=== PATIENT | female | born 1950 | race Caucasian/White ===

== ENCOUNTER 2022-12-25 19:00 | Inpatient (IN) ==
[2022-12-25] MEDS ORDERED: SODIUM CHLORIDE 0.9% 1,000 ML IV SCH (19:30)
--- NOTE | 2022-12-25 19:32 | Emergency Department Note ---
Impression & Plan COVID-19, Elevated troponin, Elevated CPK, Non-ST elevation (NSTEMI) myocardial infarction, Hypoxia, Fall from standing ED Provider Note NAME: ALEJANDRO COLLINS AGE: 72 SEX: F ARRIVES VIA: Ambulance INFORMANT: Patient ED PROVIDER(S): Sharif Goldman MD CHIEF COMPLAINT: Weakness, fall PLAN: Disposition: Admit MEDICAL DECISION MAKING: The patient is a pleasant 72-year-old woman with a past medical history of GERD, hypertension, hyperlipidemia, hypothyroidism, type 2 diabetes on insulin who presents emergency department for evaluation of generalized weakness with fall that occurred prior to arrival when the patient was feeling nauseated and needed to vomit in the bathroom and was leaning against a freestanding tub which she thought her was going to support but did not and it fell over causing her to fall to the ground onto her buttocks. She denies hitting her head or losing consciousness. She reports she attempted to get up using her knees on the rug but due to to pain from her chronically bad knees was unable to and so EMS was called. She initially did not want to come to the hospital but due to her inability to get up and ambulate agreed to come. She reports she has been dealing with mild cough and congestion with nausea, vomiting and diarrhea for the past several days. She reports she was unable to get up for approximately 2 hours before EMS arrived. She denies chest pain, shortness of breath, abdominal pain. She reports that she has been having at least a couple episodes of diarrhea a day. On my evaluation the patient is uncomfortable, but no acute distress, afebrile heart in the 110s and blood pressure 170/90s and vital signs otherwise stable. O2 saturations 98% on room air. She appears clinically dry. She has no focal neurologic deficits. Head is atraumatic. She has no CTL spine tenderness palpation or step-offs. EKG without overt acute ischemia. CXR negative for acute cardiopulmonary process per my personal preliminary review/interpretation. WBC 11.1k with neutrophil predominance and mild lymphopenia with no left shift, nonspecific. H/H and platelets within normal limits. B chemistry without significant metabolic acidosis. Phosphorus 2.3 and electrolytes otherwise without significant abnormality. AST is 40, nonspecific and LFTs otherwise normal. CPK is 1180 in the setting of being down for 2 hours after a minor fall. Initial high-sensitivity troponin 340 with delta 2.5-hour high- sensitivity troponin 1100. UA demonstrates 1+ ketones without convincing evidence of infection as there are no WBCs but bacteria in the setting of epithelial cells. Respiratory BioFire was positive for COVID-19. CTA chest was performed and was negative for pulmonary embolism. Note is made of patchy nodular airspace infiltrates in left lower lobe suspicious for pneumonia with associated mild bronchial wall thickening consistent with bronchitis. Additional note is made of severe coronary calcifications. CT of the and pelvis was negative for acute intra-abdominal process. Patient was noted to have developed mild hypoxia to 89% on room air and so placed on nasal cannula. Given COVID-19 with suspicion for COVID-19 pneumonia treatment initiated with Decadron. She was additionally provided with albuterol MDI and guaifenesin. The patient's EKG does not show evidence of overt acute ischemia and patient denies chest pain however given the patient's rising troponin in the setting of note of severe coronary artery calcification concern for NSTEMI. Findings were discussed with the patient and she does agree with plan for admission for further management. She denies any recent or prior history of GI bleeding or bleeding otherwise and so we will proceed with treatment with heparin for NSTEMI. Full dose aspirin provided. Blood cultures obtained and lactate and procalcitonin are pending. [facility] the [facility] for [facility]. Further management per admitting team. Triage Nursing notes reviewed and agree them. Prior/external medical records reviewed Vital Signs: reviewed Differential diagnosis: Infection, dehydration, metabolic abnormality, hypo/hyperglycemia, electrolyte disturbance, anemia, hypoxia, cardiac sources, intracerebral event, toxicologic, neurologic, as well as other pathologies. ER treatment provided: See below. Diagnostics interpreted by me: ECG: Sinus tachycardia, 112 bpm, no ectopy, nonspecific ST abnormality, no overt ST elevation or depression, QTc 428, QRS 82. Cardiac Monitoring: An order for continuous cardiac monitoring was placed and demonstrated Sinus tachycardia, 112 bpm, no ectopy. Laboratory studies: See below Imaging studies: See below Consultation(s): Case was discussed with [facility] who will evaluate the patient for admission. HPI: The patient is a pleasant 72-year-old woman with a past medical history of GERD, hypertension, hyperlipidemia, hypothyroidism, type 2 diabetes on insulin who presents emergency department for evaluation of generalized weakness with fall that occurred prior to arrival when the patient was feeling nauseated and needed to vomit in the bathroom and was leaning against a freestanding tub which she thought her was going to support but did not and it fell over causing her to fall to the ground onto her buttocks. She denies hitting her head or losing consciousness. She reports she attempted to get up using her knees on the rug but due to to pain from her chronically bad knees was unable to and so EMS was called. She initially did not want to come to the hospital but due to her inability to get up and ambulate agreed to come. She reports she has been dealing with mild cough and congestion with nausea, vomiting and diarrhea for the past several days. She reports she was unable to get up for approximately 2 hours before EMS arrived. She denies chest pain, shortness of breath, abdominal pain. She reports that she has been having at least a couple episodes of diarrhea a day. ROS: See above HPI for pertinent positives & negatives. A total of 10 systems reviewed and were otherwise negative. VITALS:See Below PHYSICAL EXAMINATION: GENERAL: Awake, alert, uncomfortable-appearing, in no distress, BMI 51.4. HENT: Normocephalic, atraumatic. Boggy nasal turbinates. Oropharynx with dry mucous membranes and mild injection of the posterior pharynx without edema, exudates, tongue elevation or trismus and otherwise unremarkable. EYES: Normal conjunctiva. Sclera non-icteric. EOMI. No nystamgus. PEARRL. NECK: Supple. No nuchal rigidity. FROM. No JVD. RESPIRATORY: Clear to auscultation. CARDIAC: Tachycardic rate, normal rhythm. Extremities warm and well perfused. Pulses equal. ABDOMEN: Soft, non-distended. No tenderness to palpation. No rebound or guarding. No masses. RECTAL: Deferred. MUSCULOSKELETAL: Chest examination reveals no tenderness. The back is symmetrical on inspection without obvious abnormality. No midline CTL spine tenderness palpation or step-offs. There is no CVA tenderness to palpation. No joint edema though there are minor abrasions of bilateral knees from her attempts to stand up. LOWER EXTREMITIES: Calves are equal size bilaterally and non-tender. No edema. No discoloration. NEURO: No focal sensory or motor deficits noted. 5/5 strength and SILT x 4 extremities. SKIN: No rash or jaundice noted. ED COURSE: Critical Care: I have personally spent greater than 35 minutes of critical care time in the direct management of this patient. This includes bedside care, interpretation of diagnostic studies, and testing, discussion with consultants, patient, and family members, and other required patient management activities. This 35 minutes is in excess of all separately billable procedures. Sharif Goldman MD Past Med/Surg History Medical History Hypothyroidism Osteoarthritis, knee Arthritis Hypertension Type 2 diabetes mellitus Family History Other No significant family history Social History Smoking Status: Never smoker Preferred Language: Frisian Feels Safe at Home: Yes Allergies Allergies Allergy/AdvReac Type Severity Reaction Status Date / Time No Known Allergies Allergy Unknown Verified 12/26/22 00:03 Home Meds Home Medications Medication Instructions Recorded Confirmed gabapentin 100 mg capsule 100 mg PO BID 02/15/18 12/25/22 gabapentin 100 mg capsule 200 mg PO HS 02/15/18 12/25/22 insulin glargine 100 unit/mL 50 unit subcut QAM 02/15/18 12/25/22 subcutaneous solution (Lantus U-100 Insulin) levothyroxine 75 mcg tablet 75 mcg PO DAILYBB 02/15/18 12/25/22 simvastatin 20 mg tablet 20 mg PO HS 02/15/18 12/25/22 tramadol 50 mg tablet 50 mg PO Q6H PRN Pain,severe 02/15/18 12/26/22 furosemide 20 mg tablet 20 mg PO [id number] 12/25/22 12/25/22 omeprazole 20 mg capsule,delayed 20 mg PO DAILYBB 12/25/22 12/25/22 release cholecalciferol (vitamin D3) 50 50 mcg PO DAILY 12/26/22 12/26/22 mcg (2,000 unit) tablet (Vitamin D3) dulaglutide 1.5 mg/0.5 mL 1.5 mg subcut WK 12/26/22 12/26/22 subcutaneous pen injector (Trulicity) enalapril maleate 20 mg tablet 20 mg PO QAM 12/26/22 12/26/22 insulin regular human 100 unit/mL 5 - 24 unit subcut ACHS PRN 12/26/22 12/26/22 injection solution (Novolin R sliding scale Regular U-100 Insulin) Results & Data (ED) Vital Signs Vital Signs - 24 hr 12/25/22 19:13 12/25/22 21:30 12/25/22 22:56 Temperature 37.2 C Temperature Source Oral Pulse Rate 111 H 103 H Pulse Rate [Apical] Pulse Rate [Finger] 100 H Pulse Rate from SpO2 Sensor 103 H Respiratory Rate 16 18 20 Respiratory Effort / Characteristics Non-Labored Respiratory Depth Normal Blood Pressure 170/92 H Blood Pressure [Right Arm] 112/71 Blood Pressure Mean 118 Blood Pressure Mean [Right Arm] 84 Pulse Oximetry 98 93 93 Oxygen Delivery Method Room Air Room Air Room Air Oxygen Flow Rate Sepsis Recent Fever Within 48 Hours No Sepsis New/Unexplained Change in Mental Status No Sepsis Action Taken by Nursing No Action Required Oxygen Flow Rate - Titration Pulse Oximetry Post Tiitration 12/25/22 22:56 12/25/22 23:23 12/25/22 23:24 Temperature Temperature Source Pulse Rate 104 H Pulse Rate [Apical] 109 H Pulse Rate [Finger] Pulse Rate from SpO2 Sensor Respiratory Rate 18 Respiratory Effort / Characteristics Respiratory Depth Blood Pressure Blood Pressure [Right Arm] Blood Pressure Mean Blood Pressure Mean [Right Arm] Pulse Oximetry 89 L Oxygen Delivery Method Room Air Oxygen Flow Rate Sepsis Recent Fever Within 48 Hours Sepsis New/Unexplained Change in Mental Status Sepsis Action Taken by Nursing Oxygen Flow Rate - Titration 2 Pulse Oximetry Post Tiitration 96 12/25/22 23:38 Temperature Temperature Source Pulse Rate Pulse Rate [Apical] Pulse Rate [Finger] Pulse Rate from SpO2 Sensor Respiratory Rate Respiratory Effort / Characteristics Respiratory Depth Blood Pressure Blood Pressure [Right Arm] Blood Pressure Mean Blood Pressure Mean [Right Arm] Pulse Oximetry 98 Oxygen Delivery Method Nasal Cannula Oxygen Flow Rate 2 Sepsis Recent Fever Within 48 Hours Sepsis New/Unexplained Change in Mental Status Sepsis Action Taken by Nursing Oxygen Flow Rate - Titration Pulse Oximetry Post Tiitration Laboratory Data Attestation: I reviewed the patient's lab results. 12/25/22 19:51 12/25/22 19:51 Lab Results 12/25/22 12/25/22 12/25/22 Range/Units 19:51 19:51 19:51 WBC Cancelled 11.18 H RBC Cancelled 4.59 Hgb Cancelled POC Hgb (12.0-16.0) g/dl Hct POC Hct (37-47) % MCV MCH MCHC RDW Std Deviation RDW Coeff of Elli Plt Count MPV Immature Gran % (Auto) Neut % (Auto) Lymph % (Auto) [place] % (Auto) Eos % (Auto) Baso % (Auto) Neut # (Auto) Lymph # (Auto) [place] # (Auto) Eos # (Auto) Baso # (Auto) Immature Gran # (Auto) Absolute Nucleated RBC Nucleated RBC % (auto) Neutrophils % (Manual) Band Neutrophils % Lymphocytes % (Manual) Prolymphocyte % Reactive Lymphs % (Man) Monocytes % (Manual) Eosinophils % (Manual) Basophils % (Manual) Metamyelocytes % (Man) Myelocytes % (Man) Promyelocytes % (Man) Blast Cells % (Manual) Plasma Cell % (Manual) Other Cells % Nucleated RBC % Neutrophils # (Manual) Band Neutrophils # Total Absolute Neuts Lymphocytes # (Manual) Prolymphocyte # Reactive Lymphs # Total Abs Lymphocytes Monocytes # (Manual) Eosinophils # (Manual) Basophils # (Manual) Metamyelocytes # (Man) Myelocytes # (Manual) Promyelocytes # (Man) Blast Cells # (Man) Plasma Cell # (Manual) Other Cells # Nucleated RBCs # (Man) Hypersegmented Neuts Hyposegmented Neuts Hypogranular Neuts Large Granular Lymphs # Lrg Granular Lymphs Hairy Cells Smudge Cells Toxic Granulation Toxic Vacuolation Dohle Bodies Santhosh Rods Platelet Estimate Hypogranular Platelets Giant Platelets Platelet Satelliting RBC Morphology Polychromasia Hypochromasia Poikilocytosis Basophilic Stippling Anisocytosis Microcytosis Macrocytosis Spherocytes Pappenheimer Bodies Sickle Cells Target Cells Tear Drop Cells Ovalocytes Stomatocytes [place] Bodies Echinocytes Acanthocytes (Spur) Rouleaux RBC Agglutinates Schistocytes Sezary Cell PT (9.0-12.0) Seconds INR (0.9-1.1) POC Sodium (135-144) mmol/L Sodium POC Potassium (3.3-5.0) mmol/L Potassium POC Chloride (101-112) mmol/L Chloride Carbon Dioxide POC Total CO2 (24-31) mmol/L Anion Gap POC Anion Gap (16-25) mmol/L POC BUN (7-18) mg/dl BUN Creatinine POC Creatinine (0.6-1.3) mg/dl Est Cr Clr Drug Dosing Est GFR ( Amer) Est GFR (Non-Af Amer) BUN/Creatinine Ratio Glucose POC Glucose (other) (70-99) mg/dl Lactate (0.4-2.0) mmol/L Calcium POC Ioniz Calcium Fatou (1.12-1.32) mmol/l Phosphorus Magnesium Total Bilirubin AST ALT Alkaline Phosphatase Total Creatine Kinase Troponin I High Sens Total Protein Albumin Globulin Albumin/Globulin Ratio Lipase TSH Urine Color Urine Appearance (Clear) Urine pH (4.5-7.5) Ur Specific [place] (1.000-1.030) Urine Protein (Negative) Urine Glucose (UA) (Negative) Urine Ketones (Negative) Urine Blood (Negative) Urine Nitrite (Negative) Urine Bilirubin (Negative) Urine Urobilinogen (Negative) Ur Leukocyte Esterase (Negative) Urine WBC (Auto) (0-5) /hpf Urine RBC (Auto) (0-4) /hpf U Hyaline Cast (Auto) (0-5) /lpf U Epithel Cells (Auto) (0-5) /lpf Urine Bacteria (Auto) (Negative) Urine Yeast Adenovirus (PCR) (NotDetected) B. pertussis DNA (PCR) (NotDetected) B.parapertussis DNA PCR (NotDetected) C. pneumoniae DNA (PCR) (NotDetected) Coronavirus OC43 (PCR) (NotDetected) Coronavirus HKU1 (PCR) (NotDetected) Coronavirus 229E (PCR) (NotDetected) SARS-CoV-2 (PCR) (NotDetected) Coronavirus NL63 (PCR) (NotDetected) Human Metapneumovir PCR (NotDetected) Influenza Type A (PCR) (NotDetected) Influenza Type B (PCR) (NotDetected) M. pneumoniae (PCR) (NotDetected) Parainfluenza 1 (PCR) (NotDetected) Parainfluenza 2 (PCR) (NotDetected) Parainfluenza 3 (PCR) (NotDetected) Parainfluenza 4 (PCR) (NotDetected) RSV (PCR) (NotDetected) Entero/Rhino (PCR) (NotDetected) Blood Parasites ID 12/25/22 12/25/22 12/25/22 Range/Units 19:51 19:51 19:51 WBC RBC Hgb 13.0 POC Hgb (12.0-16.0) g/dl Hct Cancelled 38.8 POC Hct (37-47) % MCV Cancelled 84.5 MCH Cancelled MCHC RDW Std Deviation RDW Coeff of Elli Plt Count MPV Immature Gran % (Auto) Neut % (Auto) Lymph % (Auto) [place] % (Auto) Eos % (Auto) Baso % (Auto) Neut # (Auto) Lymph # (Auto) [place] # (Auto) Eos # (Auto) Baso # (Auto) Immature Gran # (Auto) Absolute Nucleated RBC Nucleated RBC % (auto) Neutrophils % (Manual) Band Neutrophils % Lymphocytes % (Manual) Prolymphocyte % Reactive Lymphs % (Man) Monocytes % (Manual) Eosinophils % (Manual) Basophils % (Manual) Metamyelocytes % (Man) Myelocytes % (Man) Promyelocytes % (Man) Blast Cells % (Manual) Plasma Cell % (Manual) Other Cells % Nucleated RBC % Neutrophils # (Manual) Band Neutrophils # Total Absolute Neuts Lymphocytes # (Manual) Prolymphocyte # Reactive Lymphs # Total Abs Lymphocytes Monocytes # (Manual) Eosinophils # (Manual) Basophils # (Manual) Metamyelocytes # (Man) Myelocytes # (Manual) Promyelocytes # (Man) Blast Cells # (Man) Plasma Cell # (Manual) Other Cells # Nucleated RBCs # (Man) Hypersegmented Neuts Hyposegmented Neuts Hypogranular Neuts Large Granular Lymphs # Lrg Granular Lymphs Hairy Cells Smudge Cells Toxic Granulation Toxic Vacuolation Dohle Bodies Santhosh Rods Platelet Estimate Hypogranular Platelets Giant Platelets Platelet Satelliting RBC Morphology Polychromasia Hypochromasia Poikilocytosis Basophilic Stippling Anisocytosis Microcytosis Macrocytosis Spherocytes Pappenheimer Bodies Sickle Cells Target Cells Tear Drop Cells Ovalocytes Stomatocytes [place] Bodies Echinocytes Acanthocytes (Spur) Rouleaux RBC Agglutinates Schistocytes [place] Cell PT (9.0-12.0) Seconds INR (0.9-1.1) POC Sodium (135-144) mmol/L Sodium POC Potassium (3.3-5.0) mmol/L Potassium POC Chloride (101-112) mmol/L Chloride Carbon Dioxide POC Total CO2 (24-31) mmol/L Anion Gap POC Anion Gap (16-25) mmol/L POC BUN (7-18) mg/dl BUN Creatinine POC Creatinine (0.6-1.3) mg/dl Est Cr Clr Drug Dosing Est GFR ( Amer) Est GFR (Non-Af Amer) BUN/Creatinine Ratio Glucose POC Glucose (other) (70-99) mg/dl Lactate (0.4-2.0) mmol/L Calcium POC Ioniz Calcium Fatou (1.12-1.32) mmol/l Phosphorus Magnesium Total Bilirubin AST ALT Alkaline Phosphatase Total Creatine Kinase Troponin I High Sens Total Protein Albumin Globulin Albumin/Globulin Ratio Lipase TSH Urine Color Urine Appearance (Clear) Urine pH (4.5-7.5) Ur Specific [place] (1.000-1.030) Urine Protein (Negative) Urine Glucose (UA) (Negative) Urine Ketones (Negative) Urine Blood (Negative) Urine Nitrite (Negative) Urine Bilirubin (Negative) Urine Urobilinogen (Negative) Ur Leukocyte Esterase (Negative) Urine WBC (Auto) (0-5) /hpf Urine RBC (Auto) (0-4) /hpf U Hyaline Cast (Auto) (0-5) /lpf U Epithel Cells (Auto) (0-5) /lpf Urine Bacteria (Auto) (Negative) Urine Yeast Adenovirus (PCR) (NotDetected) B. pertussis DNA (PCR) (NotDetected) B.parapertussis DNA PCR (NotDetected) C. pneumoniae DNA (PCR) (NotDetected) Coronavirus OC43 (PCR) (NotDetected) Coronavirus HKU1 (PCR) (NotDetected) Coronavirus 229E (PCR) (NotDetected) SARS-CoV-2 (PCR) (NotDetected) Coronavirus NL63 (PCR) (NotDetected) Human Metapneumovir PCR (NotDetected) Influenza Type A (PCR) (NotDetected) Influenza Type B (PCR) (NotDetected) M. pneumoniae (PCR) (NotDetected) Parainfluenza 1 (PCR) (NotDetected) Parainfluenza 2 (PCR) (NotDetected) Parainfluenza 3 (PCR) (NotDetected) Parainfluenza 4 (PCR) (NotDetected) RSV (PCR) (NotDetected) Entero/Rhino (PCR) (NotDetected) Blood Parasites ID 12/25/22 12/25/22 12/25/22 Range/Units 19:51 19:51 19:51 WBC RBC Hgb POC Hgb (12.0-16.0) g/dl Hct POC Hct (37-47) % MCV MCH 28.3 MCHC Cancelled 33.5 RDW Std Deviation Cancelled 38.7 RDW Coeff of Elli Cancelled Plt Count MPV Immature Gran % (Auto) Neut % (Auto) Lymph % (Auto) [place] % (Auto) Eos % (Auto) Baso % (Auto) Neut # (Auto) Lymph # (Auto) [place] # (Auto) Eos # (Auto) Baso # (Auto) Immature Gran # (Auto) Absolute Nucleated RBC Nucleated RBC % (auto) Neutrophils % (Manual) Band Neutrophils % Lymphocytes % (Manual) Prolymphocyte % Reactive Lymphs % (Man) Monocytes % (Manual) Eosinophils % (Manual) Basophils % (Manual) Metamyelocytes % (Man) Myelocytes % (Man) Promyelocytes % (Man) Blast Cells % (Manual) Plasma Cell % (Manual) Other Cells % Nucleated RBC % Neutrophils # (Manual) Band Neutrophils # Total Absolute Neuts Lymphocytes # (Manual) Prolymphocyte # Reactive Lymphs # Total Abs Lymphocytes Monocytes # (Manual) Eosinophils # (Manual) Basophils # (Manual) Metamyelocytes # (Man) Myelocytes # (Manual) Promyelocytes # (Man) Blast Cells # (Man) Plasma Cell # (Manual) Other Cells # Nucleated RBCs # (Man) Hypersegmented Neuts Hyposegmented Neuts Hypogranular Neuts Large Granular Lymphs # Lrg Granular Lymphs Hairy Cells Smudge Cells Toxic Granulation Toxic Vacuolation Dohle Bodies Santhosh Rods Platelet Estimate Hypogranular Platelets Giant Platelets Platelet Satelliting RBC Morphology Polychromasia Hypochromasia Poikilocytosis Basophilic Stippling Anisocytosis Microcytosis Macrocytosis Spherocytes Pappenheimer Bodies Sickle Cells Target Cells Tear Drop Cells Ovalocytes Stomatocytes [place] Bodies Echinocytes Acanthocytes (Spur) Rouleaux RBC Agglutinates Schistocytes [place]zary Cell PT (9.0-12.0) Seconds INR (0.9-1.1) POC Sodium (135-144) mmol/L Sodium POC Potassium (3.3-5.0) mmol/L Potassium POC Chloride (101-112) mmol/L Chloride Carbon Dioxide POC Total CO2 (24-31) mmol/L Anion Gap POC Anion Gap (16-25) mmol/L POC BUN (7-18) mg/dl BUN Creatinine POC Creatinine (0.6-1.3) mg/dl Est Cr Clr Drug Dosing Est GFR ( Amer) Est GFR (Non-Af Amer) BUN/Creatinine Ratio Glucose POC Glucose (other) (70-99) mg/dl Lactate (0.4-2.0) mmol/L Calcium POC Ioniz Calcium Fatou (1.12-1.32) mmol/l Phosphorus Magnesium Total Bilirubin AST ALT Alkaline Phosphatase Total Creatine Kinase Troponin I High Sens Total Protein Albumin Globulin Albumin/Globulin Ratio Lipase TSH Urine Color Urine Appearance (Clear) Urine pH (4.5-7.5) Ur Specific [place] (1.000-1.030) Urine Protein (Negative) Urine Glucose (UA) (Negative) Urine Ketones (Negative) Urine Blood (Negative) Urine Nitrite (Negative) Urine Bilirubin (Negative) Urine Urobilinogen (Negative) Ur Leukocyte Esterase (Negative) Urine WBC (Auto) (0-5) /hpf Urine RBC (Auto) (0-4) /hpf U Hyaline Cast (Auto) (0-5) /lpf U Epithel Cells (Auto) (0-5) /lpf Urine Bacteria (Auto) (Negative) Urine Yeast Adenovirus (PCR) (NotDetected) B. pertussis DNA (PCR) (NotDetected) B.parapertussis DNA PCR (NotDetected) C. pneumoniae DNA (PCR) (NotDetected) Coronavirus OC43 (PCR) (NotDetected) Coronavirus HKU1 (PCR) (NotDetected) Coronavirus 229E (PCR) (NotDetected) SARS-CoV-2 (PCR) (NotDetected) Coronavirus NL63 (PCR) (NotDetected) Human Metapneumovir PCR (NotDetected) Influenza Type A (PCR) (NotDetected) Influenza Type B (PCR) (NotDetected) M. pneumoniae (PCR) (NotDetected) Parainfluenza 1 (PCR) (NotDetected) Parainfluenza 2 (PCR) (NotDetected) Parainfluenza 3 (PCR) (NotDetected) Parainfluenza 4 (PCR) (NotDetected) RSV (PCR) (NotDetected) Entero/Rhino (PCR) (NotDetected) Blood Parasites ID 12/25/22 12/25/22 12/25/22 Range/Units 19:51 19:51 19:51 WBC RBC Hgb POC Hgb (12.0-16.0) g/dl Hct POC Hct (37-47) % MCV MCH MCHC RDW Std Deviation RDW Coeff of Elli 12.8 Plt Count Cancelled 169 MPV Cancelled 10.4 Immature Gran % (Auto) Cancelled Neut % (Auto) Lymph % (Auto) [place] % (Auto) Eos % (Auto) Baso % (Auto) Neut # (Auto) Lymph # (Auto) [place] # (Auto) Eos # (Auto) Baso # (Auto) Immature Gran # (Auto) Absolute Nucleated RBC Nucleated RBC % (auto) Neutrophils % (Manual) Band Neutrophils % Lymphocytes % (Manual) Prolymphocyte % Reactive Lymphs % (Man) Monocytes % (Manual) Eosinophils % (Manual) Basophils % (Manual) Metamyelocytes % (Man) Myelocytes % (Man) Promyelocytes % (Man) Blast Cells % (Manual) Plasma Cell % (Manual) Other Cells % Nucleated RBC % Neutrophils # (Manual) Band Neutrophils # Total Absolute Neuts Lymphocytes # (Manual) Prolymphocyte # Reactive Lymphs # Total Abs Lymphocytes Monocytes # (Manual) Eosinophils # (Manual) Basophils # (Manual) Metamyelocytes # (Man) Myelocytes # (Manual) Promyelocytes # (Man) Blast Cells # (Man) Plasma Cell # (Manual) Other Cells # Nucleated RBCs # (Man) Hypersegmented Neuts Hyposegmented Neuts Hypogranular Neuts Large Granular Lymphs # Lrg Granular Lymphs Hairy Cells Smudge Cells Toxic Granulation Toxic Vacuolation Dohle Bodies Santhosh Rods Platelet Estimate Hypogranular Platelets Giant Platelets Platelet Satelliting RBC Morphology Polychromasia Hypochromasia Poikilocytosis Basophilic Stippling Anisocytosis Microcytosis Macrocytosis Spherocytes Pappenheimer Bodies Sickle Cells Target Cells Tear Drop Cells Ovalocytes Stomatocytes [place] Bodies Echinocytes Acanthocytes (Spur) Rouleaux RBC Agglutinates Schistocytes [place]zary Cell PT (9.0-12.0) Seconds INR (0.9-1.1) POC Sodium (135-144) mmol/L Sodium POC Potassium (3.3-5.0) mmol/L Potassium POC Chloride (101-112) mmol/L Chloride Carbon Dioxide POC Total CO2 (24-31) mmol/L Anion Gap POC Anion Gap (16-25) mmol/L POC BUN (7-18) mg/dl BUN Creatinine POC Creatinine (0.6-1.3) mg/dl Est Cr Clr Drug Dosing Est GFR ( Amer) Est GFR (Non-Af Amer) BUN/Creatinine Ratio Glucose POC Glucose (other) (70-99) mg/dl Lactate (0.4-2.0) mmol/L Calcium POC Ioniz Calcium Fatou (1.12-1.32) mmol/l Phosphorus Magnesium Total Bilirubin AST ALT Alkaline Phosphatase Total Creatine Kinase Troponin I High Sens Total Protein Albumin Globulin Albumin/Globulin Ratio Lipase TSH Urine Color Urine Appearance (Clear) Urine pH (4.5-7.5) Ur Specific [place] (1.000-1.030) Urine Protein (Negative) Urine Glucose (UA) (Negative) Urine Ketones (Negative) Urine Blood (Negative) Urine Nitrite (Negative) Urine Bilirubin (Negative) Urine Urobilinogen (Negative) Ur Leukocyte Esterase (Negative) Urine WBC (Auto) (0-5) /hpf Urine RBC (Auto) (0-4) /hpf U Hyaline Cast (Auto) (0-5) /lpf U Epithel Cells (Auto) (0-5) /lpf Urine Bacteria (Auto) (Negative) Urine Yeast Adenovirus (PCR) (NotDetected) B. pertussis DNA (PCR) (NotDetected) B.parapertussis DNA PCR (NotDetected) C. pneumoniae DNA (PCR) (NotDetected) Coronavirus OC43 (PCR) (NotDetected) Coronavirus HKU1 (PCR) (NotDetected) Coronavirus 229E (PCR) (NotDetected) SARS-CoV-2 (PCR) (NotDetected) Coronavirus NL63 (PCR) (NotDetected) Human Metapneumovir PCR (NotDetected) Influenza Type A (PCR) (NotDetected) Influenza Type B (PCR) (NotDetected) M. pneumoniae (PCR) (NotDetected) Parainfluenza 1 (PCR) (NotDetected) Parainfluenza 2 (PCR) (NotDetected) Parainfluenza 3 (PCR) (NotDetected) Parainfluenza 4 (PCR) (NotDetected) RSV (PCR) (NotDetected) Entero/Rhino (PCR) (NotDetected) Blood Parasites ID 12/25/22 12/25/22 12/25/22 Range/Units 19:51 19:51 19:51 WBC RBC Hgb POC Hgb (12.0-16.0) g/dl Hct POC Hct (37-47) % MCV MCH MCHC RDW Std Deviation RDW Coeff of Elli Plt Count MPV Immature Gran % (Auto) 0.4 Neut % (Auto) Cancelled 84.0 Lymph % (Auto) Cancelled 5.6 [place] % (Auto) Cancelled Eos % (Auto) Baso % (Auto) Neut # (Auto) Lymph # (Auto) [place] # (Auto) Eos # (Auto) Baso # (Auto) Immature Gran # (Auto) Absolute Nucleated RBC Nucleated RBC % (auto) Neutrophils % (Manual) Band Neutrophils % Lymphocytes % (Manual) Prolymphocyte % Reactive Lymphs % (Man) Monocytes % (Manual) Eosinophils % (Manual) Basophils % (Manual) Metamyelocytes % (Man) Myelocytes % (Man) Promyelocytes % (Man) Blast Cells % (Manual) Plasma Cell % (Manual) Other Cells % Nucleated RBC % Neutrophils # (Manual) Band Neutrophils # Total Absolute Neuts Lymphocytes # (Manual) Prolymphocyte # Reactive Lymphs # Total Abs Lymphocytes Monocytes # (Manual) Eosinophils # (Manual) Basophils # (Manual) Metamyelocytes # (Man) Myelocytes # (Manual) Promyelocytes # (Man) Blast Cells # (Man) Plasma Cell # (Manual) Other Cells # Nucleated RBCs # (Man) Hypersegmented Neuts Hyposegmented Neuts Hypogranular Neuts Large Granular Lymphs # Lrg Granular Lymphs Hairy Cells Smudge Cells Toxic Granulation Toxic Vacuolation Dohle Bodies Santhosh Rods Platelet Estimate Hypogranular Platelets Giant Platelets Platelet Satelliting RBC Morphology Polychromasia Hypochromasia Poikilocytosis Basophilic Stippling Anisocytosis Microcytosis Macrocytosis Spherocytes Pappenheimer Bodies Sickle Cells Target Cells Tear Drop Cells Ovalocytes Stomatocytes [place] Bodies Echinocytes Acanthocytes (Spur) Rouleaux RBC Agglutinates Schistocytes Sezary Cell PT (9.0-12.0) Seconds INR (0.9-1.1) POC Sodium (135-144) mmol/L Sodium POC Potassium (3.3-5.0) mmol/L Potassium POC Chloride (101-112) mmol/L Chloride Carbon Dioxide POC Total CO2 (24-31) mmol/L Anion Gap POC Anion Gap (16-25) mmol/L POC BUN (7-18) mg/dl BUN Creatinine POC Creatinine (0.6-1.3) mg/dl Est Cr Clr Drug Dosing Est GFR ( Amer) Est GFR (Non-Af Amer) BUN/Creatinine Ratio Glucose POC Glucose (other) (70-99) mg/dl Lactate (0.4-2.0) mmol/L Calcium POC Ioniz Calcium Fatou (1.12-1.32) mmol/l Phosphorus Magnesium Total Bilirubin AST ALT Alkaline Phosphatase Total Creatine Kinase Troponin I High Sens Total Protein Albumin Globulin Albumin/Globulin Ratio Lipase TSH Urine Color Urine Appearance (Clear) Urine pH (4.5-7.5) Ur Specific [place] (1.000-1.030) Urine Protein (Negative) Urine Glucose (UA) (Negative) Urine Ketones (Negative) Urine Blood (Negative) Urine Nitrite (Negative) Urine Bilirubin (Negative) Urine Urobilinogen (Negative) Ur Leukocyte Esterase (Negative) Urine WBC (Auto) (0-5) /hpf Urine RBC (Auto) (0-4) /hpf U Hyaline Cast (Auto) (0-5) /lpf U Epithel Cells (Auto) (0-5) /lpf Urine Bacteria (Auto) (Negative) Urine Yeast Adenovirus (PCR) (NotDetected) B. pertussis DNA (PCR) (NotDetected) B.parapertussis DNA PCR (NotDetected) C. pneumoniae DNA (PCR) (NotDetected) Coronavirus OC43 (PCR) (NotDetected) Coronavirus HKU1 (PCR) (NotDetected) Coronavirus 229E (PCR) (NotDetected) SARS-CoV-2 (PCR) (NotDetected) Coronavirus NL63 (PCR) (NotDetected) Human Metapneumovir PCR (NotDetected) Influenza Type A (PCR) (NotDetected) Influenza Type B (PCR) (NotDetected) M. pneumoniae (PCR) (NotDetected) Parainfluenza 1 (PCR) (NotDetected) Parainfluenza 2 (PCR) (NotDetected) Parainfluenza 3 (PCR) (NotDetected) Parainfluenza 4 (PCR) (NotDetected) RSV (PCR) (NotDetected) Entero/Rhino (PCR) (NotDetected) Blood Parasites ID 12/25/22 12/25/22 12/25/22 Range/Units 19:51 19:51 19:51 WBC RBC Hgb POC Hgb (12.0-16.0) g/dl Hct POC Hct (37-47) % MCV MCH MCHC RDW Std Deviation RDW Coeff of Elli Plt Count MPV Immature Gran % (Auto) Neut % (Auto) Lymph % (Auto) [place] % (Auto) 9.7 Eos % (Auto) Cancelled 0.0 Baso % (Auto) Cancelled 0.3 Neut # (Auto) Cancelled Lymph # (Auto) [place] # (Auto) Eos # (Auto) Baso # (Auto) Immature Gran # (Auto) Absolute Nucleated RBC Nucleated RBC % (auto) Neutrophils % (Manual) Band Neutrophils % Lymphocytes % (Manual) Prolymphocyte % Reactive Lymphs % (Man) Monocytes % (Manual) Eosinophils % (Manual) Basophils % (Manual) Metamyelocytes % (Man) Myelocytes % (Man) Promyelocytes % (Man) Blast Cells % (Manual) Plasma Cell % (Manual) Other Cells % Nucleated RBC % Neutrophils # (Manual) Band Neutrophils # Total Absolute Neuts Lymphocytes # (Manual) Prolymphocyte # Reactive Lymphs # Total Abs Lymphocytes Monocytes # (Manual) Eosinophils # (Manual) Basophils # (Manual) Metamyelocytes # (Man) Myelocytes # (Manual) Promyelocytes # (Man) Blast Cells # (Man) Plasma Cell # (Manual) Other Cells # Nucleated RBCs # (Man) Hypersegmented Neuts Hyposegmented Neuts Hypogranular Neuts Large Granular Lymphs # Lrg Granular Lymphs Hairy Cells Smudge Cells Toxic Granulation Toxic Vacuolation Dohle Bodies Santhosh Rods Platelet Estimate Hypogranular Platelets Giant Platelets Platelet Satelliting RBC Morphology Polychromasia Hypochromasia Poikilocytosis Basophilic Stippling Anisocytosis Microcytosis Macrocytosis Spherocytes Pappenheimer Bodies Sickle Cells Target Cells Tear Drop Cells Ovalocytes Stomatocytes [place] Bodies Echinocytes Acanthocytes (Spur) Rouleaux RBC Agglutinates Schistocytes [place] Cell PT (9.0-12.0) Seconds INR (0.9-1.1) POC Sodium (135-144) mmol/L Sodium POC Potassium (3.3-5.0) mmol/L Potassium POC Chloride (101-112) mmol/L Chloride Carbon Dioxide POC Total CO2 (24-31) mmol/L Anion Gap POC Anion Gap (16-25) mmol/L POC BUN (7-18) mg/dl BUN Creatinine POC Creatinine (0.6-1.3) mg/dl Est Cr Clr Drug Dosing Est GFR ( Amer) Est GFR (Non-Af Amer) BUN/Creatinine Ratio Glucose POC Glucose (other) (70-99) mg/dl Lactate (0.4-2.0) mmol/L Calcium POC Ioniz Calcium Fatou (1.12-1.32) mmol/l Phosphorus Magnesium Total Bilirubin AST ALT Alkaline Phosphatase Total Creatine Kinase Troponin I High Sens Total Protein Albumin Globulin Albumin/Globulin Ratio Lipase TSH Urine Color Urine Appearance (Clear) Urine pH (4.5-7.5) Ur Specific [place] (1.000-1.030) Urine Protein (Negative) Urine Glucose (UA) (Negative) Urine Ketones (Negative) Urine Blood (Negative) Urine Nitrite (Negative) Urine Bilirubin (Negative) Urine Urobilinogen (Negative) Ur Leukocyte Esterase (Negative) Urine WBC (Auto) (0-5) /hpf Urine RBC (Auto) (0-4) /hpf U Hyaline Cast (Auto) (0-5) /lpf U Epithel Cells (Auto) (0-5) /lpf Urine Bacteria (Auto) (Negative) Urine Yeast Adenovirus (PCR) (NotDetected) B. pertussis DNA (PCR) (NotDetected) B.parapertussis DNA PCR (NotDetected) C. pneumoniae DNA (PCR) (NotDetected) Coronavirus OC43 (PCR) (NotDetected) Coronavirus HKU1 (PCR) (NotDetected) Coronavirus 229E (PCR) (NotDetected) SARS-CoV-2 (PCR) (NotDetected) Coronavirus NL63 (PCR) (NotDetected) Human Metapneumovir PCR (NotDetected) Influenza Type A (PCR) (NotDetected) Influenza Type B (PCR) (NotDetected) M. pneumoniae (PCR) (NotDetected) Parainfluenza 1 (PCR) (NotDetected) Parainfluenza 2 (PCR) (NotDetected) Parainfluenza 3 (PCR) (NotDetected) Parainfluenza 4 (PCR) (NotDetected) RSV (PCR) (NotDetected) Entero/Rhino (PCR) (NotDetected) Blood Parasites ID 12/25/22 12/25/22 12/25/22 Range/Units 19:51 19:51 19:51 WBC RBC Hgb POC Hgb (12.0-16.0) g/dl Hct POC Hct (37-47) % MCV MCH MCHC RDW Std Deviation RDW Coeff of Elli Plt Count MPV Immature Gran % (Auto) Neut % (Auto) Lymph % (Auto) [place] % (Auto) Eos % (Auto) Baso % (Auto) Neut # (Auto) 9.39 H Lymph # (Auto) Cancelled 0.63 L [place] # (Auto) Cancelled 1.08 H Eos # (Auto) Cancelled Baso # (Auto) Immature Gran # (Auto) Absolute Nucleated RBC Nucleated RBC % (auto) Neutrophils % (Manual) Band Neutrophils % Lymphocytes % (Manual) Prolymphocyte % Reactive Lymphs % (Man) Monocytes % (Manual) Eosinophils % (Manual) Basophils % (Manual) Metamyelocytes % (Man) Myelocytes % (Man) Promyelocytes % (Man) Blast Cells % (Manual) Plasma Cell % (Manual) Other Cells % Nucleated RBC % Neutrophils # (Manual) Band Neutrophils # Total Absolute Neuts Lymphocytes # (Manual) Prolymphocyte # Reactive Lymphs # Total Abs Lymphocytes Monocytes # (Manual) Eosinophils # (Manual) Basophils # (Manual) Metamyelocytes # (Man) Myelocytes # (Manual) Promyelocytes # (Man) Blast Cells # (Man) Plasma Cell # (Manual) Other Cells # Nucleated RBCs # (Man) Hypersegmented Neuts Hyposegmented Neuts Hypogranular Neuts Large Granular Lymphs # Lrg Granular Lymphs Hairy Cells Smudge Cells Toxic Granulation Toxic Vacuolation Dohle Bodies Santhosh Rods Platelet Estimate Hypogranular Platelets Giant Platelets Platelet Satelliting RBC Morphology Polychromasia Hypochromasia Poikilocytosis Basophilic Stippling Anisocytosis Microcytosis Macrocytosis Spherocytes Pappenheimer Bodies Sickle Cells Target Cells Tear Drop Cells Ovalocytes Stomatocytes [place] Bodies Echinocytes Acanthocytes (Spur) Rouleaux RBC Agglutinates Schistocytes Sezary Cell PT (9.0-12.0) Seconds INR (0.9-1.1) POC Sodium (135-144) mmol/L Sodium POC Potassium (3.3-5.0) mmol/L Potassium POC Chloride (101-112) mmol/L Chloride Carbon Dioxide POC Total CO2 (24-31) mmol/L Anion Gap POC Anion Gap (16-25) mmol/L POC BUN (7-18) mg/dl BUN Creatinine POC Creatinine (0.6-1.3) mg/dl Est Cr Clr Drug Dosing Est GFR ( Amer) Est GFR (Non-Af Amer) BUN/Creatinine Ratio Glucose POC Glucose (other) (70-99) mg/dl Lactate (0.4-2.0) mmol/L Calcium POC Ioniz Calcium Fatou (1.12-1.32) mmol/l Phosphorus Magnesium Total Bilirubin AST ALT Alkaline Phosphatase Total Creatine Kinase Troponin I High Sens Total Protein Albumin Globulin Albumin/Globulin Ratio Lipase TSH Urine Color Urine Appearance (Clear) Urine pH (4.5-7.5) Ur Specific [place] (1.000-1.030) Urine Protein (Negative) Urine Glucose (UA) (Negative) Urine Ketones (Negative) Urine Blood (Negative) Urine Nitrite (Negative) Urine Bilirubin (Negative) Urine Urobilinogen (Negative) Ur Leukocyte Esterase (Negative) Urine WBC (Auto) (0-5) /hpf Urine RBC (Auto) (0-4) /hpf U Hyaline Cast (Auto) (0-5) /lpf U Epithel Cells (Auto) (0-5) /lpf Urine Bacteria (Auto) (Negative) Urine Yeast Adenovirus (PCR) (NotDetected) B. pertussis DNA (PCR) (NotDetected) B.parapertussis DNA PCR (NotDetected) C. pneumoniae DNA (PCR) (NotDetected) Coronavirus OC43 (PCR) (NotDetected) Coronavirus HKU1 (PCR) (NotDetected) Coronavirus 229E (PCR) (NotDetected) SARS-CoV-2 (PCR) (NotDetected) Coronavirus NL63 (PCR) (NotDetected) Human Metapneumovir PCR (NotDetected) Influenza Type A (PCR) (NotDetected) Influenza Type B (PCR) (NotDetected) M. pneumoniae (PCR) (NotDetected) Parainfluenza 1 (PCR) (NotDetected) Parainfluenza 2 (PCR) (NotDetected) Parainfluenza 3 (PCR) (NotDetected) Parainfluenza 4 (PCR) (NotDetected) RSV (PCR) (NotDetected) Entero/Rhino (PCR) (NotDetected) Blood Parasites ID 12/25/22 12/25/22 12/25/22 Range/Units 19:51 19:51 19:51 WBC RBC Hgb POC Hgb (12.0-16.0) g/dl Hct POC Hct (37-47) % MCV MCH MCHC RDW Std Deviation RDW Coeff of Elli Plt Count MPV Immature Gran % (Auto) Neut % (Auto) Lymph % (Auto) [place] % (Auto) Eos % (Auto) Baso % (Auto) Neut # (Auto) Lymph # (Auto) [place] # (Auto) Eos # (Auto) 0.00 Baso # (Auto) Cancelled 0.03 Immature Gran # (Auto) Cancelled 0.05 Absolute Nucleated RBC Cancelled Nucleated RBC % (auto) Cancelled Neutrophils % (Manual) Cancelled Band Neutrophils % Cancelled Lymphocytes % (Manual) Cancelled Prolymphocyte % Cancelled Reactive Lymphs % (Man) Cancelled Monocytes % (Manual) Cancelled Eosinophils % (Manual) Cancelled Basophils % (Manual) Cancelled Metamyelocytes % (Man) Cancelled Myelocytes % (Man) Cancelled Promyelocytes % (Man) Cancelled Blast Cells % (Manual) Cancelled Plasma Cell % (Manual) Cancelled Other Cells % Cancelled Nucleated RBC % Cancelled Neutrophils # (Manual) Cancelled Band Neutrophils # Cancelled Total Absolute Neuts Cancelled Lymphocytes # (Manual) Cancelled Prolymphocyte # Cancelled Reactive Lymphs # Cancelled Total Abs Lymphocytes Cancelled Monocytes # (Manual) Cancelled Eosinophils # (Manual) Cancelled Basophils # (Manual) Cancelled Metamyelocytes # (Man) Cancelled Myelocytes # (Manual) Cancelled Promyelocytes # (Man) Cancelled Blast Cells # (Man) Cancelled Plasma Cell # (Manual) Cancelled Other Cells # Cancelled Nucleated RBCs # (Man) Cancelled Hypersegmented Neuts Cancelled Hyposegmented Neuts Cancelled Hypogranular Neuts Cancelled Large Granular Lymphs Cancelled # Lrg Granular Lymphs Cancelled Hairy Cells Cancelled Smudge Cells Cancelled Toxic Granulation Cancelled Toxic Vacuolation Cancelled Dohle Bodies Cancelled Santhosh Rods Cancelled Platelet Estimate Cancelled Hypogranular Platelets Cancelled Giant Platelets Cancelled Platelet Satelliting Cancelled RBC Morphology Cancelled Polychromasia Cancelled Hypochromasia Cancelled Poikilocytosis Cancelled Basophilic Stippling Cancelled Anisocytosis Cancelled Microcytosis Cancelled Macrocytosis Cancelled Spherocytes Cancelled Pappenheimer Bodies Cancelled Sickle Cells Cancelled Target Cells Cancelled Tear Drop Cells Cancelled Ovalocytes Cancelled Stomatocytes Cancelled [place] Bodies Cancelled Echinocytes Cancelled Acanthocytes (Spur) Cancelled Rouleaux Cancelled RBC Agglutinates Cancelled Schistocytes Cancelled [place] Cell Cancelled PT 11.6 (9.0-12.0) Seconds INR 1.1 (0.9-1.1) POC Sodium (135-144) mmol/L Sodium Cancelled POC Potassium (3.3-5.0) mmol/L Potassium POC Chloride (101-112) mmol/L Chloride Carbon Dioxide POC Total CO2 (24-31) mmol/L Anion Gap POC Anion Gap (16-25) mmol/L POC BUN (7-18) mg/dl BUN Creatinine POC Creatinine (0.6-1.3) mg/dl Est Cr Clr Drug Dosing Est GFR ( Amer) Est GFR (Non-Af Amer) BUN/Creatinine Ratio Glucose POC Glucose (other) (70-99) mg/dl Lactate (0.4-2.0) mmol/L Calcium POC Ioniz Calcium Fatou (1.12-1.32) mmol/l Phosphorus Magnesium Total Bilirubin AST ALT Alkaline Phosphatase Total Creatine Kinase Troponin I High Sens Total Protein Albumin Globulin Albumin/Globulin Ratio Lipase TSH Urine Color Urine Appearance (Clear) Urine pH (4.5-7.5) Ur Specific [place] (1.000-1.030) Urine Protein (Negative) Urine Glucose (UA) (Negative) Urine Ketones (Negative) Urine Blood (Negative) Urine Nitrite (Negative) Urine Bilirubin (Negative) Urine Urobilinogen (Negative) Ur Leukocyte Esterase (Negative) Urine WBC (Auto) (0-5) /hpf Urine RBC (Auto) (0-4) /hpf U Hyaline Cast (Auto) (0-5) /lpf U Epithel Cells (Auto) (0-5) /lpf Urine Bacteria (Auto) (Negative) Urine Yeast Adenovirus (PCR) (NotDetected) B. pertussis DNA (PCR) (NotDetected) B.parapertussis DNA PCR (NotDetected) C. pneumoniae DNA (PCR) (NotDetected) Coronavirus OC43 (PCR) (NotDetected) Coronavirus HKU1 (PCR) (NotDetected) Coronavirus 229E (PCR) (NotDetected) SARS-CoV-2 (PCR) (NotDetected) Coronavirus NL63 (PCR) (NotDetected) Human Metapneumovir PCR (NotDetected) Influenza Type A (PCR) (NotDetected) Influenza Type B (PCR) (NotDetected) M. pneumoniae (PCR) (NotDetected) Parainfluenza 1 (PCR) (NotDetected) Parainfluenza 2 (PCR) (NotDetected) Parainfluenza 3 (PCR) (NotDetected) Parainfluenza 4 (PCR) (NotDetected) RSV (PCR) (NotDetected) Entero/Rhino (PCR) (NotDetected) Blood Parasites ID 12/25/22 12/25/22 12/25/22 Range/Units 19:51 19:51 19:51 WBC RBC Hgb POC Hgb (12.0-16.0) g/dl Hct POC Hct (37-47) % MCV MCH MCHC RDW Std Deviation RDW Coeff of Elli Plt Count MPV Immature Gran % (Auto) Neut % (Auto) Lymph % (Auto) [place] % (Auto) Eos % (Auto) Baso % (Auto) Neut # (Auto) Lymph # (Auto) [place] # (Auto) Eos # (Auto) Baso # (Auto) Immature Gran # (Auto) Absolute Nucleated RBC Nucleated RBC % (auto) Neutrophils % (Manual) Band Neutrophils % Lymphocytes % (Manual) Prolymphocyte % Reactive Lymphs % (Man) Monocytes % (Manual) Eosinophils % (Manual) Basophils % (Manual) Metamyelocytes % (Man) Myelocytes % (Man) Promyelocytes % (Man) Blast Cells % (Manual) Plasma Cell % (Manual) Other Cells % Nucleated RBC % Neutrophils # (Manual) Band Neutrophils # Total Absolute Neuts Lymphocytes # (Manual) Prolymphocyte # Reactive Lymphs # Total Abs Lymphocytes Monocytes # (Manual) Eosinophils # (Manual) Basophils # (Manual) Metamyelocytes # (Man) Myelocytes # (Manual) Promyelocytes # (Man) Blast Cells # (Man) Plasma Cell # (Manual) Other Cells # Nucleated RBCs # (Man) Hypersegmented Neuts Hyposegmented Neuts Hypogranular Neuts Large Granular Lymphs # Lrg Granular Lymphs Hairy Cells Smudge Cells Toxic Granulation Toxic Vacuolation Dohle Bodies Santhosh Rods Platelet Estimate Hypogranular Platelets Giant Platelets Platelet Satelliting RBC Morphology Polychromasia Hypochromasia Poikilocytosis Basophilic Stippling Anisocytosis Microcytosis Macrocytosis Spherocytes Pappenheimer Bodies Sickle Cells Target Cells Tear Drop Cells Ovalocytes Stomatocytes [place] Bodies Echinocytes Acanthocytes (Spur) Rouleaux RBC Agglutinates Schistocytes Sezary Cell PT (9.0-12.0) Seconds INR (0.9-1.1) POC Sodium (135-144) mmol/L Sodium 132 L POC Potassium (3.3-5.0) mmol/L Potassium Cancelled 4.0 POC Chloride (101-112) mmol/L Chloride Cancelled 103 Carbon Dioxide Cancelled POC Total CO2 (24-31) mmol/L Anion Gap POC Anion Gap (16-25) mmol/L POC BUN (7-18) mg/dl BUN Creatinine POC Creatinine (0.6-1.3) mg/dl Est Cr Clr Drug Dosing Est GFR ( Amer) Est GFR (Non-Af Amer) BUN/Creatinine Ratio Glucose POC Glucose (other) (70-99) mg/dl Lactate (0.4-2.0) mmol/L Calcium POC Ioniz Calcium Fatou (1.12-1.32) mmol/l Phosphorus Magnesium Total Bilirubin AST ALT Alkaline Phosphatase Total Creatine Kinase Troponin I High Sens Total Protein Albumin Globulin Albumin/Globulin Ratio Lipase TSH Urine Color Urine Appearance (Clear) Urine pH (4.5-7.5) Ur Specific [place] (1.000-1.030) Urine Protein (Negative) Urine Glucose (UA) (Negative) Urine Ketones (Negative) Urine Blood (Negative) Urine Nitrite (Negative) Urine Bilirubin (Negative) Urine Urobilinogen (Negative) Ur Leukocyte Esterase (Negative) Urine WBC (Auto) (0-5) /hpf Urine RBC (Auto) (0-4) /hpf U Hyaline Cast (Auto) (0-5) /lpf U Epithel Cells (Auto) (0-5) /lpf Urine Bacteria (Auto) (Negative) Urine Yeast Adenovirus (PCR) (NotDetected) B. pertussis DNA (PCR) (NotDetected) B.parapertussis DNA PCR (NotDetected) C. pneumoniae DNA (PCR) (NotDetected) Coronavirus OC43 (PCR) (NotDetected) Coronavirus HKU1 (PCR) (NotDetected) Coronavirus 229E (PCR) (NotDetected) SARS-CoV-2 (PCR) (NotDetected) Coronavirus NL63 (PCR) (NotDetected) Human Metapneumovir PCR (NotDetected) Influenza Type A (PCR) (NotDetected) Influenza Type B (PCR) (NotDetected) M. pneumoniae (PCR) (NotDetected) Parainfluenza 1 (PCR) (NotDetected) Parainfluenza 2 (PCR) (NotDetected) Parainfluenza 3 (PCR) (NotDetected) Parainfluenza 4 (PCR) (NotDetected) RSV (PCR) (NotDetected) Entero/Rhino (PCR) (NotDetected) Blood Parasites ID 12/25/22 12/25/22 12/25/22 Range/Units 19:51 19:51 19:51 WBC RBC Hgb POC Hgb (12.0-16.0) g/dl Hct POC Hct (37-47) % MCV MCH MCHC RDW Std Deviation RDW Coeff of Elli Plt Count MPV Immature Gran % (Auto) Neut % (Auto) Lymph % (Auto) [place] % (Auto) Eos % (Auto) Baso % (Auto) Neut # (Auto) Lymph # (Auto) [place] # (Auto) Eos # (Auto) Baso # (Auto) Immature Gran # (Auto) Absolute Nucleated RBC Nucleated RBC % (auto) Neutrophils % (Manual) Band Neutrophils % Lymphocytes % (Manual) Prolymphocyte % Reactive Lymphs % (Man) Monocytes % (Manual) Eosinophils % (Manual) Basophils % (Manual) Metamyelocytes % (Man) Myelocytes % (Man) Promyelocytes % (Man) Blast Cells % (Manual) Plasma Cell % (Manual) Other Cells % Nucleated RBC % Neutrophils # (Manual) Band Neutrophils # Total Absolute Neuts Lymphocytes # (Manual) Prolymphocyte # Reactive Lymphs # Total Abs Lymphocytes Monocytes # (Manual) Eosinophils # (Manual) Basophils # (Manual) Metamyelocytes # (Man) Myelocytes # (Manual) Promyelocytes # (Man) Blast Cells # (Man) Plasma Cell # (Manual) Other Cells # Nucleated RBCs # (Man) Hypersegmented Neuts Hyposegmented Neuts Hypogranular Neuts Large Granular Lymphs # Lrg Granular Lymphs Hairy Cells Smudge Cells Toxic Granulation Toxic Vacuolation Dohle Bodies Santhosh Rods Platelet Estimate Hypogranular Platelets Giant Platelets Platelet Satelliting RBC Morphology Polychromasia Hypochromasia Poikilocytosis Basophilic Stippling Anisocytosis Microcytosis Macrocytosis Spherocytes Pappenheimer Bodies Sickle Cells Target Cells Tear Drop Cells Ovalocytes Stomatocytes [place] Bodies Echinocytes Acanthocytes (Spur) Rouleaux RBC Agglutinates Schistocytes Sezary Cell PT (9.0-12.0) Seconds INR (0.9-1.1) POC Sodium (135-144) mmol/L Sodium POC Potassium (3.3-5.0) mmol/L Potassium POC Chloride (101-112) mmol/L Chloride Carbon Dioxide 20 L POC Total CO2 (24-31) mmol/L Anion Gap Cancelled 9 POC Anion Gap (16-25) mmol/L POC BUN (7-18) mg/dl BUN Cancelled 12 Creatinine Cancelled POC Creatinine (0.6-1.3) mg/dl Est Cr Clr Drug Dosing Est GFR ( Amer) Est GFR (Non-Af Amer) BUN/Creatinine Ratio Glucose POC Glucose (other) (70-99) mg/dl Lactate (0.4-2.0) mmol/L Calcium POC Ioniz Calcium Fatou (1.12-1.32) mmol/l Phosphorus Magnesium Total Bilirubin AST ALT Alkaline Phosphatase Total Creatine Kinase Troponin I High Sens Total Protein Albumin Globulin Albumin/Globulin Ratio Lipase TSH Urine Color Urine Appearance (Clear) Urine pH (4.5-7.5) Ur Specific [place] (1.000-1.030) Urine Protein (Negative) Urine Glucose (UA) (Negative) Urine Ketones (Negative) Urine Blood (Negative) Urine Nitrite (Negative) Urine Bilirubin (Negative) Urine Urobilinogen (Negative) Ur Leukocyte Esterase (Negative) Urine WBC (Auto) (0-5) /hpf Urine RBC (Auto) (0-4) /hpf U Hyaline Cast (Auto) (0-5) /lpf U Epithel Cells (Auto) (0-5) /lpf Urine Bacteria (Auto) (Negative) Urine Yeast Adenovirus (PCR) (NotDetected) B. pertussis DNA (PCR) (NotDetected) B.parapertussis DNA PCR (NotDetected) C. pneumoniae DNA (PCR) (NotDetected) Coronavirus OC43 (PCR) (NotDetected) Coronavirus HKU1 (PCR) (NotDetected) Coronavirus 229E (PCR) (NotDetected) SARS-CoV-2 (PCR) (NotDetected) Coronavirus NL63 (PCR) (NotDetected) Human Metapneumovir PCR (NotDetected) Influenza Type A (PCR) (NotDetected) Influenza Type B (PCR) (NotDetected) M. pneumoniae (PCR) (NotDetected) Parainfluenza 1 (PCR) (NotDetected) Parainfluenza 2 (PCR) (NotDetected) Parainfluenza 3 (PCR) (NotDetected) Parainfluenza 4 (PCR) (NotDetected) RSV (PCR) (NotDetected) Entero/Rhino (PCR) (NotDetected) Blood Parasites ID 12/25/22 12/25/22 12/25/22 Range/Units 19:51 19:51 19:51 WBC RBC Hgb POC Hgb (12.0-16.0) g/dl Hct POC Hct (37-47) % MCV MCH MCHC RDW Std Deviation RDW Coeff of Elli Plt Count MPV Immature Gran % (Auto) Neut % (Auto) Lymph % (Auto) [place] % (Auto) Eos % (Auto) Baso % (Auto) Neut # (Auto) Lymph # (Auto) [place] # (Auto) Eos # (Auto) Baso # (Auto) Immature Gran # (Auto) Absolute Nucleated RBC Nucleated RBC % (auto) Neutrophils % (Manual) Band Neutrophils % Lymphocytes % (Manual) Prolymphocyte % Reactive Lymphs % (Man) Monocytes % (Manual) Eosinophils % (Manual) Basophils % (Manual) Metamyelocytes % (Man) Myelocytes % (Man) Promyelocytes % (Man) Blast Cells % (Manual) Plasma Cell % (Manual) Other Cells % Nucleated RBC % Neutrophils # (Manual) Band Neutrophils # Total Absolute Neuts Lymphocytes # (Manual) Prolymphocyte # Reactive Lymphs # Total Abs Lymphocytes Monocytes # (Manual) Eosinophils # (Manual) Basophils # (Manual) Metamyelocytes # (Man) Myelocytes # (Manual) Promyelocytes # (Man) Blast Cells # (Man) Plasma Cell # (Manual) Other Cells # Nucleated RBCs # (Man) Hypersegmented Neuts Hyposegmented Neuts Hypogranular Neuts Large Granular Lymphs # Lrg Granular Lymphs Hairy Cells Smudge Cells Toxic Granulation Toxic Vacuolation Dohle Bodies Santhosh Rods Platelet Estimate Hypogranular Platelets Giant Platelets Platelet Satelliting RBC Morphology Polychromasia Hypochromasia Poikilocytosis Basophilic Stippling Anisocytosis Microcytosis Macrocytosis Spherocytes Pappenheimer Bodies Sickle Cells Target Cells Tear Drop Cells Ovalocytes Stomatocytes [place] Bodies Echinocytes Acanthocytes (Spur) Rouleaux RBC Agglutinates Schistocytes Sezary Cell PT (9.0-12.0) Seconds INR (0.9-1.1) POC Sodium (135-144) mmol/L Sodium POC Potassium (3.3-5.0) mmol/L Potassium POC Chloride (101-112) mmol/L Chloride Carbon Dioxide POC Total CO2 (24-31) mmol/L Anion Gap POC Anion Gap (16-25) mmol/L POC BUN (7-18) mg/dl BUN Creatinine 1.17 POC Creatinine (0.6-1.3) mg/dl Est Cr Clr Drug Dosing Cancelled 55.1 Est GFR ( Amer) Cancelled 54.7 Est GFR (Non-Af Amer) Cancelled BUN/Creatinine Ratio Glucose POC Glucose (other) (70-99) mg/dl Lactate (0.4-2.0) mmol/L Calcium POC Ioniz Calcium Fatou (1.12-1.32) mmol/l Phosphorus Magnesium Total Bilirubin AST ALT Alkaline Phosphatase Total Creatine Kinase Troponin I High Sens Total Protein Albumin Globulin Albumin/Globulin Ratio Lipase TSH Urine Color Urine Appearance (Clear) Urine pH (4.5-7.5) Ur Specific [place] (1.000-1.030) Urine Protein (Negative) Urine Glucose (UA) (Negative) Urine Ketones (Negative) Urine Blood (Negative) Urine Nitrite (Negative) Urine Bilirubin (Negative) Urine Urobilinogen (Negative) Ur Leukocyte Esterase (Negative) Urine WBC (Auto) (0-5) /hpf Urine RBC (Auto) (0-4) /hpf U Hyaline Cast (Auto) (0-5) /lpf U Epithel Cells (Auto) (0-5) /lpf Urine Bacteria (Auto) (Negative) Urine Yeast Adenovirus (PCR) (NotDetected) B. pertussis DNA (PCR) (NotDetected) B.parapertussis DNA PCR (NotDetected) C. pneumoniae DNA (PCR) (NotDetected) Coronavirus OC43 (PCR) (NotDetected) Coronavirus HKU1 (PCR) (NotDetected) Coronavirus 229E (PCR) (NotDetected) SARS-CoV-2 (PCR) (NotDetected) Coronavirus NL63 (PCR) (NotDetected) Human Metapneumovir PCR (NotDetected) Influenza Type A (PCR) (NotDetected) Influenza Type B (PCR) (NotDetected) M. pneumoniae (PCR) (NotDetected) Parainfluenza 1 (PCR) (NotDetected) Parainfluenza 2 (PCR) (NotDetected) Parainfluenza 3 (PCR) (NotDetected) Parainfluenza 4 (PCR) (NotDetected) RSV (PCR) (NotDetected) Entero/Rhino (PCR) (NotDetected) Blood Parasites ID 12/25/22 12/25/22 12/25/22 Range/Units 19:51 19:51 19:51 WBC RBC Hgb POC Hgb (12.0-16.0) g/dl Hct POC Hct (37-47) % MCV MCH MCHC RDW Std Deviation RDW Coeff of Elli Plt Count MPV Immature Gran % (Auto) Neut % (Auto) Lymph % (Auto) [place] % (Auto) Eos % (Auto) Baso % (Auto) Neut # (Auto) Lymph # (Auto) [place] # (Auto) Eos # (Auto) Baso # (Auto) Immature Gran # (Auto) Absolute Nucleated RBC Nucleated RBC % (auto) Neutrophils % (Manual) Band Neutrophils % Lymphocytes % (Manual) Prolymphocyte % Reactive Lymphs % (Man) Monocytes % (Manual) Eosinophils % (Manual) Basophils % (Manual) Metamyelocytes % (Man) Myelocytes % (Man) Promyelocytes % (Man) Blast Cells % (Manual) Plasma Cell % (Manual) Other Cells % Nucleated RBC % Neutrophils # (Manual) Band Neutrophils # Total Absolute Neuts Lymphocytes # (Manual) Prolymphocyte # Reactive Lymphs # Total Abs Lymphocytes Monocytes # (Manual) Eosinophils # (Manual) Basophils # (Manual) Metamyelocytes # (Man) Myelocytes # (Manual) Promyelocytes # (Man) Blast Cells # (Man) Plasma Cell # (Manual) Other Cells # Nucleated RBCs # (Man) Hypersegmented Neuts Hyposegmented Neuts Hypogranular Neuts Large Granular Lymphs # Lrg Granular Lymphs Hairy Cells Smudge Cells Toxic Granulation Toxic Vacuolation Dohle Bodies Santhosh Rods Platelet Estimate Hypogranular Platelets Giant Platelets Platelet Satelliting RBC Morphology Polychromasia Hypochromasia Poikilocytosis Basophilic Stippling Anisocytosis Microcytosis Macrocytosis Spherocytes Pappenheimer Bodies Sickle Cells Target Cells Tear Drop Cells Ovalocytes Stomatocytes [place] Bodies Echinocytes Acanthocytes (Spur) Rouleaux RBC Agglutinates Schistocytes Sezary Cell PT (9.0-12.0) Seconds INR (0.9-1.1) POC Sodium (135-144) mmol/L Sodium POC Potassium (3.3-5.0) mmol/L Potassium POC Chloride (101-112) mmol/L Chloride Carbon Dioxide POC Total CO2 (24-31) mmol/L Anion Gap POC Anion Gap (16-25) mmol/L POC BUN (7-18) mg/dl BUN Creatinine POC Creatinine (0.6-1.3) mg/dl Est Cr Clr Drug Dosing Est GFR ( Amer) Est GFR (Non-Af Amer) 47.2 BUN/Creatinine Ratio Cancelled 10.3 Glucose Cancelled 192 H POC Glucose (other) (70-99) mg/dl Lactate (0.4-2.0) mmol/L Calcium Cancelled POC Ioniz Calcium Fatou (1.12-1.32) mmol/l Phosphorus Magnesium Total Bilirubin AST ALT Alkaline Phosphatase Total Creatine Kinase Troponin I High Sens Total Protein Albumin Globulin Albumin/Globulin Ratio Lipase TSH Urine Color Urine Appearance (Clear) Urine pH (4.5-7.5) Ur Specific [place] (1.000-1.030) Urine Protein (Negative) Urine Glucose (UA) (Negative) Urine Ketones (Negative) Urine Blood (Negative) Urine Nitrite (Negative) Urine Bilirubin (Negative) Urine Urobilinogen (Negative) Ur Leukocyte Esterase (Negative) Urine WBC (Auto) (0-5) /hpf Urine RBC (Auto) (0-4) /hpf U Hyaline Cast (Auto) (0-5) /lpf U Epithel Cells (Auto) (0-5) /lpf Urine Bacteria (Auto) (Negative) Urine Yeast Adenovirus (PCR) (NotDetected) B. pertussis DNA (PCR) (NotDetected) B.parapertussis DNA PCR (NotDetected) C. pneumoniae DNA (PCR) (NotDetected) Coronavirus OC43 (PCR) (NotDetected) Coronavirus HKU1 (PCR) (NotDetected) Coronavirus 229E (PCR) (NotDetected) SARS-CoV-2 (PCR) (NotDetected) Coronavirus NL63 (PCR) (NotDetected) Human Metapneumovir PCR (NotDetected) Influenza Type A (PCR) (NotDetected) Influenza Type B (PCR) (NotDetected) M. pneumoniae (PCR) (NotDetected) Parainfluenza 1 (PCR) (NotDetected) Parainfluenza 2 (PCR) (NotDetected) Parainfluenza 3 (PCR) (NotDetected) Parainfluenza 4 (PCR) (NotDetected) RSV (PCR) (NotDetected) Entero/Rhino (PCR) (NotDetected) Blood Parasites ID 12/25/22 12/25/22 12/25/22 Range/Units 19:51 19:51 19:51 WBC RBC Hgb POC Hgb (12.0-16.0) g/dl Hct POC Hct (37-47) % MCV MCH MCHC RDW Std Deviation RDW Coeff of Elli Plt Count MPV Immature Gran % (Auto) Neut % (Auto) Lymph % (Auto) [place] % (Auto) Eos % (Auto) Baso % (Auto) Neut # (Auto) Lymph # (Auto) [place] # (Auto) Eos # (Auto) Baso # (Auto) Immature Gran # (Auto) Absolute Nucleated RBC Nucleated RBC % (auto) Neutrophils % (Manual) Band Neutrophils % Lymphocytes % (Manual) Prolymphocyte % Reactive Lymphs % (Man) Monocytes % (Manual) Eosinophils % (Manual) Basophils % (Manual) Metamyelocytes % (Man) Myelocytes % (Man) Promyelocytes % (Man) Blast Cells % (Manual) Plasma Cell % (Manual) Other Cells % Nucleated RBC % Neutrophils # (Manual) Band Neutrophils # Total Absolute Neuts Lymphocytes # (Manual) Prolymphocyte # Reactive Lymphs # Total Abs Lymphocytes Monocytes # (Manual) Eosinophils # (Manual) Basophils # (Manual) Metamyelocytes # (Man) Myelocytes # (Manual) Promyelocytes # (Man) Blast Cells # (Man) Plasma Cell # (Manual) Other Cells # Nucleated RBCs # (Man) Hypersegmented Neuts Hyposegmented Neuts Hypogranular Neuts Large Granular Lymphs # Lrg Granular Lymphs Hairy Cells Smudge Cells Toxic Granulation Toxic Vacuolation Dohle Bodies Santhosh Rods Platelet Estimate Hypogranular Platelets Giant Platelets Platelet Satelliting RBC Morphology Polychromasia Hypochromasia Poikilocytosis Basophilic Stippling Anisocytosis Microcytosis Macrocytosis Spherocytes Pappenheimer Bodies Sickle Cells Target Cells Tear Drop Cells Ovalocytes Stomatocytes [place] Bodies Echinocytes Acanthocytes (Spur) Rouleaux RBC Agglutinates Schistocytes Sezary Cell PT (9.0-12.0) Seconds INR (0.9-1.1) POC Sodium (135-144) mmol/L Sodium POC Potassium (3.3-5.0) mmol/L Potassium POC Chloride (101-112) mmol/L Chloride Carbon Dioxide POC Total CO2 (24-31) mmol/L Anion Gap POC Anion Gap (16-25) mmol/L POC BUN (7-18) mg/dl BUN Creatinine POC Creatinine (0.6-1.3) mg/dl Est Cr Clr Drug Dosing Est GFR ( Amer) Est GFR (Non-Af Amer) BUN/Creatinine Ratio Glucose POC Glucose (other) (70-99) mg/dl Lactate (0.4-2.0) mmol/L Calcium 9.0 POC Ioniz Calcium Fatou (1.12-1.32) mmol/l Phosphorus Cancelled 2.3 L Magnesium Cancelled 1.8 Total Bilirubin Cancelled AST ALT Alkaline Phosphatase Total Creatine Kinase Troponin I High Sens Total Protein Albumin Globulin Albumin/Globulin Ratio Lipase TSH Urine Color Urine Appearance (Clear) Urine pH (4.5-7.5) Ur Specific [place] (1.000-1.030) Urine Protein (Negative) Urine Glucose (UA) (Negative) Urine Ketones (Negative) Urine Blood (Negative) Urine Nitrite (Negative) Urine Bilirubin (Negative) Urine Urobilinogen (Negative) Ur Leukocyte Esterase (Negative) Urine WBC (Auto) (0-5) /hpf Urine RBC (Auto) (0-4) /hpf U Hyaline Cast (Auto) (0-5) /lpf U Epithel Cells (Auto) (0-5) /lpf Urine Bacteria (Auto) (Negative) Urine Yeast Adenovirus (PCR) (NotDetected) B. pertussis DNA (PCR) (NotDetected) B.parapertussis DNA PCR (NotDetected) C. pneumoniae DNA (PCR) (NotDetected) Coronavirus OC43 (PCR) (NotDetected) Coronavirus HKU1 (PCR) (NotDetected) Coronavirus 229E (PCR) (NotDetected) SARS-CoV-2 (PCR) (NotDetected) Coronavirus NL63 (PCR) (NotDetected) Human Metapneumovir PCR (NotDetected) Influenza Type A (PCR) (NotDetected) Influenza Type B (PCR) (NotDetected) M. pneumoniae (PCR) (NotDetected) Parainfluenza 1 (PCR) (NotDetected) Parainfluenza 2 (PCR) (NotDetected) Parainfluenza 3 (PCR) (NotDetected) Parainfluenza 4 (PCR) (NotDetected) RSV (PCR) (NotDetected) Entero/Rhino (PCR) (NotDetected) Blood Parasites ID 12/25/22 12/25/22 12/25/22 Range/Units 19:51 19:51 19:51 WBC RBC Hgb POC Hgb (12.0-16.0) g/dl Hct POC Hct (37-47) % MCV MCH MCHC RDW Std Deviation RDW Coeff of Elli Plt Count MPV Immature Gran % (Auto) Neut % (Auto) Lymph % (Auto) [place] % (Auto) Eos % (Auto) Baso % (Auto) Neut # (Auto) Lymph # (Auto) [place] # (Auto) Eos # (Auto) Baso # (Auto) Immature Gran # (Auto) Absolute Nucleated RBC Nucleated RBC % (auto) Neutrophils % (Manual) Band Neutrophils % Lymphocytes % (Manual) Prolymphocyte % Reactive Lymphs % (Man) Monocytes % (Manual) Eosinophils % (Manual) Basophils % (Manual) Metamyelocytes % (Man) Myelocytes % (Man) Promyelocytes % (Man) Blast Cells % (Manual) Plasma Cell % (Manual) Other Cells % Nucleated RBC % Neutrophils # (Manual) Band Neutrophils # Total Absolute Neuts Lymphocytes # (Manual) Prolymphocyte # Reactive Lymphs # Total Abs Lymphocytes Monocytes # (Manual) Eosinophils # (Manual) Basophils # (Manual) Metamyelocytes # (Man) Myelocytes # (Manual) Promyelocytes # (Man) Blast Cells # (Man) Plasma Cell # (Manual) Other Cells # Nucleated RBCs # (Man) Hypersegmented Neuts Hyposegmented Neuts Hypogranular Neuts Large Granular Lymphs # Lrg Granular Lymphs Hairy Cells Smudge Cells Toxic Granulation Toxic Vacuolation Dohle Bodies Santhosh Rods Platelet Estimate Hypogranular Platelets [place] Platelets Platelet Satelliting RBC Morphology Polychromasia Hypochromasia Poikilocytosis Basophilic Stippling Anisocytosis Microcytosis Macrocytosis Spherocytes Pappenheimer Bodies Sickle Cells Target Cells Tear Drop Cells Ovalocytes Stomatocytes [place] Bodies Echinocytes Acanthocytes (Spur) Rouleaux RBC Agglutinates Schistocytes Sezary Cell PT (9.0-12.0) Seconds INR (0.9-1.1) POC Sodium (135-144) mmol/L Sodium POC Potassium (3.3-5.0) mmol/L Potassium POC Chloride (101-112) mmol/L Chloride Carbon Dioxide POC Total CO2 (24-31) mmol/L Anion Gap POC Anion Gap (16-25) mmol/L POC BUN (7-18) mg/dl BUN Creatinine POC Creatinine (0.6-1.3) mg/dl Est Cr Clr Drug Dosing Est GFR ( Amer) Est GFR (Non-Af Amer) BUN/Creatinine Ratio Glucose POC Glucose (other) (70-99) mg/dl Lactate (0.4-2.0) mmol/L Calcium POC Ioniz Calcium Fatou (1.12-1.32) mmol/l Phosphorus Magnesium Total Bilirubin 0.8 AST Cancelled 40 H ALT Cancelled 18 Alkaline Phosphatase Cancelled Total Creatine Kinase Troponin I High Sens Total Protein Albumin Globulin Albumin/Globulin Ratio Lipase TSH Urine Color Urine Appearance (Clear) Urine pH (4.5-7.5) Ur Specific [place] (1.000-1.030) Urine Protein (Negative) Urine Glucose (UA) (Negative) Urine Ketones (Negative) Urine Blood (Negative) Urine Nitrite (Negative) Urine Bilirubin (Negative) Urine Urobilinogen (Negative) Ur Leukocyte Esterase (Negative) Urine WBC (Auto) (0-5) /hpf Urine RBC (Auto) (0-4) /hpf U Hyaline Cast (Auto) (0-5) /lpf U Epithel Cells (Auto) (0-5) /lpf Urine Bacteria (Auto) (Negative) Urine Yeast Adenovirus (PCR) (NotDetected) B. pertussis DNA (PCR) (NotDetected) B.parapertussis DNA PCR (NotDetected) C. pneumoniae DNA (PCR) (NotDetected) Coronavirus OC43 (PCR) (NotDetected) Coronavirus HKU1 (PCR) (NotDetected) Coronavirus 229E (PCR) (NotDetected) SARS-CoV-2 (PCR) (NotDetected) Coronavirus NL63 (PCR) (NotDetected) Human Metapneumovir PCR (NotDetected) Influenza Type A (PCR) (NotDetected) Influenza Type B (PCR) (NotDetected) M. pneumoniae (PCR) (NotDetected) Parainfluenza 1 (PCR) (NotDetected) Parainfluenza 2 (PCR) (NotDetected) Parainfluenza 3 (PCR) (NotDetected) Parainfluenza 4 (PCR) (NotDetected) RSV (PCR) (NotDetected) Entero/Rhino (PCR) (NotDetected) Blood Parasites ID 12/25/22 12/25/22 12/25/22 Range/Units 19:51 19:51 19:51 WBC RBC Hgb POC Hgb (12.0-16.0) g/dl Hct POC Hct (37-47) % MCV MCH MCHC RDW Std Deviation RDW Coeff of Elli Plt Count MPV Immature Gran % (Auto) Neut % (Auto) Lymph % (Auto) [place] % (Auto) Eos % (Auto) Baso % (Auto) Neut # (Auto) Lymph # (Auto) [place] # (Auto) Eos # (Auto) Baso # (Auto) Immature Gran # (Auto) Absolute Nucleated RBC Nucleated RBC % (auto) Neutrophils % (Manual) Band Neutrophils % Lymphocytes % (Manual) Prolymphocyte % Reactive Lymphs % (Man) Monocytes % (Manual) Eosinophils % (Manual) Basophils % (Manual) Metamyelocytes % (Man) Myelocytes % (Man) Promyelocytes % (Man) Blast Cells % (Manual) Plasma Cell % (Manual) Other Cells % Nucleated RBC % Neutrophils # (Manual) Band Neutrophils # Total Absolute Neuts Lymphocytes # (Manual) Prolymphocyte # Reactive Lymphs # Total Abs Lymphocytes Monocytes # (Manual) Eosinophils # (Manual) Basophils # (Manual) Metamyelocytes # (Man) Myelocytes # (Manual) Promyelocytes # (Man) Blast Cells # (Man) Plasma Cell # (Manual) Other Cells # Nucleated RBCs # (Man) Hypersegmented Neuts Hyposegmented Neuts Hypogranular Neuts Large Granular Lymphs # Lrg Granular Lymphs Hairy Cells Smudge Cells Toxic Granulation Toxic Vacuolation Dohle Bodies Santhosh Rods Platelet Estimate Hypogranular Platelets Giant Platelets Platelet Satelliting RBC Morphology Polychromasia Hypochromasia Poikilocytosis Basophilic Stippling Anisocytosis Microcytosis Macrocytosis Spherocytes Pappenheimer Bodies Sickle Cells Target Cells Tear Drop Cells Ovalocytes Stomatocytes [place] Bodies Echinocytes Acanthocytes (Spur) Rouleaux RBC Agglutinates Schistocytes [place]zary Cell PT (9.0-12.0) Seconds INR (0.9-1.1) POC Sodium (135-144) mmol/L Sodium POC Potassium (3.3-5.0) mmol/L Potassium POC Chloride (101-112) mmol/L Chloride Carbon Dioxide POC Total CO2 (24-31) mmol/L Anion Gap POC Anion Gap (16-25) mmol/L POC BUN (7-18) mg/dl BUN Creatinine POC Creatinine (0.6-1.3) mg/dl Est Cr Clr Drug Dosing Est GFR ( Amer) Est GFR (Non-Af Amer) BUN/Creatinine Ratio Glucose POC Glucose (other) (70-99) mg/dl Lactate (0.4-2.0) mmol/L Calcium POC Ioniz Calcium Fatou (1.12-1.32) mmol/l Phosphorus Magnesium Total Bilirubin AST ALT Alkaline Phosphatase 70 Total Creatine Kinase Cancelled 1180 H Troponin I High Sens Cancelled 343.1 H* Total Protein Cancelled Albumin Globulin Albumin/Globulin Ratio Lipase TSH Urine Color Urine Appearance (Clear) Urine pH (4.5-7.5) Ur Specific [place] (1.000-1.030) Urine Protein (Negative) Urine Glucose (UA) (Negative) Urine Ketones (Negative) Urine Blood (Negative) Urine Nitrite (Negative) Urine Bilirubin (Negative) Urine Urobilinogen (Negative) Ur Leukocyte Esterase (Negative) Urine WBC (Auto) (0-5) /hpf Urine RBC (Auto) (0-4) /hpf U Hyaline Cast (Auto) (0-5) /lpf U Epithel Cells (Auto) (0-5) /lpf Urine Bacteria (Auto) (Negative) Urine Yeast Adenovirus (PCR) (NotDetected) B. pertussis DNA (PCR) (NotDetected) B.parapertussis DNA PCR (NotDetected) C. pneumoniae DNA (PCR) (NotDetected) Coronavirus OC43 (PCR) (NotDetected) Coronavirus HKU1 (PCR) (NotDetected) Coronavirus 229E (PCR) (NotDetected) SARS-CoV-2 (PCR) (NotDetected) Coronavirus NL63 (PCR) (NotDetected) Human Metapneumovir PCR (NotDetected) Influenza Type A (PCR) (NotDetected) Influenza Type B (PCR) (NotDetected) M. pneumoniae (PCR) (NotDetected) Parainfluenza 1 (PCR) (NotDetected) Parainfluenza 2 (PCR) (NotDetected) Parainfluenza 3 (PCR) (NotDetected) Parainfluenza 4 (PCR) (NotDetected) RSV (PCR) (NotDetected) Entero/Rhino (PCR) (NotDetected) Blood Parasites ID 12/25/22 12/25/22 12/25/22 Range/Units 19:51 19:51 19:51 WBC RBC Hgb POC Hgb (12.0-16.0) g/dl Hct POC Hct (37-47) % MCV MCH MCHC RDW Std Deviation RDW Coeff of Elli Plt Count MPV Immature Gran % (Auto) Neut % (Auto) Lymph % (Auto) [place] % (Auto) Eos % (Auto) Baso % (Auto) Neut # (Auto) Lymph # (Auto) [place] # (Auto) Eos # (Auto) Baso # (Auto) Immature Gran # (Auto) Absolute Nucleated RBC Nucleated RBC % (auto) Neutrophils % (Manual) Band Neutrophils % Lymphocytes % (Manual) Prolymphocyte % Reactive Lymphs % (Man) Monocytes % (Manual) Eosinophils % (Manual) Basophils % (Manual) Metamyelocytes % (Man) Myelocytes % (Man) Promyelocytes % (Man) Blast Cells % (Manual) Plasma Cell % (Manual) Other Cells % Nucleated RBC % Neutrophils # (Manual) Band Neutrophils # Total Absolute Neuts Lymphocytes # (Manual) Prolymphocyte # Reactive Lymphs # Total Abs Lymphocytes Monocytes # (Manual) Eosinophils # (Manual) Basophils # (Manual) Metamyelocytes # (Man) Myelocytes # (Manual) Promyelocytes # (Man) Blast Cells # (Man) Plasma Cell # (Manual) Other Cells # Nucleated RBCs # (Man) Hypersegmented Neuts Hyposegmented Neuts Hypogranular Neuts Large Granular Lymphs # Lrg Granular Lymphs Hairy Cells Smudge Cells Toxic Granulation Toxic Vacuolation Dohle Bodies Santhosh Rods Platelet Estimate Hypogranular Platelets Giant Platelets Platelet Satelliting RBC Morphology Polychromasia Hypochromasia Poikilocytosis Basophilic Stippling Anisocytosis Microcytosis Macrocytosis Spherocytes Pappenheimer Bodies Sickle Cells Target Cells Tear Drop Cells Ovalocytes Stomatocytes [place] Bodies Echinocytes Acanthocytes (Spur) Rouleaux RBC Agglutinates Schistocytes [place]zary Cell PT (9.0-12.0) Seconds INR (0.9-1.1) POC Sodium (135-144) mmol/L Sodium POC Potassium (3.3-5.0) mmol/L Potassium POC Chloride (101-112) mmol/L Chloride Carbon Dioxide POC Total CO2 (24-31) mmol/L Anion Gap POC Anion Gap (16-25) mmol/L POC BUN (7-18) mg/dl BUN Creatinine POC Creatinine (0.6-1.3) mg/dl Est Cr Clr Drug Dosing Est GFR ( Amer) Est GFR (Non-Af Amer) BUN/Creatinine Ratio Glucose POC Glucose (other) (70-99) mg/dl Lactate (0.4-2.0) mmol/L Calcium POC Ioniz Calcium Fatou (1.12-1.32) mmol/l Phosphorus Magnesium Total Bilirubin AST ALT Alkaline Phosphatase Total Creatine Kinase Troponin I High Sens Total Protein 7.2 Albumin Cancelled 4.1 Globulin Cancelled 3.1 Albumin/Globulin Ratio Cancelled Lipase TSH Urine Color Urine Appearance (Clear) Urine pH (4.5-7.5) Ur Specific [place] (1.000-1.030) Urine Protein (Negative) Urine Glucose (UA) (Negative) Urine Ketones (Negative) Urine Blood (Negative) Urine Nitrite (Negative) Urine Bilirubin (Negative) Urine Urobilinogen (Negative) Ur Leukocyte Esterase (Negative) Urine WBC (Auto) (0-5) /hpf Urine RBC (Auto) (0-4) /hpf U Hyaline Cast (Auto) (0-5) /lpf U Epithel Cells (Auto) (0-5) /lpf Urine Bacteria (Auto) (Negative) Urine Yeast Adenovirus (PCR) (NotDetected) B. pertussis DNA (PCR) (NotDetected) B.parapertussis DNA PCR (NotDetected) C. pneumoniae DNA (PCR) (NotDetected) Coronavirus OC43 (PCR) (NotDetected) Coronavirus HKU1 (PCR) (NotDetected) Coronavirus 229E (PCR) (NotDetected) SARS-CoV-2 (PCR) (NotDetected) Coronavirus NL63 (PCR) (NotDetected) Human Metapneumovir PCR (NotDetected) Influenza Type A (PCR) (NotDetected) Influenza Type B (PCR) (NotDetected) M. pneumoniae (PCR) (NotDetected) Parainfluenza 1 (PCR) (NotDetected) Parainfluenza 2 (PCR) (NotDetected) Parainfluenza 3 (PCR) (NotDetected) Parainfluenza 4 (PCR) (NotDetected) RSV (PCR) (NotDetected) Entero/Rhino (PCR) (NotDetected) Blood Parasites ID 12/25/22 12/25/22 12/25/22 Range/Units 19:51 19:51 19:51 WBC RBC Hgb POC Hgb (12.0-16.0) g/dl Hct POC Hct (37-47) % MCV MCH MCHC RDW Std Deviation RDW Coeff of Elli Plt Count MPV Immature Gran % (Auto) Neut % (Auto) Lymph % (Auto) [place] % (Auto) Eos % (Auto) Baso % (Auto) Neut # (Auto) Lymph # (Auto) [place] # (Auto) Eos # (Auto) Baso # (Auto) Immature Gran # (Auto) Absolute Nucleated RBC Nucleated RBC % (auto) Neutrophils % (Manual) Band Neutrophils % Lymphocytes % (Manual) Prolymphocyte % Reactive Lymphs % (Man) Monocytes % (Manual) Eosinophils % (Manual) Basophils % (Manual) Metamyelocytes % (Man) Myelocytes % (Man) Promyelocytes % (Man) Blast Cells % (Manual) Plasma Cell % (Manual) Other Cells % Nucleated RBC % Neutrophils # (Manual) Band Neutrophils # Total Absolute Neuts Lymphocytes # (Manual) Prolymphocyte # Reactive Lymphs # Total Abs Lymphocytes Monocytes # (Manual) Eosinophils # (Manual) Basophils # (Manual) Metamyelocytes # (Man) Myelocytes # (Manual) Promyelocytes # (Man) Blast Cells # (Man) Plasma Cell # (Manual) Other Cells # Nucleated RBCs # (Man) Hypersegmented Neuts Hyposegmented Neuts Hypogranular Neuts Large Granular Lymphs # Lrg Granular Lymphs Hairy Cells Smudge Cells Toxic Granulation Toxic Vacuolation Dohle Bodies Santhosh Rods Platelet Estimate Hypogranular Platelets Giant Platelets Platelet Satelliting RBC Morphology Polychromasia Hypochromasia Poikilocytosis Basophilic Stippling Anisocytosis Microcytosis Macrocytosis Spherocytes Pappenheimer Bodies Sickle Cells Target Cells Tear Drop Cells Ovalocytes Stomatocytes [place] Bodies Echinocytes Acanthocytes (Spur) Rouleaux RBC Agglutinates Schistocytes Sezary Cell PT (9.0-12.0) Seconds INR (0.9-1.1) POC Sodium (135-144) mmol/L Sodium POC Potassium (3.3-5.0) mmol/L Potassium POC Chloride (101-112) mmol/L Chloride Carbon Dioxide POC Total CO2 (24-31) mmol/L Anion Gap POC Anion Gap (16-25) mmol/L POC BUN (7-18) mg/dl BUN Creatinine POC Creatinine (0.6-1.3) mg/dl Est Cr Clr Drug Dosing Est GFR ( Amer) Est GFR (Non-Af Amer) BUN/Creatinine Ratio Glucose POC Glucose (other) (70-99) mg/dl Lactate (0.4-2.0) mmol/L Calcium POC Ioniz Calcium Fatou (1.12-1.32) mmol/l Phosphorus Magnesium Total Bilirubin AST ALT Alkaline Phosphatase Total Creatine Kinase Troponin I High Sens Total Protein Albumin Globulin Albumin/Globulin Ratio 1.3 Lipase Cancelled 42 TSH Cancelled 0.935 Urine Color Urine Appearance (Clear) Urine pH (4.5-7.5) Ur Specific [place] (1.000-1.030) Urine Protein (Negative) Urine Glucose (UA) (Negative) Urine Ketones (Negative) Urine Blood (Negative) Urine Nitrite (Negative) Urine Bilirubin (Negative) Urine Urobilinogen (Negative) Ur Leukocyte Esterase (Negative) Urine WBC (Auto) (0-5) /hpf Urine RBC (Auto) (0-4) /hpf U Hyaline Cast (Auto) (0-5) /lpf U Epithel Cells (Auto) (0-5) /lpf Urine Bacteria (Auto) (Negative) Urine Yeast Adenovirus (PCR) (NotDetected) B. pertussis DNA (PCR) (NotDetected) B.parapertussis DNA PCR (NotDetected) C. pneumoniae DNA (PCR) (NotDetected) Coronavirus OC43 (PCR) (NotDetected) Coronavirus HKU1 (PCR) (NotDetected) Coronavirus 229E (PCR) (NotDetected) SARS-CoV-2 (PCR) (NotDetected) Coronavirus NL63 (PCR) (NotDetected) Human Metapneumovir PCR (NotDetected) Influenza Type A (PCR) (NotDetected) Influenza Type B (PCR) (NotDetected) M. pneumoniae (PCR) (NotDetected) Parainfluenza 1 (PCR) (NotDetected) Parainfluenza 2 (PCR) (NotDetected) Parainfluenza 3 (PCR) (NotDetected) Parainfluenza 4 (PCR) (NotDetected) RSV (PCR) (NotDetected) Entero/Rhino (PCR) (NotDetected) Blood Parasites ID Cancelled 12/25/22 12/25/22 12/25/22 Range/Units 20:01 20:25 22:26 WBC RBC Hgb POC Hgb 13.9 (12.0-16.0) g/dl Hct POC Hct 41 (37-47) % MCV MCH MCHC RDW Std Deviation RDW Coeff of Elli Plt Count MPV Immature Gran % (Auto) Neut % (Auto) Lymph % (Auto) [place] % (Auto) Eos % (Auto) Baso % (Auto) Neut # (Auto) Lymph # (Auto) [place] # (Auto) Eos # (Auto) Baso # (Auto) Immature Gran # (Auto) Absolute Nucleated RBC Nucleated RBC % (auto) Neutrophils % (Manual) Band Neutrophils % Lymphocytes % (Manual) Prolymphocyte % Reactive Lymphs % (Man) Monocytes % (Manual) Eosinophils % (Manual) Basophils % (Manual) Metamyelocytes % (Man) Myelocytes % (Man) Promyelocytes % (Man) Blast Cells % (Manual) Plasma Cell % (Manual) Other Cells % Nucleated RBC % Neutrophils # (Manual) Band Neutrophils # Total Absolute Neuts Lymphocytes # (Manual) Prolymphocyte # Reactive Lymphs # Total Abs Lymphocytes Monocytes # (Manual) Eosinophils # (Manual) Basophils # (Manual) Metamyelocytes # (Man) Myelocytes # (Manual) Promyelocytes # (Man) Blast Cells # (Man) Plasma Cell # (Manual) Other Cells # Nucleated RBCs # (Man) Hypersegmented Neuts Hyposegmented Neuts Hypogranular Neuts Large Granular Lymphs # Lrg Granular Lymphs Hairy Cells Smudge Cells Toxic Granulation Toxic Vacuolation Dohle Bodies Santhosh Rods Platelet Estimate Hypogranular Platelets Giant Platelets Platelet Satelliting RBC Morphology Polychromasia Hypochromasia Poikilocytosis Basophilic Stippling Anisocytosis Microcytosis Macrocytosis Spherocytes Pappenheimer Bodies Sickle Cells Target Cells Tear Drop Cells Ovalocytes Stomatocytes [place] Bodies Echinocytes Acanthocytes (Spur) Rouleaux RBC Agglutinates Schistocytes [place]ary Cell PT (9.0-12.0) Seconds INR (0.9-1.1) POC Sodium 135 (135-144) mmol/L Sodium POC Potassium 4.0 (3.3-5.0) mmol/L Potassium POC Chloride 102 (101-112) mmol/L Chloride Carbon Dioxide POC Total CO2 21 L (24-31) mmol/L Anion Gap POC Anion Gap 17.0 (16-25) mmol/L POC BUN 11 (7-18) mg/dl BUN Creatinine POC Creatinine 1.0 (0.6-1.3) mg/dl Est Cr Clr Drug Dosing Est GFR ( Amer) Est GFR (Non-Af Amer) BUN/Creatinine Ratio Glucose POC Glucose (other) 203 H (70-99) mg/dl Lactate (0.4-2.0) mmol/L Calcium POC Ioniz Calcium Fatou 1.06 L (1.12-1.32) mmol/l Phosphorus Magnesium Total Bilirubin AST ALT Alkaline Phosphatase Total Creatine Kinase Troponin I High Sens 1112.8 H* D Total Protein Albumin Globulin Albumin/Globulin Ratio Lipase TSH Urine Color Yellow Urine Appearance Cloudy A (Clear) Urine pH 6.0 (4.5-7.5) Ur Specific [place] 1.018 (1.000-1.030) Urine Protein 1+ H (Negative) Urine Glucose (UA) Trace H (Negative) Urine Ketones 1+ H (Negative) Urine Blood 3+ H (Negative) Urine Nitrite Negative (Negative) Urine Bilirubin Negative (Negative) Urine Urobilinogen Negative (Negative) Ur Leukocyte Esterase Negative (Negative) Urine WBC (Auto) 1-5 (0-5) /hpf Urine RBC (Auto) 10-30 H (0-4) /hpf U Hyaline Cast (Auto) 1-5 (0-5) /lpf U Epithel Cells (Auto) >30 H (0-5) /lpf Urine Bacteria (Auto) 3+ H (Negative) Urine Yeast Not Reportable Adenovirus (PCR) Not Detected (NotDetected) B. pertussis DNA (PCR) Not Detected (NotDetected) B.parapertussis DNA PCR Not Detected (NotDetected) C. pneumoniae DNA (PCR) Not Detected (NotDetected) Coronavirus OC43 (PCR) Not Detected (NotDetected) Coronavirus HKU1 (PCR) Not Detected (NotDetected) Coronavirus 229E (PCR) Not Detected (NotDetected) SARS-CoV-2 (PCR) DETECTED A* (NotDetected) Coronavirus NL63 (PCR) Not Detected (NotDetected) Human Metapneumovir PCR Not Detected (NotDetected) Influenza Type A (PCR) Not Detected (NotDetected) Influenza Type B (PCR) Not Detected (NotDetected) M. pneumoniae (PCR) Not Detected (NotDetected) Parainfluenza 1 (PCR) Not Detected (NotDetected) Parainfluenza 2 (PCR) Not Detected (NotDetected) Parainfluenza 3 (PCR) Not Detected (NotDetected) Parainfluenza 4 (PCR) Not Detected (NotDetected) RSV (PCR) Not Detected (NotDetected) Entero/Rhino (PCR) Not Detected (NotDetected) Blood Parasites ID 12/26/22 Range/Units 01:07 WBC RBC Hgb POC Hgb (12.0-16.0) g/dl Hct POC Hct (37-47) % MCV MCH MCHC RDW Std Deviation RDW Coeff of Elli Plt Count MPV Immature Gran % (Auto) Neut % (Auto) Lymph % (Auto) [place] % (Auto) Eos % (Auto) Baso % (Auto) Neut # (Auto) Lymph # (Auto) [place] # (Auto) Eos # (Auto) Baso # (Auto) Immature Gran # (Auto) Absolute Nucleated RBC Nucleated RBC % (auto) Neutrophils % (Manual) Band Neutrophils % Lymphocytes % (Manual) Prolymphocyte % Reactive Lymphs % (Man) Monocytes % (Manual) Eosinophils % (Manual) Basophils % (Manual) Metamyelocytes % (Man) Myelocytes % (Man) Promyelocytes % (Man) Blast Cells % (Manual) Plasma Cell % (Manual) Other Cells % Nucleated RBC % Neutrophils # (Manual) Band Neutrophils # Total Absolute Neuts Lymphocytes # (Manual) Prolymphocyte # Reactive Lymphs # Total Abs Lymphocytes Monocytes # (Manual) Eosinophils # (Manual) Basophils # (Manual) Metamyelocytes # (Man) Myelocytes # (Manual) Promyelocytes # (Man) Blast Cells # (Man) Plasma Cell # (Manual) Other Cells # Nucleated RBCs # (Man) Hypersegmented Neuts Hyposegmented Neuts Hypogranular Neuts Large Granular Lymphs # Lrg Granular Lymphs Hairy Cells Smudge Cells Toxic Granulation Toxic Vacuolation Dohle Bodies Santh[place] Rods Platelet Estimate Hypogranular Platelets Giant Platelets Platelet Satelliting RBC Morphology Polychromasia Hypochromasia Poikilocytosis Basophilic Stippling Anisocytosis Microcytosis Macrocytosis Spherocytes Pappenheimer Bodies Sickle Cells Target Cells Tear Drop Cells Ovalocytes Stomatocytes [place] Bodies Echinocytes Acanthocytes (Spur) Rouleaux RBC Agglutinates Schistocytes [place] Cell PT (9.0-12.0) Seconds INR (0.9-1.1) POC Sodium (135-144) mmol/L Sodium POC Potassium (3.3-5.0) mmol/L Potassium POC Chloride (101-112) mmol/L Chloride Carbon Dioxide POC Total CO2 (24-31) mmol/L Anion Gap POC Anion Gap (16-25) mmol/L POC BUN (7-18) mg/dl BUN Creatinine POC Creatinine (0.6-1.3) mg/dl Est Cr Clr Drug Dosing Est GFR ( Amer) Est GFR (Non-Af Amer) BUN/Creatinine Ratio Glucose POC Glucose (other) (70-99) mg/dl Lactate 1.0 (0.4-2.0) mmol/L Calcium POC Ioniz Calcium Fatou (1.12-1.32) mmol/l Phosphorus Magnesium Total Bilirubin AST ALT Alkaline Phosphatase Total Creatine Kinase Troponin I High Sens Total Protein Albumin Globulin Albumin/Globulin Ratio Lipase TSH Urine Color Urine Appearance (Clear) Urine pH (4.5-7.5) Ur Specific [place] (1.000-1.030) Urine Protein (Negative) Urine Glucose (UA) (Negative) Urine Ketones (Negative) Urine Blood (Negative) Urine Nitrite (Negative) Urine Bilirubin (Negative) Urine Urobilinogen (Negative) Ur Leukocyte Esterase (Negative) Urine WBC (Auto) (0-5) /hpf Urine RBC (Auto) (0-4) /hpf U Hyaline Cast (Auto) (0-5) /lpf U Epithel Cells (Auto) (0-5) /lpf Urine Bacteria (Auto) (Negative) Urine Yeast Adenovirus (PCR) (NotDetected) B. pertussis DNA (PCR) (NotDetected) B.parapertussis DNA PCR (NotDetected) C. pneumoniae DNA (PCR) (NotDetected) Coronavirus OC43 (PCR) (NotDetected) Coronavirus HKU1 (PCR) (NotDetected) Coronavirus 229E (PCR) (NotDetected) SARS-CoV-2 (PCR) (NotDetected) Coronavirus NL63 (PCR) (NotDetected) Human Metapneumovir PCR (NotDetected) Influenza Type A (PCR) (NotDetected) Influenza Type B (PCR) (NotDetected) M. pneumoniae (PCR) (NotDetected) Parainfluenza 1 (PCR) (NotDetected) Parainfluenza 2 (PCR) (NotDetected) Parainfluenza 3 (PCR) (NotDetected) Parainfluenza 4 (PCR) (NotDetected) RSV (PCR) (NotDetected) Entero/Rhino (PCR) (NotDetected) Blood Parasites ID Administered Medications Discontinued Medications Albuterol (Albuterol Hfa 8 Gm Inhaler) 2 puffs INH NOW ONE Stop: 12/25/22 23:38 Last Admin: 12/25/22 23:49 Dose: 2 puffs Documented By: BARBRA Aspirin (Aspirin Chew 324 Mg) 324 mg PO NOW STA Stop: 12/25/22 23:43 Last Admin: 12/25/22 23:52 Dose: 324 mg Documented By: BARBRA Dexamethasone Sodium Phosphate (DexamethasonePf 10 Mg/Ml Vial) 10 mg IV NOW ONE Stop: 12/25/22 23:38 Last Admin: 12/25/22 23:50 Dose: 10 mg Documented By: BARBRA Guaifenesin (Guaifenesin 600 Mg Tabcr) 1,200 mg PO NOW STA Stop: 12/25/22 23:38 Last Admin: 12/25/22 23:51 Dose: 1,200 mg Documented By: BARBRA Heparin Sodium/Dextrose (Heparin Iv Adult Wt-Based Low-Dose With Bolus Protocol) 1 each IV NOW STA; Protocol Stop: 12/25/22 23:43 Last Admin: 12/26/22 00:33 Dose: Not Given Documented By: BARBRA Sodium Chloride (Nss) 1,000 mls @ 999 mls/hr IV .Q1H1M ZENA Stop: 12/25/22 20:30 Last Infusion: 12/25/22 21:36 Dose: Infused Documented By: Admin: 12/25/22 20:19 Dose: 999 mls/hr Documented By: AB Famotidine (Pepcid 20mg Iv Push) 20 mg in 5 mls @ 2.5 mls/min IV NOW STA Stop: 12/25/22 20:08 Last Admin: 12/25/22 20:21 Dose: 2.5 mls/min Documented By: AB Acetaminophen (Ofirmev) 1,000 mg in 100 mls @ 400 mls/hr IV NOW STA Stop: 12/25/22 20:21 Last Infusion: 12/25/22 20:37 Dose: Infused Documented By: Admin: 12/25/22 20:21 Dose: 400 mls/hr Documented By: AB Heparin Sodium/Dextrose (Heparin Sodium/Dextrose) 25,000 units in 500 mls @ 0.02 mls/hr IV .Q24H [facility]; Protocol Stop: 01/24/23 23:44 Last Admin: 12/26/22 00:33 Dose: Not Given Documented By: BARBRA Ioversol (Optiray 320 500ml) 125 ml IV ONCE ONE Stop: 12/25/22 23:03 Last Admin: 12/25/22 23:02 Dose: 113 ml Documented By: DESIRE Ondansetron HCl (Ondansetron Inj 2 Mg/Ml 2 Ml Vial) 4 mg IV NOW STA Stop: 12/25/22 20:08 Last Admin: 12/25/22 20:21 Dose: 4 mg Documented By: Sodium Chloride (Sodium Chloride 0.65% Na Soln 45 Ml ([place])) 2 sprays NA NOW ONE Stop: 12/25/22 23:38 Last Admin: 12/25/22 23:55 Dose: Not Given Documented By: BARBRA Imaging Data Radiologist's Impression: Abdomen/Pelvis CT 12/25/22 20:11 Exam(s): CT ABDOMEN + PELVIS With Contrast IV Amt: 113 ml optiray 320 EXAM: CT Abdomen and Pelvis With Intravenous Contrast CLINICAL HISTORY: Reason for exam: weakness, diarrhea, fall. TECHNIQUE: Axial computed tomography images of the abdomen and pelvis with intravenous contrast. CTDI is 28.14 mGy and DLP is 831.42 mGy-cm. Automated exposure control was utilized for the study. A dose lowering technique was utilized adhering to the principles of ALARA. CONTRAST: Patient received 113 ml optiray 320 of IV contrast COMPARISON: No relevant prior studies available. FINDINGS: Lung bases: Patchy left lower lobe infiltrate suspicious for pneumonia. Heart: Severe coronary calcification is noted. ABDOMEN: Liver: Mild fatty infiltration of the liver. No focal liver lesion is seen for the liver is mildly enlarged. Gallbladder and bile ducts: Unremarkable. No calcified stones. No ductal dilation. Pancreas: Unremarkable. No mass. No ductal dilation. Spleen: Unremarkable. No splenomegaly. Adrenals: Unremarkable. No mass. Kidneys and ureters: Unremarkable. No solid mass. No hydronephrosis. Stomach and bowel: Unremarkable. No obstruction. No mucosal thickening. PELVIS: Appendix: The appendix is not visible. Bowel loops are nondilated. No acute inflammatory changes are seen involving the bowel. Bladder: Unremarkable. No mass. Reproductive: Unremarkable as visualized. ABDOMEN and PELVIS: Intraperitoneal space: Unremarkable. No free air. No significant fluid collection. Bones/joints: Mild to moderate degenerative changes throughout the spine. No acute fracture or subluxation is seen. Soft tissues: Unremarkable. Vasculature: Unremarkable. No abdominal aortic aneurysm. Lymph nodes: Unremarkable. No enlarged lymph nodes. IMPRESSION: 1. Patchy left lower lobe infiltrate suspicious for pneumonia. 2. The appendix is not visible. Bowel loops are nondilated. No acute inflammatory changes are seen involving the bowel. No acute process is seen within the abdomen or pelvis. Electronically signed by: Phillip Edward MD 12/25/22 23:34 PM Chest CTA 12/25/22 22:20 Exam(s): CTA CHEST IV Amt: 113 ml optiray 320 EXAM: CT Angiography Chest With Intravenous Contrast CLINICAL HISTORY: Reason for exam: weakness, Covid, elevated troponin, r/o PE. TECHNIQUE: Axial computed tomographic angiography images of the chest with intravenous contrast. CTDI is 24.93 mGy and DLP is 12.47 mGy-cm. Automated exposure control was utilized for the study. A dose lowering technique was utilized adhering to the principles of ALARA. MIP reconstructed images were created and reviewed. COMPARISON: No relevant prior studies available. FINDINGS: Pulmonary arteries: The pulmonary arterial tree is well opacified with contrast. No pulmonary embolism is identified. Aorta: The thoracic aorta is nondilated. There is no aneurysm or dissection. Lungs: Patchy nodular airspace infiltrates in the left lower lobe suspicious for pneumonia. These are new since previous. Mild bronchial wall thickening and suggests bronchitis as well. No mass. Pleural space: Unremarkable. No significant effusion. No pneumothorax. Heart: The heart is borderline enlarged. Severe coronary calcification is present. No pericardial effusion. No evidence of RV dysfunction. Bones/joints: Mild to moderate osteophytosis throughout the spine. No acute fracture or bone lesion is identified. No dislocation. Soft tissues: Unremarkable. Lymph nodes: Unremarkable. No enlarged lymph nodes. IMPRESSION: 1. Patchy nodular airspace infiltrates in the left lower lobe suspicious for pneumonia. These are new since previous. Mild bronchial wall thickening and suggests bronchitis as well. 2. The thoracic aorta is nondilated. There is no aneurysm or dissection. 3. The pulmonary arterial tree is well opacified with contrast. No pulmonary embolism is identified. 4. The heart is borderline enlarged. Severe coronary calcification is present. No pericardial effusion. Electronically signed by: Phillip Edward MD 12/25/22 23:31 PM Discharge Plan Visit Data Chief Complaint: Weakness Stated Complaint: COUGHING, NAUSEA, WEAKNESS FALL TODAY ED Provider: Sharif Goldman Discharge Problem: COVID-19, Elevated troponin, Elevated CPK, Non-ST elevation (NSTEMI) myocardial infarction, Hypoxia, Fall from standing Forms Stand Alone Forms: My [facility] [place] [employer] Prescriptions Prescriptions: No Action insulin glargine [Lantus U-100 Insulin] 100 unit/mL Solution 50 unit SUBCUT QAM tramadol 50 mg Tablet 50 mg PO Q6H PRN (Reason: Pain,severe) levothyroxine 75 mcg Tablet 75 mcg PO DAILYBB simvastatin 20 mg Tablet 20 mg PO HS gabapentin 100 mg Capsule 100 mg PO BID Rx Instructions: take in morning and again in afternoon gabapentin 100 mg Capsule 200 mg PO HS furosemide 20 mg tablet 20 mg PO [id number] omeprazole 20 mg capsule,delayed release(DR/EC) 20 mg PO DAILYBB enalapril maleate 20 mg tablet 20 mg PO QAM Novolin R Regular U100 Insulin 100 unit/mL solution 5 - 24 unit subcut ACHS PRN (Reason: sliding scale) cholecalciferol (vitamin D3) [Vitamin D3] 50 mcg (2,000 unit) Tablet 50 mcg PO DAILY Trulicity 1.5 mg/0.5 mL pen injector 1.5 mg SUBCUT WK Referrals Referrals: PCP,NO [Physician] - Discharge Problem: Fall from standing Qualifiers: Encounter type: initial encounter Qualified Code(s): W19.XXXA - Unspecified fall, initial encounter
[2022-12-25] MEDS ORDERED: FAMOTIDINE 20MG IV PUSH 20 MG/5 ML SYR IV STA (20:07)
[2022-12-25] MEDS ORDERED: ACETAMINOPHEN 1,000 MG/100 ML VIAL IV STA (20:07)
[2022-12-25] MEDS ORDERED: ONDANSETRON INJ 2 MG/ML 2 ML VIAL IV STA (20:07)
[2022-12-25 20:13] LABS: iSTAT Hemoglobin 13.9 g/dl (12.0-16.0); iSTAT Ionized Calcium 1.06 mmol/l (1.12-1.32)
[2022-12-25 20:50] LABS: Basophils # (auto) 0.03 K/uL (0.00-0.20); Basophils % (auto) 0.3 %; Hematocrit (blood only) 38.8 % (37.0-47.0); Immature Granulocytes # (auto) 0.05 K/uL (0.01-0.20); Immature Granulocytes % (auto) 0.4 %; Lymphocytes # (auto) 0.63 K/uL (1.20-3.40); Lymphocytes % (auto) 5.6 %; Mean Corpuscular Hemoglobin 28.3 pg (25.0-34.0); Mean Corpuscular Hgb Conc 33.5 g/dL (32.0-36.0); Mean Corpuscular Volume 84.5 fL (80.0-100.0); Mean Platelet Volume 10.4 fL (9.4-12.4); Monocytes # (auto) 1.08 K/uL (0.11-0.59); Monocytes % (auto) 9.7 %; Neutrophils # (auto) 9.39 K/uL (1.40-6.50); Platelet Count 169 K/uL (130-400); RDW Coefficient of Variation 12.8 % (11.5-14.5); RDW Standard Deviation 38.7 fL (36.4-46.3); Red Blood Count 4.59 M/uL (4.20-5.40); White Blood Count 11.18 K/ul (4.8-10.8)
[2022-12-25 20:51] LABS: Appearance Urine Cloudy (Clear); Bilirubin Urine Negative (Negative); Blood Urine 3+ (Negative); Color Urine Yellow; Epithelial Cell Urine Auto >30 /lpf (0-5); Glucose Urine UA Trace (Negative); Ketones Urine 1+ (Negative); Leukocyte Esterase Urine Negative (Negative); Nitrite Urine Negative (Negative); Protein Urine 1+ (Negative); Specific Gravity Urine 1.018 (1.000-1.030); Urobilinogen Urine Negative (Negative)
[2022-12-25 20:53] LABS: INR 1.1 (0.9-1.1); Prothrombin Time 11.6 Seconds (9.0-12.0)
[2022-12-25 21:12] LABS: Bacteria Urine Automated 3+ (Negative)
[2022-12-25 21:14] LABS: Albumin Level 4.1 gm/dl (3.4-5.0); Bilirubin,Total 0.8 mg/dl (0.2-1.0); Magnesium 1.8 mg/dl (1.7-2.4)
[2022-12-25 21:20] LABS: Albumin Globulin Ratio 1.3 (0.9-2); BUN Creatinine Ratio 10.3 (10-20); Creatinine Clr Calc Pharmacy 55.1 ml/min; Est GFR (African American) 54.7 ml/min; Est GFR (Non-African American) 47.2 ml/min; Globulin 3.1 gm/dl (2.5-4.0); Phosphorus 2.3 mg/dl (2.5-4.9); Total Protein 7.2 gm/dl (6.0-8.3)
[2022-12-25 21:33] LABS: Adenovirus PCR Not Detected (NotDetected); Bordetella parapertussis PCR Not Detected (NotDetected); Bordetella pertussis PCR Not Detected (NotDetected); Chlamydia pneumoniae PCR Not Detected (NotDetected); Coronavirus 229E PCR Not Detected (NotDetected); Coronavirus HKU1 PCR Not Detected (NotDetected); Coronavirus NL63 PCR Not Detected (NotDetected); Coronavirus OC43PCR Not Detected (NotDetected); Human Metapneumovirus PCR Not Detected (NotDetected); Influenza A PCR Not Detected (NotDetected); Influenza B PCR Not Detected (NotDetected); Mycoplasma pneumoniae PCR Not Detected (NotDetected); Parainfluenza Virus 1 PCR Not Detected (NotDetected); Parainfluenza Virus 2 PCR Not Detected (NotDetected); Parainfluenza Virus 3 PCR Not Detected (NotDetected); Parainfluenza Virus 4 PCR Not Detected (NotDetected); Respiratory Syncytial VirusPCR Not Detected (NotDetected); Rhinovirus/Enterovirus PCR Not Detected (NotDetected)
[2022-12-25 21:33] LABS: Thyroid Stimulating Hormone 0.935 uIu/ml (0.300-4.500)
[2022-12-25 21:40] LABS: Troponin I High Sensitivity 343.1 pg/ml (0-14)
[2022-12-25 22:19] LABS: Coronavirus CoV-2 (COVID19)PCR DETECTED (NotDetected)
[2022-12-25] MEDS ORDERED: OPTIRAY 320 500ml IV ONE (23:02)
--- NOTE | 2022-12-25 23:32 | CT Scan Report ---
Exam(s): CTA CHEST IV Amt: 113 ml optiray 320 EXAM: CT Angiography Chest With Intravenous Contrast CLINICAL HISTORY: Reason for exam: weakness, Covid, elevated troponin, r/o PE. TECHNIQUE: Axial computed tomographic angiography images of the chest with intravenous contrast. CTDI is 24.93 mGy and DLP is 12.47 mGy-cm. Automated exposure control was utilized for the study. A dose lowering technique was utilized adhering to the principles of ALARA. MIP reconstructed images were created and reviewed. COMPARISON: No relevant prior studies available. FINDINGS: Pulmonary arteries: The pulmonary arterial tree is well opacified with contrast. No pulmonary embolism is identified. Aorta: The thoracic aorta is nondilated. There is no aneurysm or dissection. Lungs: Patchy nodular airspace infiltrates in the left lower lobe suspicious for pneumonia. These are new since previous. Mild bronchial wall thickening and suggests bronchitis as well. No mass. Pleural space: Unremarkable. No significant effusion. No pneumothorax. Heart: The heart is borderline enlarged. Severe coronary calcification is present. No pericardial effusion. No evidence of RV dysfunction. Bones/joints: Mild to moderate osteophytosis throughout the spine. No acute fracture or bone lesion is identified. No dislocation. Soft tissues: Unremarkable. Lymph nodes: Unremarkable. No enlarged lymph nodes. IMPRESSION: 1. Patchy nodular airspace infiltrates in the left lower lobe suspicious for pneumonia. These are new since previous. Mild bronchial wall thickening and suggests bronchitis as well. 2. The thoracic aorta is nondilated. There is no aneurysm or dissection. 3. The pulmonary arterial tree is well opacified with contrast. No pulmonary embolism is identified. 4. The heart is borderline enlarged. Severe coronary calcification is present. No pericardial effusion. Electronically signed by: Phillip Edward MD 12/25/22 23:31 PM
--- NOTE | 2022-12-25 23:34 | CT Scan Report ---
Exam(s): CT ABDOMEN + PELVIS With Contrast IV Amt: 113 ml optiray 320 EXAM: CT Abdomen and Pelvis With Intravenous Contrast CLINICAL HISTORY: Reason for exam: weakness, diarrhea, fall. TECHNIQUE: Axial computed tomography images of the abdomen and pelvis with intravenous contrast. CTDI is 28.14 mGy and DLP is 831.42 mGy-cm. Automated exposure control was utilized for the study. A dose lowering technique was utilized adhering to the principles of ALARA. CONTRAST: Patient received 113 ml optiray 320 of IV contrast COMPARISON: No relevant prior studies available. FINDINGS: Lung bases: Patchy left lower lobe infiltrate suspicious for pneumonia. Heart: Severe coronary calcification is noted. ABDOMEN: Liver: Mild fatty infiltration of the liver. No focal liver lesion is seen for the liver is mildly enlarged. Gallbladder and bile ducts: Unremarkable. No calcified stones. No ductal dilation. Pancreas: Unremarkable. No mass. No ductal dilation. Spleen: Unremarkable. No splenomegaly. Adrenals: Unremarkable. No mass. Kidneys and ureters: Unremarkable. No solid mass. No hydronephrosis. Stomach and bowel: Unremarkable. No obstruction. No mucosal thickening. PELVIS: Appendix: The appendix is not visible. Bowel loops are nondilated. No acute inflammatory changes are seen involving the bowel. Bladder: Unremarkable. No mass. Reproductive: Unremarkable as visualized. ABDOMEN and PELVIS: Intraperitoneal space: Unremarkable. No free air. No significant fluid collection. Bones/joints: Mild to moderate degenerative changes throughout the spine. No acute fracture or subluxation is seen. Soft tissues: Unremarkable. Vasculature: Unremarkable. No abdominal aortic aneurysm. Lymph nodes: Unremarkable. No enlarged lymph nodes. IMPRESSION: 1. Patchy left lower lobe infiltrate suspicious for pneumonia. 2. The appendix is not visible. Bowel loops are nondilated. No acute inflammatory changes are seen involving the bowel. No acute process is seen within the abdomen or pelvis. Electronically signed by: Phillip Edward MD 12/25/22 23:34 PM
[2022-12-25] MEDS ORDERED: ALBUTEROL HFA 8 GM INHALER INH ONE (23:37)
[2022-12-25] MEDS ORDERED: SODIUM CHLORIDE 0.65% NA SOLN 45 ML (OCEAN) ONE (23:37)
[2022-12-25] MEDS ORDERED: guaiFENesin 600 MG TABCR PO STA (23:37)
[2022-12-25] MEDS ORDERED: dexAMETHasone**PF** 10 MG/ML VIAL IV ONE (23:37)
[2022-12-25] MEDS ORDERED: Heparin IV Adult Wt-Based Low-Dose WITH Bolus Protocol IV STA (23:42)
[2022-12-25] MEDS ORDERED: ASPIRIN CHEW 324 MG PO STA (23:42)
[2022-12-25] MEDS ORDERED: HEPARIN SODIUM/DEXTROSE 25,000 UNITS/500 ML BAG IV SCH (23:45)
[2022-12-25] MEDS ORDERED: MAGNESIUM SULFATE / D5W 1 GM/100 ML BAG IV ONE (23:51)
[2022-12-25] MEDS ORDERED: HEPARIN SOD (PORCINE) 1000 UNIT/ML IV ONE (23:57)
--- NOTE | 2022-12-26 01:49 | History & Physical Report ---
Date of Service December 26, 2022 Assessment & Plan (1) Acute hypoxemic respiratory failure: Plan: Secondary to severe COVID-19 pneumonia/possible aspiration pneumonia Severe sepsis SIRS plus hypoxemia secondary to above Abnormal CPK, LFTs, troponin elevation secondary to traumatic rhabdomyolysis Patient denies unusual chest pain or SOB complaints. hypertension, currently stable hyperlipidemia, on statin Rx DM 2 insulin requiring, well-controlled as of recent hemoglobin A1c of 7 last October 2022 hypothyroidism, euthyroid as of today's TSH past history DVT status post Coumadin morbid obesity. Medical telemetry Supplemental O2 Baseline ABG Decadron, Remdesivir for severe COVID-19 pneumonia Unasyn followed by Augmentin course for possible aspiration pneumonia [employer] eval, aspiration precautions Monitor CPK response to IVF Follow troponin, TTE for progression Basal bolus insulin adjusted for clear liquid diet for now, ISS BG goal 1 10-1 40, carb count coverage PT OT eval once medically stable DVT prophylaxis. Lovenox subcu Full code Total critical care time was 45 minutes. Attempted to contact patient's for multiple contact numbers (Mr. Victor M Craft, contact numbers [phone]) over the phone to give update regarding plan of care. No answer. Text document was generated using [employer] voice recognition software. It may contain grammatical or spelling errors. Kindly contact undersigned for clarification of any documentation item in question. History of Present Illness Chief Complaint: Weakness, fall Primary Care Provider: Jono Chairez MD History obtained from patient and records. Medical history significant for hypertension, hyperlipidemia, DM 2 insulin requiring, hypothyroidism, GERD, past history DVT status post Coumadin, morbid obesity. Last confinement 2010 for facial cellulitis and upper extremity DVT status post Coumadin Rx. Patient not feeling well the last few days. Generalized weakness. Junky cough symptoms without chest pain or shortness of breath. Poor appetite. Admits to coughing with meals/water intake. Possible sick contacts. Patient completed COVID-19 vaccination. Patient could not get up from the bathroom floor after attempt to vomit. No headache/head trauma/syncope. Patient was on the floor for couple of hours before EMS got to her. Lowest O2 sats of 80s documented at the ER. 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 Allergies Allergy/AdvReac Type Severity Reaction Status Date / Time No Known Allergies Allergy Unknown Verified 12/26/22 00:03 Home Medications Medication Instructions Recorded Confirmed Type gabapentin 100 mg capsule 100 mg PO BID 02/15/18 12/25/22 History gabapentin 100 mg capsule 200 mg PO HS 02/15/18 12/25/22 History insulin glargine 100 unit/mL 50 unit subcut QAM 02/15/18 12/25/22 History subcutaneous solution (Lantus U-100 Insulin) levothyroxine 75 mcg tablet 75 mcg PO DAILYBB 02/15/18 12/25/22 History simvastatin 20 mg tablet 20 mg PO HS 02/15/18 12/25/22 History tramadol 50 mg tablet 50 mg PO Q6H PRN Pain,severe 02/15/18 12/26/22 History furosemide 20 mg tablet 20 mg PO 3XWK 12/25/22 12/25/22 History omeprazole 20 mg capsule,delayed 20 mg PO DAILYBB 12/25/22 12/25/22 History release cholecalciferol (vitamin D3) 50 50 mcg PO DAILY 12/26/22 12/26/22 History mcg (2,000 unit) tablet (Vitamin D3) dulaglutide 1.5 mg/0.5 mL 1.5 mg subcut WK 12/26/22 12/26/22 History subcutaneous pen injector (Trulicity) enalapril maleate 20 mg tablet 20 mg PO QAM 12/26/22 12/26/22 History insulin regular human 100 unit/mL 5 - 24 unit subcut ACHS PRN 12/26/22 12/26/22 History injection solution (Novolin R sliding scale Regular U-100 Insulin) Past Med/Surg History Medical History Hypothyroidism Osteoarthritis, knee Arthritis Hypertension Type 2 diabetes mellitus Family History Other No significant family history Social History Smoking Status: Never smoker Hx Alcohol Use: No Hx Substance Use: No Preferred Language: Hungarian Mix Chemist Required: No Beliefs That Will Affect Care: None Current Living Situation: Spouse Current Living Situation Comment: Lives at home with Feels Safe at Home: Yes Safety Concerns: Feels Safe At This Time Assistive Devices: Cane and Glasses Review of Systems Review of Systems: As per HPI, all other systems reviewed and negative Physical Exam Physical Exam: GENERAL: Slightly uncomfortable, morbidly obese, dysphonic, no respiratory distress SKIN: Normal color, warm HEENT: Bespectacled, [place] palpebral conjunctivae, no ptosis, dry buccal mucosa, nasal cannula in place NECK : Supple, short neck, no tenderness CHEST : Decreased breath sounds, no tenderness HEART : Tachycardic, no obvious murmurs ABDOMEN: no distention, nontender EXTREMITIES : Minimal LE swelling, no LE tenderness, no other conspicuous deformities noted NEUROLOGIC : Coherent, no facial asymmetry, no other gross focality Results & Data Results & Data Vital Signs (Past 12 Hours) Vital Signs Temp Pulse Pulse Pulse Resp BP BP 12/25/22 23:38 12/25/22 23:24 12/25/22 23:23 109 H 18 12/25/22 22:56 104 H 12/25/22 22:56 103 H 20 12/25/22 21:30 100 H 18 112/71 12/25/22 19:13 37.2 C 111 H 16 170/92 H Pulse Ox O2 Del Method O2 Flow Rate 12/25/22 23:38 98 Nasal Cannula 2 12/25/22 23:24 89 L Room Air 12/25/22 23:23 12/25/22 22:56 12/25/22 22:56 93 Room Air 12/25/22 21:30 93 Room Air 12/25/22 19:13 98 Room Air Laboratory Results Laboratory Results WBC 11.18 K/ul (4.8-10.8) H 12/25/22 19:51 WBC Cancelled 12/25/22 19:51 RBC 4.59 M/uL (4.20-5.40) 12/25/22 19:51 RBC Cancelled 12/25/22 19:51 Hgb 13.0 g/dl (12.0-16.0) 12/25/22 19:51 Hgb Cancelled 12/25/22 19:51 POC Hgb 13.9 g/dl (12.0-16.0) 12/25/22 20:01 Hct 38.8 % (37.0-47.0) 12/25/22 19:51 Hct Cancelled 12/25/22 19:51 POC Hct 41 % (37-47) 12/25/22 20:01 MCV 84.5 fL (80.0-100.0) 12/25/22 19:51 MCV Cancelled 12/25/22 19:51 MCH 28.3 pg (25.0-34.0) 12/25/22 19:51 MCH Cancelled 12/25/22 19:51 MCHC 33.5 g/dL (32.0-36.0) 12/25/22 19:51 MCHC Cancelled 12/25/22 19:51 RDW Std Deviation 38.7 fL (36.4-46.3) 12/25/22 19:51 RDW Std Deviation Cancelled 12/25/22 19:51 RDW Coeff of Elli 12.8 % (11.5-14.5) 12/25/22 19:51 RDW Coeff of Elli Cancelled 12/25/22 19:51 Plt Count 169 K/uL (130-400) 12/25/22 19:51 Plt Count Cancelled 12/25/22 19:51 MPV 10.4 fL (9.4-12.4) 12/25/22 19:51 MPV Cancelled 12/25/22 19:51 Immature Gran % (Auto) 0.4 % 12/25/22 19:51 Immature Gran % (Auto) Cancelled 12/25/22 19:51 Neut % (Auto) 84.0 % 12/25/22 19:51 Neut % (Auto) Cancelled 12/25/22 19:51 Lymph % (Auto) 5.6 % 12/25/22 19:51 Lymph % (Auto) Cancelled 12/25/22 19:51 [place] % (Auto) 9.7 % 12/25/22 19:51 [place] % (Auto) Cancelled 12/25/22 19:51 Eos % (Auto) 0.0 % 12/25/22 19:51 Eos % (Auto) Cancelled 12/25/22 19:51 Baso % (Auto) 0.3 % 12/25/22 19:51 Baso % (Auto) Cancelled 12/25/22 19:51 Neut # (Auto) 9.39 K/uL (1.40-6.50) H 12/25/22 19:51 Neut # (Auto) Cancelled 12/25/22 19:51 Lymph # (Auto) 0.63 K/uL (1.20-3.40) L 12/25/22 19:51 Lymph # (Auto) Cancelled 12/25/22 19:51 [place] # (Auto) 1.08 K/uL (0.11-0.59) H 12/25/22 19:51 [place] # (Auto) Cancelled 12/25/22 19:51 Eos # (Auto) 0.00 K/uL (0.00-0.50) 12/25/22 19:51 Eos # (Auto) Cancelled 12/25/22 19:51 Baso # (Auto) 0.03 K/uL (0.00-0.20) 12/25/22 19:51 Baso # (Auto) Cancelled 12/25/22 19:51 Immature Gran # (Auto) 0.05 K/uL (0.01-0.20) 12/25/22 19:51 Immature Gran # (Auto) Cancelled 12/25/22 19:51 Absolute Nucleated RBC Cancelled 12/25/22 19:51 Nucleated RBC % (auto) Cancelled 12/25/22 19:51 Neutrophils % (Manual) Cancelled 12/25/22 19:51 Band Neutrophils % Cancelled 12/25/22 19:51 Lymphocytes % (Manual) Cancelled 12/25/22 19:51 Prolymphocyte % Cancelled 12/25/22 19:51 Reactive Lymphs % (Man) Cancelled 12/25/22 19:51 Monocytes % (Manual) Cancelled 12/25/22 19:51 Eosinophils % (Manual) Cancelled 12/25/22 19:51 Basophils % (Manual) Cancelled 12/25/22 19:51 Metamyelocytes % (Man) Cancelled 12/25/22 19:51 Myelocytes % (Man) Cancelled 12/25/22 19:51 Promyelocytes % (Man) Cancelled 12/25/22 19:51 Blast Cells % (Manual) Cancelled 12/25/22 19:51 Plasma Cell % (Manual) Cancelled 12/25/22 19:51 Other Cells % Cancelled 12/25/22 19:51 Nucleated RBC % Cancelled 12/25/22 19:51 Neutrophils # (Manual) Cancelled 12/25/22 19:51 Band Neutrophils # Cancelled 12/25/22 19:51 Total Absolute Neuts Cancelled 12/25/22 19:51 Lymphocytes # (Manual) Cancelled 12/25/22 19:51 Prolymphocyte # Cancelled 12/25/22 19:51 Reactive Lymphs # Cancelled 12/25/22 19:51 Total Abs Lymphocytes Cancelled 12/25/22 19:51 Monocytes # (Manual) Cancelled 12/25/22 19:51 Eosinophils # (Manual) Cancelled 12/25/22 19:51 Basophils # (Manual) Cancelled 12/25/22 19:51 Metamyelocytes # (Man) Cancelled 12/25/22 19:51 Myelocytes # (Manual) Cancelled 12/25/22 19:51 Promyelocytes # (Man) Cancelled 12/25/22 19:51 Blast Cells # (Man) Cancelled 12/25/22 19:51 Plasma Cell # (Manual) Cancelled 12/25/22 19:51 Other Cells # Cancelled 12/25/22 19:51 Nucleated RBCs # (Man) Cancelled 12/25/22 19:51 Hypersegmented Neuts Cancelled 12/25/22 19:51 Hyposegmented Neuts Cancelled 12/25/22 19:51 Hypogranular Neuts Cancelled 12/25/22 19:51 Large Granular Lymphs Cancelled 12/25/22 19:51 # Lrg Granular Lymphs Cancelled 12/25/22 19:51 Hairy Cells Cancelled 12/25/22 19:51 Smudge Cells Cancelled 12/25/22 19:51 Toxic Granulation Cancelled 12/25/22 19:51 Toxic Vacuolation Cancelled 12/25/22 19:51 Dohle Bodies Cancelled 12/25/22 19:51 Santhosh Rods Cancelled 12/25/22 19:51 Platelet Estimate Cancelled 12/25/22 19:51 Hypogranular Platelets Cancelled 12/25/22 19:51 Giant Platelets Cancelled 12/25/22 19:51 Platelet Satelliting Cancelled 12/25/22 19:51 RBC Morphology Cancelled 12/25/22 19:51 Polychromasia Cancelled 12/25/22 19:51 Hypochromasia Cancelled 12/25/22 19:51 Poikilocytosis Cancelled 12/25/22 19:51 Basophilic Stippling Cancelled 12/25/22 19:51 Anisocytosis Cancelled 12/25/22 19:51 Microcytosis Cancelled 12/25/22 19:51 Macrocytosis Cancelled 12/25/22 19:51 Spherocytes Cancelled 12/25/22 19:51 Pappenheimer Bodies Cancelled 12/25/22 19:51 Sickle Cells Cancelled 12/25/22 19:51 Target Cells Cancelled 12/25/22 19:51 Tear Drop Cells Cancelled 12/25/22 19:51 Ovalocytes Cancelled 12/25/22 19:51 Stomatocytes Cancelled 12/25/22 19:51 [place] Bodies Cancelled 12/25/22 19:51 Echinocytes Cancelled 12/25/22 19:51 Acanthocytes (Spur) Cancelled 12/25/22 19:51 Rouleaux Cancelled 12/25/22 19:51 RBC Agglutinates Cancelled 12/25/22 19:51 Schistocytes Cancelled 12/25/22 19:51 Sezary Cell Cancelled 12/25/22 19:51 PT 11.6 Seconds (9.0-12.0) 12/25/22 19:51 INR 1.1 (0.9-1.1) 12/25/22 19:51 POC Sodium 135 mmol/L (135-144) 12/25/22 20:01 Sodium 132 mmol/L (136-145) L 12/25/22 19:51 Sodium Cancelled 12/25/22 19:51 POC Potassium 4.0 mmol/L (3.3-5.0) 12/25/22 20:01 Potassium 4.0 mmol/L (3.5-5.1) 12/25/22 19:51 Potassium Cancelled 12/25/22 19:51 POC Chloride 102 mmol/L (101-112) 12/25/22 20:01 Chloride 103 mmol/L (98-107) 12/25/22 19:51 Chloride Cancelled 12/25/22 19:51 Carbon Dioxide 20 mmol/L (21-32) L 12/25/22 19:51 Carbon Dioxide Cancelled 12/25/22 19:51 POC Total CO2 21 mmol/L (24-31) L 12/25/22 20:01 Anion Gap 9 (3-11) 12/25/22 19:51 Anion Gap Cancelled 12/25/22 19:51 POC Anion Gap 17.0 mmol/L (16-25) 12/25/22 20:01 POC BUN 11 mg/dl (7-18) 12/25/22 20:01 BUN 12 mg/dl (6-23) 12/25/22 19:51 BUN Cancelled 12/25/22 19:51 Creatinine 1.17 mg/dl (0.6-1.2) 12/25/22 19:51 Creatinine Cancelled 12/25/22 19:51 POC Creatinine 1.0 mg/dl (0.6-1.3) 12/25/22 20:01 Est Cr Clr Drug Dosing 55.1 ml/min 12/25/22 19:51 Est Cr Clr Drug Dosing Cancelled 12/25/22 19:51 Est GFR ( Amer) 54.7 ml/min 12/25/22 19:51 Est GFR ( Amer) Cancelled 12/25/22 19:51 Est GFR (Non-Af Amer) 47.2 ml/min 12/25/22 19:51 Est GFR (Non-Af Amer) Cancelled 12/25/22 19:51 BUN/Creatinine Ratio 10.3 (10-20) 12/25/22 19:51 BUN/Creatinine Ratio Cancelled 12/25/22 19:51 Glucose 192 mg/dl (70-99(Fasting)) H 12/25/22 19:51 Glucose Cancelled 12/25/22 19:51 POC Glucose (other) 203 mg/dl (70-99) H 12/25/22 20:01 Lactate 1.0 mmol/L (0.4-2.0) 12/26/22 01:07 Calcium 9.0 mg/dl (8.6-10.3) 12/25/22 19:51 Calcium Cancelled 12/25/22 19:51 POC Ioniz Calcium Fatou 1.06 mmol/l (1.12-1.32) L 12/25/22 20:01 Phosphorus 2.3 mg/dl (2.5-4.9) L 12/25/22 19:51 Phosphorus Cancelled 12/25/22 19:51 Magnesium 1.8 mg/dl (1.7-2.4) 12/25/22 19:51 Magnesium Cancelled 12/25/22 19:51 Total Bilirubin 0.8 mg/dl (0.2-1.0) 12/25/22 19:51 Total Bilirubin Cancelled 12/25/22 19:51 AST 40 U/L (13-39) H 12/25/22 19:51 AST Cancelled 12/25/22 19:51 ALT 18 U/L (7-52) 12/25/22 19:51 ALT Cancelled 12/25/22 19:51 Alkaline Phosphatase 70 U/L (34-104) 12/25/22 19:51 Alkaline Phosphatase Cancelled 12/25/22 19:51 Total Creatine Kinase 1180 U/L (26-192) H 12/25/22 19:51 Total Creatine Kinase Cancelled 12/25/22 19:51 Troponin I High Sens 1112.8 pg/ml (0-14) H* D 12/25/22 22:26 Total Protein 7.2 gm/dl (6.0-8.3) 12/25/22 19:51 Total Protein Cancelled 12/25/22 19:51 Albumin 4.1 gm/dl (3.4-5.0) 12/25/22 19:51 Albumin Cancelled 12/25/22 19:51 Globulin 3.1 gm/dl (2.5-4.0) 12/25/22 19:51 Globulin Cancelled 12/25/22 19:51 Albumin/Globulin Ratio 1.3 (0.9-2) 12/25/22 19:51 Albumin/Globulin Ratio Cancelled 12/25/22 19:51 Lipase 42 U/L (11-82) 12/25/22 19:51 Lipase Cancelled 12/25/22 19:51 TSH 0.935 uIu/ml (0.300-4.500) 12/25/22 19:51 TSH Cancelled 12/25/22 19:51 Urine Color Yellow 12/25/22 20:25 Urine Appearance Cloudy (Clear) A 12/25/22 20:25 Urine pH 6.0 (4.5-7.5) 12/25/22 20:25 Ur Specific [place] 1.018 (1.000-1.030) 12/25/22 20:25 Urine Protein 1+ (Negative) H 12/25/22 20:25 Urine Glucose (UA) Trace (Negative) H 12/25/22 20:25 Urine Ketones 1+ (Negative) H 12/25/22 20:25 Urine Blood 3+ (Negative) H 12/25/22 20:25 Urine Nitrite Negative (Negative) 12/25/22 20: Urine Bilirubin Negative (Negative) 12/25/22 20:25 Urine Urobilinogen Negative (Negative) 12/25/22 20:25 Ur Leukocyte Esterase Negative (Negative) 12/25/22 20:25 Urine WBC (Auto) 1-5 /hpf (0-5) 12/25/22 20:25 Urine RBC (Auto) 10-30 /hpf (0-4) H 12/25/22 20:25 U Hyaline Cast (Auto) 1-5 /lpf (0-5) 12/25/22 20:25 U Epithel Cells (Auto) >30 /lpf (0-5) H 12/25/22 20:25 Urine Bacteria (Auto) 3+ (Negative) H 12/25/22 20:25 Urine Yeast Not Reportable 12/25/22 20:25 Adenovirus (PCR) Not Detected (NotDetected) 12/25/22 20:25 B. pertussis DNA (PCR) Not Detected (NotDetected) 12/25/22 20:25 B.parapertussis DNA PCR Not Detected (NotDetected) 12/25/22 20:25 C. pneumoniae DNA (PCR) Not Detected (NotDetected) 12/25/22 20:25 Coronavirus OC43 (PCR) Not Detected (NotDetected) 12/25/22 20:25 Coronavirus HKU1 (PCR) Not Detected (NotDetected) 12/25/22 20:25 Coronavirus 229E (PCR) Not Detected (NotDetected) 12/25/22 20:25 SARS-CoV-2 (PCR) DETECTED (NotDetected) A* 12/25/22 20:25 Coronavirus NL63 (PCR) Not Detected (NotDetected) 12/25/22 20:25 Human Metapneumovir PCR Not Detected (NotDetected) 12/25/22 20:25 Influenza Type A (PCR) Not Detected (NotDetected) 12/25/22 20:25 Influenza Type B (PCR) Not Detected (NotDetected) 12/25/22 20:25 M. pneumoniae (PCR) Not Detected (NotDetected) 12/25/22 20:25 Parainfluenza 1 (PCR) Not Detected (NotDetected) 12/25/22 20:25 Parainfluenza 2 (PCR) Not Detected (NotDetected) 12/25/22 20:25 Parainfluenza 3 (PCR) Not Detected (NotDetected) 12/25/22 20:25 Parainfluenza 4 (PCR) Not Detected (NotDetected) 12/25/22 20:25 RSV (PCR) Not Detected (NotDetected) 12/25/22 20:25 Entero/Rhino (PCR) Not Detected (NotDetected) 12/25/22 20:25 Blood Parasites ID Cancelled 12/25/22 19:51 Impressions Abdomen/Pelvis CT 12/25/22 20:11 Exam(s): CT ABDOMEN + PELVIS With Contrast IV Amt: 113 ml optiray 320 EXAM: CT Abdomen and Pelvis With Intravenous Contrast CLINICAL HISTORY: Reason for exam: weakness, diarrhea, fall. TECHNIQUE: Axial computed tomography images of the abdomen and pelvis with intravenous contrast. CTDI is 28.14 mGy and DLP is 831.42 mGy-cm. Automated exposure control was utilized for the study. A dose lowering technique was utilized adhering to the principles of ALARA. CONTRAST: Patient received 113 ml optiray 320 of IV contrast COMPARISON: No relevant prior studies available. FINDINGS: Lung bases: Patchy left lower lobe infiltrate suspicious for pneumonia. Heart: Severe coronary calcification is noted. ABDOMEN: Liver: Mild fatty infiltration of the liver. No focal liver lesion is seen for the liver is mildly enlarged. Gallbladder and bile ducts: Unremarkable. No calcified stones. No ductal dilation. Pancreas: Unremarkable. No mass. No ductal dilation. Spleen: Unremarkable. No splenomegaly. Adrenals: Unremarkable. No mass. Kidneys and ureters: Unremarkable. No solid mass. No hydronephrosis. Stomach and bowel: Unremarkable. No obstruction. No mucosal thickening. PELVIS: Appendix: The appendix is not visible. Bowel loops are nondilated. No acute inflammatory changes are seen involving the bowel. Bladder: Unremarkable. No mass. Reproductive: Unremarkable as visualized. ABDOMEN and PELVIS: Intraperitoneal space: Unremarkable. No free air. No significant fluid collection. Bones/joints: Mild to moderate degenerative changes throughout the spine. No acute fracture or subluxation is seen. Soft tissues: Unremarkable. Vasculature: Unremarkable. No abdominal aortic aneurysm. Lymph nodes: Unremarkable. No enlarged lymph nodes. IMPRESSION: 1. Patchy left lower lobe infiltrate suspicious for pneumonia. 2. The appendix is not visible. Bowel loops are nondilated. No acute inflammatory changes are seen involving the bowel. No acute process is seen within the abdomen or pelvis. Electronically signed by: Phillip Edward MD 12/25/22 23:34 PM Chest CTA 12/25/22 22:20 Exam(s): CTA CHEST IV Amt: 113 ml optiray 320 EXAM: CT Angiography Chest With Intravenous Contrast CLINICAL HISTORY: Reason for exam: weakness, Covid, elevated troponin, r/o PE. TECHNIQUE: Axial computed tomographic angiography images of the chest with intravenous contrast. CTDI is 24.93 mGy and DLP is 12.47 mGy-cm. Automated exposure control was utilized for the study. A dose lowering technique was utilized adhering to the principles of ALARA. MIP reconstructed images were created and reviewed. COMPARISON: No relevant prior studies available. FINDINGS: Pulmonary arteries: The pulmonary arterial tree is well opacified with contrast. No pulmonary embolism is identified. Aorta: The thoracic aorta is nondilated. There is no aneurysm or dissection. Lungs: Patchy nodular airspace infiltrates in the left lower lobe suspicious for pneumonia. These are new since previous. Mild bronchial wall thickening and suggests bronchitis as well. No mass. Pleural space: Unremarkable. No significant effusion. No pneumothorax. Heart: The heart is borderline enlarged. Severe coronary calcification is present. No pericardial effusion. No evidence of RV dysfunction. Bones/joints: Mild to moderate osteophytosis throughout the spine. No acute fracture or bone lesion is identified. No dislocation. Soft tissues: Unremarkable. Lymph nodes: Unremarkable. No enlarged lymph nodes. IMPRESSION: 1. Patchy nodular airspace infiltrates in the left lower lobe suspicious for pneumonia. These are new since previous. Mild bronchial wall thickening and suggests bronchitis as well. 2. The thoracic aorta is nondilated. There is no aneurysm or dissection. 3. The pulmonary arterial tree is well opacified with contrast. No pulmonary embolism is identified. 4. The heart is borderline enlarged. Severe coronary calcification is present. No pericardial effusion. Electronically signed by: Phillip Edward MD 12/25/22 23:31 PM Diagnostic Findings EKG as per my interpretation : Rate 110, sinus tachycardia, normal axis, T wave abnormalities inferior leads
[2022-12-26] MEDS ORDERED: ACETAMINOPHEN 325 MG TAB PO PRN ×2 (01:55→03:25)
[2022-12-26] MEDS ORDERED: oxyCODONE HCL IR 5 MG TAB (IMMEDIATE RELEASE) PO PRN (01:55)
[2022-12-26] MEDS ORDERED: GLUCAGON FOR INJ 1 MG VIAL SQ PRN (01:55)
[2022-12-26] MEDS ORDERED: CARBOHYDRATES FOR HYPOGLYCEMIA PO PRN (01:55)
[2022-12-26] MEDS ORDERED: PROMETHAZINE HCL 12.5 MG in SODIUM CHLORIDE 0.9% 50 ML IV PRN (01:55)
[2022-12-26] MEDS ORDERED: GLUCOSE 10 TAB/TUBE PO PRN (01:55)
[2022-12-26] MEDS ORDERED: DEXTROSE 50% 50 ML SYRINGE IV PRN (01:55)
[2022-12-26] MEDS ORDERED: GLUCOSE 40% GEL 15 GM TUBE PO PRN (01:55)
[2022-12-26] MEDS ORDERED: AMPICILLIN/SULBACTAM SOD 3,000 MG in SODIUM CHLOR 0.9% MINI-B 100 ML IV STA (02:17)
[2022-12-26] MEDS ORDERED: REMDESIVIR 200 MG in SODIUM CHLORIDE 0.9% 210 ML IV ONE (02:30)
[2022-12-26] MEDS ORDERED: SODIUM CHLORIDE 0.9% 1,000 ML IV ONE (02:30)
[2022-12-26] MEDS: LANTUS PER UNIT CHARGE SQ SCH ×3 (02:47→21:42)
[2022-12-26] MEDS: INSULIN ASPART PER UNIT CHARGE SC SCH ×5 (04:13→21:43)
[2022-12-26] MEDS: PANTOprazole 40 MG TAB PO SCH (06:21)
[2022-12-26] MEDS: LEVOTHYROXINE SODIUM 75 MCG TABLET PO SCH (06:21)
--- NOTE | 2022-12-26 07:11 | XRay Report ---
XR chest 1V portable CLINICAL HISTORY: weakness COMPARISON STUDY: Chest radiograph and chest CT February 15, 2018. FINDINGS: Elevation of the right hemidiaphragm is unchanged. Mild left lower lobe airspace opacity is present. There is no pneumothorax or pleural effusion. Cardiac size is stable. Mediastinal contours are normal. There is no evidence for pulmonary edema. IMPRESSION: Mild left lower lobe airspace opacity which favors an infectious process. ACT 112: Negative or not required by law. Electronically signed by: Adal Mendieta M.D. 12/26/2022 7:10 AM
[2022-12-26 07:51] LABS: Hematocrit (blood only) 41.4 % (37.0-47.0); Hemoglobin 13.5 g/dl (12.0-16.0); Immature Granulocytes # (auto) 0.04 K/uL (0.01-0.20); Immature Granulocytes % (auto) 0.4 %; Lymphocytes # (auto) 0.84 K/uL (1.20-3.40); Lymphocytes % (auto) 8.4 %; Mean Corpuscular Hemoglobin 27.9 pg (25.0-34.0); Mean Corpuscular Hgb Conc 32.6 g/dL (32.0-36.0); Mean Corpuscular Volume 85.5 fL (80.0-100.0); Mean Platelet Volume 10.6 fL (9.4-12.4); Monocytes # (auto) 0.53 K/uL (0.11-0.59); Monocytes % (auto) 5.3 %; Neutrophils # (auto) 8.59 K/uL (1.40-6.50); Neutrophils % (auto) 85.9 %; Platelet Count 178 K/uL (130-400); RDW Coefficient of Variation 12.6 % (11.5-14.5); RDW Standard Deviation 39.1 fL (36.4-46.3); Red Blood Count 4.84 M/uL (4.20-5.40)
[2022-12-26 07:52] LABS: BUN Creatinine Ratio 11.2 (10-20); Calcium 8.7 mg/dl (8.6-10.3); Creatinine Clr Calc Pharmacy 65.5 ml/min; Est GFR (African American) 67.7 ml/min; Est GFR (Non-African American) 58.4 ml/min; Potassium 3.9 mmol/L (3.5-5.1)
[2022-12-26 08:00] LABS: Troponin I High Sensitivity 5730.5 pg/ml (0-14)
[2022-12-26] MEDS ORDERED: AMOXICILLIN/CLAVULANATE 875 MG TAB PO SCH (08:00)
[2022-12-26] MEDS ORDERED: PERFLUTREN LIPID MICROSPHERE (DEFINITY) IV ONE (08:12)
[2022-12-26] MEDS ORDERED: Heparin IV Adult Wt-Based Standard *NO* Bolus Protocol IV SCH (08:23)
[2022-12-26] MEDS: ENOXAPARIN INJ 40 MG/0.4 ML SYR SQ SCH (08:36)
[2022-12-26] MEDS: GABAPENTIN 100 MG CAP PO SCH ×3 (08:36→21:38)
[2022-12-26] MEDS: ENALAPRIL MALEATE 10 MG TAB PO SCH (08:36)
[2022-12-26] MEDS ORDERED: LEVALBUTEROL 1.25MG/0.5ML NEB NEB SCH ×2 (08:45→13:00)
--- NOTE | 2022-12-26 08:45 | Hospitalist Progress Note ---
Date of Service December 26, 2022 Assessment & Plan (1) Acute hypoxemic respiratory failure: Plan: Acute Hypoxic Respiratory Failure Secondary to severe COVID-19 pneumonia Severe sepsis SIRS plus hypoxemia secondary to above CT chest: 1. Patchy nodular airspace infiltrates in the left lower lobe suspicious for pneumonia. These are new since previous. Mild bronchial wall thickening and suggests bronchitis as well. 2. The thoracic aorta is nondilated. There is no aneurysm or dissection. 3. The pulmonary arterial tree is well opacified with contrast. No pulmonary embolism is identified. 4. The heart is borderline enlarged. Severe coronary calcification is present. No pericardial effusion. Remdesivir, Decadron Mucinex, IS, FV on Heparin drip Sputum culture Ceftri + Doxy NSTEMI EKG: non specific T wave abnormalities Trop 5k Echo: moderate apical wall motion abnormality Heparin drip Aspirin 81mg po daily Burner Operator consulted Rhabdomyolysis CPK 5k IV fluids Elevated D dimer CT chest angio: no PE Doppler US LE: pending PT OT eval once medically stable DVT prophylaxis. Heparin drip Full code Disposition pending lives at home plan of care discussed with patient in detail and at length all questions answered she is understanding, agreeable, comfortable with the plan of care Admission and Anticipated Discharge Date Admission Date: December 26, 2022 Subjective ff up for covid 19 pneumonia, NSTEMI, etc seen resting in bed, comfortable not in distress denies chest pain, shortness of breath, dizziness, palpitations reports sore throat, dry cough, cannot expectorate sputum no other symptoms Review of Systems Review of Systems: all noted and negative except for above Physical Exam Physical Exam: General- oriented x 3, not in distress, speaks in sentences with no effort or accessory muscle use Eyes- anicteric Neck- no JVD Lungs- mild rhonchi on the left base no wheezing Heart- normal rate, regular rhythm; no murmurs Abdomen- normal bowel sounds, nondistended, soft, nontender Extremities- no pretibial edema, no calf tenderness Neuro- alert, oriented x 3; no gross focal neurologic deficits Skin- warm & dry Results & Data Results & Data Vital Signs (Past 12 Hours) Vital Signs Temp Pulse Pulse Pulse Resp BP BP 12/26/22 04:32 93 H 12/26/22 03:30 12/26/22 03:30 36.7 C 93 H 22 153/85 H 12/26/22 03:25 36.7 C 93 H 22 153/85 H 12/26/22 01:00 98 H 20 121/68 12/25/22 23:38 12/25/22 23:27 99 H 18 136/76 12/25/22 23:24 12/25/22 23:23 109 H 18 12/25/22 22:56 104 H 12/25/22 22:56 103 H 20 12/25/22 21:30 100 H 18 112/71 Pulse Ox O2 Del Method O2 Flow Rate 12/26/22 04:32 12/26/22 03:30 Nasal Cannula 2 12/26/22 03:30 97 Nasal Cannula 2 12/26/22 03:25 97 Nasal Cannula 2 12/26/22 01:00 95 Nasal Cannula 2 12/25/22 23:38 98 Nasal Cannula 2 12/25/22 23:27 97 Nasal Cannula 2 12/25/22 23:24 89 L Room Air 12/25/22 23:23 12/25/22 22:56 12/25/22 22:56 93 Room Air 12/25/22 21:30 93 Room Air all noted and reviewed including below
[2022-12-26] MEDS: HEPARIN SODIUM/DEXTROSE 25,000 UNITS/500 ML BAG IV SCH (09:00)
[2022-12-26] MEDS ORDERED: LEVALBUTEROL 1.25 MG/3 ML NEB ONE ×2 (09:15→09:22)
[2022-12-26] MEDS: SODIUM CHLOR 7% 4 ML NEB NEB SCH ×2 (09:26→20:04)
[2022-12-26] MEDS: cefTRIAXone SODIUM 2,000 MG in DEXTROSE 5 % MINI-B 50 ML IV SCH (09:44)
[2022-12-26] MEDS: guaiFENesin 600 MG TABCR PO SCH ×2 (09:45→21:39)
[2022-12-26] MEDS: DOXYCYCLINE HYCLATE 100 MG CAP PO SCH ×2 (09:45→21:39)
--- NOTE | 2022-12-26 10:14 | Cardiology Consultation ---
Date of Consultation December 26, 2022 Assessment & Plan (1) Non-ST elevation (NSTEMI) myocardial infarction: (2) COVID-19: Plan Impression: 72-year-old female with no prior cardiac history presented to [facility] emergency department due to generalized weakness and a fall. Found to have COVID-19 with possible pneumonia. Cardiac work-up thus far has shown an elevated CPK and high-sensitivity troponin. EKG with nonspecific T wave changes in anterior and lateral leads. CTA of the chest negative for PE but did show severe coronary artery calcifications. Echocardiogram pending. Patient currently chest pain-free. Plan: Recommend medical management of presumed CAD during the acute illness phase of COVID-19 Start aspirin 81 mg daily Continue heparin for 48 hours Pending review of CPK will consider starting statin. Recommend improved BP control-- currently on Enalapril 20 mg daily, will monitor and titrate as able. Consider addition of beta brenda-- wheezing heart on exam. Further recommendations pending echocardiogram results, future consideration of outpatient stress testing. Case discussed with Dr. Limon. Supervising Physician Co-Signing Physician Notes 72-year-old female present to the emergency department with fall, weakness, cough, shortness of breath. Diagnosed with COVID-19 and left sided pneumonia. Elevated CPK on admission after being down for more than 2 hours. Troponin also significantly elevated. Preliminary review of bedside echocardiogram demonstrates an apical wall motion abnormality with dyskinesis of the apical lateral wall. Patient adamantly denies any current or recent chest discomfort. Initial ECG with nonspecific T wave abnormality, however, repeat ECG performed at 847 today demonstrating anterior lateral T wave abnormality. CTA of the chest with evidence of severe coronary calcifications. Patient currently resting comfortably. Cough and wheeze reported. Receiving nebulizer treatment. Orthopnea, PND, or edema. Denies palpitations, lightens, dizziness, syncope, or near syncope. Denies personal history of coronary disease or congestive heart failure. PE: GEN: NAD. Heart: Regular rhythm, normal S1-S2. No murmur. Lungs: Scattered rhonchi with expiratory wheeze. Abdomen: Soft and nontender. No rebound or guarding. Extremities: Trace pedal edema. 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 72-year-old female presenting with COVID 19 infection, pneumonia, hypoxia and fall. Elevated CPK likely due to rhabdomyolysis. Elevated troponin noted multiple factors contributing including hypoxia, and possible plaque rupture event versus stress-induced cardiomyopathy. Currently chest pain-free. Agree with medical management including IV heparin, and antiplatelet therapy. Initiate statin therapy when CPK has trended downward. Consider addition of beta-brenda therapy as respiratory status improves. Would avoid currently with active wheeze. Ultimately, patient will require ischemic evaluation. if she remains pain-free without anginal symptoms, consider nuclear stress testing in the outpatient setting to assess ischemic burden. Consider reassessment of apical wall motion abnormality with echocardiogram prior to discharge. History of Present Illness Reason for Consultation: NSTEMI Requesting Physician: Eric Hospitalist Attending Physician: Heath Yan MD History of Present Illness 72-year-old female who presented to [facility] emergency department yesterday evening after sustaining a fall at home due to generalized weakness. She was unable to get up on her own and laid on the floor for approximately 2 hours prior to EMS arriving. Blood pressures were hypertensive on presentation. CTA of the chest was negative for pulmonary emboli however patchy infiltrates of the left lower lobe are suspicious for pneumonia and bronchitis noted to have severe coronary calcifications (no prior history of coronary disease). Patient had mild hypoxia in the emergency department. She was swabbed for COVID which was positive. Started on remdesivir. Lactate normal at 1.0. CPK elevated 1180>>5380. High-sensitivity troponin elevated (343>>1112>>2705>>5730) EKG showing nonspecific T wave changes in anterior leads. Repeat EKG showing sinus rhythm with T wave inversions in the anterior and lateral leads. Patient chest pain-free. Started on heparin drip Upon entrance into the room patient resting comfortably in bed. No acute concerns. Denies chest pain or shortness of breath. Does have a moist pr oductive cough. No orthopnea or PND. No significant lower extremity edema. Denies lightheadedness or dizziness. Denies any prior cardiac history. Past medical history: Hypertension HLD GERD Type 2 DM Hypothyroidism Allergies Allergy/AdvReac Type Severity Reaction Status Date / Time No Known Allergies Allergy Unknown Verified 12/26/22 00:03 Home Medications Medication Instructions Recorded Confirmed Type gabapentin 100 mg capsule 100 mg PO BID 02/15/18 12/25/22 History gabapentin 100 mg capsule 200 mg PO HS 02/15/18 12/25/22 History insulin glargine 100 unit/mL 50 unit subcut QAM 02/15/18 12/25/22 History subcutaneous solution (Lantus U-100 Insulin) levothyroxine 75 mcg tablet 75 mcg PO DAILYBB 02/15/18 12/25/22 History simvastatin 20 mg tablet 20 mg PO HS 02/15/18 12/25/22 History tramadol 50 mg tablet 50 mg PO Q6H PRN Pain,severe 02/15/18 12/26/22 History furosemide 20 mg tablet 20 mg PO 3XWK 12/25/22 12/25/22 History omeprazole 20 mg capsule,delayed 20 mg PO DAILYBB 12/25/22 12/25/22 History release cholecalciferol (vitamin D3) 50 50 mcg PO DAILY 12/26/22 12/26/22 History mcg (2,000 unit) tablet (Vitamin D3) dulaglutide 1.5 mg/0.5 mL 1.5 mg subcut WK 12/26/22 12/26/22 History subcutaneous pen injector (Trulicity) enalapril maleate 20 mg tablet 20 mg PO QAM 12/26/22 12/26/22 History insulin regular human 100 unit/mL 5 - 24 unit subcut ACHS PRN 12/26/22 12/26/22 History injection solution (Novolin R sliding scale Regular U-100 Insulin) Patient History Medical History Hypothyroidism Osteoarthritis, knee Arthritis Hypertension Type 2 diabetes mellitus Family History Other No significant family history Social History Smoking Status: Never smoker Hx Alcohol Use: No Hx Substance Use: No Preferred Language: Upper Sorbian Communication Ability: Effective Silver Miner Required: No Beliefs That Will Affect Care: None Current Living Situation: Spouse Current Living Situation Comment: Lives at home with Feels Safe at Home: Yes Safety Concerns: Feels Safe At This Time Assistive Devices: Cane Review of Systems Review of Systems: All systems reviewed & are unremarkable except as noted in HPI & below Physical Exam Constitutional: WD/WN, vitals as above no acute distress Eyes: PERRL, conjunctivae normal, anicteric sclerae Respiratory: normal respiratory effort and + cough (Moist productive); no labored breathing Auscultation: + rales and + rhonchi Cardiovascular: Rate/Rhythm: regular rate and regular rhythm Heart Sounds: normal S1 and normal S2 Vessels: no JVD Extremities: no edema Gastrointestinal (Abdomen): normal bowel sounds, soft, nontender, no hepatosplenomegaly Psychiatric: A+Ox3, euthymic affect Results & Data Vital Signs (Past 12 Hours) Vital Signs Temp Pulse Pulse Pulse Resp BP BP 12/26/22 10:03 12/26/22 09:27 103 H 16 12/26/22 08:45 36.9 C 86 16 166/81 H 12/26/22 04:32 93 H 12/26/22 03:30 12/26/22 03:30 36.7 C 93 H 22 153/85 H 12/26/22 03:25 36.7 C 93 H 22 153/85 H 12/26/22 01:00 98 H 20 121/68 12/25/22 23:38 12/25/22 23:27 99 H 18 136/76 12/25/22 23:24 12/25/22 23:23 109 H 18 12/25/22 22:56 104 H 12/25/22 22:56 103 H 20 Pulse Ox O2 Del Method O2 Flow Rate 12/26/22 10:03 Nasal Cannula 2 12/26/22 09:27 97 Nasal Cannula 2 12/26/22 08:45 99 Room Air 12/26/22 04:32 12/26/22 03:30 Nasal Cannula 2 12/26/22 03:30 97 Nasal Cannula 2 12/26/22 03:25 97 Nasal Cannula 2 12/26/22 01:00 95 Nasal Cannula 2 12/25/22 23:38 98 Nasal Cannula 2 12/25/22 23:27 97 Nasal Cannula 2 12/25/22 23:24 89 L Room Air 12/25/22 23:23 12/25/22 22:56 12/25/22 22:56 93 Room Air Laboratory Results Cardiac Enzymes 12/25/22 12/25/22 12/25/22 Range/Units 19:51 19:51 19:51 AST Cancelled 40 H Troponin I High Sens Cancelled 343.1 H* 12/25/22 12/26/22 12/26/22 Range/Units 22:26 01:06 07:02 AST Troponin I High Sens 1112.8 H* D 2705.7 H* D 5730.5 H* D Coagulation 12/25/22 Range/Units 19:51 PT 11.6 (9.0-12.0) Seconds CBC 12/25/22 12/25/22 12/25/22 Range/Units 19:51 19:51 19:51 WBC Cancelled 11.18 H RBC Cancelled 4.59 Hgb Cancelled Hct Plt Count Neut # (Auto) Lymph # (Auto) [place] # (Auto) Eos # (Auto) Baso # (Auto) 12/25/22 12/25/22 12/25/22 Range/Units 19:51 19:51 19:51 WBC RBC Hgb 13.0 Hct Cancelled 38.8 Plt Count Cancelled 169 Neut # (Auto) Cancelled Lymph # (Auto) [place] # (Auto) Eos # (Auto) Baso # (Auto) 12/25/22 12/25/22 12/25/22 Range/Units 19:51 19:51 19:51 WBC RBC Hgb Hct Plt Count Neut # (Auto) 9.39 H Lymph # (Auto) Cancelled 0.63 L [place] # (Auto) Cancelled 1.08 H Eos # (Auto) Cancelled Baso # (Auto) 12/25/22 12/25/22 12/26/22 Range/Units 19:51 19:51 07:02 WBC 10.00 RBC 4.84 Hgb 13.5 Hct 41.4 Plt Count 178 Neut # (Auto) 8.59 H Lymph # (Auto) 0.84 L [place] # (Auto) 0.53 Eos # (Auto) 0.00 0.00 Baso # (Auto) Cancelled 0.03 0.00 Comprehensive Metabolic Panel 12/25/22 12/25/22 12/25/22 Range/Units 19:51 19:51 19:51 Sodium Cancelled 132 L Potassium Cancelled 4.0 Chloride Cancelled Carbon Dioxide BUN Creatinine Glucose Calcium AST ALT Alkaline Phosphatase Total Protein Albumin 12/25/22 12/25/22 12/25/22 Range/Units 19:51 19:51 19:51 Sodium Potassium Chloride 103 Carbon Dioxide Cancelled 20 L BUN Cancelled 12 Creatinine Cancelled Glucose Calcium AST ALT Alkaline Phosphatase Total Protein Albumin 12/25/22 12/25/22 12/25/22 Range/Units 19:51 19:51 19:51 Sodium Potassium Chloride Carbon Dioxide BUN Creatinine 1.17 Glucose Cancelled 192 H Calcium Cancelled 9.0 AST Cancelled ALT Alkaline Phosphatase Total Protein Albumin 12/25/22 12/25/22 12/25/22 Range/Units 19:51 19:51 19:51 Sodium Potassium Chloride Carbon Dioxide BUN Creatinine Glucose Calcium AST 40 H ALT Cancelled 18 Alkaline Phosphatase Cancelled 70 Total Protein Cancelled Albumin 12/25/22 12/25/22 12/26/22 Range/Units 19:51 19:51 07:02 Sodium 138 Potassium 3.9 Chloride 105 Carbon Dioxide 20 L BUN 11 Creatinine 0.98 Glucose 250 H Calcium 8.7 AST ALT Alkaline Phosphatase Total Protein 7.2 Albumin Cancelled 4.1 Intake and Output 12/25/22 12/26/22 12/26/22 22:59 06:59 14:59 Intake Total 1100 / 1500 400 / 1500 300 / 300 Balance 1100 / 1500 400 / 1500 300 / 300 Intake: IV 1100 / 1300 200 / 1300 300 / 300 Acetaminophen 1,000 mg In 100 100 / 100 ml @ 400 mls/hr IV NOW STA Rx#: [id number] Ampicillin/Sulbactam Sod 3,000 100 / 100 mg In Sodium Chlor 0.9% Mini-B 100 ml @ 200 mls/hr IV NOW STA Rx#:[id number] Magnesium Sulfate / D5w 1 gm In 100 / 100 100 ml @ 50 mls/hr IV ONE ONE Rx#:[id number] Remdesivir 200 mg In Sodium 250 / 250 Chloride 0.9% 210 ml @ 125 mls/ hr IV ONE ONE Rx#:[id number] Sodium Chloride 0.9% 1,000 ml @ 1000 / 1000 999 mls/hr IV .Q1H1M ZENA Rx#: [id number] cefTRIAXone SODIUM 2,000 mg In 50 / 50 Dextrose 5 % Mini-B 50 ml @ 100 mls/hr IV Q24H [facility] Rx#: [id number] Oral 200 / 200 Other: Weight 123.5 kg 122.6 kg Weight Measurement Method Built in Bedscale Standing Scale
[2022-12-26] MEDS: LEVALBUTEROL 1.25 MG/3 ML NEB NEB SCH ×4 (11:41→23:37)
--- NOTE | 2022-12-26 12:19 | Electrocardiogram Report ---
Test Reason : Blood Pressure : / mmHG Vent. Rate : 112 BPM Atrial Rate : 112 BPM P-R Int : 132 ms QRS Dur : 082 ms QT Int : 314 ms P-R-T Axes : 038 039 012 degrees QTc Int : 428 ms Sinus tachycardia Nonspecific ST abnormality Abnormal ECG When compared with ECG of 15-FEB-2018 00:28, Premature ventricular complexes are no longer Present Confirmed by Juan Francisco Lemos ([id number]) on 12/26/2022 12:19:20 PM Referred By: REFERRED SELF Confirmed By:Tiburcio Lemos
[2022-12-26] MEDS: ASPIRIN 81 MG ECTAB PO SCH (12:25)
--- NOTE | 2022-12-26 12:25 | Electrocardiogram Report ---
Test Reason : Blood Pressure : / mmHG Vent. Rate : 095 BPM Atrial Rate : 095 BPM P-R Int : 120 ms QRS Dur : 088 ms QT Int : 384 ms P-R-T Axes : 064 047 -09 degrees QTc Int : 482 ms Normal sinus rhythm Nonspecific ST and T wave abnormality Abnormal ECG When compared with ECG of 25-DEC-2022 19:42, (unconfirmed) Nonspecific T wave abnormality now evident in Anterior leads Confirmed by Juan Francisco Lemos ([id number]) on 12/26/2022 12:25:09 PM Referred By: REFERRED SELF Confirmed By:Tiburcio Lemos
[2022-12-26] MEDS: SODIUM CHLORIDE 0.9% 1,000 ML IV SCH (14:26)
[2022-12-26 16:51] LABS: Partial Thromboplastin Ratio 4.3
--- NOTE | 2022-12-26 20:32 | Electrocardiogram Report ---
Test Reason : Blood Pressure : / mmHG Vent. Rate : 095 BPM Atrial Rate : 094 BPM P-R Int : 000 ms QRS Dur : 076 ms QT Int : 354 ms P-R-T Axes : 000 050 052 degrees QTc Int : 444 ms Sinus rhythm T wave abnormality, consider anterolateral ischemia Abnormal ECG When compared with ECG of 26-DEC-2022 02:06, T wave inversion now evident in Lateral leads Confirmed by Juan Francisco Lemos ([id number]) on 12/26/2022 8:32:00 PM Referred By: REFERRED SELF Confirmed By:Tiburcio Lemos
[2022-12-27 02:03] LABS: Partial Thromboplastin Time 84.3 Seconds (21.0-31.0)
[2022-12-27] MEDS: SODIUM CHLORIDE 0.9% 1,000 ML IV SCH ×2 (02:59→17:02)
[2022-12-27] MEDS: LEVOTHYROXINE SODIUM 75 MCG TABLET PO SCH (05:45)
[2022-12-27] MEDS: PANTOprazole 40 MG TAB PO SCH (05:45)
--- NOTE | 2022-12-27 06:39 | Cardiology Progress Note ---
Date of Service December 27, 2022 Assessment & Plan (1) Non-ST elevation (NSTEMI) myocardial infarction: (2) COVID-19: Plan Impression: 72-year-old female presenting with COVID 19 infection, pneumonia, hypoxia and fall. Elevated CPK likely due to rhabdomyolysis-- trending downward, but AST elevated. Elevated troponin noted multiple factors contributing including hypoxia, and possible plaque rupture event versus stress-induced cardiomyopathy. Currently chest pain-free. Plan: Recommend medical management of presumed CAD during the acute illness phase of COVID-19. We will plan to continue heparin for 48 hours. Continue antiplatelet therapy with aspirin 81 mg daily. Initiate statin therapy when CPK has trended downward-- AST elevated, will hold off at this time. 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 Ultimately, patient will require ischemic evaluation. if she remains pain-free without anginal symptoms, consider nuclear stress testing in the outpatient setting to assess ischemic burden. Consider reassessment of apical wall motion abnormality with echocardiogram prior to discharge Case discussed with Dr. Simeon-- will follow. Admission and Anticipated Discharge Date Admission Date: December 26, 2022 Supervising Physician Co-Signing Physician Notes Full assessment and plan as outlined above. Care discussed with all caregivers and telemetry reviewed Echocardiogram demonstrates apical wall motion anatomy but small and disproportionate to degree of enzyme elevation. Differential diagnosis includes Takotsubo, ischemic heart disease and myocarditis versus muscular etiology We will initiate beta-brenda therapies at this time Continue heparin and aspirin at least an additional 24 hours We will continue to follow Subjective 72-year-old female present to the emergency department with fall, weakness, cough, shortness of breath. Diagnosed with COVID-19 and left sided pneumonia. Elevated CPK on admission after being down for more than 2 hours. Troponin also significantly elevated. Echocardiogram demonstrated an apical wall motion abnormality with dyskinesis of the apical lateral wall. Initial EKG with nonspecific T wave abnormalities however repeat EKG demonstrated anterior lateral T wave abnormalities. CTA of the chest with evidence of severe coronary calcifications. Patient adamantly denies any current or recent chest discomfort. Patient was placed on a heparin drip and started on aspirin. 12/27/2022: Upon entrance into the room patient resting comfortably in bed. No acute conc erns. Continues to adamantly decline any episodes of chest pain. Has some mild dyspnea accompanied by a moist cough. No palpitations, lightheadedness or dizziness. No orthopnea or PND. Labs: renal function stable, electrolytes WNL. CPK trending downward, but AST elevated. Telemetry: Sinus rhythm 80s to 90s EKG: Normal sinus rhythm with anterolateral T wave abnormality, 96 bpm. Review of Systems Review of Systems: All systems reviewed & are unremarkable except as noted in HPI & below Physical Exam Constitutional: WD/WN, vitals as above no acute distress Eyes: PERRL, conjunctivae normal, anicteric sclerae Respiratory: normal respiratory effort and + cough (Moist productive); no labored breathing Auscultation: + rales, + rhonchi and + wheezes Cardiovascular: Rate/Rhythm: regular rate and regular rhythm Heart Sounds: normal S1 and normal S2 Vessels: no JVD Extremities: no edema Gastrointestinal (Abdomen): normal bowel sounds, soft, nontender, no hepatosplenomegaly Psychiatric: A+Ox3, euthymic affect Results & Data Vital Signs (Past 12 Hours) Vital Signs Temp Pulse Pulse Pulse Resp BP Pulse Ox 12/27/22 03:04 36.9 C 97 H 18 125/73 92 12/27/22 00:59 12/26/22 23:10 37.0 C 90 20 116/68 94 12/26/22 21:53 96 H 12/26/22 20:05 101 H 16 98 12/26/22 19:48 37.5 C 97 H 20 129/76 95 O2 Del Method 12/27/22 03:04 Room Air 12/27/22 00:59 Room Air 12/26/22 23:10 Room Air 12/26/22 21:53 12/26/22 20:05 Room Air 12/26/22 19:48 Room Air
[2022-12-27 07:48] LABS: Basophils # (auto) 0.02 K/uL (0.00-0.20); Basophils % (auto) 0.2 %; Hemoglobin 12.2 g/dl (12.0-16.0); Immature Granulocytes # (auto) 0.02 K/uL (0.01-0.20); Immature Granulocytes % (auto) 0.2 %; Lymphocytes # (auto) 2.37 K/uL (1.20-3.40); Lymphocytes % (auto) 27.8 %; Mean Corpuscular Hemoglobin 27.9 pg (25.0-34.0); Mean Corpuscular Volume 84.5 fL (80.0-100.0); Mean Platelet Volume 10.3 fL (9.4-12.4); Monocytes # (auto) 0.85 K/uL (0.11-0.59); Neutrophils # (auto) 5.27 K/uL (1.40-6.50); Neutrophils % (auto) 61.8 %; Platelet Count 177 K/uL (130-400); RDW Coefficient of Variation 12.8 % (11.5-14.5); RDW Standard Deviation 39.5 fL (36.4-46.3); Red Blood Count 4.38 M/uL (4.20-5.40); White Blood Count 8.53 K/ul (4.8-10.8)
[2022-12-27] MEDS: LEVALBUTEROL 1.25 MG/3 ML NEB NEB SCH ×2 (07:52→20:04)
[2022-12-27] MEDS: SODIUM CHLOR 7% 4 ML NEB NEB SCH ×2 (07:53→20:04)
[2022-12-27 08:16] LABS: Albumin Globulin Ratio 1.3 (0.9-2); Albumin Level 3.6 gm/dl (3.4-5.0); BUN Creatinine Ratio 11.8 (10-20); Bilirubin,Total 0.7 mg/dl (0.2-1.0); Calcium 8.2 mg/dl (8.6-10.3); Creatinine Clr Calc Pharmacy 63.5 ml/min; Est GFR (African American) 64.5 ml/min; Est GFR (Non-African American) 55.7 ml/min; Globulin 2.7 gm/dl (2.5-4.0); Magnesium 2.1 mg/dl (1.7-2.4); Potassium 3.6 mmol/L (3.5-5.1); Total Protein 6.3 gm/dl (6.0-8.3)
[2022-12-27] MEDS: cefTRIAXone SODIUM 2,000 MG in DEXTROSE 5 % MINI-B 50 ML IV SCH (08:33)
[2022-12-27] MEDS: GABAPENTIN 100 MG CAP PO SCH ×3 (08:36→23:35)
[2022-12-27] MEDS: ENALAPRIL MALEATE 10 MG TAB PO SCH (08:36)
[2022-12-27] MEDS: guaiFENesin 600 MG TABCR PO SCH ×2 (08:36→23:36)
[2022-12-27] MEDS: ASPIRIN 81 MG ECTAB PO SCH (08:36)
[2022-12-27] MEDS: DOXYCYCLINE HYCLATE 100 MG CAP PO SCH ×2 (08:36→23:35)
[2022-12-27] MEDS: ENOXAPARIN INJ 40 MG/0.4 ML SYR SQ SCH (08:38)
[2022-12-27] MEDS: dexAMETHasone 6 MG in SYRINGE 0 ML IV SCH (08:38)
[2022-12-27] MEDS ORDERED: DEXAMETHASONE SOD INJ 4 MG/ML VIAL IV SCH (09:00)
[2022-12-27] MEDS ORDERED: POTASSIUM CHLORIDE CRTAB 20 MEQ TABCR PO STA (09:05)
[2022-12-27] MEDS: INSULIN ASPART PER UNIT CHARGE SC SCH ×4 (10:12→23:36)
[2022-12-27] MEDS: LANTUS PER UNIT CHARGE SQ SCH ×2 (10:13→23:36)
[2022-12-27] MEDS: HEPARIN SODIUM/DEXTROSE 25,000 UNITS/500 ML BAG IV SCH ×2 (10:13→12:11)
[2022-12-27 10:45] LABS: Partial Thromboplastin Ratio 3.2
[2022-12-27 10:48] LABS: Partial Thromboplastin Time 91.4 Seconds (21.0-31.0)
[2022-12-27] MEDS: METOPROLOL SUCC 25MG EXT REL TAB PO SCH (10:55)
[2022-12-27] MEDS: REMDESIVIR 100 MG in SODIUM CHLORIDE 0.9% 230 ML IV SCH (12:51)
--- NOTE | 2022-12-27 16:00 | Hospitalist Progress Note ---
Date of Service December 27, 2022 Assessment & Plan (1) Acute hypoxemic respiratory failure: Plan: Acute Hypoxic Respiratory Failure Secondary to severe COVID-19 pneumonia Severe sepsis SIRS plus hypoxemia secondary to above CT chest: 1. Patchy nodular airspace infiltrates in the left lower lobe suspicious for pneumonia. These are new since previous. Mild bronchial wall thickening and suggests bronchitis as well. 2. The thoracic aorta is nondilated. There is no aneurysm or dissection. 3. The pulmonary arterial tree is well opacified with contrast. No pulmonary embolism is identified. 4. The heart is borderline enlarged. Severe coronary calcification is present. No pericardial effusion. 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 Heparin drip Full code Disposition pending lives at home plan of care discussed with patient in detail and at length all questions answered she is understanding, agreeable, comfortable with the plan of care Admission and Anticipated Discharge Date Admission Date: December 26, 2022 Subjective ff up for COVID 9 pneumonia, NSTEMI etc seen resting in bed, sitting up on room air still having dry cough no shortness of breath no chest pain, palpitations, nausea, dizziness no other symptoms Review of Systems Review of Systems: all noted and negative except for above Physical Exam Physical Exam: General- oriented x 3, not in distress, speaks in sentences with no effort or accessory muscle use Eyes- anicteric Neck- no JVD Lungs- mild rhonchi L base no wheezing Heart- normal rate, regular rhythm; no murmurs Abdomen- normal bowel sounds, nondistended, soft, nontender Extremities- no pretibial edema, no calf tenderness Neuro- alert, oriented x 3; no gross focal neurologic deficits Skin- warm & dry Results & Data Results & Data Vital Signs (Past 12 Hours) Vital Signs Temp Pulse Pulse Resp BP Pulse Ox O2 Del Method 12/27/22 15:41 36.6 C 85 16 111/66 96 Room Air 12/27/22 15:31 83 12/27/22 11:04 36.8 C 101 H 16 158/83 H 91 Room Air 12/27/22 07:53 91 H 18 92 Room Air 12/27/22 07:45 91 H all noted and reviewed including below
[2022-12-27 20:11] LABS: Partial Thromboplastin Ratio 2.4
[2022-12-27 20:19] LABS: Partial Thromboplastin Time 68.6 Seconds (21.0-31.0)
[2022-12-28 01:37] LABS: Hematocrit (blood only) 35.2 % (37.0-47.0); Hemoglobin 11.6 g/dl (12.0-16.0); Immature Granulocytes # (auto) 0.03 K/uL (0.01-0.20); Immature Granulocytes % (auto) 0.4 %; Lymphocytes # (auto) 1.17 K/uL (1.20-3.40); Lymphocytes % (auto) 14.4 %; Mean Corpuscular Hemoglobin 28.1 pg (25.0-34.0); Mean Corpuscular Volume 85.2 fL (80.0-100.0); Mean Platelet Volume 10.5 fL (9.4-12.4); Monocytes # (auto) 0.78 K/uL (0.11-0.59); Monocytes % (auto) 9.6 %; Neutrophils # (auto) 6.12 K/uL (1.40-6.50); Neutrophils % (auto) 75.6 %; Platelet Count 181 K/uL (130-400); RDW Coefficient of Variation 12.8 % (11.5-14.5); RDW Standard Deviation 39.4 fL (36.4-46.3); Red Blood Count 4.13 M/uL (4.20-5.40)
[2022-12-28 01:53] LABS: BUN Creatinine Ratio 15.2 (10-20); Calcium 8.4 mg/dl (8.6-10.3); Creatinine Clr Calc Pharmacy 65.4 ml/min; Est GFR (African American) 66.9 ml/min; Est GFR (Non-African American) 57.7 ml/min; Potassium 3.8 mmol/L (3.5-5.1)
[2022-12-28 02:19] LABS: Albumin Globulin Ratio 1.2 (0.9-2); Albumin Level 3.5 gm/dl (3.4-5.0); Bilirubin,Total 0.6 mg/dl (0.2-1.0); Globulin 2.9 gm/dl (2.5-4.0); Total Protein 6.4 gm/dl (6.0-8.3)
[2022-12-28 02:41] LABS: Partial Thromboplastin Time 57.5 Seconds (21.0-31.0)
[2022-12-28] MEDS: PANTOprazole 40 MG TAB PO SCH (06:06)
[2022-12-28] MEDS: LEVOTHYROXINE SODIUM 75 MCG TABLET PO SCH (06:07)
[2022-12-28] MEDS: HEPARIN SODIUM/DEXTROSE 25,000 UNITS/500 ML BAG IV SCH (06:48)
[2022-12-28] MEDS: LEVALBUTEROL 1.25 MG/3 ML NEB NEB SCH ×2 (07:28→19:22)
[2022-12-28] MEDS: SODIUM CHLOR 7% 4 ML NEB NEB SCH ×2 (07:28→19:22)
[2022-12-28 08:20] LABS: Adenovirus F 40/41 PCR Not Detected (NotDetected); Astrovirus PCR Not Detected (NotDetected); Campylobacter PCR Not Detected (NotDetected); Cryptosporidium PCR Not Detected (NotDetected); Cyclospora cayetanensis PCR Not Detected (NotDetected); Entamoeba histolytica PCR Not Detected (NotDetected); Enteroaggregative E.coli(EAEC) Not Detected (NotDetected); Enteropathogenic E.coli (EPEC) Not Detected (NotDetected); Enterotoxigenic E.coli (ETEC) Not Detected (NotDetected); Giardia lamblia PCR Not Detected (NotDetected); Norovirus GI/GII PCR Not Detected (NotDetected); Plesiomonas shigelloides PCR Not Detected (NotDetected); Rotavirus A PCR Not Detected (NotDetected); Salmonella PCR Not Detected (NotDetected); Sapovirus PCR Not Detected (NotDetected); Shiga-like Toxin E.coli (STEC) Not Detected (NotDetected); Shigella/Enteroinvasive E.coli Not Detected (NotDetected); Vibrio cholerae PCR Not Detected (NotDetected); Vibrio species PCR Not Detected (NotDetected); Yersinia enterocolitica PCR Not Detected (NotDetected)
[2022-12-28] MEDS: INSULIN ASPART PER UNIT CHARGE SC SCH ×4 (09:29→21:26)
[2022-12-28] MEDS: LANTUS PER UNIT CHARGE SQ SCH ×2 (09:32→21:27)
[2022-12-28] MEDS: guaiFENesin 600 MG TABCR PO SCH ×2 (09:40→21:25)
[2022-12-28] MEDS: DOXYCYCLINE HYCLATE 100 MG CAP PO SCH ×2 (09:40→21:25)
[2022-12-28] MEDS: METOPROLOL SUCC 25MG EXT REL TAB PO SCH ×2 (09:40→18:14)
[2022-12-28] MEDS: GABAPENTIN 100 MG CAP PO SCH ×3 (09:40→21:26)
[2022-12-28] MEDS: ENALAPRIL MALEATE 10 MG TAB PO SCH (09:41)
[2022-12-28] MEDS: dexAMETHasone 6 MG in SYRINGE 0 ML IV SCH (09:42)
[2022-12-28] MEDS: ENOXAPARIN INJ 40 MG/0.4 ML SYR SQ SCH (09:42)
[2022-12-28] MEDS: ASPIRIN 81 MG ECTAB PO SCH (09:42)
[2022-12-28] MEDS: cefTRIAXone SODIUM 2,000 MG in DEXTROSE 5 % MINI-B 50 ML IV SCH (09:43)
[2022-12-28] MEDS: SODIUM CHLORIDE 0.9% 1,000 ML IV SCH (10:02)
[2022-12-28] MEDS: REMDESIVIR 100 MG in SODIUM CHLORIDE 0.9% 230 ML IV SCH (13:18)
--- NOTE | 2022-12-28 13:18 | Cardiology Progress Note ---
Date of Service December 28, 2022 Assessment & Plan (1) Non-ST elevation (NSTEMI) myocardial infarction: (2) COVID-19: Plan Impression: 72-year-old female presenting with COVID 19 infection, pneumonia, hypoxia and fall. Elevated CPK likely due to rhabdomyolysis-- trending downward, but AST elevated. Elevated troponin noted multiple factors contributing including hypoxia, and possible plaque rupture event versus stress-induced cardiomyopathy. Currently chest pain-free. Plan: Recommend medical management of presumed CAD during the acute illness phase of COVID-19. We will plan to continue heparin for 48 hours. Continue antiplatelet therapy with aspirin 81 mg daily. Initiate statin therapy when CPK has trended downward-- AST elevated, will hold off at this time. Start low dose beta-brenda therapy, metoprolol succinate 12 and half milligrams daily Enalapril for BP control ([employer] med). Ultimately, patient will require ischemic evaluation. if she remains pain-free without anginal symptoms, consider nuclear stress testing in the outpatient setting to assess ischemic burden. Consider reassessment of apical wall motion abnormality with echocardiogram prior to discharge 12/28/2022 Patient stable from cardiac standpoint no chest pain or discomfort. Plan as outlined above continue IV heparin for total 48 hours then discontinue. Will increase metoprolol succinate to 12.5 g twice per day given elevation heart rate and blood pressure Discussed further intervention/investigate with patient which she declines Admission and Anticipated Discharge Date Admission Date: December 26, 2022 Subjective Patient seen and personally examined Notes is feeling improved. Less dyspneic still with cough. No chest pains or discomfort "never had" Review of Systems Review of Systems: All systems reviewed & are unremarkable except as noted in Subjective Physical Exam Constitutional: WD/WN, vitals as above + obese; no acute distress Eyes: PERRL, conjunctivae normal, anicteric sclerae Neck: + thick neck Respiratory: normal respiratory effort and + cough (Moist productive); no labored breathing Auscultation: + rales, + rhonchi and + wheezes Cardiovascular: Rate/Rhythm: regular rate and regular rhythm Heart Sounds: normal S1 and normal S2 Vessels: no JVD Extremities: no edema Gastrointestinal (Abdomen): normal bowel sounds, soft, nontender, no hepatosplenomegaly Psychiatric: A+Ox3, euthymic affect Results & Data Vital Signs (Past 12 Hours) Vital Signs Temp Pulse Pulse Pulse Resp BP Pulse Ox 12/28/22 11:06 36.3 C L 105 H 20 147/85 H 95 12/28/22 09:40 12/28/22 08:56 36.8 C 98 H 20 135/80 96 12/28/22 07:36 86 12/28/22 07:36 86 20 95 12/28/22 04:27 12/28/22 02:17 36.9 C 90 20 131/76 96 O2 Del Method 12/28/22 11:06 Room Air 12/28/22 09:40 Room Air 12/28/22 08:56 Room Air 12/28/22 07:36 12/28/22 07:36 Room Air 12/28/22 04:27 Room Air 12/28/22 02:17 Room Air Laboratory Results Laboratory Results - last 24 hr 12/27/22 12/27/22 12/27/22 17:53 19:27 20:43 WBC RBC Hgb Hct MCV MCH MCHC RDW Std Deviation RDW Coeff of Elli Plt Count MPV Immature Gran % (Auto) Neut % (Auto) Lymph % (Auto) [place] % (Auto) Eos % (Auto) Baso % (Auto) Neut # (Auto) Lymph # (Auto) [place] # (Auto) Eos # (Auto) Baso # (Auto) Immature Gran # (Auto) APTT 68.6 H* PTT Ratio 2.4 Sodium Potassium Chloride Carbon Dioxide Anion Gap BUN Creatinine Est Cr Clr Drug Dosing Est GFR ( Amer) Est GFR (Non-Af Amer) BUN/Creatinine Ratio Glucose POC Glucose 242 H 293 H Calcium Total Bilirubin AST ALT Alkaline Phosphatase Total Creatine Kinase Total Protein Albumin Globulin Albumin/Globulin Ratio Stl C. cayetanensis PCR Stool Rotavirus A PCR Stl Adenov F 40/41 PCR Stool Astrovirus (PCR) Stool Campylobacter PCR Stl C. diff Tox B Gene Stool Cryptosporidium PCR Stl E.coli Shiga Tox PCR Stl Enterotoxigenic E PCR Stool EPEC (PCR) Stool EAEC (PCR) Stl E. histolytica PCR Stool Giardia Lamblia PCR Stool Salmonella PCR Stool Sapovirus (PCR) Stl P. shigelloides PCR Stl Shigella/EIEC PCR St Y.enterocolitica PCR Stool Vibrio (PCR) Stl Vibrio cholerae PCR Stl Norovirus GI/GII PCR 12/28/22 12/28/22 12/28/22 01:12 EST 06:20 09:04 WBC 8.10 RBC 4.13 L Hgb 11.6 L Hct 35.2 L MCV 85.2 MCH 28.1 MCHC 33.0 RDW Std Deviation 39.4 RDW Coeff of Elli 12.8 Plt Count 181 MPV 10.5 Immature Gran % (Auto) 0.4 Neut % (Auto) 75.6 Lymph % (Auto) 14.4 [place] % (Auto) 9.6 Eos % (Auto) 0.0 Baso % (Auto) 0.0 Neut # (Auto) 6.12 Lymph # (Auto) 1.17 L [place] # (Auto) 0.78 H Eos # (Auto) 0.00 Baso # (Auto) 0.00 Immature Gran # (Auto) 0.03 APTT 57.5 H* PTT Ratio 2.0 Sodium 138 Potassium 3.8 Chloride 108 H Carbon Dioxide 22 Anion Gap 8 BUN 15 Creatinine 0.99 Est Cr Clr Drug Dosing 65.4 Est GFR ( Amer) 66.9 Est GFR (Non-Af Amer) 57.7 BUN/Creatinine Ratio 15.2 Glucose 264 H POC Glucose 128 H Calcium 8.4 L Total Bilirubin 0.6 AST 88 H ALT 35 Alkaline Phosphatase 49 Total Creatine Kinase 2525 H Total Protein 6.4 Albumin 3.5 Globulin 2.9 Albumin/Globulin Ratio 1.2 Stl C. cayetanensis PCR Not Detected Stool Rotavirus A PCR Not Detected Stl Adenov F 40/41 PCR Not Detected Stool Astrovirus (PCR) Not Detected Stool Campylobacter PCR Not Detected Stl C. diff Tox B Gene Negative Cdiff Gene Stool Cryptosporidium PCR Not Detected Stl E.coli Shiga Tox PCR Not Detected Stl Enterotoxigenic E PCR Not Detected Stool EPEC (PCR) Not Detected Stool EAEC (PCR) Not Detected Stl E. histolytica PCR Not Detected Stool Giardia [place]lia PCR Not Detected Stool Salmonella PCR Not Detected Stool Sapovirus (PCR) Not Detected Stl P. shigelloides PCR Not Detected Stl Shigella/EIEC PCR Not Detected St Y.enterocolitica PCR Not Detected Stool Vibrio (PCR) Not Detected Stl Vibrio cholerae PCR Not Detected Stl Norovirus GI/GII PCR Not Detected 12/28/22 12:51 WBC RBC Hgb Hct MCV MCH MCHC RDW Std Deviation RDW Coeff of Elli Plt Count MPV Immature Gran % (Auto) Neut % (Auto) Lymph % (Auto) [place] % (Auto) Eos % (Auto) Baso % (Auto) Neut # (Auto) Lymph # (Auto) [place] # (Auto) Eos # (Auto) Baso # (Auto) Immature Gran # (Auto) APTT PTT Ratio Sodium Potassium Chloride Carbon Dioxide Anion Gap BUN Creatinine Est Cr Clr Drug Dosing Est GFR ( Amer) Est GFR (Non-Af Amer) BUN/Creatinine Ratio Glucose POC Glucose 222 H Calcium Total Bilirubin AST ALT Alkaline Phosphatase Total Creatine Kinase Total Protein Albumin Globulin Albumin/Globulin Ratio Stl C. cayetanensis PCR Stool Rotavirus A PCR Stl Adenov F 40/41 PCR Stool Astrovirus (PCR) Stool Campylobacter PCR Stl C. diff Tox B Gene Stool Cryptosporidium PCR Stl E.coli Shiga Tox PCR Stl Enterotoxigenic E PCR Stool EPEC (PCR) Stool EAEC (PCR) Stl E. histolytica PCR Stool Giardia Lamblia PCR Stool Salmonella PCR Stool Sapovirus (PCR) Stl P. shigelloides PCR Stl Shigella/EIEC PCR St Y.enterocolitica PCR Stool Vibrio (PCR) Stl Vibrio cholerae PCR Stl Norovirus GI/GII PCR
--- NOTE | 2022-12-28 14:49 | Hospitalist Progress Note ---
Date of Service December 28, 2022 Assessment & Plan (1) Acute hypoxemic respiratory failure: Plan: Acute Hypoxic Respiratory Failure Secondary to severe COVID-19 pneumonia Severe sepsis SIRS plus hypoxemia secondary to above CT chest: 1. Patchy nodular airspace infiltrates in the left lower lobe suspicious for pneumonia. These are new since previous. Mild bronchial wall thickening and suggests bronchitis as well. 2. The thoracic aorta is nondilated. There is no aneurysm or dissection. 3. The pulmonary arterial tree is well opacified with contrast. No pulmonary embolism is identified. 4. The heart is borderline enlarged. Severe coronary calcification is present. No pericardial effusion. remains on room air Remdesivir, Decadron Day 3/5 d/c Decadron Mucinex, IS, FV completed IV heparin Sputum culture: pending collection Ceftri + Doxy Day 3 NSTEMI EKG: non specific T wave abnormalities Trop 5k Echo: moderate apical wall motion abnormality Heparin drip x 48 hrs completed Metoprolol increased Aspirin 81mg po daily Assistant Counsel consulted Rhabdomyolysis CPK 5k--> 3k--> 2k IV fluids given Elevated D dimer CT chest angio: no PE Doppler US LE: patient declined extensively discussed the need to r/o DVT, if not diagnosed, can lead to PE , even patient still declining, verbalized understanding and acceptance of risk PT OT eval once medically stable DVT prophylaxis. Heparin drip Full code Disposition pending lives at home plan of care discussed with patient in detail and at length all questions answered she is understanding, agreeable, comfortable with the plan of care Admission and Anticipated Discharge Date Admission Date: December 26, 2022 Subjective ff up for COVID 19 pneumonia, etc seen resting in bed, comfortable on room air continues to feels better no chest pain, dyspnea, palpitations, dizziness coughing less no chills, diarrhea no other symptoms Review of Systems Review of Systems: all noted and negative except for above Physical Exam Physical Exam: General- oriented x 3, not in distress, speaks in sentences with no effort or accessory muscle use Eyes- anicteric Neck- no JVD Lungs- clear breath sounds bilaterally, no rales/wheezes Heart- normal rate, regular rhythm; no murmurs Abdomen- normal bowel sounds, nondistended, soft, nontender Extremities- no pretibial edema, no calf tenderness Neuro- alert, oriented x 3; no gross focal neurologic deficits Skin- warm & dry Results & Data Results & Data Vital Signs (Past 12 Hours) Vital Signs Temp Pulse Pulse Pulse Resp BP Pulse Ox 12/28/22 11:06 36.3 C L 105 H 20 147/85 H 95 12/28/22 09:40 12/28/22 08:56 36.8 C 98 H 20 135/80 96 12/28/22 07:36 86 12/28/22 07:36 86 20 95 12/28/22 04:27 O2 Del Method 12/28/22 11:06 Room Air 12/28/22 09:40 Room Air 12/28/22 08:56 Room Air 12/28/22 07:36 12/28/22 07:36 Room Air 12/28/22 04:27 Room Air all noted and reviewed including below
--- NOTE | 2022-12-28 18:10 | Electrocardiogram Report ---
Test Reason : Blood Pressure : / mmHG Vent. Rate : 096 BPM Atrial Rate : 096 BPM P-R Int : 116 ms QRS Dur : 080 ms QT Int : 390 ms P-R-T Axes : 057 048 185 degrees QTc Int : 492 ms Normal sinus rhythm T wave abnormality, consider anterolateral ischemia Prolonged QT Abnormal ECG When compared with ECG of 26-DEC-2022 08:47, QT has lengthened Confirmed by Mack Jaquez ([id number]) on 12/28/2022 6:09:32 PM Referred By: REFERRED SELF Confirmed By:Mack Jaquez
[2022-12-29] MEDS: LEVOTHYROXINE SODIUM 75 MCG TABLET PO SCH (05:53)
[2022-12-29] MEDS: PANTOprazole 40 MG TAB PO SCH (05:53)
[2022-12-29 06:57] LABS: Basophils # (auto) 0.01 K/uL (0.00-0.20); Basophils % (auto) 0.2 %; Hematocrit (blood only) 35.2 % (37.0-47.0); Hemoglobin 11.9 g/dl (12.0-16.0); Immature Granulocytes # (auto) 0.01 K/uL (0.01-0.20); Immature Granulocytes % (auto) 0.2 %; Lymphocytes # (auto) 1.22 K/uL (1.20-3.40); Lymphocytes % (auto) 27.1 %; Mean Corpuscular Hemoglobin 28.4 pg (25.0-34.0); Mean Corpuscular Hgb Conc 33.8 g/dL (32.0-36.0); Mean Platelet Volume 10.5 fL (9.4-12.4); Monocytes # (auto) 0.63 K/uL (0.11-0.59); Neutrophils # (auto) 2.64 K/uL (1.40-6.50); Neutrophils % (auto) 58.5 %; Platelet Count 170 K/uL (130-400); RDW Coefficient of Variation 12.8 % (11.5-14.5); Red Blood Count 4.19 M/uL (4.20-5.40); White Blood Count 4.51 K/ul (4.8-10.8)
[2022-12-29] MEDS: SODIUM CHLOR 7% 4 ML NEB NEB SCH ×2 (07:03→20:48)
[2022-12-29] MEDS: LEVALBUTEROL 1.25 MG/3 ML NEB NEB SCH ×2 (07:03→20:47)
[2022-12-29 07:29] LABS: Albumin Globulin Ratio 1.2 (0.9-2); Albumin Level 3.7 gm/dl (3.4-5.0); BUN Creatinine Ratio 16.3 (10-20); Bilirubin,Total 0.8 mg/dl (0.2-1.0); Calcium 8.8 mg/dl (8.6-10.3); Creatinine Clr Calc Pharmacy 74.4 ml/min; Est GFR (African American) 79.3 ml/min; Est GFR (Non-African American) 68.4 ml/min; Potassium 4.1 mmol/L (3.5-5.1); Total Protein 6.7 gm/dl (6.0-8.3)
[2022-12-29 07:30] LABS: Partial Thromboplastin Ratio 1.1; Partial Thromboplastin Time 31.3 Seconds (21.0-31.0)
[2022-12-29] MEDS: cefTRIAXone SODIUM 2,000 MG in DEXTROSE 5 % MINI-B 50 ML IV SCH (07:38)
[2022-12-29] MEDS: dexAMETHasone 6 MG in SYRINGE 0 ML IV SCH (07:38)
[2022-12-29] MEDS: DOXYCYCLINE HYCLATE 100 MG CAP PO SCH ×2 (07:41→21:19)
[2022-12-29] MEDS: GABAPENTIN 100 MG CAP PO SCH ×3 (07:41→21:19)
[2022-12-29] MEDS: ENALAPRIL MALEATE 10 MG TAB PO SCH (07:42)
[2022-12-29] MEDS: ASPIRIN 81 MG ECTAB PO SCH (07:42)
[2022-12-29] MEDS: guaiFENesin 600 MG TABCR PO SCH ×2 (07:42→21:19)
[2022-12-29] MEDS: METOPROLOL SUCC 25MG EXT REL TAB PO SCH ×2 (07:42→17:46)
[2022-12-29] MEDS: ENOXAPARIN INJ 40 MG/0.4 ML SYR SQ SCH (07:43)
[2022-12-29] MEDS: INSULIN ASPART PER UNIT CHARGE SC SCH ×4 (09:06→21:28)
[2022-12-29] MEDS: LANTUS PER UNIT CHARGE SQ SCH ×2 (09:07→21:29)
--- NOTE | 2022-12-29 09:31 | Cardiology Progress Note ---
Date of Service December 29, 2022 Assessment & Plan (1) Non-ST elevation (NSTEMI) myocardial infarction: (2) COVID-19: Plan Impression: 72-year-old female presenting with COVID 19 infection, pneumonia, hypoxia and fall. Elevated CPK likely due to rhabdomyolysis-- trending downward, but AST elevated. Elevated troponin noted multiple factors contributing including hypoxia, and possible plaque rupture event versus stress-induced cardiomyopathy. Currently chest pain-free. Plan: Recommend medical management of presumed CAD during the acute illness phase of COVID-19. We will plan to continue heparin for 48 hours. Continue antiplatelet therapy with aspirin 81 mg daily. Initiate statin therapy when CPK has trended downward-- AST elevated, will hold off at this time. Start low dose beta-brenda therapy, metoprolol succinate 12 and half milligrams daily Enalapril for BP control ([employer] med). Ultimately, patient will require ischemic evaluation. if she remains pain-free without anginal symptoms, consider nuclear stress testing in the outpatient setting to assess ischemic burden. Consider reassessment of apical wall motion abnormality with echocardiogram prior to discharge 12/28/2022 Patient stable from cardiac standpoint no chest pain or discomfort. Plan as outlined above continue IV heparin for total 48 hours then discontinue. Will increase metoprolol succinate to 12.5 g twice per day given elevation heart rate and blood pressure Discussed further intervention/investigate with patient which she declines 12/29/2022 Clinically stable but heart rate and blood pressure still elevated. Will increase metoprolol succinate to 25 mg twice per day. Order placed Admission and Anticipated Discharge Date Admission Date: December 26, 2022 Subjective Chart and telemetry reviewed. Care discussed with caregiver Clinically stable heart rates and blood pressure still elevated No chest pain or discomfort Results & Data Vital Signs (Past 12 Hours) Vital Signs Temp Pulse Pulse Pulse Resp BP BP 12/29/22 08:11 36.5 C 105 H 18 154/83 H 12/29/22 07:03 82 16 12/29/22 05:57 77 12/29/22 04:00 37.0 C 88 18 120/64 12/29/22 03:55 12/29/22 00:00 36.8 C 85 18 138/86 12/28/22 22:00 80 Pulse Ox O2 Del Method 12/29/22 08:11 97 Room Air 12/29/22 07:03 97 Room Air 12/29/22 05:57 12/29/22 04:00 98 Room Air 12/29/22 03:55 Room Air 12/29/22 00:00 96 Room Air 12/28/22 22:00 Laboratory Results Laboratory Results - last 24 hr 12/28/22 12/28/22 12/28/22 12:51 17:38 20:12 WBC RBC Hgb Hct MCV MCH MCHC RDW Std Deviation RDW Coeff of Elli Plt Count MPV Immature Gran % (Auto) Neut % (Auto) Lymph % (Auto) [place] % (Auto) Eos % (Auto) Baso % (Auto) Neut # (Auto) Lymph # (Auto) [place] # (Auto) Eos # (Auto) Baso # (Auto) Immature Gran # (Auto) APTT PTT Ratio Sodium Potassium Chloride Carbon Dioxide Anion Gap BUN Creatinine Est Cr Clr Drug Dosing Est GFR ( Amer) Est GFR (Non-Af Amer) BUN/Creatinine Ratio Glucose POC Glucose 222 H 216 H 258 H Calcium Total Bilirubin AST ALT Alkaline Phosphatase Total Creatine Kinase Total Protein Albumin Globulin Albumin/Globulin Ratio 12/29/22 12/29/22 06:22 07:48 WBC 4.51 L RBC 4.19 L Hgb 11.9 L Hct 35.2 L MCV 84.0 MCH 28.4 MCHC 33.8 RDW Std Deviation 39.0 RDW Coeff of Elli 12.8 Plt Count 170 MPV 10.5 Immature Gran % (Auto) 0.2 Neut % (Auto) 58.5 Lymph % (Auto) 27.1 [place] % (Auto) 14.0 Eos % (Auto) 0.0 Baso % (Auto) 0.2 Neut # (Auto) 2.64 Lymph # (Auto) 1.22 [place] # (Auto) 0.63 H Eos # (Auto) 0.00 Baso # (Auto) 0.01 Immature Gran # (Auto) 0.01 APTT 31.3 H PTT Ratio 1.1 Sodium 138 Potassium 4.1 Chloride 107 Carbon Dioxide 23 Anion Gap 8 BUN 14 Creatinine 0.86 Est Cr Clr Drug Dosing 74.4 Est GFR ( Amer) 79.3 Est GFR (Non-Af Amer) 68.4 BUN/Creatinine Ratio 16.3 Glucose 170 H POC Glucose 167 H Calcium 8.8 Total Bilirubin 0.8 AST 73 H ALT 38 Alkaline Phosphatase 48 Total Creatine Kinase 1754 H Total Protein 6.7 Albumin 3.7 Globulin 3.0 Albumin/Globulin Ratio 1.2
--- NOTE | 2022-12-29 11:31 | Hospitalist Progress Note ---
Date of Service December 29, 2022 Assessment & Plan (1) Acute hypoxemic respiratory failure: Plan: Acute Hypoxic Respiratory Failure Secondary to severe COVID-19 pneumonia Severe sepsis SIRS plus hypoxemia secondary to above CT chest: 1. Patchy nodular airspace infiltrates in the left lower lobe suspicious for pneumonia. These are new since previous. Mild bronchial wall thickening and suggests bronchitis as well. 2. The thoracic aorta is nondilated. There is no aneurysm or dissection. 3. The pulmonary arterial tree is well opacified with contrast. No pulmonary embolism is identified. 4. The heart is borderline enlarged. Severe coronary calcification is present. No pericardial effusion. remains on room air Remdesivir, Decadron Day 4/5 d/c Decadron Mucinex, IS, FV completed IV heparin Sputum culture: pending collection Ceftri + Doxy Day 3 NSTEMI EKG: non specific T wave abnormalities Trop 5k Echo: moderate apical wall motion abnormality Heparin drip x 48 hrs completed Metoprolol started and increased to 25mg BID Aspirin 81mg po daily Jet Worker consulted Rhabdomyolysis CPK 5k--> 3k--> 2k IV fluids given Elevated D dimer CT chest angio: no PE Doppler US LE: patient declined extensively discussed the need to r/o DVT, if not diagnosed, can lead to PE , even patient still declining, verbalized understanding and acceptance of risk PT OT eval once medically stable DVT prophylaxis. Lovenox Full code Disposition pending lives at home plan of care discussed with patient in detail and at length all questions answered she is understanding, agreeable, comfortable with the plan of care Admission and Anticipated Discharge Date Admission Date: December 26, 2022 Subjective ff up for COVID 19 pneumonia, NSTEMI etc seen resting in bed, comfortable watching tv in good spirits states she continues to feel improved overall no chest pain, dyspnea, palpitations, dizziness no other new symptoms Review of Systems Review of Systems: all noted and negative except for above Physical Exam Physical Exam: General- oriented x 3, not in distress, speaks in sentences with no effort or accessory muscle use Eyes- anicteric Neck- no JVD Lungs- clear breath sounds bilaterally, no rales/wheezes Heart- normal rate, regular rhythm; no murmurs Abdomen- normal bowel sounds, nondistended, soft, nontender Extremities- no pretibial edema, no calf tenderness Neuro- alert, oriented x 3; no gross focal neurologic deficits Skin- warm & dry Results & Data Results & Data Vital Signs (Past 12 Hours) Vital Signs Temp Pulse Pulse Pulse Resp BP BP 12/29/22 10:54 12/29/22 08:11 36.5 C 105 H 18 154/83 H 12/29/22 07:03 82 16 12/29/22 05:57 77 12/29/22 04:00 37.0 C 88 18 120/64 12/29/22 03:55 12/29/22 00:00 36.8 C 85 18 138/86 Pulse Ox O2 Del Method 12/29/22 10:54 Room Air 12/29/22 08:11 97 Room Air 12/29/22 07:03 97 Room Air 12/29/22 05:57 12/29/22 04:00 98 Room Air 12/29/22 03:55 Room Air 12/29/22 00:00 96 Room Air all noted and reviewed including below
[2022-12-29] MEDS ORDERED: FUROSEMIDE 20 MG TAB PO SCH (11:45)
[2022-12-29] MEDS: REMDESIVIR 100 MG in SODIUM CHLORIDE 0.9% 230 ML IV SCH (12:39)
[2022-12-30] MEDS: LEVOTHYROXINE SODIUM 75 MCG TABLET PO SCH (05:43)
[2022-12-30] MEDS: PANTOprazole 40 MG TAB PO SCH (05:43)
[2022-12-30 06:47] LABS: Basophils # (auto) 0.01 K/uL (0.00-0.20); Basophils % (auto) 0.1 %; Hematocrit (blood only) 37.7 % (37.0-47.0); Hemoglobin 12.5 g/dl (12.0-16.0); Immature Granulocytes # (auto) 0.06 K/uL (0.01-0.20); Immature Granulocytes % (auto) 0.9 %; Lymphocytes % (auto) 29.9 %; Mean Corpuscular Hemoglobin 27.8 pg (25.0-34.0); Mean Corpuscular Hgb Conc 33.2 g/dL (32.0-36.0); Mean Corpuscular Volume 83.8 fL (80.0-100.0); Mean Platelet Volume 10.7 fL (9.4-12.4); Monocytes % (auto) 14.9 %; Neutrophils # (auto) 3.63 K/uL (1.40-6.50); Neutrophils % (auto) 54.2 %; Platelet Count 201 K/uL (130-400); RDW Coefficient of Variation 12.3 % (11.5-14.5); RDW Standard Deviation 37.7 fL (36.4-46.3)
[2022-12-30 07:26] LABS: Albumin Globulin Ratio 1.3 (0.9-2); Albumin Level 3.8 gm/dl (3.4-5.0); BUN Creatinine Ratio 18.8 (10-20); Creatinine Clr Calc Pharmacy 66.5 ml/min; Est GFR (African American) 69.4 ml/min; Est GFR (Non-African American) 59.9 ml/min; Globulin 2.9 gm/dl (2.5-4.0); Potassium 3.9 mmol/L (3.5-5.1); Total Protein 6.7 gm/dl (6.0-8.3)
[2022-12-30] MEDS: LEVALBUTEROL 1.25 MG/3 ML NEB NEB SCH (07:35)
[2022-12-30] MEDS: SODIUM CHLOR 7% 4 ML NEB NEB SCH (07:35)
[2022-12-30] MEDS: METOPROLOL SUCC 25MG EXT REL TAB PO SCH (09:03)
[2022-12-30] MEDS: ENALAPRIL MALEATE 10 MG TAB PO SCH (09:03)
[2022-12-30] MEDS: DOXYCYCLINE HYCLATE 100 MG CAP PO SCH (09:03)
[2022-12-30] MEDS: ASPIRIN 81 MG ECTAB PO SCH (09:04)
[2022-12-30] MEDS: guaiFENesin 600 MG TABCR PO SCH (09:04)
[2022-12-30] MEDS: GABAPENTIN 100 MG CAP PO SCH ×2 (09:05→13:17)
[2022-12-30] MEDS: INSULIN ASPART PER UNIT CHARGE SC SCH ×2 (09:15→13:17)
[2022-12-30] MEDS: LANTUS PER UNIT CHARGE SQ SCH (09:15)
[2022-12-30] MEDS: ENOXAPARIN INJ 40 MG/0.4 ML SYR SQ SCH (09:15)
[2022-12-30] MEDS: cefTRIAXone SODIUM 2,000 MG in DEXTROSE 5 % MINI-B 50 ML IV SCH (10:32)
[2022-12-30] MEDS: REMDESIVIR 100 MG in SODIUM CHLORIDE 0.9% 230 ML IV SCH (11:42)
--- NOTE | 2022-12-30 17:51 | Discharge Summary ---
Discharge Summary Date of Service December 30, 2022 Notes For Next Care Provider Medication Changes From Visit Doxycycline- antibiotic for pneumonia Mucinex- for cough Metoprolol- for heart rate and blood pressure control Aspirin- antiplatelet to prevent heart attack Admission HPI Per Admitting Provider History obtained from patient and records. Medical history significant for hypertension, hyperlipidemia, DM 2 insulin requiring, hypothyroidism, GERD, past history DVT status post Coumadin, morbid obesity. Last confinement 2010 for facial cellulitis and upper extremity DVT status post Coumadin Rx. Patient not feeling well the last few days. Generalized weakness. Junky cough symptoms without chest pain or shortness of breath. Poor appetite. Admits to coughing with meals/water intake. Possible sick contacts. Patient completed COVID-19 vaccination. Patient could not get up from the bathroom floor after attempt to vomit. No headache/head trauma/syncope. Patient was on the floor for couple of hours before EMS got to her. Lowest O2 sats of 80s documented at the ER. 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 Admission Exam Per Admitting Provider GENERAL: Slightly uncomfortable, morbidly obese, dysphonic, no respiratory distress SKIN: Normal color, warm HEENT: Bespectacled, [place] palpebral conjunctivae, no ptosis, dry buccal mucosa, nasal cannula in place NECK : Supple, short neck, no tenderness CHEST : Decreased breath sounds, no tenderness HEART : Tachycardic, no obvious murmurs ABDOMEN: no distention, nontender EXTREMITIES : Minimal LE swelling, no LE tenderness, no other conspicuous deformities noted NEUROLOGIC : Coherent, no facial asymmetry, no other gross focality Principal Dx & Hospital Course #1 = Principal Diagnosis (1) Acute hypoxemic respiratory failure: Acute Hypoxic Respiratory Failure Secondary to severe COVID-19 pneumonia Severe sepsis SIRS plus hypoxemia secondary to above CT chest: 1. Patchy nodular airspace infiltrates in the left lower lobe suspicious for pneumonia. These are new since previous. Mild bronchial wall thickening and suggests bronchitis as well. 2. The thoracic aorta is nondilated. There is no aneurysm or dissection. 3. The pulmonary arterial tree is well opacified with contrast. No pulmonary embolism is identified. 4. The heart is borderline enlarged. Severe coronary calcification is present. No pericardial effusion. Patient given remdesivir and Decadron in light of hypoxia Completed 5-day course of remdesivir Placed on ceftriaxone plus doxycycline Also given Mucinex, incentive spirometry and flutter valve Patient gradually improved Weaned off oxygen supplementation Continue doxycycline course at home to complete 7-day course Mucinex twice daily Will need to isolate for 6 more days NSTEMI EKG: non specific T wave abnormalities Trop 5k Echo: moderate apical wall motion abnormality No cardiac symptoms Heparin drip x 48 hrs completed Metoprolol started and increased to 25mg BID for heart rate and blood pressure control Aspirin 81mg po daily started Back End Developer consulted Follow-up with cardiology in 2 weeks Rhabdomyolysis CPK 5k--> 3k--> 2k IV fluids given, resolving Elevated D dimer CT chest angio: no PE Doppler US LE: patient declined extensively discussed the need to r/o DVT, if not diagnosed, can lead to PE , even patient still declining, verbalized understanding and acceptance of risk Disposition Discharge to home PCP follow-up in 1 week plan of care discussed with patient in detail and at length all questions answered she is understanding, agreeable, comfortable with the plan of care Discharge Exam General- oriented x 3, not in distress, speaks in sentences with no effort or accessory muscle use Eyes- anicteric Neck- no JVD Lungs- clear breath sounds bilaterally, no rales/wheezes Heart- normal rate, regular rhythm; no murmurs Abdomen- normal bowel sounds, nondistended, soft, nontender Extremities- no pretibial edema, no calf tenderness Neuro- alert, oriented x 3; no gross focal neurologic deficits Skin- warm & dry Updated Medication List Medication Instructions Recorded Confirmed Type gabapentin 100 mg capsule 100 mg PO BID 02/15/18 12/25/22 History gabapentin 100 mg capsule 200 mg PO HS 02/15/18 12/25/22 History insulin glargine 100 unit/mL 50 unit subcut QAM 02/15/18 12/25/22 History subcutaneous solution (Lantus U-100 Insulin) levothyroxine 75 mcg tablet 75 mcg PO DAILYBB 02/15/18 12/25/22 History simvastatin 20 mg tablet 20 mg PO HS 02/15/18 12/25/22 History tramadol 50 mg tablet 50 mg PO Q6H PRN Pain,severe 02/15/18 12/26/22 History furosemide 20 mg tablet 20 mg PO 3XWK 12/25/22 12/25/22 History omeprazole 20 mg capsule,delayed 20 mg PO DAILYBB 12/25/22 12/25/22 History release cholecalciferol (vitamin D3) 50 50 mcg PO DAILY 12/26/22 12/26/22 History mcg (2,000 unit) tablet (Vitamin D3) dulaglutide 1.5 mg/0.5 mL 1.5 mg subcut WK 12/26/22 12/26/22 History subcutaneous pen injector (Trulicity) enalapril maleate 20 mg tablet 20 mg PO QAM 12/26/22 12/26/22 History insulin regular human 100 unit/mL 5 - 24 unit subcut ACHS PRN 12/26/22 12/26/22 History injection solution (Novolin R sliding scale Regular U-100 Insulin) aspirin 81 mg tablet,delayed 81 mg PO QAM #30 tabs 12/29/22 Rx release doxycycline hyclate 100 mg capsule 100 mg PO BID 2 days #4 caps 12/29/22 Rx guaifenesin 600 mg tablet, 1,200 mg (2 x 600 mg) PO Q12 3 12/29/22 Rx extended release 12 hr (Mucinex) days #12 tabs metoprolol succinate 25 mg 25 mg PO BID17 30 days #30 tabs 12/29/22 Rx tablet,extended release 24 hr Hospital Stay Data Consultations 12/25/22 23:43 ED Decision to Admit Stat 12/26/22 08:35 Consult Cardiology Routine Diagnostic Imagining Performed Laboratory Results WBC 6.70 K/ul (4.8-10.8) 12/30/22 05:47 RBC 4.50 M/uL (4.20-5.40) 12/30/22 05:47 Hgb 12.5 g/dl (12.0-16.0) 12/30/22 05:47 POC Hgb 13.9 g/dl (12.0-16.0) 12/25/22 20:01 Hct 37.7 % (37.0-47.0) 12/30/22 05:47 POC Hct 41 % (37-47) 12/25/22 20:01 MCV 83.8 fL (80.0-100.0) 12/30/22 05:47 MCH 27.8 pg (25.0-34.0) 12/30/22 05:47 MCHC 33.2 g/dL (32.0-36.0) 12/30/22 05:47 RDW Std Deviation 37.7 fL (36.4-46.3) 12/30/22 05:47 RDW Coeff of Elli 12.3 % (11.5-14.5) 12/30/22 05:47 Plt Count 201 K/uL (130-400) 12/30/22 05:47 MPV 10.7 fL (9.4-12.4) 12/30/22 05:47 Immature Gran % (Auto) 0.9 % 12/30/22 05:47 Neut % (Auto) 54.2 % 12/30/22 05:47 Lymph % (Auto) 29.9 % 12/30/22 05:47 [place] % (Auto) 14.9 % 12/30/22 05:47 Eos % (Auto) 0.0 % 12/30/22 05:47 Baso % (Auto) 0.1 % 12/30/22 05:47 Neut # (Auto) 3.63 K/uL (1.40-6.50) 12/30/22 05:47 Lymph # (Auto) 2.00 K/uL (1.20-3.40) 12/30/22 05:47 [place] # (Auto) 1.00 K/uL (0.11-0.59) H 12/30/22 05:47 Eos # (Auto) 0.00 K/uL (0.00-0.50) 12/30/22 05:47 Baso # (Auto) 0.01 K/uL (0.00-0.20) 12/30/22 05:47 Immature Gran # (Auto) 0.06 K/uL (0.01-0.20) 12/30/22 05:47 Absolute Nucleated RBC Cancelled 12/25/22 19:51 Nucleated RBC % (auto) Cancelled 12/25/22 19:51 Neutrophils % (Manual) Cancelled 12/25/22 19:51 Band Neutrophils % Cancelled 12/25/22 19:51 Lymphocytes % (Manual) Cancelled 12/25/22 19:51 Prolymphocyte % Cancelled 12/25/22 19:51 Reactive Lymphs % (Man) Cancelled 12/25/22 19:51 Monocytes % (Manual) Cancelled 12/25/22 19:51 Eosinophils % (Manual) Cancelled 12/25/22 19:51 Basophils % (Manual) Cancelled 12/25/22 19:51 Metamyelocytes % (Man) Cancelled 12/25/22 19:51 Myelocytes % (Man) Cancelled 12/25/22 19:51 Promyelocytes % (Man) Cancelled 12/25/22 19:51 Blast Cells % (Manual) Cancelled 12/25/22 19:51 Plasma Cell % (Manual) Cancelled 12/25/22 19:51 Other Cells % Cancelled 12/25/22 19:51 Nucleated RBC % Cancelled 12/25/22 19:51 Neutrophils # (Manual) Cancelled 12/25/22 19:51 Band Neutrophils # Cancelled 12/25/22 19:51 Total Absolute Neuts Cancelled 12/25/22 19:51 Lymphocytes # (Manual) Cancelled 12/25/22 19:51 Prolymphocyte # Cancelled 12/25/22 19:51 Reactive Lymphs # Cancelled 12/25/22 19:51 Total Abs Lymphocytes Cancelled 12/25/22 19:51 Monocytes # (Manual) Cancelled 12/25/22 19:51 Eosinophils # (Manual) Cancelled 12/25/22 19:51 Basophils # (Manual) Cancelled 12/25/22 19:51 Metamyelocytes # (Man) Cancelled 12/25/22 19:51 Myelocytes # (Manual) Cancelled 12/25/22 19:51 Promyelocytes # (Man) Cancelled 12/25/22 19:51 Blast Cells # (Man) Cancelled 12/25/22 19:51 Plasma Cell # (Manual) Cancelled 12/25/22 19:51 Other Cells # Cancelled 12/25/22 19:51 Nucleated RBCs # (Man) Cancelled 12/25/22 19:51 Hypersegmented Neuts Cancelled 12/25/22 19:51 Hyposegmented Neuts Cancelled 12/25/22 19:51 Hypogranular Neuts Cancelled 12/25/22 19:51 Large Granular Lymphs Cancelled 12/25/22 19:51 # Lrg Granular Lymphs Cancelled 12/25/22 19:51 Hairy Cells Cancelled 12/25/22 19:51 Smudge Cells Cancelled 12/25/22 19:51 Toxic Granulation Cancelled 12/25/22 19:51 Toxic Vacuolation Cancelled 12/25/22 19:51 Dohle Bodies Cancelled 12/25/22 19:51 Santhosh Rods Cancelled 12/25/22 19:51 Platelet Estimate Cancelled 12/25/22 19:51 Hypogranular Platelets Cancelled 12/25/22 19:51 Giant Platelets Cancelled 12/25/22 19:51 Platelet Satelliting Cancelled 12/25/22 19:51 RBC Morphology Cancelled 12/25/22 19:51 Polychromasia Cancelled 12/25/22 19:51 Hypochromasia Cancelled 12/25/22 19:51 Poikilocytosis Cancelled 12/25/22 19:51 Basophilic Stippling Cancelled 12/25/22 19:51 Anisocytosis Cancelled 12/25/22 19:51 Microcytosis Cancelled 12/25/22 19:51 Macrocytosis Cancelled 12/25/22 19:51 Spherocytes Cancelled 12/25/22 19:51 Pappenheimer Bodies Cancelled 12/25/22 19:51 Sickle Cells Cancelled 12/25/22 19:51 Target Cells Cancelled 12/25/22 19:51 Tear Drop Cells Cancelled 12/25/22 19:51 Ovalocytes Cancelled 12/25/22 19:51 Stomatocytes Cancelled 12/25/22 19:51 [place] Bodies Cancelled 12/25/22 19:51 Echinocytes Cancelled 12/25/22 19:51 Acanthocytes (Spur) Cancelled 12/25/22 19:51 Rouleaux Cancelled 12/25/22 19:51 RBC Agglutinates Cancelled 12/25/22 19:51 Schistocytes Cancelled 12/25/22 19:51 [place] Cell Cancelled 12/25/22 19:51 PT 11.6 Seconds (9.0-12.0) 12/25/22 19:51 INR 1.1 (0.9-1.1) 12/25/22 19:51 APTT 31.3 Seconds (21.0-31.0) H 12/29/22 06:22 PTT Ratio 1.1 12/29/22 06:22 POC Sodium 135 mmol/L (135-144) 12/25/22 20:01 Sodium 137 mmol/L (136-145) 12/30/22 05:47 POC Potassium 4.0 mmol/L (3.3-5.0) 12/25/22 20:01 Potassium 3.9 mmol/L (3.5-5.1) 12/30/22 05:47 POC Chloride 102 mmol/L (101-112) 12/25/22 20:01 Chloride 104 mmol/L (98-107) 12/30/22 05:47 Carbon Dioxide 25 mmol/L (21-32) 12/30/22 05:47 POC Total CO2 21 mmol/L (24-31) L 12/25/22 20:01 Anion Gap 8 (3-11) 12/30/22 05:47 POC Anion Gap 17.0 mmol/L (16-25) 12/25/22 20:01 POC BUN 11 mg/dl (7-18) 12/25/22 20:01 BUN 18 mg/dl (6-23) 12/30/22 05:47 Creatinine 0.96 mg/dl (0.6-1.2) 12/30/22 05:47 POC Creatinine 1.0 mg/dl (0.6-1.3) 12/25/22 20:01 Est Cr Clr Drug Dosing 66.5 ml/min 12/30/22 05:47 Est GFR ( Amer) 69.4 ml/min 12/30/22 05:47 Est GFR (Non-Af Amer) 59.9 ml/min 12/30/22 05:47 BUN/Creatinine Ratio 18.8 (10-20) 12/30/22 05:47 Glucose 121 mg/dl (70-99(Fasting)) H 12/30/22 05:47 POC Glucose 222 mg/dl (70-99) H 12/30/22 12:01 POC Glucose (other) 203 mg/dl (70-99) H 12/25/22 20:01 Lactate 1.0 mmol/L (0.4-2.0) 12/26/22 01:07 Calcium 9.0 mg/dl (8.6-10.3) 12/30/22 05:47 POC Ioniz Calcium Fatou 1.06 mmol/l (1.12-1.32) L 12/25/22 20:01 Phosphorus 2.3 mg/dl (2.5-4.9) L 12/25/22 19:51 Phosphorus Cancelled 12/25/22 19:51 Magnesium 2.1 mg/dl (1.7-2.4) 12/27/22 07:01 Total Bilirubin 1.0 mg/dl (0.2-1.0) 12/30/22 05:47 AST 63 U/L (13-39) H 12/30/22 05:47 ALT 39 U/L (7-52) 12/30/22 05:47 Alkaline Phosphatase 48 U/L (34-104) 12/30/22 05:47 Total Creatine Kinase 1754 U/L (26-192) H 12/29/22 06:22 Troponin I High Sens 5730.5 pg/ml (0-14) H* D 12/26/22 07:02 Total Protein 6.7 gm/dl (6.0-8.3) 12/30/22 05:47 Albumin 3.8 gm/dl (3.4-5.0) 12/30/22 05:47 Globulin 2.9 gm/dl (2.5-4.0) 12/30/22 05:47 Albumin/Globulin Ratio 1.3 (0.9-2) 12/30/22 05:47 Lipase 42 U/L (11-82) 12/25/22 19:51 Lipase Cancelled 12/25/22 19:51 Procalcitonin 2.19 ng/ml (0-0.5) H 12/26/22 00:59 TSH 0.935 uIu/ml (0.300-4.500) 12/25/22 19:51 TSH Cancelled 12/25/22 19:51 Urine Color Yellow 12/25/22 20:25 Urine Appearance Cloudy (Clear) A 12/25/22 20:25 Urine pH 6.0 (4.5-7.5) 12/25/22 20:25 Ur Specific [place] 1.018 (1.000-1.030) 12/25/22 20:25 Urine Protein 1+ (Negative) H 12/25/22 20:25 Urine Glucose (UA) Trace (Negative) H 12/25/22 20:25 Urine Ketones 1+ (Negative) H 12/25/22 20:25 Urine Blood 3+ (Negative) H 12/25/22 20:25 Urine Nitrite Negative (Negative) 12/25/22 20:25 Urine Bilirubin Negative (Negative) 12/25/22 20:25 Urine Urobilinogen Negative (Negative) 12/25/22 20:25 Ur Leukocyte Esterase Negative (Negative) 12/25/22 20:25 Urine WBC (Auto) 1-5 /hpf (0-5) 12/25/22 20:25 Urine RBC (Auto) 10-30 /hpf (0-4) H 12/25/22 20:25 U Hyaline Cast (Auto) 1-5 /lpf (0-5) 12/25/22 20:25 U Epithel Cells (Auto) >30 /lpf (0-5) H 12/25/22 20:25 Urine Bacteria (Auto) 3+ (Negative) H 12/25/22 20:25 Urine Yeast Not Reportable 12/25/22 20:25 Stl C. cayetanensis PCR Not Detected (NotDetected) 12/28/22 06:20 Stool Rotavirus A PCR Not Detected (NotDetected) 12/28/22 06:20 Stl Adenov F 40/41 PCR Not Detected (NotDetected) 12/28/22 06:20 Stool Astrovirus (PCR) Not Detected (NotDetected) 12/28/22 06:20 Stool Campylobacter PCR Not Detected (NotDetected) 12/28/22 06:20 Stl C. diff Tox B Gene Negative Cdiff Gene (Neg) 12/28/22 06:20 Stool Cryptosporidium PCR Not Detected (NotDetected) 12/28/22 06:20 Stl E.coli Shiga Tox PCR Not Detected (NotDetected) 12/28/22 06:20 Stl Enterotoxigenic E PCR Not Detected (NotDetected) 12/28/22 06:20 Stool EPEC (PCR) Not Detected (NotDetected) 12/28/22 06:20 Stool EAEC (PCR) Not Detected (NotDetected) 12/28/22 06:20 Stl E. histolytica PCR Not Detected (NotDetected) 12/28/22 06:20 Stool Giardia Lamblia PCR Not Detected (NotDetected) 12/28/22 06:20 Stool Salmonella PCR Not Detected (NotDetected) 12/28/22 06:20 Stool Sapovirus (PCR) Not Detected (NotDetected) 12/28/22 06:20 Stl P. shigelloides PCR Not Detected (NotDetected) 12/28/22 06:20 Stl Shigella/EIEC PCR Not Detected (NotDetected) 12/28/22 06:20 St Y.enterocolitica PCR Not Detected (NotDetected) 12/28/22 06:20 Stool Vibrio (PCR) Not Detected (NotDetected) 12/28/22 06:20 Stl Vibrio cholerae PCR Not Detected (NotDetected) 12/28/22 06:20 Stl Norovirus GI/GII PCR Not Detected (NotDetected) 12/28/22 06:20 Adenovirus (PCR) Not Detected (NotDetected) 12/25/22 20:25 B. pertussis DNA (PCR) Not Detected (NotDetected) 12/25/22 20:25 B.parapertussis DNA PCR Not Detected (NotDetected) 12/25/22 20:25 C. pneumoniae DNA (PCR) Not Detected (NotDetected) 12/25/22 20:25 Coronavirus OC43 (PCR) Not Detected (NotDetected) 12/25/22 20:25 Coronavirus HKU1 (PCR) Not Detected (NotDetected) 12/25/22 20:25 Coronavirus 229E (PCR) Not Detected (NotDetected) 12/25/22 20:25 SARS-CoV-2 (PCR) DETECTED (NotDetected) A* 12/25/22 20:25 Coronavirus NL63 (PCR) Not Detected (NotDetected) 12/25/22 20:25 Human Metapneumovir PCR Not Detected (NotDetected) 12/25/22 20:25 Influenza Type A (PCR) Not Detected (NotDetected) 12/25/22 20:25 Influenza Type B (PCR) Not Detected (NotDetected) 12/25/22 20:25 M. pneumoniae (PCR) Not Detected (NotDetected) 12/25/22 20:25 Parainfluenza 1 (PCR) Not Detected (NotDetected) 12/25/22 20:25 Parainfluenza 2 (PCR) Not Detected (NotDetected) 12/25/22 20:25 Parainfluenza 3 (PCR) Not Detected (NotDetected) 12/25/22 20:25 Parainfluenza 4 (PCR) Not Detected (NotDetected) 12/25/22 20:25 RSV (PCR) Not Detected (NotDetected) 12/25/22 20:25 Entero/Rhino (PCR) Not Detected (NotDetected) 12/25/22 20:25 Blood Parasites ID Cancelled 12/25/22 19:51 Impressions Chest X-Ray 12/25/22 19:30 XR chest 1V portable CLINICAL HISTORY: weakness COMPARISON STUDY: Chest radiograph and chest CT February 15, 2018. FINDINGS: Elevation of the right hemidiaphragm is unchanged. Mild left lower lobe airspace opacity is present. There is no pneumothorax or pleural effusion. Cardiac size is stable. Mediastinal contours are normal. There is no evidence for pulmonary edema. IMPRESSION: Mild left lower lobe airspace opacity which favors an infectious process. ACT 112: Negative or not required by law. Electronically signed by: Adal Mendieta M.D. 12/26/2022 7:10 AM Abdomen/Pelvis CT 12/25/22 20:11 Exam(s): CT ABDOMEN + PELVIS With Contrast IV Amt: 113 ml optiray 320 EXAM: CT Abdomen and Pelvis With Intravenous Contrast CLINICAL HISTORY: Reason for exam: weakness, diarrhea, fall. TECHNIQUE: Axial computed tomography images of the abdomen and pelvis with intravenous contrast. CTDI is 28.14 mGy and DLP is 831.42 mGy-cm. Automated exposure control was utilized for the study. A dose lowering technique was utilized adhering to the principles of ALARA. CONTRAST: Patient received 113 ml optiray 320 of IV contrast COMPARISON: No relevant prior studies available. FINDINGS: Lung bases: Patchy left lower lobe infiltrate suspicious for pneumonia. Heart: Severe coronary calcification is noted. ABDOMEN: Liver: Mild fatty infiltration of the liver. No focal liver lesion is seen for the liver is mildly enlarged. Gallbladder and bile ducts: Unremarkable. No calcified stones. No ductal dilation. Pancreas: Unremarkable. No mass. No ductal dilation. Spleen: Unremarkable. No splenomegaly. Adrenals: Unremarkable. No mass. Kidneys and ureters: Unremarkable. No solid mass. No hydronephrosis. Stomach and bowel: Unremarkable. No obstruction. No mucosal thickening. PELVIS: Appendix: The appendix is not visible. Bowel loops are nondilated. No acute inflammatory changes are seen involving the bowel. Bladder: Unremarkable. No mass. Reproductive: Unremarkable as visualized. ABDOMEN and PELVIS: Intraperitoneal space: Unremarkable. No free air. No significant fluid collection. Bones/joints: Mild to moderate degenerative changes throughout the spine. No acute fracture or subluxation is seen. Soft tissues: Unremarkable. Vasculature: Unremarkable. No abdominal aortic aneurysm. Lymph nodes: Unremarkable. No enlarged lymph nodes. IMPRESSION: 1. Patchy left lower lobe infiltrate suspicious for pneumonia. 2. The appendix is not visible. Bowel loops are nondilated. No acute inflammatory changes are seen involving the bowel. No acute process is seen within the abdomen or pelvis. Electronically signed by: Phillip Edward MD 12/25/22 23:34 PM Chest CTA 12/25/22 22:20 Exam(s): CTA CHEST IV Amt: 113 ml optiray 320 EXAM: CT Angiography Chest With Intravenous Contrast CLINICAL HISTORY: Reason for exam: weakness, Covid, elevated troponin, r/o PE. TECHNIQUE: Axial computed tomographic angiography images of the chest with intravenous contrast. CTDI is 24.93 mGy and DLP is 12.47 mGy-cm. Automated exposure control was utilized for the study. A dose lowering technique was utilized adhering to the principles of ALARA. MIP reconstructed images were created and reviewed. COMPARISON: No relevant prior studies available. FINDINGS: Pulmonary arteries: The pulmonary arterial tree is well opacified with contrast. No pulmonary embolism is identified. Aorta: The thoracic aorta is nondilated. There is no aneurysm or dissection. Lungs: Patchy nodular airspace infiltrates in the left lower lobe suspicious for pneumonia. These are new since previous. Mild bronchial wall thickening and suggests bronchitis as well. No mass. Pleural space: Unremarkable. No significant effusion. No pneumothorax. Heart: The heart is borderline enlarged. Severe coronary calcification is present. No pericardial effusion. No evidence of RV dysfunction. Bones/joints: Mild to moderate osteophytosis throughout the spine. No acute fracture or bone lesion is identified. No dislocation. Soft tissues: Unremarkable. Lymph nodes: Unremarkable. No enlarged lymph nodes. IMPRESSION: 1. Patchy nodular airspace infiltrates in the left lower lobe suspicious for pneumonia. These are new since previous. Mild bronchial wall thickening and suggests bronchitis as well. 2. The thoracic aorta is nondilated. There is no aneurysm or dissection. 3. The pulmonary arterial tree is well opacified with contrast. No pulmonary embolism is identified. 4. The heart is borderline enlarged. Severe coronary calcification is present. No pericardial effusion. Electronically signed by: Phillip Edward MD 12/25/22 23:31 PM Pending Results Patient Have Any Pending Studies at Discharge: No Discharge Instructions Given to Patient (Per Discharging Provider) PLEASE REFER TO YOUR NEW MEDICATION LIST AND FOLLOW INSTRUCTIONS CAREFULLY. YOUR NEW MEDICATIONS INCLUDE: Doxycycline- antibiotic for pneumonia Mucinex- for cough Metoprolol- for heart rate and blood pressure control Aspirin- antiplatelet to prevent heart attack Continue using incentive spirometer and flutter valve at home. Take a probiotic daily x 1 month at least. PLEASE CALL YOUR PRIMARY CARE PHYSICIAN OR RETURN TO THE ER IF WITH WORSENING OF SYMPTOMS, INCLUDING shortness of breath, worsening cough, fever/chills, chest pain, palpitations, dizziness, leg swelling or pain, etc FOLLOW UP WITH PRIMARY CARE PHYSICIAN OUTLINED ABOVE. FOLLOW UP WITH RESPIRATORY THERAPY MANAGER DR. MERCADO IN 2 WEEKS. Total Time Total Time Spent Total Time Spent (In Minutes): > 30 minutes
--- OUTSIDE RECORDS SUMMARY | 2023-01-01 10:48 | External Medical Summary | Summary of Care ---
Author Name Unknown Organization [facility] Address [address] [place] [address] Phone [phone] Care Team Providers Care Manager Grocery Name Role Phone Haseeb Solis MD Primary Care Provider [phone]- [phone] Reason for Visit * Reason Comments Medication Refill Encounter Details Date Type Department Care Team (Late st Contact Info) Description 12/23/[address] [facility] [address] [place] [address] Haseeb Solis MD [address] [place] [address] Leg swelling Allergies No known active allergiesdocumented as of this encounter (statuses as of 12/24/2022) Medications Medication Sig Dispensed Refills Start Date End Date Status Glucose Blood (RELION PRIME TEST) STRP Test 6 times a day E 11.9 100 Strip 5 12/06/2018 Active Vitamin D3 Super Strength 50 MCG (1999 UT) Oral Tablet (Cholecalciferol) Take by mouth . 0 Active Lantus 100 UNIT/ML Subcutaneous SolutionIndication s:Type 2 diabetes mellitus with hemoglobin A1c goal of less than 8.0% ([facility]) INJECT 50 UNITS UNDER THE SKIN EVERY MORNING 50 mL 1 08/06/2022 4 Active Levothyroxine Sodium 75 MCG Oral Tablet (Levoxyl)Indicatio ns:Hypothyroidism, unspecified type TAKE ONE TABLET BY MOUTH DAILY AT LEAST 30 MINUTES PRIOR TO FIRST MEAL OF THE DAY OR OTHER MEDICATIONS. 90 Tablet 2 07/30/2022 4 Active Omeprazole 20 MG Oral Capsule Delayed Release (PriLOSEC)Indicati ons:Gastroesophage al reflux disease without esophagitis TAKE ONE CAPSULE BY MOUTH EVERY MORNING 1 HOUR BEFORE THE FIRST MEAL OF THE DAY 90 Capsule 3 05/27/2022 4 Active Simvastatin 20 MG Oral Tablet (Zocor)Indications :Dyslipidemia, goal LDL below 100 TAKE ONE TABLET BY MOUTH AT BEDTIME 90 Tablet 3 05/27/2022 4 Active Insulin Regular Human 100 UNIT/ML Injection SolutionIndication s:Type 2 diabetes mellitus with hemoglobin A1c goal of less than 8.0% ([facility]) INJECT 5 TO 24 UNITS NEEDED BEFORE MEALS AND AT BEDTIME UNDER THE SKIN DIRECTED VIA SLIDING SCALE 90 mL 1 01/29/2022 3 Active Enalapril Maleate 20 MG Oral Tablet (Vasotec)Indicatio ns:HTN, goal below 140/90 TAKE ONE TABLET BY MOUTH EVERY DAY 100 Tablet 1 11/04/2022 Active traMADol HCl 50 MG Oral Tablet (Ultram)Indication s:Chronic pain of left knee Take 1 Tablet by mouth every 6 hours as needed for Pain, Severe. 80 Tablet 0 11/13/2022 Active Trulicity 1.5 MG/0.5ML Subcutaneous Solution Pen-injector (Dulaglutide) Inject 1.5 mg under the skin once a week. 2 mL 5 11/21/2022 Active Furosemide 20 MG Oral Tablet (Lasix)Indications :Leg swelling TAKE ONE TABLET BY MOUTH THREE DAYS PER WEEK 50 Tablet 1 12/24/2022 4 Active Gabapentin 100 MG Oral Capsule (Neurontin)Indicat ions:Neuropathy TAKE ONE CAPSULE BY MOUTH EVERY MORNING, ONE IN THE AFTERNOON, AND TWO IN THE EVENING 360 Capsule 1 12/23/2022 4 Active Furosemide 20 MG Oral Tablet (Lasix)Indications :Leg swelling TAKE ONE TABLET BY MOUTH THREE DAYS PER WEEK 50 Tablet 1 06/25/2022 3 Discontinue d(Refill) documented as of this encounter (statuses as of 12/24/2022) Active Problems Problem Noted Date Diagnosed Date Hypertensive kidney disease with stage 3a chronic kidney disease 05/15/2021 Chronic kidney disease, stage 3a 08/07/2020 Overview: Per CKD protocol Type 2 diabetes mellitus wit h stage 3a chronic kidney disease, with long-term current use of insulin 07/03/2020 Overview: Per CKD protocol Gastroesophageal reflux disease without esophagi tis 02/28/2019 correction (current) use of insulin 11/02/2017 Morbid obesity with BMI of 50.0-59.9, adult 08/2017 Type 2 diabetes mellitus wit h hemoglobin A1c goal of less than 8.0% 10/17/2014 Overview: ICD-10 update of inactive term HTN, goal below 140/90 04/25/2014 Dyslipidemia, goal LDL below 100 11/05/2009 Acquired hypothyroidism 11/05/2009 SPINAL STENOSIS-LUMBAR 08/27/2005 documented as of this encounter (statuses as of 12/24/2022) Resolved Problems Problem Noted Date Diagnosed Date Resolved Date Type 2 diabetes mellitus wit h stage 3 chronic kidney disease, with long-term current use of insulin 11/02/2017 02/25/2019 Overview: duplicate Hypertension associated with stage 3 chronic kidney disease due to type 2 diabetes mellitus 11/02/2017 07/05/2020 Overview: Per CKD protocol Diabetes mellitus due to und erlying condition with diabetic chronic kidney disease 06/29/201711/2017 Body mass index (BMI) of 50. 0 to 59.9 in adult 11/24/2016 06/29/2017 Overview: Per Obesity protocol #1 - Per Obesity Taxonomy ICD-10 update of inactive term Kidney disease, chronic, sta ge III (GFR 30-59 ml/min) 06/30/2016 12/07/2017 Overview: Per CKD protocol #1 HTN, goal below 130/80 03/09/201304/25 Refused influenza vaccine 11/19/2011 HTN, goal below 140/80 10/13/201111/18 Overview: Per HTN Protocol #27. BILATERAL UE VENOUS THROMBOSIS NOS 01/02/2011 11/02/2017 correction current use of ant icoagulant therapy 01/02/2011 10/21/2016 Overview: ICD-10 update of inactive term Anticoagulation management encounter 01/02/2011 10/21/2016 Obesity, morbid (more than 1 00 lbs over ideal weight or BMI > 40) 05/22/2009 11/27/2016 Overview: Per Obesity Taxonomy ICD-10 update of inactive term HTN, GOAL BELOW 130/80 03/22/200910/15 Overview: Per HTN Taxonomy. Type 2 diabetes mellitus wit h hemoglobin A1c goal of less than 7.0% 12/21/2008 10/17/2014 Overview: Per Diabetes Taxonomy. ICD-10 update of inactive term Morbid obesity, BMI not known 09/22/2007 05/22/2009 Overview: Per Obesity Taxonomy ADVANCE DIRECTIVE INFORMATION 04/01/2005 11/02/2017 Overview: No, Advance Directive brochure given to patient. Type 2 diabetes mellitus wit h hemoglobin A1c goal of less than 7.0% 09/12/1998 12/21/2008 Overview: Per Diabetes Taxonomy. ICD-10 update of inactive term HTN, goal below 140/90 03/22 Overview: Per HTN Taxonomy. documented as of this encounter (statuses as of 12/24/2022) Immunizations Name Administration Dates Next Due COVID-19 mRNA, LNP-s, No Pre serve, 2-Dose Series (Pfizer) 05/12/2020,04/21/2020 Pneumococcal Conjugate Vacc, 13 Valent (Prevnar) 03/08/2018 Pneumococcal Polysaccharide PPV23 (Pneumovax) 11/14/2019 Seasonal Influenza, Split, I IV3, With Preserve, Inj 12/27/2007(Deferred: Patient Refused) TDAP (age 10 and older)(Boostrix) 02/11/2016 documented as of this encounter Social History Tobacco Use Types Packs/Day Years Used Date Smoking Tobacco: Never Passive Smoke Exposure: Never Smokeless Tobacco: Never Alcohol Use Standard Drinks/Week Comments No 0 (1 standard drink = 0.6 oz pur e alcohol) PHQ-2 Answer Date Recorded PHQ Adult Total Score 0 05/27/2022 Hunger Vital Sign Answer Date Recorded Within the past 12 months, y ou worried that your food would run out before you got the money to buy more. Never true 05/28/19 23 Within the past 12 months, t he food you bought just didn't last and you didn't have money to get more. Never true 05/27/2022 Sex and Gender Information Value Date Recorded Sex Assigned at Not on file Gender Identity Not on file Sexual Orientation Straight 11/01/2018 10 :23 AM EDT Job Start Date Occupation Industry Not on file Not on file Not on file documented as of this encounter Miscellaneous Notes * Telephone Encounter - Sandra Johansen RPh - 12/24/2022 12:11 PM EDT Signed Prescriptions: Disp Refills Furosemide 20 MG Oral Tablet (Lasix) 50 Tab*1 Sig: TAKE ONE TABLET BY MOUTH THREE DAYS PER WEEKAuthorizing Provider: HASEEB SOLIS User: SANDRA JOHANSEN documented in this encounter Plan of Treatment Upcoming Encounters Date Type Department Care Team (Late st Contact Info) Description 03/13/2023 10:15 AM EST Office Visit Orthopaedics [facility] [address] [address] Gordo Bunch PA-C [address] [place] [address] 04/07/2023 8:40 AM EST Office Visit [facility] [address] [place] [facility] [place] [address] Haseeb Solis MD [address] [place] [facility] [place] [address] Health Maintenance Due Date Last Done Comments DXA Scan 1952 Mammogram 1992 Cologuard 1997 Colonoscopy 1997 Colorectal Cancer Screening 1997 Fecal Occult Blood Test 1997 Sigmoidoscopy 1997 Zoster Vaccines (1 of 2) 2002 Hepatitis B (1 of 3 - Risk 3-dose series) 2012 Diabetic Foot Exam 07/27/2021 07/27/2020, 0 11/01/2018, 11/02/2017, Additional history exists Diabetic Eye Exam 07/03/2022 07/03/2021, , 11/02/2006 Albumin/Creatinine Ratio 09/19/2022 022, 02/21/2019, 03/01/2018, Additional history exists COVID-19 Vaccine ( season) 2022 05/12/2020, 04/21/2020 Influenza Vaccine (FLU shot) (#1) 2022 TSH 04/01/2023 04/01/2022, 08/24, 07/24/2020, Additional history exists GFR 04/28/2023 10/28/2022, 02/0 08/2022, 09/19/2021, Additional history exists HbA1c 04/28/2023 10/28/2022, 02/0 08/2022, 09/19/2021, Additional history exists Depression Screening 05/28/2023 05/27/2022 CKD HGB USE SMARTSET 59983 10/29/202310/28, 05/06/2021, 11/07/2019, Additional history exists CKD PHOS USE SMARTSET 59780 10/29/2023 09/0 06/2022, 09/19/2021, 11/07/2019, Additional history exists DTaP,Tdap,and Td Vaccines (2 - Td or Tdap) 02/10/2026 02/11/2016, 10/27/2002 Lipid Panel 04/01/2027 04/01/2022, 04/23, 03/12/2020, Additional history exists Pneumococcal Vaccine: 65+ Years Completed 11/14/2019, 03/08/2018, 10/27/2002 GARDASIL-HPV IMMUNIZATION SERIES Aged Out No longer eligible based on patient's age to complete this topic MENINGOCOCCAL (MENACTRA/MENVEO) Aged Out No longer eligible based on patient's age to complete this topic documented as of this encounter Medical Devices Not on filedocumented as of this encounter Visit Diagnoses Diagnosis Leg swelling Swelling of limb documented in this encounter Care Teams Manager Grocery Relationship Specialty Start Date End Date Haseeb Solis MD [address] [place] [address] PCP - General 12/12/99 documented as of this encounter
--- OUTSIDE RECORDS SUMMARY | 2023-01-01 10:48 | External Medical Summary | Summary of Care ---
Author Name Unknown Organization [facility] Address [address] [place] [address] Phone [phone] Care Team Providers Care Fill Plant Operator Name Role Phone Jono Chairez MD Primary Care Provider [phone]- [phone] Reason for Visit * Reason Comments Medication Refill Encounter Details Date Type Department Care Team (Late st Contact Info) Description 12/22/2022 Refill [facility] [address] [place] [address] Jono Chairez MD [address] [place] [address] Neuropathy Allergies No known active allergiesdocumented as of this encounter (statuses as of 12/24/2022) Medications Medication Sig Dispensed Refills Start Date End Date Status Glucose Blood (RELION PRIME TEST) STRP Test 6 times a day E 11.9 100 Strip 5 12/06/2018 Active Vitamin D3 Super Strength 50 MCG (2000 UT) Oral Tablet (Cholecalciferol) Take by mouth . 0 Active Lantus 100 UNIT/ML Subcutaneous SolutionIndication s:Type 2 diabetes mellitus with hemoglobin A1c goal of less than 8.0% ([facility]) INJECT 50 UNITS UNDER THE SKIN EVERY MORNING 50 mL 1 08/06/2022 4 Active Levothyroxine Sodium 75 MCG Oral Tablet (Levoxyl)Indicatio ns:Hypothyroidism, unspecified type TAKE ONE TABLET BY MOUTH DAILY AT LEAST 30 MINUTES PRIOR TO FIRST MEAL OF THE DAY OR OTHER MEDICATIONS. 90 Tablet 2 07/30/2022 4 Active Furosemide 20 MG Oral Tablet (Lasix)Indications :Leg swelling TAKE ONE TABLET BY MOUTH THREE DAYS PER WEEK 50 Tablet 1 06/25/2022 4 Active Omeprazole 20 MG Oral Capsule [...] a week. 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 01/02/2011 [...] Valent (Prevnar) 03/08/2018 Pneumococcal Polysaccharide PPV23 (Pneumovax) 11/14/2019,10/27/2002 Seasonal Influenza, Split, I IV3, With Preserve, Inj 12/27/2007(Deferred: Patient Refused) TD - Tetanus/Diptheria (ADULT) 10/27/2002 TDAP (age 10 and older)(Boostrix) 02/11/2016 documented [...] encounter Miscellaneous Notes * Telephone Encounter - Mary Mcdonough CPhT - 12/24/2022 10:34 AM EDT Refill authorized in 12/23 encounter Thank you, Mary Mcdonough CPhT II Manager [employer] [facility]) 12/24/2022, 10:35 AM * Telephone Encounter - Nava Beasley LPN - 12/23/2022 12:02 PM EDTRefused Prescriptions: Disp Refills Gabapentin 100 MG Oral Capsule (Neurontin) 360 Ca*1 Sig: TAKE ONE CAPSULE BY MOUTH EVERY MORNING, ONE IN THE AFTERNOON, AND TWO IN THE EVENING Refused By: NAVA BEASLEY Reason for Refusal: Prescriber not at this practice * Telephone Encounter - Slade Dickson - 12/22/2022 10:53 PM EDTPending Prescriptions: Disp Refills Gabapentin 100 MG Oral Capsule (Neurontin) 360 Ca*1 Sig: TAKE ONE CAPSULE BY MOUTH EVERY MORNING, ONE IN THE AFTERNOON, AND TWO IN THE EVENING documented in this encounter Plan of Treatment Upcoming Encounters Date Type Department Care Team (Late st Contact Info) Description 03/13/2023 10:15 AM EST Office Visit Orthopaedics [facility] [address] [place] [address] Gordo Bunch PA-C [address] [place] [address] 04/07/2023 8:40 AM EST Office Visit [facility] [address] [place] [address] Jono Chairez MD [address] [place] [address] Health Maintenance Due Date Last Done [...] Exam 07/03/2022 07/03/2021, , 11/02/2006 Albumin/Creatinine Ratio 09/19/202209/19/2 022, 02/21/2019, 03/01/2018, Additional history exists COVID-19 Vaccine (3 season) 2022 05/12/2020, 04/21/2020 Influenza Vaccine (FLU shot) (#1) 2022 TSH 04/01/2023 04/01/2022, 08/24, 07/24/2020, Additional history exists GFR 04/28/2023 10/28/2022, /0 08/2022, 09/19/2021, Additional history exists HbA1c 04/28/2023 10/28/2022, 02/0 08/2022, 09/19/2021, Additional history exists Depression Screening 05/28/2023 05/27/2022 CKD HGB USE SMARTSET 42346 10/29/202310/28, 05/06/2021, 11/07/2019, Additional history exists CKD PHOS USE SMARTSET 49979 10/29/20230 06/2022, 09/19/2021, 11/07/2019, Additional history exists DTaP,Tdap,and [...] as of this encounter Visit Diagnoses Diagnosis Neuropathy Mononeuritis of unspecified site documented in this encounter Care Teams Fill Plant Operator Relationship Specialty Start Date End Date Jono Chairez MD [address] [place] [address] PCP - General 12/12/99 documented as of this encounter
--- OUTSIDE RECORDS SUMMARY | 2023-01-01 10:49 | External Medical Summary | Summary of Care ---
Author Name Unknown Organization [facility] Address [address] [place] [address] Phone [phone] Care Team Providers Care Ager Tender Name Role Phone Jono Chairez MD Primary Care Provider [phone]- [phone] Reason for Visit * Reason Comments Follow Up Knee Pain left Encounter Details Date Type Department Care Team Description 12/11/2022 Office Visit Orthopaedics [facility] [address] [place] [address] Gordo Bunch PA-C [address] [place] [address] Primary osteoarthritis of left knee* Allergies No known active allergiesdocumented as of this encounter (statuses as of 12/11/2022) Medications Medication Sig Dispensed Refills Start Date End Date Status Glucose Blood (RELION PRIME TEST) STRP Test 6 times a day E 11.9 100 Strip 5 12/06/2018 Active Vitamin D3 Super Strength 50 MCG (1999 UT) Oral Tablet (Cholecalciferol) Take by mouth . 0 Ac tive Lantus 100 UNIT/ML Subcutaneous SolutionIndications :Type 2 diabetes mellitus with hemoglobin A1c goal of less than 8.0% ([facility]) INJECT 50 UNITS UNDER THE SKIN EVERY MORNING 50 mL 1 08/06/2022 08/06/2023 Active Levothyroxine Sodium 75 MCG Oral Tablet (Levoxyl)Indication s:Hypothyroidism, unspecified type TAKE ONE TABLET BY MOUTH DAILY AT LEAST 30 MINUTES PRIOR TO FIRST MEAL OF THE DAY OR OTHER MEDICATIONS. 90 Tablet 2 07/30/2022 07/30/2023 Active Gabapentin 100 MG Oral Capsule (Neurontin)Indicati ons:Neuropathy TAKE ONE CAPSULE BY MOUTH EVERY MORNING, ONE IN THE AFTERNOON, AND TWO IN THE EVENING 360 Capsule 1 06/25/2022 06/25/2023 Active Furosemide 20 MG Oral Tablet (Lasix)Indications: Leg swelling TAKE ONE TABLET BY MOUTH THREE DAYS PER WEEK 50 Tablet 1 06/25/2022 06/25/2023 Active Omeprazole 20 MG Oral Capsule Delayed Release (PriLOSEC)Indicatio ns:Gastroesophageal reflux disease without esophagitis TAKE ONE CAPSULE BY MOUTH EVERY MORNING 1 HOUR BEFORE THE FIRST MEAL OF THE DAY 90 Capsule 3 05/27/2022 05/27/2023 Active Simvastatin 20 MG Oral Tablet (Zocor)Indications: Dyslipidemia, goal LDL below 100 TAKE ONE TABLET BY MOUTH AT BEDTIME 90 Tablet 3 05/27/2022 05/27/2023 Active Insulin Regular Human 100 UNIT/ML Injection SolutionIndications :Type 2 diabetes mellitus with hemoglobin A1c goal of less than 8.0% ([facility]) INJECT 5 TO 24 UNITS NEEDED BEFORE MEALS AND AT BEDTIME UNDER THE SKIN DIRECTED VIA SLIDING SCALE 90 mL 1 01/29/2022 01/29/2023 Active Enalapril Maleate 20 MG Oral Tablet (Vasotec)Indication s:HTN, goal below 140/90 TAKE ONE TABLET BY MOUTH EVERY DAY 100 Tablet 1 11/04/2022 Active traMADol HCl 50 MG Oral Tablet (Ultram)Indications :Chronic pain of left knee Take 1 Tablet by mouth every 6 hours as needed for Pain, Severe. 80 Tablet 0 11/13/2022 Active Trulicity 1.5 MG/0.5ML Subcutaneous Solution Pen-injector (Dulaglutide) Inject 1.5 mg under the skin once a week. 2 mL 5 11/21/2022 Active Hospital, Clinic, or Other Facility Administered Medication Ordered Dose Route Frequency Start Date End Date Status lidocaine 1% 1 mL - triamcinolone acetonide 40 mg/mL 1 mL inj 2 mLIndications:Primary osteoarthritis of left knee 2 mL IJ ONCE 12/11/2022 12/12/19 23 Ended documented as of this encounter (statuses as of 12/11/2022) Active Problems Problem Noted Date Hypertensive kidney disease with stage 3 a chronic kidney disease 05/15/2021 Chronic kidney disease, stage 3a 021 Overview: Per CKD protocol Type 2 diabetes mellitus wit h stage 3a chronic kidney disease, with long-term current use of insulin 07/03/2020 Overview: Per CKD protocol Gastroesophageal reflux disease without esophagitis 02/28/2019 longterm (current) use of insulin 11/02 Morbid obesity with BMI of 50.0-59.9, ad ult 06/29/2017 Type 2 diabetes mellitus with hemoglobin A1c goal of less than 8.0% 10/17/2014 Overview: ICD-10 update of inactive term HTN, goal below 140/90 04/25/2014 Dyslipidemia, goal LDL below 100 010 Acquired hypothyroidism 11/05/2009 SPINAL STENOSIS-LUMBAR 08/27/2005 documented as of this encounter (statuses as of 12/11/2022) Resolved Problems Problem Noted Date Resolved Date Type 2 diabetes mellitus wit h stage 3 chronic kidney disease, with long-term current use of insulin 11/02/2017 020 Overview: duplicate Hypertension associated with stage 3 chronic kidney disease due to type 2 diabetes mellitus 11/02/2017 07/05/2020 Overview: Per CKD protocol Diabetes mellitus due to und erlying condition with diabetic chronic kidney disease 06/29/2017 11/02/2017 Body mass index (BMI) of 50.0 to 59.9 in adult 1 06/29/2017 Overview: Per Obesity protocol #1 - Per Obesity Taxonomy ICD-10 update of inactive term Kidney disease, chronic, stage III (GFR 30-59 ml /min) 06/30/2016 12/07/2017 Overview: Per CKD protocol #1 HTN, goal below 130/80 03/09/2013 5 Refused influenza vaccine 11/19/20112017 HTN, goal below 140/80 10/13/2011 2 Overview: Per HTN Protocol #27. BILATERAL UE VENOUS THROMBOSIS NOS 01/02/2011 11/02/2017 longterm current use of anticoagulant therapy 1 03/04/2010 10/21/2016 Overview: ICD-10 update of inactive term Anticoagulation management encounter 01/02/2011 10/21/2016 Obesity, morbid (more than 1 00 lbs over ideal weight or BMI > 40) 05/22/2009 11/27/2016 Overview: Per Obesity Taxonomy ICD-10 update of inactive term HTN, GOAL BELOW 130/80 03/22/2009 2 Overview: Per HTN Taxonomy. Type 2 diabetes mellitus wit h hemoglobin A1c goal of less than 7.0% 12/21/2008 10/17/2014 Overview: Per Diabetes Taxonomy. ICD-10 update of inactive term Morbid obesity, BMI not known 09/22/2007 Overview: Per Obesity Taxonomy ADVANCE DIRECTIVE INFORMATION 04/01/2005 Overview: No, Advance Directive brochure given to patient. Type 2 diabetes mellitus wit h hemoglobin A1c goal of less than 7.0% 09/12/1998 12/21/2008 Overview: Per Diabetes Taxonomy. ICD-10 update of inactive term HTN, goal below 140/90 0 Overview: Per HTN Taxonomy. documented as of this encounter (statuses as of 12/11/2022) Immunizations Name Administration Dates Next Due COVID-19 [...] drink = 0.6 oz pur e alcohol) Food Insecurity Answer Date Recorded Within the past 12 months, y ou worried that your food would run out before you got money to buy more. Never true 05/27/2022 Within the past 12 months, t he food you bought just didn't last and you didn't have money to get more. Never true 05/27/2022 Sex Assigned at Date Recorded Not on file Job Start Date Occupation Industry Not on file Not on file Not on file documented as of this encounter Progress Notes * Gordo Bunch PA-C - 12/11/2022 10:17 AM EDTAssociated Order(s): LG Joint Inj/Arthro: L knee Post-Procedure Diagnose(s): Primary osteoarthritis of left knee Established patient with Dr. Huertas well documented left knee osteoarthritis. She is not a candidate for arthroplasty. Reports responds well to corticosteroid injections. States this has very little effect on her sugars. Most recent A1c 7.0. She is reporting pain with lengthy weight-bearing activity and intermittently rest. Denies any mechanical symptoms or instability. Denies any calf pain. Radiographs on file. She is not interested in surgical intervention. Complete review systems negative General: alert and oriented x3 female, no acute distress, appears currently stated age, pleasant, well nourished Skin: Left knee does not reveal any erythema, effusion, ecchymosis, abrasion, laceration, skin breakdown otherwise Neurovascular: Left lower extremity is neurovascularly intact with good sensation strength throughout, calf supple nontender, toes were mobile, +5 strength dorsi and plantar flexion of the foot Musculoskeletal: Left knee ROM 0, 5, 90 secondary to pain and body habitus, jointline tenderness, advanced crepitation noted in PFJ, femoral condyles are tender as well. Ligamentously stable regarding cruciate and collateral ligaments. Extensor mechanism intact. No obvious cystic change or masses the popliteal fossa. Pes anserine bursa and patellar tendon nontender. Hip and ankle atraumatic X-rays of the left knee reviewed and reveal advancing osteoarthritis tricompartmental Impression: Left knee osteoarthritis Plan: Today 's findings were discussed with the patient. They were educated regarding their diagnosis. Multiple treatment options discussed and agreed upon, including repeat corticosteroid injection for left knee today. Updated guidelines and [facility] driven consent obtained. Can follow-up in 3-4 months for consideration of repeat injection. The patient has no other questions or concerns. Pleased with today 's care. Call sooner if needed. Patient instructed to call or return to clinic for fever or warmth and redness at injection site for potential infection. Patient also advised as to potential for steroid flare reaction including increased pain and redness at injection site which should be treated with ice and resolve within 24 hours. The patient is diabetic and aware that steroid injections can increase glucose levels associated with diabetes. Counseling has occurred regarding proper food choices over the next 72 hours to accommodate what is likely expected increase in glucose numbers on some level. Concerning symptoms and blood sugar glucose numbers should be reported the patient's PCP, and certainly, the emergency department he is to be considered if those levels of glucose and symptoms are worsening. Patient is aware andwilling to proceed accordingly. Written consent is obtained and is on file. LG Joint Inj/Arthro: L knee on 12/11/2022 10:18 AM Indications: pain Details: 22 G needle Medications: (Triamcinolone lidocaine) Outcome: tolerated well, no immediate complications Procedure, treatment alternatives, risks and benefits explained, specific risks discussed. Consent was given by the patient. Immediately prior to procedure a time out was called to verify the correctpatient, procedure, equipment, network desktop support specialist and site/side marked as required. Patient was prepped and draped in the usual sterile fashion. This chart was completed in part utilizing [employer] Voice Recognition Software. Grammatical errors, random word insertions, prounoun errors, and incomplete sentences are an occasional consequence of this system due to software limitations, ambient noise, and hardware issues. Any formal questions or concerns about the content, text, or information contained within the body of this dictation should be directly addressed to the provider for clarification documented in this encounter Nursing Notes * SUSAN Escalante - 12/11/2022 9:47 AM EDT Pt presents today for L knee pain Had injection 09/10/22, would like another injection today SUSAN Escalante documented in this encounter Plan of Treatment Upcoming Encounters Date Type Specialty Care Team Description 03/13/2023 Office Visit Orthopedics Gordo Bunch PA-C [address] [place] [address] 04/07/2023 Office Visit [facility] [address] [facility] [address] Health Maintenance Due Date Last Done Comments DXA Scan 1952 Mammogram 1992 Cologuard 1997 Colonoscopy 1997 Colorectal Cancer Screening 1997 Fecal Occult Blood Test 1997 Sigmoidoscopy 1997 Zoster Vaccines (1 of 2) 2002 Diabetic Foot Exam 07/27/2021 07/27/2020, 0 11/01/2018, 11/02/2017, Additional history exists DIABETES-EYE EXAM 07/03/2022 07/03/2021, , 11/02/2006 Albumin/Creatinine Ratio 09/19/2022 022, 02/21/2019, 03/01/2018, Additional history exists COVID-19 Vaccine ( season) 2022 05/12/2020, 04/21/2020 Influenza Vaccine (FLU shot) (#1) 2022 TSH 04/01/2023 04/01/2022, 08/24, 07/24/2020, Additional history exists GFR 04/28/2023 10/28/2022, 02/0 08/2022, 09/19/2021, Additional history exists HbA1c 04/28/2023 10/28/2022, 08/2022, 09/19/2021, Additional history exists Depression Screening 05/28/2023 05/27/2022 CKD HGB USE SMARTSET 95181 10/29/202310/28, 05/06/2021, 11/07/2019, Additional history exists CKD PHOS USE SMARTSET 32481 10/29/202306/2022, 09/19/2021, 11/07/2019, Additional history exists DTaP,Tdap,and Td Vaccines (2 - Td or Tdap) 02/10/2026 02/11/2016, 10/27/2002 Lipid Panel 04/01/2027 04/01/2022, 04/23, 03/12/2020, Additional history exists Pneumococcal Vaccine: 65+ Years Completed 11/14/2019, 03/08/2018, 10/27/2002 GARDASIL-HPV IMMUNIZATION SERIES Aged Out No longer eligible based on patient's age to complete this topic Hepatitis B Aged Out No longer eligi ble based on patient's age to complete this topic MENINGOCOCCAL (MENACTRA/MENVEO) Aged Out No longer eligible based on patient's age to complete this topic documented as of this encounter Medical Devices Not on filedocumented as of this encounter Procedures Procedure Name Priority Date/Time Associated Diagnosis Comments MI ARTHROCENTESIS ASPIR&/INJ MAJOR JT/BURSA W/O US Routine 12/11/2022 10:18 AM EDT Primary osteoarthritis of left knee documented in this encounter Results * MI ARTHROCENTESIS ASPIR&/INJ MAJOR JT/BURSA W/O US (12/11/2022 10:18 AM EDT) Narrative Gordo Bunch PA-C - 12/11/2022 10:18 AM EDT Gordo Bunch PA-C 12/11/2022 10:18 AM LG Joint Inj/Arthro: L knee on 12/11/2022 10:18 AM Indications: pain Details: 22 G needle Medications: (Triamcinolone lidocaine) Outcome: tolerated well, no immediate complications Procedure, treatment alternatives, risks and benefits explained, specific risks discussed. Consent was given by the patient. Immediately prior to procedure a time out was called to verify the correct patient, procedure, equipment, network desktop support specialist and site/side marked as required. Patient was prepped and draped in the usual sterile fashion. Gordo Bunch PA-C PROCDOC FORM documented in this encounter Visit Diagnoses Diagnosis Primary osteoarthritis of left knee- Primary Primary localized osteoarthrosis, lower leg documented in this encounter Administered Medications Inactive Administered Medications - up to 3 most recent administrations Medication Order MAR Action Action Date Dose Rate Site lidocaine 1% 1 mL - triamcinolone acetonide 40 mg/mL 1 mL inj 2 mL 2 mL, Injection, ONCE, On Clara 12/11/22 at 1100, For 1 dose, Lidocaine 1% 1mL Triamcinolone Acetonide 40 mg/mL 1 mL (Final concentration = 20 mg/mL) REFRIGERATE and SHAKE WELL Given 12/11/2022 3:27 PM EDT 2 mL Knee Left documented in this encounter Care Teams Ager Tender Relationship Specialty Start Date End Date Jono Chairez MD [address] [place] [address] PCP - General 12/12/99 documented as of this encounter
--- OUTSIDE RECORDS SUMMARY | 2023-01-01 10:49 | External Medical Summary | Summary of Care ---
Author Name Unknown Organization [facility] Address [address] [place] [address] Phone [phone] Care Team Providers Care Test Inspection Engineer Name Role Phone Jono Chairez MD Primary Care Provider [phone]- [phone] Reason for Visit * Reason Comments NEW PATIENT Left knee Encounter Details Date Type Department Care Team Description 09/10/2022 Office Visit Orthopaedics [facility] [address] [place] [address] Gordo Bunch PA-C [address] [place] [address] Primary osteoarthritis of left knee* Allergies No [...] hemoglobin A1c goal of less than 8.0% ([facility]) INJECT 50 UNITS UNDER THE SKIN EVERY MORNING 50 mL 1 08/06/2022 4 Active Levothyroxine Sodium 75 MCG Oral Tablet (Levoxyl)Indicatio ns:Hypothyroidism, unspecified type TAKE ONE TABLET BY MOUTH DAILY AT LEAST 30 MINUTES PRIOR TO FIRST MEAL OF THE DAY OR OTHER MEDICATIONS. 90 Tablet 2 07/30/2022 4 Active Gabapentin 100 MG Oral Capsule (Neurontin)Indicat ions:Neuropathy TAKE ONE CAPSULE BY MOUTH EVERY MORNING, ONE IN THE AFTERNOON, AND TWO IN THE EVENING 360 Capsule 1 06/25/2022 4 Active Furosemide 20 MG Oral Tablet [...] hemoglobin A1c goal of less than 8.0% ([facility]) INJECT 5 TO 24 UNITS NEEDED BEFORE MEALS AND AT BEDTIME UNDER THE SKIN DIRECTED VIA SLIDING SCALE 90 mL 1 01/29/2022 3 Active traMADol HCl 50 MG Oral Tablet (Ultram)Indication s:Chronic pain of left knee TAKE ONE TABLET EVERY SIX HOURS NEEDED FOR SEVERE PAIN 80 Tablet 0 07/30/2022 3 Discontinued (Refill) Enalapril Maleate 20 MG Oral Tablet (Vasotec)Indicatio ns:HTN, goal below 140/90 TAKE ONE TABLET BY MOUTH EVERY DAY 100 Tablet 1 04/09/2022 3 Discontinued (Refill) Insulin Syringe-Needle U-100 31G X 5/16" 0.5 ML USE WITH LANTUS AND NOVOLIN INSULIN 5 TIMES DAILY 500 Each 3 11/20/2021 3 Hospital, Clinic, or Other Facility Administered Medication Ordered Dose Route Frequency Start Date End Date Status lidocaine 1% 1 mL - triamcinolone acetonide 40 mg/mL 1 mL inj 2 mLIndications:Primary osteoarthritis of left knee 2 mL IJ ONCE 09/10/2022 07/19/20 23 Ended documented as of this encounter [...] protocol Gastroesophageal reflux disease without esophagitis 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 11/02 Morbid obesity [...] BILATERAL UE VENOUS THROMBOSIS NOS 01/02/2011 11/02/2017 terminal computer operator current use of anticoagulant therapy 1 03/04/2010 [...] mRNA, LNP-s, No Pre serve, 2-Dose Series ([employer]) 05/12/2020,04/21/2020 Pneumococcal Conjugate Vacc, 13 Valent (Prevnar) 03/08/2018 Pneumococcal Polysaccharide PPV23 (Pneumovax) 11/14/2019,10/27/2002 Seasonal Influenza, Split, I IV3, With Preserve, Inj 12/27/2007(Deferred: Patient Refused) TD - Tetanus/Diptheria (ADULT) 10/27/2002 TDAP (age 10 and older)(Boostrix) 02/11/2016 documented as of this encounter Social History Tobacco Use Types Packs/Day Years Used Date Smoking Tobacco: Never Smokeless Tobacco: Never Alcohol Use Standard [...] Progress Notes * Gordo Bunch PA-C - 09/10/2022 9:36 AM EDTAssociated Order(s): LG Joint Inj/Arthro: L knee Post-Procedure Diagnose(s): Primary osteoarthritis of left knee Established patient with Dr. Huertas well documented left knee osteoarthritis. She is not a candidate for arthroplasty. Reports responds well to corticosteroid injections. States this has very little effect on her sugars. She is reported pain with lengthy weight-bearing activity and intermittently rest. Denies any mechanical symptoms or instability. Denies any calf pain. Radiographs on file. Complete review systems negative General: alert and [...] today 's care. Call sooner if needed. LG Joint Inj/Arthro: L knee on 09/10/2022 10:00 AM Indications: pain Details: 22 G needle, anterolateral approach Medications: (Triamcinolone lidocaine) Outcome: tolerated well, no immediate complications Procedure, treatment alternatives, risks and benefits explained, specific risks discussed. Consent was given by the patient. Immediately prior to procedure a time out was called to verify the correctpatient, procedure, equipment, production support specialist and site/side marked as required. Patient was prepped and draped in the usual sterile fashion. This chart was completed in part utilizing [employer] Voice Recognition Software. Grammatical errors, random word insertions, prounoun errors, and incomplete sentences are an occasional consequence of this system due to software limitations, ambient noise, and hardware issues. Any formal questions or concerns about the content, text, or information contained within the body of this dictation should be directly addressed to the provider for clarification. documented in this encounter Nursing Notes * VIKASH De Leon - 09/10/2022 9:35 AM EDT Patient presents today for left knee pain, previously seen by Dr. Huertas and had injection, here for repeat injection today. Patient is a diabetic and Blood glucose this AM was 127 documented in this encounter Plan of Treatment Upcoming Encounters Date Type Specialty Care Team Description 12/11/2022 Office Visit Orthopedics Gordo Bunch PA-C [address] [facility] [place] [address] Arrived 04/07/2023 Office Visit Family Medicine Jono Chairez MD [address] [place] [address] Health Maintenance Due Date Last Done Comments [...] Screening 05/28/2023 05/27/2022 CKD HGB USE SMARTSET 30814 10/29/202310/28, 05/06/2021, 11/07/2019, Additional history exists CKD PHOS USE SMARTSET 98901 10/29/2023 09/0 06/2022, 09/19/2021, 11/07/2019, Additional history [...] Procedure Name Priority Date/Time Associated Diagnosis Comments PA ARTHROCENTESIS ASPIR&/INJ MAJOR JT/BURSA W/O US Routine 09/10/2022 10:00 AM EDT Primary osteoarthritis of left knee documented in this encounter Results * PA ARTHROCENTESIS ASPIR&/INJ MAJOR JT/BURSA W/O US (09/10/2022 10:00 AM EDT) Gordo Shen PA-C - 09/10/2022 10:00 AM EDT Gordo Bunch PA-C 12/11/2022 9:53 AM LG Joint Inj/Arthro: L knee on 09/10/2022 10:00 AM Indications: pain Details: 22 G needle, anterolateral approach Medications: (Triamcinolone lidocaine) Outcome: tolerated well, no immediate complications Procedure, treatment alternatives, risks and benefits explained, specific risks discussed. Consent was given by the patient. Immediately prior to procedure a time out was called to verify the correct patient, procedure, equipment, production support specialist and site/side marked as required. [...] 2 mL 2 mL, Injection, ONCE, On Thu09/10/22 at 1015, For 1 dose, Lidocaine 1% 1mL Triamcinolone Acetonide 40 mg/mL 1 mL (Final concentration = 20 mg/mL) REFRIGERATE and SHAKE WELL Given 09/10/2022 9:45 AM EDT 2 mL Knee Left documented in this encounter Care Teams Test Inspection Engineer Relationship Specialty Start Date End Date Jono Chairez MD [address] [place] [address] PCP - General 12/12/99 documented as of this encounter
--- OUTSIDE RECORDS SUMMARY | 2023-01-01 10:49 | External Medical Summary | Summary of Care ---
Author Name Unknown Organization [facility] Address [address] [place] [address] Phone [phone] Care Team Providers Care Bomb Squad Commander Name Role Phone Jono Chairez MD Primary Care Provider +1- [phone] Reason for Visit * Reason Comments Medication Refill Encounter Details Date Type Department Care Team (Late st Contact Info) Description 12/22/2022 Refill [facility] [address] [place] [address] Jono Chairez MD [address] [place] [address] Neuropathy Allergies No known active allergiesdocumented as of this encounter (statuses as of 12/23/2022) Medications Medication Sig Dispensed Refills Start Date [...] A1c goal of less than 8.0% ([facility]) INJECT 50 UNITS UNDER THE SKIN [...] a week. 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 11/02/2017 Morbid obesity with BMI of 50.0-59.9, adult 08/2017 Type 2 diabetes mellitus wit h hemoglobin A1c goal of less than 8.0% 10/17/2014 Overview: ICD-10 update of inactive term HTN, goal below 140/90 04/25/2014 Dyslipidemia, goal LDL below 100 11/05/2009 Acquired hypothyroidism 11/05/2009 SPINAL STENOSIS-LUMBAR 08/27/2005 documented as of this encounter (statuses as of 12/23/2022) Resolved Problems Problem Noted Date Diagnosed Date [...] UE VENOUS THROMBOSIS NOS 01/02/2011 11/02/2017 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 [address] [place] [address] Gordo Bunch PA-C [address] [place] [address] 04/07/2023 8:40 AM EST Office Visit [facility] [address] [place] [phone] Jono Chairez MD [address] [place] [address] Health Maintenance Due Date Last Done Comments [...] 07/24/2020, Additional history exists GFR 04/28/2023 10/28/2022, 0 08/2022, 09/19/2021, Additional history exists HbA1c 04/28/2023 10/28/2022, 0 08/2022, 09/19/2021, Additional history exists Depression Screening 05/28/2023 05/27/2022 CKD HGB USE SMARTSET 06330 10/29/202310/28, 05/06/2021, 11/07/2019, Additional history exists CKD PHOS USE SMARTSET 70578 10/29/2023 09/0 06/2022, 09/19/2021, 11/07/2019, Additional history [...] site documented in this encounter Care Teams Bomb Squad Commander Relationship Specialty Start Date End Date Jono Chairez MD [address] [place] [address] PCP - General 12/12/99 documented as of this encounter
--- OUTSIDE RECORDS SUMMARY | 2023-01-01 10:49 | External Medical Summary | Summary of Care ---
Author Name Unknown Organization [facility] Address [address] [place] [address] Phone [phone] Care Team Providers Care Dicer Machine Operator Name Role Phone Jono Chairez MD Primary Care Provider +1- [phone] Reason for Visit * Reason Onset Date Comments Appointment 12/22/2022 Encounter Details Date Type Department Care Team ([facility] st Contact Info) Description 12/22/2022 Telephone [facility] [address], [place] [id number] Services, Scheduling [address] [place] [address] Appointment Allergies No known active allergiesdocumented as of this encounter (statuses as of 12/22/2022) Medications Medication Sig Dispensed Refills Start Date End Date Status Glucose Blood (RELION PRIME TEST) STRP Test 6 times a day E 11.9 100 Strip 5 12/06/2018 Active Vitamin D3 Super Strength 50 MCG (1999 UT) Oral Tablet (Cholecalciferol) Take by mouth . 0 Ac tive Lantus 100 UNIT/ML Subcutaneous SolutionIndications :Type 2 diabetes mellitus with hemoglobin A1c goal of less than 8.0% ([facility]) INJECT 50 UNITS UNDER THE [...] as of this encounter (statuses as of 12/22/2022) Active Problems Problem Noted Date Diagnosed Date Hypertensive kidney disease with stage 3a chronic kidney disease 05/15/2021 Chronic kidney disease, stage 3a 08/07/2020 Overview: Per CKD protocol Type 2 diabetes mellitus wit h stage 3a chronic kidney disease, with long-term current use of insulin 07/03/2020 Overview: Per CKD protocol Gastroesophageal reflux disease without esophagi tis 02/28/2019 [facility] (current) use of insulin 11/02/2017 Morbid obesity with BMI of 50.0-59.9, adult 08/2017 Type 2 diabetes mellitus wit h hemoglobin A1c goal of less than 8.0% 10/17/2014 Overview: ICD-10 update of inactive term HTN, goal below 140/90 04/25/2014 Dyslipidemia, goal LDL below 100 11/05/2009 Acquired hypothyroidism 11/05/2009 SPINAL STENOSIS-LUMBAR 08/27/2005 documented as of this encounter (statuses as of 12/22/2022) Resolved Problems Problem Noted Date Diagnosed Date [...] BILATERAL UE VENOUS THROMBOSIS NOS 01/02/2011 11/02/2017 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 GONZALO Chi documented in this encounter Plan of Treatment Upcoming Encounters Date Type Department Care Team (Late st Contact Info) Description 03/13/2023 10:15 AM EST Office Visit Orthopaedics [facility] [address] [facility] [place] [address] Gordo Bunch PA-C [address] [facility] [place] [address] 04/07/2023 8:40 AM EST Office Visit [facility] [address] [place] [address] Jono Chairez MD [address] [place] [address] Health Maintenance Due Date Last Done Comments [...] Screening 05/28/2023 05/27/2022 CKD HGB USE SMARTSET 29436 10/29/202310/28, 05/06/2021, 11/07/2019, Additional history exists CKD PHOS USE SMARTSET 91087 10/29/2023 090 06/2022, 09/19/2021, 11/07/2019, Additional history exists DTaP,Tdap,and [...] Not on filedocumented as of this encounter Care Teams Dicer Machine Operator Relationship Specialty Start Date End Date Jono Chairez MD [address] [place] [address] PCP - General 12/12/99 documented as of this encounter
--- OUTSIDE RECORDS SUMMARY | 2023-01-01 10:49 | External Medical Summary | Summary of Care ---
Author Name Unknown Organization [facility] Address [address] [place] [address] Phone [phone] Care Team Providers Care Apparatus Cleaner Name Role Phone Jono Chairez MD Primary Care Provider +1- [phone] Reason for Visit * Reason Comments Follow Up Knee Pain left Encounter Details Date Type Department Care Team Description 12/11/2022 Office Visit Orthopaedics [facility] [address] [place] [address] Gordo Bunch PA-C [address] [place] [address] Primary osteoarthritis of left knee* Allergies No [...] hemoglobin A1c goal of less than 8.0% ([facility]) INJECT 50 UNITS UNDER [...] 2 mL IJ ONCE 12/11/2022 12/12/19 23 Active documented as of this encounter (statuses [...] protocol Gastroesophageal reflux disease without esophagitis 02/28/2019 [facility] (current) use of insulin 11/02 Morbid obesity [...] BILATERAL UE VENOUS THROMBOSIS NOS 01/02/2011 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 Patient was prepped and draped in the usual sterile fashion. This chart was completed in part utilizing [email or web address] Speech Voice Recognition Software. Grammatical errors, random [...] Orthopedics Gordo Bunch PA-C [address] [place] [address] 04/07/2023 Office Visit Family Medicine [facility] [address] [facility] [phone] Health Maintenance Due Date Last Done Comments [...] Screening 05/28/2023 05/27/2022 CKD HGB USE SMARTSET 99170 10/29/202310/28, 05/06/2021, 11/07/2019, Additional history exists CKD PHOS USE SMARTSET 24134 10/29/2023 09/0 06/2022, 09/19/2021, 11/07/2019, Additional history [...] Procedure Name Priority Date/Time Associated Diagnosis Comments NC ARTHROCENTESIS ASPIR&/INJ MAJOR JT/BURSA W/O US Routine 12/11/2022 10:18 AM EDT Primary osteoarthritis of left knee documented in this encounter Results * NC ARTHROCENTESIS ASPIR&/INJ MAJOR JT/BURSA W/O US (12/11/2022 [...] to verify the correct patient, procedure, equipment, office support assistant and site/side marked as required. Patient was prepped and draped in the usual sterile fashion. Gordo Bunch PA-Isabel PROCDOC FORM documented in this encounter Visit Diagnoses Diagnosis Primary osteoarthritis of left knee- Primary Primary localized osteoarthrosis, lower leg documented in this encounter Care Teams Apparatus Cleaner Relationship Specialty Start Date End Date Jono Chairez MD [facility] [address] [place], [place] [phone] PCP - General 12/12/99 documented as of this encounter
--- OUTSIDE RECORDS SUMMARY | 2023-01-01 10:49 | External Medical Summary | Summary of Care ---
Author Name Unknown Organization [facility] Address [address] [place] [address] Phone [phone] Care Team Providers Care Peoplesoft Fscm Developer Name Role Phone Jono Chairez MD Primary Care Provider +1- [phone] Reason for Visit * Reason Onset Date Comments FYI 11/25/2022 Encounter Details Date Type Department Care Team Description 11/25/2022 Telephone [facility] [address] [place] [address] Jono Chairez MD [address] [place] [address] FYI Allergies No known active allergiesdocumented as of this encounter (statuses as of 12/04/2022) Medications Medication Sig Dispensed Refills Start Date End Date Status Glucose Blood (RELION PRIME TEST) STRP Test 6 times a day E 11.9 100 Strip 5 12/06/2018 Active Vitamin D3 Super Strength 50 MCG (1999 [place]) Oral Tablet (Cholecalciferol) Take by mouth . 0 Ac tive Lantus 100 UNIT/ML Subcutaneous SolutionIndications :Type 2 diabetes mellitus with hemoglobin A1c goal of less than 8.0% ([facility]) INJECT 50 UNITS UNDER THE SKIN [...] as of this encounter (statuses as of 12/04/2022) Active Problems Problem Noted Date Hypertensive kidney disease with stage 3 a chronic kidney disease 05/15/2021 Chronic kidney disease, stage 3a 021 Overview: Per CKD protocol Type 2 diabetes mellitus wit h stage 3a chronic kidney disease, with long-term current use of insulin 07/03/2020 Overview: Per CKD protocol Gastroesophageal reflux disease without esophagitis 02/28/2019 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 11/02 Morbid obesity with BMI of 50.0-59.9, ad ult 06/29/2017 Type 2 diabetes mellitus with hemoglobin A1c goal of less than 8.0% 10/17/2014 Overview: ICD-10 update of inactive term HTN, goal below 140/90 04/25/2014 Dyslipidemia, goal LDL below 100 010 Acquired hypothyroidism 11/05/2009 SPINAL STENOSIS-LUMBAR 08/27/2005 documented as of this encounter (statuses as of 12/04/2022) Resolved Problems Problem Noted Date Resolved Date [...] UE VENOUS THROMBOSIS NOS 01/02/2011 11/02/2017 intermediate current use of anticoagulant therapy 1 03/04/2010 [...] as of this encounter (statuses as of 12/04/2022) Immunizations Name Administration Dates Next Due COVID-19 [...] encounter Miscellaneous Notes * Telephone Encounter - Navya Rollins LPN - 12/04/2022 12:14 PM EDT Called patient, she ordered a lift chair through [employer] and no longer needs this. * Telephone Encounter - GONZALO Calero - 11/25/2022 10:01 AM EDT Bennie with [employer] called and said that the script for a lift chair was accepted, but the supplier was unable to reach patient to get delivery set up, so they paused the order for the time being. documented in this encounter Plan of Treatment Upcoming Encounters Date Type Specialty Care Team Description 12/11/2022 Office Visit Orthopedics Gordo Bunch PA-C [address] [place] [address] 04/07/2023 Office Visit Family Medicine Jono Chairez MD [address] [place] [address] Health Maintenance Due Date Last Done Comments [...] Screening 05/28/2023 05/27/2022 CKD HGB USE SMARTSET 14975 10/29/202310/28, 05/06/2021, 11/07/2019, Additional history exists CKD PHOS USE SMARTSET 59256 10/29/20230 06/2022, 09/19/2021, 11/07/2019, Additional history exists [...] filedocumented as of this encounter Care Teams Peoplesoft Fscm Developer Relationship Specialty Start Date End Date Jono Chairez MD [address] [place] [address] PCP - General 12/12/99 documented as of this encounter
--- OUTSIDE RECORDS SUMMARY | 2023-01-01 10:49 | External Medical Summary | Summary of Care ---
Author Name Unknown Organization [facility] Address [address] [place] [address] Phone [phone] Care Team Providers Care Lead Worker Of Housekeeping And Laundry Name Role Phone Jono Chairez MD Primary Care Provider +1- [phone] Reason for Visit * Reason Onset Date Comments Advice 11/18/2022 Med Request 11/18/2022 Encounter Details Date Type Department Care Team Description 11/18/2022 Telephone [facility] [address] [place] [address] Jono Chairez MD [address] [place] [address] Advice; Med Request Allergies No known active allergiesdocumented as of this encounter (statuses as of 11/21/2022) Medications Medication Sig Dispensed Refills Start Date End Date Status Glucose Blood (RELION PRIME TEST) STRP Test 6 times a day E 11.9 100 Strip 5 12/06/2018 Active Vitamin D3 Super Strength 50 MCG (2000 UT) Oral Tablet (Cholecalciferol) Take by mouth . 0 Active Lantus 100 UNIT/ML Subcutaneous SolutionIndication s:Type 2 diabetes mellitus with hemoglobin A1c goal of less than 8.0% ([facility]) INJECT 50 UNITS UNDER THE SKIN EVERY [...] hemoglobin A1c goal of less than 8.0% ([facility]) INJECT 5 TO 24 UNITS NEEDED BEFORE [...] a week. 2 mL 5 11/21/2022 Active Insulin Syringe-Needle U-100 31G X 5/16" 0.5 ML USE WITH LANTUS AND NOVOLIN INSULIN 5 TIMES DAILY 500 Each 3 11/20/2021 3 Trulicity 0.75 MG/0.5ML Subcutaneous Solution Pen-injector (Dulaglutide)Indic ations:Type 2 diabetes mellitus with hemoglobin A1c goal of less than 8.0% (HCC) Inject 0.75 mg under the skin once a week. 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 11/02 Morbid obesity with BMI of 50.0-59.9, ad ult 06/29/2017 Type 2 diabetes mellitus with hemoglobin A1c goal of less than 8.0% 10/17/2014 Overview: ICD-10 update of inactive term HTN, goal below 140/90 04/25/2014 Dyslipidemia, goal LDL below 100 010 Acquired hypothyroidism 11/05/2009 SPINAL STENOSIS-LUMBAR 08/27/2005 documented as of this encounter (statuses as of 11/21/2022) Resolved Problems Problem Noted Date Resolved Date [...] BILATERAL UE VENOUS THROMBOSIS NOS 01/02/2011 11/02/2017 [facility] current use of anticoagulant therapy 1 03/04/2010 [...] as of this encounter (statuses as of 11/21/2022) Immunizations Name Administration Dates Next Due COVID-19 mRNA, LNP-s, No Pre serve, 2-Dose Series ([facility]) 05/12/2020,04/21/2020 Pneumococcal Conjugate Vacc, 13 Valent (Prevnar) [...] encounter Miscellaneous Notes * Telephone Encounter - Jono Chairez MD - 11/21/2022 7:29 AM EDT Sent erx * Telephone Encounter - AUTUMN Cazares - 11/20/2022 2:51 PM EDT Pt requesting a refill * Telephone Encounter - GONZALO Daugherty - 11/20/2022 2:18 PM EDT Patient called back she is down to her last Trulicity Please forward higher dosage to [facility] * Telephone Encounter - AUTUMN Cazares - 11/20/2022 9:54 AM EDT Called patient she is aware, and verbalizes an understanding. Pt states that she will call back when she gets paid and [facility] Please advise. * Telephone Encounter - Jono Chairez MD - 11/18/2022 1:00 PM EDT Ok - can offer an increase to the 1.5 mg dose. * Telephone Encounter - AUTUMN Cazares - 11/18/2022 8:50 AM EDT Please advise as below. * Telephone Encounter - GONZALO Petit - 11/18/2022 8:18 AM EDT Patient called in to make provider aware that she is doing good on the Trulicity and has no side efffect. She stated the only thing she seen different is that she is not eating as much. documented in this encounter Plan of Treatment Upcoming Encounters Date Type Specialty Care Team Description 12/11/2022 Office Visit Orthopedics Gordo Bunch PA-C [address] [email or web address] [place] [address] 04/07/2023 Office Visit Family Medicine Jono Chairez MD [facility] [address] [place], [place] [address] Health Maintenance Due Date Last Done Comments DXA Scan 1952 Mammogram 1992 Cologuard 1997 Colonoscopy 1997 Colorectal Cancer Screening 1997 Fecal Occult Blood Test 1997 Sigmoidoscopy 1997 Zoster Vaccines (1 of 2) 2002 COVID-19 Vaccine (3 - Pfizer series) 07/07/2020 05/12/2020, 04/21/2020 Diabetic Foot Exam 07/27/2021 07/27/2020, 0 11/01/2018, 11/02/2017, Additional history exists DIABETES-EYE EXAM 07/03/2022 07/03/2021, , 11/02/2006 Albumin/Creatinine Ratio 09/19/2022 022, 02/21/2019, 03/01/2018, Additional history exists Influenza Vaccine (FLU shot) (#1) 2022 TSH 04/01/2023 04/01/2022, 08/24, 07/24/2020, Additional history exists GFR 04/28/2023 10/28/2022, 02/0 08/2022, 09/19/2021, Additional history exists HbA1c 04/28/2023 10/28/2022, 02/0 08/2022, 09/19/2021, Additional history exists Depression Screening 05/28/2023 05/27/2022 CKD HGB USE SMARTSET 34117 10/29/202310/28, 05/06/2021, 11/07/2019, Additional history exists CKD PHOS USE SMARTSET 73091 10/29/2023 090 06/2022, 09/19/2021, 11/07/2019, Additional history [...] as of this encounter Visit Diagnoses Diagnosis Type 2 diabetes mellitus with hemoglobin A1c goal of less than 8.0% (HCC) documented in this encounter Care Teams Lead Worker Of Housekeeping And Laundry Relationship Specialty Start Date End Date Jono Chairez MD [address] [facility] [place] [id number] PCP - General 12/12/99 documented as of this encounter
--- OUTSIDE RECORDS SUMMARY | 2023-01-01 10:49 | External Medical Summary | Summary of Care ---
Author Name Unknown Organization [facility] Address [address] [place] [address] Phone [phone] Care Team Providers Care Grid Operator Name Role Phone Jono Chairez MD Primary Care Provider [phone]- [phone] Reason for Referral * Evaluate & Treat - Unlimited Visits (Within 30 days (routine)) - Authorized Specialty Diagnoses / Procedures Referred By Javier t Referred To Contact Podiatry Diagnoses Type 2 diabetes mellitus with hemoglobin A1c goal of less than 8.0% ([facility]) Jono Chairez MD [address] [place] [address] Referral ID Status Reason Start Date Expiration Date Visits Requested Visits Authorized [id number] Authorized Specialty Services Required 10/31/2022 999 999 Question Answer Referral Priority Within 30 days (routine) Which condition are you referring this patient for? Routine Foot Care Medicare Patient? Yes Can Patient perform routine footcare without assistance? No Does patient have a chronic condition? Yes Has patient been seen in the past 6 months? Yes Date last seen for chronic condition: 10/31/2022 Who saw patient for chronic condition? Jono Chairez Comments Routine Diabetic Foot Care Reason for Visit * Reason Comments Follow Up Encounter Details Date Type Department Care Team Description 10/31/2022 Office Visit [facility] [address] [place] [phone] Jono Chairez MD [address] [place] [address] Type 2 diabetes mellitus with hemoglobin A1c goal of less than 8.0% ([facility])*; Hypothyroidism, unspecified type; Dyslipidemia, goal LDL below 100; Acquired hypothyroidism; HTN, goal below 140/90; Gastroesophageal reflux disease without esophagitis; Morbid obesity with BMI of 50.0-59.9, adult ([facility]); Chronic kidney disease, stage 3a ([facility]) Allergies No known active allergiesdocumented as of this encounter (statuses as of 11/17/2022) Medications Medication Sig Dispensed Refills Start Date End Date Status Glucose Blood (RELION PRIME TEST) STRP Test 6 times a day E 11.9 100 Strip 5 12/06/2018 Active Vitamin D3 Super Strength 50 MCG (2000 UT) Oral Tablet (Cholecalciferol) Take by mouth . 0 Active Lantus 100 UNIT/ML Subcutaneous SolutionIndication s:Type 2 diabetes mellitus with hemoglobin A1c goal of less than 8.0% ([facility]) INJECT 50 UNITS UNDER THE [...] SCALE 90 mL 1 01/29/2022 3 Active Insulin Syringe-Needle U-100 31G X 5/16" 0.5 ML USE WITH LANTUS AND NOVOLIN INSULIN 5 TIMES DAILY 500 Each 3 11/20/2021 3 Active Trulicity 0.75 MG/0.5ML Subcutaneous Solution Pen-injector (Dulaglutide)Indic ations:Type 2 diabetes mellitus with hemoglobin A1c goal of less than 8.0% (HCC) Inject 0.75 mg under the skin once a week. 2 mL 5 10/31/2022 Active Enalapril Maleate 20 MG Oral Tablet (Vasotec)Indicatio ns:HTN, goal below 140/90 TAKE ONE TABLET BY MOUTH EVERY DAY 100 Tablet 1 04/09/2022 3 Discontinue d(Refill) traMADol HCl 50 MG Oral Tablet (Ultram)Indication s:Chronic pain of left knee TAKE ONE TABLET EVERY SIX HOURS NEEDED FOR SEVERE PAIN 80 Tablet 0 09/30/2022 3 Discontinue d(Refill) documented as of this encounter (statuses as of 11/17/2022) Active Problems Problem Noted Date Hypertensive kidney disease with stage 3 a chronic kidney disease 05/15/2021 Chronic kidney disease, stage 3a 021 Overview: Per CKD protocol Type 2 diabetes mellitus wit h stage 3a chronic kidney disease, with long-term current use of insulin 07/03/2020 Overview: Per CKD protocol Gastroesophageal reflux disease without esophagitis 02/28/2019 director 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 insulin 11/02 Morbid obesity with BMI of 50.0-59.9, ad ult 06/29/2017 Type 2 diabetes mellitus with hemoglobin A1c goal of less than 8.0% 10/17/2014 Overview: ICD-10 update of inactive term HTN, goal below 140/90 04/25/2014 Dyslipidemia, goal LDL below 100 010 Acquired hypothyroidism 11/05/2009 SPINAL STENOSIS-LUMBAR 08/27/2005 documented as of this encounter (statuses as of 11/17/2022) Resolved Problems Problem Noted Date Resolved Date [...] BILATERAL UE VENOUS THROMBOSIS NOS 01/02/2011 11/02/2017 director long term care current use of anticoagulant therapy 1 03/04/2010 [...] as of this encounter (statuses as of 11/17/2022) Immunizations Name Administration Dates Next Due COVID-19 [...] Passive Smoke Exposure: Never Smokeless Tobacco: Never Tobacco Cessation:Counseling Given: Not Answered Alcohol Use Standard Drinks/Week Comments No 0 [...] on file documented as of this encounter Last Filed Vital Signs Vital Sign Reading Time Taken Comments Blood Pressure 136/80 10/31/2022 9:40 AM EDT Pulse 113 10/31/2022 8:42 AM EDT Temperature 36.1 C (97 F) 10/31/2022 8:42 AM EDT Respiratory Rate 20 10/31/2022 8:42 AM EDT Oxygen Saturation 98% 10/31/2022 8:42 AM EDT Inhaled Oxygen Concentration - - Weight 130.2 kg (287 lb) 10/31/2022 8:42 AM EDT Height - - Body Mass Index 54.23 05/27/2022 9:54 AM EDT documented in this encounter Progress Notes * Jono Chairez MD - 11/17/2022 10:59 PM EDT Subjective: Michelle Craft is a 72 year old female here today for Chief Complaint Patient presents with Follow Up Past Medical History: Diagnosis Date DM type 2, goal A1c below 7 General counseling for prescription of oral contraceptives HTN, goal below 140/90 Mixed dyslipidemia Obesity, BMI not known Past Surgical History: Procedure Laterality Date NONE 04/14/05 s/p exc. abd. cyst done at [facility] REMOVE TONSILS & ADENOIDS, UNDER 12 Review of patient's allergies indicates: No Known Allergies Current Outpatient Medications Medication Sig Dispense Refill Glucose Blood (RELION PRIME TEST) STRP Test 6 times a day E 11.9 100 Strip 5 Vitamin D3 Super Strength 50 MCG (2000 UT) Oral Tablet (Cholecalciferol) Take by mouth . Lantus 100 UNIT/ML Subcutaneous Solution INJECT 50 UNITS UNDER THE SKIN EVERY MORNING 50 mL 1 Levothyroxine Sodium 75 MCG Oral Tablet (Levoxyl) TAKE ONE TABLET BY MOUTH DAILY AT LEAST 30 MINUTES PRIOR TO FIRST MEAL OF THE DAY OR OTHER MEDICATIONS. 90 Tablet 2 Gabapentin 100 MG Oral Capsule (Neurontin) TAKE ONE CAPSULE BY MOUTH EVERY MORNING, ONE IN THE AFTERNOON, AND TWO IN THE EVENING 360 Capsule 1 Furosemide 20 MG Oral Tablet (Lasix) TAKE ONE TABLET BY MOUTH THREE DAYS PER WEEK 50 Tablet 1 Omeprazole 20 MG Oral Capsule Delayed Release (PriLOSEC) TAKE ONE CAPSULE BY MOUTH EVERY MORNING 1 HOUR BEFORE THE FIRST MEAL OF THE DAY 90 Capsule 3 Simvastatin 20 MG Oral Tablet (Zocor) TAKE ONE TABLET BY MOUTH AT BEDTIME 90 Tablet 3 Insulin Regular Human 100 UNIT/ML Injection Solution INJECT 5 TO 24 UNITS NEEDED BEFORE MEALS AND AT BEDTIME UNDER THE SKIN DIRECTED VIA SLIDING SCALE 90 mL 1 Insulin Syringe-Needle U-100 31G X 5/16" 0.5 ML USE WITH LANTUS AND NOVOLIN INSULIN 5 TIMES DAILY 500 Each 3 Trulicity 0.75 MG/0.5ML Subcutaneous Solution Pen-injector (Dulaglutide) Inject 0.75 mg under the skin once a week. 2 mL 5 Enalapril Maleate 20 MG Oral Tablet (Vasotec) TAKE ONE TABLET BY MOUTH EVERY DAY 100 Tablet 1 traMADol HCl 50 MG Oral Tablet (Ultram) Take 1 Tablet by mouth every 6 hours as needed for Pain, Severe. 80 Tablet 0 No current facility-administered medications for this visit. Objective: BP 136/80 | Pulse 113 | Temp 36.1 C (97 F) (Infrared ) | Resp 20 | Wt 130.2 kg (287 lb) | LMP 06/07/2003 | SpO2 98% | BMI 54.23 kg/m | BSA 2.37 m GEN: NAD HEENT: Benign NECK: Supple with no LAD, TM, JVD CHEST: CTA B CV: RRR ABD: Soft, NT/ND, No HSM, NABS EXT: No c,c,e Assessment and Plan: Type 2 diabetes mellitus with hemoglobin A1c goal of less than 8.0% ([facility]) (Primary) - PODIATRY (DIABETES-EXTENDED) REFERRAL OP - Trulicity 0.75 MG/0.5ML Subcutaneous Solution Pen-injector (Dulaglutide); Inject 0.75 mg under the skin once a week. - LIPID PANEL WITH DIRECT LDL IF TG IS HIGH; Future; Expected date: 10/31/2022 - ALBUMIN / CREATININE RATIO, URINE; Future; Expected date: 10/31/2022 - HEMOGLOBIN A1C; Future; Expected date: 10/31/2022 - COMPREHENSIVE METABOLIC PANEL; Future; Expected date: 10/31/2022 Hypothyroidism, unspecified type - TSH WITH FREE T4 IF INDICATED; Future; Expected date: 10/31/2022 Dyslipidemia, goal LDL below 100 Acquired hypothyroidism HTN, goal below 140/90 Gastroesophageal reflux disease without esophagitis Morbid obesity with BMI of 50.0-59.9, adult (HCC) Chronic kidney disease, stage 3a ([facility]) Follow Up: Return in about 4 months (around 03/02/2023) for recheck - 4 months or next available.. | For: recheck - 4 months or next available. | Check-out note: Podiatry 30 min with pt and chart review Jono Chairez MD documented in this encounter Nursing Notes * Christin Waddell LPN - 10/31/2022 8:38 AM EDT Chief Complaint Patient presents with Follow Up documented in this encounter Plan of Treatment Upcoming Encounters Date Type Specialty Care Team Description 12/11/2022 Office Visit Orthopedics Gordo Bunch PA-C [address] [place] [id number] 04/07/2023 Office Visit Family Medicine Jono Chairez MD [address] [place] [id number] Scheduled Orders Name Type Priority Associated Diagnoses Orde r Schedule LIPID PANEL WITH DIRECT LDL IF TG IS HIGH Lab Routine Type 2 diabetes mellitus with hemoglobin A1c goal of less than 8.0% (HCC) Expected: 10/31/2022, Expires: 11/01/2023 ALBUMIN / CREATININE RATIO, URINE Lab Routine Type 2 diabetes mellitus with hemoglobin A1c goal of less than 8.0% (HCC) Expected: 10/31/2022 (Approximate), Expires: 10/31/2023 HEMOGLOBIN A1C Lab Routine Type 2 diabetes mellitus with hemoglobin A1c goal of less than 8.0% (HCC) Expected: 10/31/2022 (Approximate), Expires: 10/31/2023 COMPREHENSIVE METABOLIC PANEL Lab Routine Type 2 diabetes mellitus with hemoglobin A1c goal of less than 8.0% (HCC) Expected: 10/31/2022 (Approximate), Expires: 10/31/2023 TSH WITH FREE T4 IF INDICATED Lab Routine Hypothyroidism, unspecified type Expected: 10/31/2022 (Approximate), Expires: 10/31/2023 Scheduled Referrals Name Type Priority Associated Diagnoses Orde r Schedule PODIATRY (DIABETES-EXTENDED) REFERRAL OP Referral Within 30 days (routine) Type 2 diabetes mellitus with hemoglobin A1c goal of less than 8.0% ([facility]) Ordered: 10/31/2022 Health Maintenance Due Date Last Done Comments [...] Screening 05/28/2023 05/27/2022 CKD HGB USE SMARTSET 59001 10/29/202310/28, 05/06/2021, 11/07/2019, Additional history exists CKD PHOS USE SMARTSET 58618 10/29/2023 09/0 06/2022, 09/19/2021, 11/07/2019, Additional history [...] hemoglobin A1c goal of less than 8.0% (HCC)- Primary Hypothyroidism, unspecified type Dyslipidemia, goal LDL below 100 Other and unspecified hyperlipidemia Acquired hypothyroidism Unspecified hypothyroidism HTN, goal below 140/90 Unspecified essential hypertension Gastroesophageal reflux disease without esophagitis Esophageal reflux Morbid obesity with BMI of 50.0-59.9, adult (HCC) Morbid obesity Chronic kidney disease, stage 3a (HCC) documented in this encounter Care Teams Grid Operator Relationship Specialty Start Date End Date Jono Chairez MD [address], [place] [phone] PCP - General 12/12/99 documented as of this encounter
--- OUTSIDE RECORDS SUMMARY | 2023-01-01 10:49 | External Medical Summary | Summary of Care ---
Author Name Unknown Organization [facility] Address [address] [place] [address] Phone [phone] Care Team Providers Care Household Chores Name Role Phone Haseeb Solis MD Primary Care Provider [phone]- [phone] Reason for Visit * Reason Comments Medication Refill Encounter Details Date Type Department Care Team (Late st Contact Info) Description 12/23/2022 Refill [facility] [address] [place] [address] Haseeb Solis MD [address] [place] [address] Neuropathy Allergies No known active [...] A1c goal of less than 8.0% ([facility]) INJECT 50 UNITS UNDER [...] A1c goal of less than 8.0% ([facility]) INJECT 5 TO 24 [...] EVENING 360 Capsule 1 12/23/2022 4 Active Gabapentin 100 MG Oral Capsule [...] Gastroesophageal reflux disease without esophagi tis 02/28/2019 [facility] (current) use of insulin 11/02/2017 Morbid obesity [...] BILATERAL UE VENOUS THROMBOSIS NOS 01/02/2011 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/2017 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 01/02/2011 [...] encounter Miscellaneous Notes * Telephone Encounter - Haseeb Solis MD - 12/23/2022 3:19 PM EDTSigned Prescriptions: Disp Refills Gabapentin 100 MG Oral Capsule (Neurontin) 360 Ca*1 Sig: TAKE ONE CAPSULE BY MOUTH EVERY MORNING, ONE IN THE AFTERNOON, AND TWO IN THE EVENINGAuthorizing Provider: HASEEB SOLIS documented in this encounter Plan of Treatment Upcoming Encounters Date Type Department Care Team (Late st Contact Info) Description 03/13/2023 10:15 AM EST Office Visit Orthopaedics [facility] [address] [place] [address] Gordo Bunch PA-C [address] [place] [address] 04/07/2023 8:40 AM EST Office Visit [facility] [address] [place] [facility] [place] [address] Haseeb Solis MD [address] [place] [facility] [place] [address] Health Maintenance Due Date Last Done [...] Screening 05/28/2023 05/27/2022 CKD HGB USE SMARTSET 73719 10/29/202310/28, 05/06/2021, 11/07/2019, Additional history exists CKD PHOS USE SMARTSET 64759 10/29/2023 09/0 06/2022, 09/19/2021, 11/07/2019, Additional history [...] site documented in this encounter Care Teams Household Chores Relationship Specialty Start Date End Date Haseeb Solis MD [address] [place] [address] PCP - General 12/12/99 documented as of this encounter
--- OUTSIDE RECORDS SUMMARY | 2023-01-01 10:50 | External Medical Summary | Summary of Care ---
Author Name Unknown Organization [facility] Address [address] [place] [address] Phone [phone] Care Team Providers Care Dental Ceramist Assistant Name Role Phone Jono Chairez MD Primary Care Provider [phone]- [phone] Reason for Visit * Reason Onset Date Comments Medication Refill 11/04/2022 Encounter Details Date Type Department Care Team Description 11/04/2022 Refill [facility] [address] [place] [address] Jono Chairez MD [address] [place] [address] HTN, goal below 140/90 Allergies No known active allergiesdocumented as of this encounter (statuses as of 11/04/2022) Medications Medication Sig Dispensed Refills Start Date End Date Status Glucose Blood (RELION PRIME TEST) STRP Test 6 times a day E 11.9 100 Strip 5 12/06/2018 Active Vitamin D3 Super Strength 50 MCG (2000 UT) Oral Tablet (Cholecalciferol) Take by mouth . 0 Active Lantus 100 UNIT/ML Subcutaneous SolutionIndication s:Type 2 diabetes mellitus with hemoglobin A1c goal of less than 8.0% ([facility]) INJECT 50 UNITS UNDER THE [...] DAILY 500 Each 3 11/20/2021 3 Active traMADol HCl 50 MG Oral Tablet (Ultram)Indication s:Chronic pain of left knee TAKE ONE TABLET EVERY SIX HOURS NEEDED FOR SEVERE PAIN 80 Tablet 0 09/30/2022 Active Trulicity 0.75 MG/0.5ML Subcutaneous Solution Pen-injector (Dulaglutide)Indic ations:Type 2 diabetes mellitus with hemoglobin A1c goal of less than 8.0% (HCC) Inject 0.75 mg under the skin once a week. 2 mL 5 10/31/2022 Active Enalapril Maleate 20 MG Oral Tablet (Vasotec)Indicatio ns:HTN, goal below 140/90 TAKE ONE TABLET BY MOUTH EVERY DAY 100 Tablet 1 11/04/2022 Active Enalapril Maleate 20 MG Oral Tablet (Vasotec)Indicatio ns:HTN, goal below 140/90 Take 1 Tablet by mouth in the morning. 14 Tablet 0 11/04/2022 Discontinue d(Medicatio n List Clean Up) documented as of this encounter (statuses as of 11/04/2022) Active Problems Problem Noted Date Hypertensive kidney disease with stage 3 a chronic kidney disease 05/15/2021 Chronic kidney disease, stage 3a 021 Overview: Per CKD protocol Type 2 diabetes mellitus wit h stage 3a chronic kidney disease, with long-term current use of insulin 07/03/2020 Overview: Per CKD protocol Gastroesophageal reflux disease without esophagitis 02/28/2019 group home (current) use of insulin 11/02 Morbid obesity with BMI of 50.0-59.9, ad ult 06/29/2017 Type 2 diabetes mellitus with hemoglobin A1c goal of less than 8.0% 10/17/2014 Overview: ICD-10 update of inactive term HTN, goal below 140/90 04/25/2014 Dyslipidemia, goal LDL below 100 010 Acquired hypothyroidism 11/05/2009 SPINAL STENOSIS-LUMBAR 08/27/2005 documented as of this encounter (statuses as of 11/04/2022) Resolved Problems Problem Noted Date Resolved Date [...] BILATERAL UE VENOUS THROMBOSIS NOS 01/02/2011 11/02/2017 group home current use of anticoagulant therapy 1 03/04/2010 [...] as of this encounter (statuses as of 11/04/2022) Immunizations Name Administration Dates Next Due COVID-19 mRNA, LNP-s, No Pre serve, 2-Dose Series ([facility]) 05/12/2020,04/21/2020 Pneumococcal Conjugate Vacc, 13 Valent (Prevnar) [...] encounter Miscellaneous Notes * Telephone Encounter - Dimitrios Castle [facility] - 11/04/2022 10:41 AM EDTNo prescriptions requested or ordered in this encounter * Telephone Encounter - Dimitrios Castle [facility] - 11/04/2022 10:41 AM EDT Short supply sent to [facility] [address] [place] [address] GEREMIAS RIDLEY as requested to holdpatient until Mail Order is received. Removed short supply order from med list once verified rx was sent/received at the pharmacy to not have duplicates on med list. Thanks, Dimitrios Castle Pharm.D. Clinical Pharmacist [facility]) [phone] 11/04/2022, 10:41 AM * Telephone Encounter - Tea Anguiano CPhT - 11/04/2022 9:03 AM EDT Pt requesting HIGH PRIORITY due to out of med Pt calling to request short supply for Enalapril 20 mg until mail order arrives. Please review and approve if appropriate. Pending Prescriptions: Disp 14 Refills Enalapril Maleate 20 MG Oral Tablet Sig: Take 1 Tablet by mouth everyday Last Visit: 10/31/2022 (in office), Visit date not found (telemedicine) 04/07/2023 Thank you, Tea Anguiano CPhT Hack Saw Operator II [facility] ([facility]) 11/04/2022,9:04 AM documented in this encounter Plan of Treatment Upcoming Encounters Date Type Specialty Care Team Description 11/04/2022 Pharmacy Pharmacy [facility] [phone] [place] [address] 12/11/2022 Office Visit Orthopedics Gordo Bunch PA-C [address] [place] [address] 04/07/2023 Office Visit Family Medicine Jono Chairez MD [address] [place], [place] [phone] Health Maintenance Due Date Last Done Comments [...] 07/24/2020, Additional history exists GFR 04/28/2023 10/28/2022, 020 08/2022, 09/19/2021, Additional history exists HbA1c 04/28/2023 10/28/2022, 020 08/2022, 09/19/2021, Additional history exists Depression Screening 05/28/2023 05/27/2022 CKD HGB USE SMARTSET 04426 10/29/202310/28, 05/06/2021, 11/07/2019, Additional history exists CKD PHOS USE SMARTSET 83206 10/29/2023 090 06/2022, 09/19/2021, 11/07/2019, Additional history [...] as of this encounter Visit Diagnoses Diagnosis HTN, goal below 140/90 Unspecified essential hypertension documented in this encounter Care Teams Dental Ceramist Assistant Relationship Specialty Start Date End Date Jono Chairez MD [address] [facility] [address] PCP - General 12/12/99 documented as of this encounter
--- OUTSIDE RECORDS SUMMARY | 2023-01-01 10:50 | External Medical Summary | Summary of Care ---
Author Name Unknown Organization [facility] Address [address] [place] [address] Phone [phone] Care Team Providers Care Nuts And Bolts Assembler Name Role Phone Haseeb Solis MD Primary Care Provider +1- [phone] Reason for Visit * Reason Onset Date Comments Medication Refill 11/13/2022 Encounter Details Date Type Department Care Team Description 11/13/2022 Refill [facility] [address] [place] [address] Haseeb Solis MD [address] [place] [address] Chronic pain of left knee Allergies No known active allergiesdocumented as of this encounter (statuses as of 11/13/2022) Medications Medication Sig Dispensed Refills Start Date End Date Status Glucose Blood (RELION PRIME TEST) STRP Test 6 times a day E 11.9 100 Strip 5 12/06/2018 Active Vitamin D3 Super Strength 50 MCG (2000 UT) Oral Tablet (Cholecalciferol) Take by mouth . 0 Active Lantus 100 UNIT/ML Subcutaneous SolutionIndication s:Type 2 diabetes mellitus with hemoglobin A1c goal of less than 8.0% ([facility]) INJECT 50 UNITS UNDER THE SKIN [...] Pain, Severe. 80 Tablet 0 11/13/2022 Active traMADol HCl 50 MG Oral Tablet (Ultram)Indication s:Chronic pain of left knee TAKE ONE TABLET EVERY SIX HOURS NEEDED FOR SEVERE PAIN 80 Tablet 0 09/30/2022 3 Discontinue d(Refill) documented as of this encounter (statuses as of 11/13/2022) Active Problems Problem Noted Date Hypertensive kidney disease with stage 3 a chronic kidney disease 05/15/2021 Chronic kidney disease, stage 3a 021 Overview: Per CKD protocol Type 2 diabetes mellitus wit h stage 3a chronic kidney disease, with long-term current use of insulin 07/03/2020 Overview: Per CKD protocol Gastroesophageal reflux disease without esophagitis 02/28/2019 senior living (current) use of insulin 11/02 Morbid obesity with BMI of 50.0-59.9, ad ult 06/29/2017 Type 2 diabetes mellitus with hemoglobin A1c goal of less than 8.0% 10/17/2014 Overview: ICD-10 update of inactive term HTN, goal below 140/90 04/25/2014 Dyslipidemia, goal LDL below 100 010 Acquired hypothyroidism 11/05/2009 SPINAL STENOSIS-LUMBAR 08/27/2005 documented as of this encounter (statuses as of 11/13/2022) Resolved Problems Problem Noted Date Resolved Date [...] BILATERAL UE VENOUS THROMBOSIS NOS 01/02/2011 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/2017 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 1 03/04/2010 [...] as of this encounter (statuses as of 11/13/2022) Immunizations Name Administration Dates Next Due COVID-19 mRNA, LNP-s, No Pre serve, 2-Dose Series (Xfluential) 05/12/2020,04/21/2020 Pneumococcal Conjugate Vacc, 13 Valent (Prevnar) [...] Telephone Encounter - Haseeb Solis MD - 11/13/2022 5:09 PM EDTSigned Prescriptions: Disp Refills traMADol HCl 50 MG Oral Tablet (Ultram) 80 Tab*0 Sig: Take 1 Tablet by mouth every 6 hours as needed for Pain, Severe.Authorizing Provider: HASEEB SOLIS------ * Telephone Encounter - Sulema Rod CPhT - 11/13/2022 11:01 AM EDT Did you pend patient's preferred pharmacy and medication before forwarding?yes Pharmacy: [facility] Pending Prescriptions: Disp Refills traMADol HCl 50 MG Oral Tablet (Ultram) 80 Tab*0 Sig: Take 1 Tablet by mouth every 6 hours as needed for Pain, Severe. Last Visit: 10/31/2022 (in office), Visit date not found (telemedicine) Next Visit: 04/07/2023 If no future appointments scheduled, and last appointment is greater than a year ago, please schedule patient for a follow-up appointment Last date the medication was ordered: 09/30/2022 Is this request for a controlled substance?Yes, What was the last refill date 10/06/22 w/ quantity 80 and dosage 50mg and Urine Drug Screen Not completed Urine Drug Screen:No results found for this or any previous visit. Patient Phone Numbers Labs: Lab Results Component Value Date/Time CREAT 0.9 10/28/2022 08:53 AM CREAT 1.2 (H) 03/12/2020 07:51 AM POTASSIUM 4.6 10/28/2022 08:53 AM POTASSIUM 5.0 03/12/2020 07:51 AM TSH 2.44 04/01/2022 08:54 AM TSH 3.58 03/12/2020 07:51 AM LDLCALC 75 04/01/2022 08:54 AM LDLCALC 52 03/12/2020 07:51 AM LDLDIRECT NOT APPLICABLE 03/12/2020 07:51 AM LDLDIRECT 76 01/27/2015 08:06 AM ALT 12 05/06/2021 08:02 AM ALT 19 03/12/2020 07:51 AM HGBA1C 7.0 (H) 10/28/2022 08:53 AM HGBA1C 8.1 (H) 03/12/2020 07:51 AM Thank you, Sulema Rod Valet Attendant I [facility] (Former[facility] Telepharmacy) 11/13/2022, 11:04 AM documented in this encounter Plan of Treatment Upcoming Encounters Date Type Specialty Care Team Description 12/11/2022 Office Visit Orthopedics Gordo Bunch PA-C [address] [place] [address] 04/07/2023 Office Visit [facility] [address] [facility] [address] Health Maintenance Due Date Last Done [...] Screening 05/28/2023 05/27/2022 CKD HGB USE SMARTSET 86336 10/29/202310/28, 05/06/2021, 11/07/2019, Additional history exists CKD PHOS USE SMARTSET [id number] 10/29/2023 09/0 06/2022, 09/19/2021, 11/07/2019, Additional history [...] as of this encounter Visit Diagnoses Diagnosis Chronic pain of left knee Pain in joint, lower leg documented in this encounter Care Teams Nuts And Bolts Assembler Relationship Specialty Start Date End Date Haseeb Solis MD [address] [place] [address] PCP - General 12/12/99 documented as of this encounter
--- OUTSIDE RECORDS SUMMARY | 2023-01-01 10:50 | External Medical Summary | Summary of Care ---
Author Name Unknown Organization [facility] Address [address] [place] [address] Phone [phone] Care Team Providers Care Technology Education Instructor Name Role Phone Jono Chairez MD Primary Care Provider [phone]- [phone] Reason for Visit * Reason Comments Medication Discussion Encounter Details Date Type Department Care Team Description 11/04/2022 Pharmacy Pharmacy Call Center [address] [place] [address] , Telepharmacy [facility] [address] [place] [address] Encounter for medication review* Allergies No known active allergiesdocumented as of [...] hemoglobin A1c goal of less than 8.0% ([facility]) INJECT 50 UNITS UNDER THE SKIN EVERY [...] SCALE 90 mL 1 01/29/2022 01/29/2023 Active Insulin Syringe-Needle U-100 31G X 5/16" 0.5 ML USE WITH LANTUS AND NOVOLIN INSULIN 5 TIMES DAILY 500 Each 3 11/20/2021 11/20/2022 Active traMADol HCl 50 MG Oral Tablet (Ultram)Indications :Chronic pain of left knee TAKE ONE TABLET EVERY SIX HOURS NEEDED FOR SEVERE PAIN 80 Tablet 0 09/30/2022 Active Trulicity 0.75 MG/0.5ML Subcutaneous Solution Pen-injector (Dulaglutide)Indica tions:Type 2 diabetes mellitus with hemoglobin A1c goal of less than 8.0% ([facility]) Inject 0.75 mg under the skin once a week. 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 PHARMACY MTM PROGRESS NOTE [facility] ([facility]) [address] [place] [address] Service Delivery Delivery Method: Phone Outcome: CMR Completed Health Profile Current Conditions: Cardiovascular Disease, Diabetes, Fluid Rentention, General Health, High Blood Pressure, and High Cholesterol Drug allergies & side effects: Review of patient's allergies indicates: No Known Allergies Med List Home Medications Provider Enalapril Maleate 20 MG Oral Tablet (Vasotec) Jono Chairez MD TAKE ONE TABLET BY MOUTH EVERY DAY Associated Diagnoses: HTN, goal below 140/90 Furosemide 20 MG Oral Tablet (Lasix) Jono Chairez MD TAKE ONE TABLET BY MOUTH THREE DAYS PER WEEK Associated Diagnoses: Leg swelling Gabapentin 100 MG Oral Capsule (Neurontin) Jono Chairez MD TAKE ONE CAPSULE BY MOUTH EVERY MORNING, ONE IN THE AFTERNOON, AND TWO IN THE EVENING Associated Diagnoses: Neuropathy Glucose Blood (RELION PRIME TEST) STRP Jono Chairez MD Test 6 times a day E 11.9 Associated Diagnoses: -- Insulin Regular Human 100 UNIT/ML Injection Solution Jono Chairez MD INJECT 5 TO 24 UNITS NEEDED BEFORE MEALS AND AT BEDTIME UNDER THE SKIN DIRECTED VIA SLIDING SCALE Associated Diagnoses: Type 2 diabetes mellitus with hemoglobin A1c goal of less than 8.0% ([facility]) Insulin Syringe-Needle U-100 31G X 5/16" 0.5 ML Jono Chairez MD USE WITH LANTUS AND NOVOLIN INSULIN 5 TIMES DAILY Associated Diagnoses: -- Lantus 100 UNIT/ML Subcutaneous Solution Jono Chairez MD INJECT 50 UNITS UNDER THE SKIN EVERY MORNING Associated Diagnoses: Type 2 diabetes mellitus with hemoglobin A1c goal of less than 8.0% ([facility]) Levothyroxine Sodium 75 MCG Oral Tablet (Levoxyl) Jono Chairez MD TAKE ONE TABLET BY MOUTH DAILY AT LEAST 30 MINUTES PRIOR TO FIRST MEAL OF THE DAY OR OTHER MEDICATIONS. Associated Diagnoses: Hypothyroidism, unspecified type Omeprazole 20 MG Oral Capsule Delayed Release (PriLOSEC) Jono Chairez MD TAKE ONE CAPSULE BY MOUTH EVERY MORNING 1 HOUR BEFORE THE FIRST MEAL OF THE DAY Associated Diagnoses: Gastroesophageal reflux disease without esophagitis Simvastatin 20 MG Oral Tablet (Zocor) Jono Chairez MD TAKE ONE TABLET BY MOUTH AT BEDTIME Associated Diagnoses: Dyslipidemia, goal LDL below 100 traMADol HCl 50 MG Oral Tablet (Ultram) Jono Chairez MD TAKE ONE TABLET EVERY SIX HOURS NEEDED FOR SEVERE PAIN Associated Diagnoses: Chronic pain of left knee Trulicity 0.75 MG/0.5ML Subcutaneous Solution Pen-injector (Dulaglutide) Jono Chairez MD Inject 0.75 mg under the skin once a week. Associated Diagnoses: Type 2 diabetes mellitus with hemoglobin A1c goal of less than 8.0% ([facility]) Vitamin D3 Super Strength 50 MCG (1999 UT) Oral Tablet (Cholecalciferol) History Per Patient Associated Diagnoses: -- Enalapril Maleate 20 MG Oral Tablet (Vasotec) Jono Chairez MD TAKE ONE TABLET BY MOUTH EVERY DAY Associated Diagnoses: HTN, goal below 140/90 Enalapril Maleate 20 MG Oral Tablet (Vasotec) Jono Chairez MD Take 1 Tablet by mouth in the morning. Associated Diagnoses: HTN, goal below 140/90 Ongoing Comment Fannie Gupta [facility] 07/10/2011 1:33 PM The patient's medications have been reconciled by a Registered Pharmacist. Signed: Fannie Gupta, SenaD, [facility] Clinical Pharmacist [facility] 07/10/2011, 1:33 PM Date: 07/10/2011 at 1:33 PM TIPs None Action Plan 1. What type of item is this? Non-medication related Describe the item for the patient takeaway: your blood sugar Describe what the patient should do (for the patient takeaway): When your blood sugar is too high or too low your body could experience symptoms. Signs include: dizziness, shakiness, feeling hungry, feeling thirsty, sweatiness, nervousness, irritability, weakness, sleepiness, blurred vision, increased urination, lack of coordination. If you notice any of these signs, it is a great time to check your blood sugar. Takeaway Service Information Date CMR was completed: 11/04/2022 Who was the recipient of the CMR service: Patient Was the patient in a nursing home care (LTC) facility when the CMR was completed? No Pharmacist's availability for questions: Thursday-Thursday 8:00am-4:30pm Takeaway Information Will the Patient Takeaway be sent to the Patient or someone else? Patient Language Template for the Patient Takeaway: Luxembourgish Additional notes for the Patient Takeaway (optional): n/a I attest that I have reviewed and updated the patient's conditions, allergies, and medications to the best of my ability. Patient Access: Is patient utilizing [facility]? Yes Is patient utilizing [facility]? Not applicable Additional Call Notes Patient appears adherent and denies issues Due for Dexa scan, will pend to PCP 30 min cmr Tammy Troy [facility] Clinical Pharmacist [facility] ([facility]) 11/04/2022, 2:00 PM documented in this encounter Plan of Treatment Upcoming Encounters Date Type Specialty Care Team Description 12/11/2022 Office Visit Orthopedics Gordo Bunch PA-C [address] [place] [address] 04/07/2023 Office Visit Family Medicine Jono Chairez MD [address] [place] [address] Health Maintenance Due Date Last Done Comments [...] Screening 05/28/2023 05/27/2022 CKD HGB USE SMARTSET [id number] 10/29/202310/28, 05/06/2021, 11/07/2019, Additional history exists CKD PHOS USE SMARTSET 51084 10/29/2023 09/0 06/2022, 09/19/2021, 11/07/2019, Additional history [...] as of this encounter Visit Diagnoses Diagnosis Encounter for medication review- Primary Encounter for long-term (current) use of other medications documented in this encounter Care Teams Technology Education Instructor Relationship Specialty Start Date End Date Jono Chairez MD [address] [place], [place] [id number] PCP - General 12/12/99 documented as of this encounter
--- OUTSIDE RECORDS SUMMARY | 2023-01-01 10:50 | External Medical Summary | Summary of Care ---
Author Name Unknown Organization [facility] Address [address] [place] [address] Phone [phone] Care Team Providers Care Supervisor Metal Cans Name Role Phone Jono Chairez MD Primary Care Provider +1- [phone] Reason for Visit * Reason Comments Medication Discussion Encounter Details Date Type Department Care Team Description 11/04/2022 Pharmacy Pharmacy Call Center [address] [place] [address] , Telepharmacy [facility] [address] [place] [address] Encounter for medication review* Allergies No known [...] hemoglobin A1c goal of less than 8.0% ([facility]) INJECT 50 UNITS UNDER THE [...] protocol Gastroesophageal reflux disease without esophagitis 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 PHARMACY MTM PROGRESS NOTE [facility] [address] [place] [id number] Service Delivery Delivery Method: Phone Outcome: CMR [...] hemoglobin A1c goal of less than 8.0% ([facility]) Insulin Syringe-Needle U-100 31G X 5/16" 0.5 ML Jono Chairez MD USE WITH LANTUS AND NOVOLIN INSULIN 5 TIMES DAILY Associated Diagnoses: -- Lantus 100 UNIT/ML Subcutaneous Solution Jono Chairez MD INJECT 50 UNITS UNDER THE SKIN EVERY MORNING Associated Diagnoses: Type 2 diabetes mellitus with hemoglobin A1c goal of less than 8.0% ([facility]) Levothyroxine Sodium 75 MCG Oral Tablet (Levoxyl) [...] hemoglobin A1c goal of less than 8.0% ([facility]) Vitamin D3 Super Strength 50 MCG (2000 UT) Oral Tablet (Cholecalciferol) History Per Patient Associated Diagnoses: -- Enalapril Maleate 20 MG Oral Tablet (Vasotec) Jono Chairez MD TAKE ONE TABLET BY MOUTH EVERY DAY Associated Diagnoses: HTN, goal below 140/90 Enalapril Maleate 20 MG Oral Tablet (Vasotec) Jono Chairez MD Take 1 Tablet by mouth in the morning. Associated Diagnoses: HTN, goal below 140/90 Ongoing Comment Fannie Gupta, [facility] 07/10/2011 1:33 PM The patient's medications have been reconciled by a Registered Pharmacist. Signed: Fannie Gupta, Tess, [facility] Clinical Pharmacist [facility] 07/10/2011, [...] service: Patient Was the patient in a oysterman care (LTC) facility when the CMR was completed? No Pharmacist's availability for questions: Thursday-Thursday 8:00am-4:30pm Takeaway Information Will the Patient Takeaway be sent to the Patient or someone else? Patient Language Template for the Patient Takeaway: [place]er Additional notes for the Patient Takeaway (optional): n/a I attest that I have reviewed and updated the patient's conditions, allergies, and medications to the best of my ability. Patient Access: Is patient utilizing [facility]? Yes Is patient utilizing [facility]? Not applicable Additional Call Notes Patient appears adherent and denies issues Due for Dexa scan, will pend to PCP 30 min cmr Tammy Troy [facility] Clinical Pharmacist [facility] ([facility]) 11/04/2022, 2:00 PM documented in this encounter Plan of Treatment Upcoming Encounters Date Type Specialty Care Team Description 12/11/2022 Office Visit Orthopedics Gordo Bunch PA-C [address] [place] [address] 04/07/2023 Office Visit Family Medicine Jono Chairez MD [address] [place] [address] Health Maintenance Due Date Last Done Comments [...] Screening 05/28/2023 05/27/2022 CKD HGB USE SMARTSET 12429 10/29/202310/28, 05/06/2021, 11/07/2019, Additional history exists CKD PHOS USE SMARTSET 16836 10/29/2023 09/0 06/2022, 09/19/2021, 11/07/2019, Additional history [...] medications documented in this encounter Care Teams Supervisor Metal Cans Relationship Specialty Start Date End Date Jono Chairez MD [address] [place], [place] [id number] PCP - General 12/12/99 documented as of this encounter
--- OUTSIDE RECORDS SUMMARY | 2023-01-01 10:50 | External Medical Summary | Summary of Care ---
Author Name Unknown Organization [facility] Address [address] [place] [address] Phone [phone] Care Team Providers Care Parking Cashier Name Role Phone Jono Chairez MD Primary Care Provider +1- [phone] Reason for Visit * Reason Comments Medication Discussion Encounter Details Date Type Department Care Team Description 11/04/2022 Pharmacy Pharmacy Call Center [address] [place] [address] , Telepharmacy [facility] [address] [place] [address] Encounter for medication review* Allergies No known [...] A1c goal of less than 8.0% ([facility]) INJECT 50 UNITS UNDER THE SKIN EVERY [...] protocol Gastroesophageal reflux disease without esophagitis 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 PHARMACY MTM PROGRESS NOTE [facility] [address] [place] [id number] Service Delivery Delivery Method: Phone Outcome: CMR [...] A1c goal of less than 8.0% ([facility]) Insulin Syringe-Needle U-100 31G X 5/16" 0.5 ML Jono Chairez MD USE WITH LANTUS AND NOVOLIN INSULIN 5 TIMES DAILY Associated Diagnoses: -- Lantus 100 UNIT/ML Subcutaneous Solution Jono Chairez MD INJECT 50 UNITS UNDER THE SKIN EVERY MORNING Associated Diagnoses: Type 2 diabetes mellitus with hemoglobin A1c goal of less than 8.0% ([facility]) Levothyroxine Sodium 75 MCG Oral Tablet (Levoxyl) [...] A1c goal of less than 8.0% ([facility]) Vitamin D3 Super Strength 50 MCG (2000 [...] goal below 140/90 Ongoing Comment Fannie Gupta, [facility] 07/10/2011 1:33 PM The patient's medications have been reconciled by a Registered Pharmacist. Signed: Fannie Gupta, Tess, [facility] Clinical Pharmacist [facility] 07/10/2011, [...] service: Patient Was the patient in a terminal make up operator care (LTC) facility when the CMR was completed? No Pharmacist's availability for questions: Thursday-Thursday 8:00am-4:30pm Takeaway Information Will the Patient Takeaway be sent to the Patient or someone else? Patient Language Template for the Patient Takeaway: Citizen Of [place] Additional notes for the Patient Takeaway (optional): n/a I attest that I have reviewed and updated the patient's conditions, allergies, and medications to the best of my ability. Patient Access: Is patient utilizing [facility]? Yes Is patient utilizing [facility] Not applicable Additional Call Notes Patient appears adherent and denies issues Due for Dexa scan, will pend to PCP 30 min cmr Tammy Troy [facility] Clinical Pharmacist [facility] ([facility]) 11/04/2022, 2:00 PM documented in this encounter Plan of Treatment Upcoming Encounters Date Type Specialty Care Team Description 12/11/2022 Office Visit Orthopedics Gordo Bunch PA-C [address] [place] [address] 04/07/2023 Office Visit Family Medicine Jono Chairez MD [address] [place] [address] Health Maintenance Due Date Last Done Comments [...] Screening 05/28/2023 05/27/2022 CKD HGB USE SMARTSET [id number] 10/29/202310/28, 05/06/2021, 11/07/2019, Additional history exists CKD PHOS USE SMARTSET 45569 10/29/2023 09/0 06/2022, 09/19/2021, 11/07/2019, Additional history [...] medications documented in this encounter Care Teams Parking Cashier Relationship Specialty Start Date End Date Jono Chairez MD [address] [place], [place] [phone] PCP - General 12/12/99 documented as of this encounter
--- OUTSIDE RECORDS SUMMARY | 2023-01-01 10:51 | External Medical Summary | Summary of Care ---
Author Name Unknown Organization [facility] Address [address] [place] [address] Phone [phone] Care Team Providers Care Assembly Detailer Name Role Phone Jono Chairez MD Primary Care Provider +1- [phone] Reason for Visit * Reason Comments Medication Refill Encounter Details Date Type Department Care Team Description 11/04/2022 Refill [facility] [address] [place] [address] Jono Chairez MD [address] [place] [address] HTN, goal below 140/90 Allergies [...] A1c goal of less than 8.0% ([facility]) INJECT 50 UNITS UNDER THE SKIN [...] BEDTIME 90 Tablet 3 05/27/2022 05/27/2023 Active Enalapril Maleate 20 MG Oral Tablet (Vasotec)Indication s:HTN, goal below 140/90 TAKE ONE TABLET BY MOUTH EVERY DAY 100 Tablet 1 04/09/2022 04/09/2023 Active Insulin Regular Human 100 UNIT/ML Injection [...] a week. 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 11/02 Morbid [...] BILATERAL UE VENOUS THROMBOSIS NOS 01/02/2011 11/02/2017 senior care current use of anticoagulant therapy 1 [...] encounter Miscellaneous Notes * Telephone Encounter - Tea Anguiano CPhT - 11/04/2022 9:03 AM EDTNo prescriptions requested or ordered in this encounter * Telephone Encounter - Tea Anguiano CPhT - 11/04/2022 9:03 AM EDTNo prescriptions requested or ordered in this encounter * Telephone Encounter - Tea Anguiano CPhT - 11/04/2022 9:01 AM EDT Pt requesting HIGH PRIORITY due to ut of med Did you pend patient's preferred pharmacy and medication before forwarding?yes Pharmacy: [facility] Pending Prescriptions: Disp Refills Enalapril Maleate 20 MG Oral Tablet (Vaso*100 Ta*1 Sig: TAKE ONE TABLET BY MOUTH EVERY DAY Last Visit: 10/31/2022 (in office), Visit date not found (telemedicine) Next Visit: 04/07/2023 If no future appointments scheduled, and last appointment is greater than a year ago, please schedule patient for a follow-up appointment Last date the medication was ordered: 04/09/22 Is this request for a controlled substance?No Urine Drug Screen:No results found for this [...] AM HGBA1C 8.1 (H) 03/12/2020 07:51 AM documented in this encounter Plan of Treatment Upcoming Encounters Date Type Specialty Care Team Description 11/04/2022 Pharmacy Pharmacy Wb, Telepharmacy [facility] Part D [address] [facility] [place] [address] 12/11/2022 Office Visit Orthopedics Gordo Bunch PA-C [address] [place] [address] 04/07/2023 Office Visit [facility] [address] [facility] [address] Health Maintenance Due Date Last Done Comments [...] Screening 05/28/2023 05/27/2022 CKD HGB USE SMARTSET 08750 10/29/202310/28, 05/06/2021, 11/07/2019, Additional history exists CKD PHOS USE SMARTSET 69246 10/29/2023 090 06/2022, 09/19/2021, 11/07/2019, Additional history [...] hypertension documented in this encounter Care Teams Assembly Detailer Relationship Specialty Start Date End Date Jono Chairez MD [address] [place] [address] PCP - General 12/12/99 documented as of this encounter
--- OUTSIDE RECORDS SUMMARY | 2023-01-01 10:51 | External Medical Summary | Summary of Care ---
Author Name Unknown Organization [facility] Address [address] [place] [address] Phone [phone] Care Team Providers Care Turf Keeper Name Role Phone Jono Chairez MD Primary Care Provider +1- [phone] Reason for Visit * Reason Comments Outpatient Testing Encounter Details Date Type Department Care Team Description 10/28/2022 Laboratory [facility], [facility] [address] [place] [address] [facility] [address] [place] [address] Type 2 diabetes mellitus with hemoglobin A1c goal of less than 8.0% ([facility]); Chronic kidney disease, unspecified CKD stage Allergies No known active allergiesdocumented as of this encounter (statuses as of 10/28/2022) Medications Medication Sig Dispensed Refills Start Date [...] goal of less than 8.0% (HCC) INJECT 50 UNITS UNDER THE SKIN EVERY [...] A1c goal of less than 8.0% ([facility]) INJECT 5 TO 24 [...] SEVERE PAIN 80 Tablet 0 09/30/2022 Active documented as of this encounter (statuses as of 10/28/2022) Active Problems Problem Noted Date Hypertensive kidney disease with stage 3 a chronic kidney disease 05/15/2021 Chronic kidney disease, stage 3a 021 Overview: Per CKD protocol Type 2 diabetes mellitus wit h stage 3a chronic kidney disease, with long-term current use of insulin 07/03/2020 Overview: Per CKD protocol Gastroesophageal reflux disease without esophagitis 02/28/2019 residential (current) use of insulin 11/02 Morbid obesity with BMI of 50.0-59.9, ad ult 06/29/2017 Type 2 diabetes mellitus with hemoglobin A1c goal of less than 8.0% 10/17/2014 Overview: ICD-10 update of inactive term HTN, goal below 140/90 04/25/2014 Dyslipidemia, goal LDL below 100 010 Acquired hypothyroidism 11/05/2009 SPINAL STENOSIS-LUMBAR 08/27/2005 documented as of this encounter (statuses as of 10/28/2022) Resolved Problems Problem Noted Date Resolved Date [...] BILATERAL UE VENOUS THROMBOSIS NOS 01/02/2011 11/02/2017 residential current use of anticoagulant therapy 1 03/04/2010 [...] as of this encounter (statuses as of 10/28/2022) Immunizations Name Administration Dates Next Due COVID-19 [...] on file documented as of this encounter Plan of Treatment Upcoming Encounters Date Type Specialty Care Team Description 10/31/2022 Office Visit [facility] [address] [facility] [address] 12/11/2022 Office Visit Orthopedics Gordo Bunch PA-C [address] [place] [address] Pending Results Name Type Priority Associated Diagnoses Date /Time HEMOGLOBIN A1C Lab Routine Type 2 diabetes mellitus with hemoglobin A1c goal of less than 8.0% ([facility]) 10/28/2022 8:53 AM EDT BASIC METABOLIC PANEL Lab Routine Type 2 diabetes mellitus with hemoglobin A1c goal of less than 8.0% ([facility]) 10/28/2022 8:53 AM EDT HGB Lab Routine Chronic kidney disease, unspecified CKD stage 10/28/2022 8:53 AM EDT PHOSPHORUS Lab Routine Chronic kidney disease, unspecified CKD stage 10/28/2022 8:53 AM EDT Health Maintenance Due Date Last Done Comments DXA Scan 1952 Mammogram 1992 Cologuard 1997 Colonoscopy 1997 Colorectal Cancer Screening 1997 Fecal Occult Blood Test 1997 Sigmoidoscopy 1997 Zoster Vaccines (1 of 2) 2002 COVID-19 Vaccine (3 - Pfizer series) 07/07/2020 05/12/2020, 04/21/2020 DIABETES-FOOT EXAM 07/27/2021 07/27/2020, 0 11/01/2018, 11/02/2017, Additional history exists CKD HGB USE SMARTSET 67839 05/06/202205/06, 11/07/2019, 02/15/2018 DIABETES-EYE EXAM 07/03/2022 07/03/2021, , 11/02/2006 Albumin/Creatinine Ratio 09/19/2022 022, 02/21/2019, 03/01/2018, Additional history exists CKD PHOS USE SMARTSET 66175 09/19/202208/24, 11/07/2019, 04/02/2018 GFR 09/29/2022 04/01/2022, 08/24, 05/06/2021, Additional history exists HbA1c 09/29/2022 04/01/2022, 08/24, 05/06/2021, Additional history exists Influenza Vaccine (FLU shot) (#1) 2022 TSH 04/01/2023 04/01/2022, 08/24, 07/24/2020, Additional history exists Depression Screening, Annual for Pts 12 and Over 05/28/2023 05/27/2022 DTaP,Tdap,and Td Vaccines (2 - Td or [...] A1c goal of less than 8.0% (HCC) Chronic kidney disease, unspecified CKD stage documented in this encounter Care Teams Turf Keeper Relationship Specialty Start Date End Date Jono Chairez MD [address], [place] [id number] PCP - General 12/12/99 documented as of this encounter
--- OUTSIDE RECORDS SUMMARY | 2023-01-01 10:51 | External Medical Summary | Summary of Care ---
Author Name Unknown Organization [facility] Address [address] [place] [address] Phone [phone] Care Team Providers Care Agricultural Extension Specialist Name Role Phone Jono Chairez MD Primary Care Provider +1- [phone] Reason for Visit * Reason Onset Date Comments Medication Refill Status Check 11/04/2022 Encounter Details Date Type Department Care Team Description 11/04/2022 Refill [facility] [address] [place] [address] Jono Chairez MD [address] [place] [address] HTN, goal below 140/90 Allergies [...] A1c goal of less than 8.0% ([facility]) INJECT 50 UNITS UNDER THE SKIN EVERY [...] MOUTH EVERY DAY 100 Tablet 1 04/09/2022 Discontinue d(Refill) documented as of this encounter [...] protocol Gastroesophageal reflux disease without esophagitis 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 11/02 Morbid obesity [...] mRNA, LNP-s, No Pre serve, 2-Dose Series (E-Blink) 05/12/2020,04/21/2020 Pneumococcal Conjugate Vacc, 13 Valent (Prevnar) [...] as of this encounter Miscellaneous Notes * Addendum Note - Dimitrios Castle [facility] - 11/04/2022 10:40 AM EDTAddended by: DIMITRIOS CASTLE on: 11/04/2022 10:40 AM Modules accepted: Orders * Addendum Note - Leena Sanderson CPhT - 11/04/2022 10:28 AM EDTAddended by: LEENA SANDERSON on: 11/04/2022 10:28 AM Modules accepted: Orders * Telephone Encounter - Leena Sanderson CPhT - 11/04/2022 10:28 AM EDT Pharmacy calling to check on status of refill. Thank you, Lennie Sanderson Retail Assistant III [facility] 11/04/2022,10:28 AM * Telephone Encounter - Tea Anguiano [...] preferred pharmacy and medication before forwarding?yes Pharmacy: [facility] Pending Prescriptions: Disp Refills [...] Team Description 11/04/2022 Pharmacy Pharmacy [facility] [address] [facility] [address] [facility] [place] [address] 12/11/2022 Office Visit Orthopedics Gordo Bunch PA-C [address] [place] [address] 04/07/2023 Office Visit Family Medicine Jono Chairez MD [address] [place], [place] [id number] Health Maintenance Due Date Last Done Comments [...] Screening 05/28/2023 05/27/2022 CKD HGB USE SMARTSET 75329 10/29/202310/28, 05/06/2021, 11/07/2019, Additional history exists CKD PHOS USE SMARTSET 76234 10/29/2023 09/0 06/2022, 09/19/2021, 11/07/2019, Additional history [...] hypertension documented in this encounter Care Teams Agricultural Extension Specialist Relationship Specialty Start Date End Date Jono Chairez MD [address], [place] [id number] PCP - General 12/12/99 documented as of this encounter
--- OUTSIDE RECORDS SUMMARY | 2023-01-01 10:51 | External Medical Summary | Summary of Care ---
Author Name Unknown Organization [facility] Address [address] [place] [address] Phone [phone] Care Team Providers Care Senior Ui Software Engineer Name Role Phone Jono Chairez MD Primary Care Provider +1- [phone] Reason for Visit * Reason Comments Medication Refill Encounter Details Date Type Department Care Team Description 10/28/2022 Refill [facility] [address] [place] [address] Jono Chairez MD [address] [place] [address] HTN, goal below 140/90 Allergies [...] protocol Gastroesophageal reflux disease without esophagitis 02/28/2019 [facility] (current) use of insulin 11/02 Morbid obesity [...] BILATERAL UE VENOUS THROMBOSIS NOS 01/02/2011 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 1 03/04/2010 [...] encounter Miscellaneous Notes * Telephone Encounter - Alexsandra Dwyer CPhT - 11/04/2022 8:56 AM EDTNo prescriptions requested or ordered in this encounter documented in this encounter Plan of Treatment Upcoming Encounters Date Type Specialty Care Team Description 11/04/2022 Pharmacy Pharmacy W[facility], Telepharmacy [facility] [address] D [address] [place] [address] 12/11/2022 Office Visit Orthopedics Gordo Bunch PA-C [address] [facility] [place] [address] 04/07/2023 Office Visit Family Medicine Jono Chairez MD [address], [place] [phone] Health Maintenance Due Date Last Done Comments [...] Screening 05/28/2023 05/27/2022 CKD HGB USE SMARTSET 04627 10/29/202310/28, 05/06/2021, 11/07/2019, Additional history exists CKD PHOS USE SMARTSET 63616 10/29/20230 06/2022, 09/19/2021, 11/07/2019, Additional history exists [...] hypertension documented in this encounter Care Teams Senior Ui Software Engineer Relationship Specialty Start Date End Date Jono Chairez MD [address] [place] [address] PCP - General 12/12/99 documented as of this encounter
--- OUTSIDE RECORDS SUMMARY | 2023-01-01 10:51 | External Medical Summary | Summary of Care ---
Author Name Unknown Organization [facility] Address [address] [place] [address] Phone [phone] Care Team Providers Care Airport Ramp Attendant Name Role Phone Jono Chairez MD Primary Care Provider +1- [phone] Reason for Visit * Reason Onset Date Comments Medication Refill Status Check 11/04/2022 Encounter Details Date Type Department Care Team Description 11/04/2022 Refill [facility] [address] [place] [address] Jono Chairez MD [address] [place] [address] HTN, goal below 140/90 Allergies [...] hemoglobin A1c goal of less than 8.0% ([facility]) INJECT 50 UNITS UNDER THE [...] protocol Gastroesophageal reflux disease without esophagitis 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 Thank you, Lennie Sanderson It Administrative Assistant III [facility] ([facility]) [...] preferred pharmacy and medication before forwarding?yes Pharmacy: [facility] Pending Prescriptions: Disp Refills [...] or any previous visit. Patient Phone Numbers [employer] [phone] Labs: Lab Results Component Value Date/Time CREAT [...] Team Description 11/04/2022 Pharmacy Pharmacy [facility], Telepharmacy [facility] Part D [address] [facility] [place] [address] 12/11/2022 Office Visit Orthopedics Gordo Bunch PA-C [address] [place] [address] 04/07/2023 Office Visit Family Medicine Jono Chairez MD [address] [place] [address] Health Maintenance Due Date Last Done Comments [...] Screening 05/28/2023 05/27/2022 CKD HGB USE SMARTSET 48847 10/29/202310/28, 05/06/2021, 11/07/2019, Additional history exists CKD PHOS USE SMARTSET 43199 10/29/20230 06/2022, 09/19/2021, 11/07/2019, Additional history exists [...] hypertension documented in this encounter Care Teams Airport Ramp Attendant Relationship Specialty Start Date End Date Jono Chairez MD [address] [place] [address] PCP - General 12/12/99 documented as of this encounter
--- OUTSIDE RECORDS SUMMARY | 2023-01-01 10:51 | External Medical Summary | Summary of Care ---
Author Name Unknown Organization [facility] Address [address] [place] [address] Phone [phone] Care Team Providers Care Cardiac Tech Name Role Phone Jono Chairez MD Primary Care Provider +1- [phone] Reason for Visit * Reason Onset Date Comments Fax 11/03/2022 Encounter Details Date Type Department Care Team Description 11/03/[address] [facility] [address] [place] [address] Jono Chairez MD [address] [place] [address] Fax Allergies No known active allergiesdocumented as of this encounter (statuses as of 11/03/2022) Medications Medication Sig Dispensed Refills Start Date End Date Status Glucose Blood (RELION PRIME TEST) STRP Test 6 times a day E 11.9 100 Strip 5 12/06/2018 Active Vitamin D3 Super Strength 50 MCG (1999 [place]) Oral Tablet (Cholecalciferol) Take by mouth . 0 Ac tive Lantus 100 UNIT/ML Subcutaneous SolutionIndications :Type 2 diabetes mellitus with hemoglobin A1c goal of less than 8.0% ([facility]) INJECT 50 UNITS UNDER THE [...] as of this encounter (statuses as of 11/03/2022) Active Problems Problem Noted Date Hypertensive kidney disease with stage 3 a chronic kidney disease 05/15/2021 Chronic kidney disease, stage 3a 021 Overview: Per CKD protocol Type 2 diabetes mellitus wit h stage 3a chronic kidney disease, with long-term current use of insulin 07/03/2020 Overview: Per CKD protocol Gastroesophageal reflux disease without esophagitis 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 11/02 Morbid obesity with BMI of 50.0-59.9, ad ult 06/29/2017 Type 2 diabetes mellitus with hemoglobin A1c goal of less than 8.0% 10/17/2014 Overview: ICD-10 update of inactive term HTN, goal below 140/90 04/25/2014 Dyslipidemia, goal LDL below 100 010 Acquired hypothyroidism 11/05/2009 SPINAL STENOSIS-LUMBAR 08/27/2005 documented as of this encounter (statuses as of 11/03/2022) Resolved Problems Problem Noted Date Resolved Date [...] NOS 01/02/2011 11/02/2017 correction current use of anticoagulant therapy 1 03/04/2010 [...] as of this encounter (statuses as of 11/03/2022) Immunizations Name Administration Dates Next Due COVID-19 mRNA, LNP-s, No Pre serve, 2-Dose Series (VIOSO) 05/12/2020,04/21/2020 Pneumococcal Conjugate Vacc, 13 Valent (Prevnar) [...] encounter Miscellaneous Notes * Telephone Encounter - GONZALO Spaulding - 11/03/2022 11:34 AM EDT This was faxed on October 31. Faxed again. 11/03/2022 * Telephone Encounter - GONZALO Aguirre - 11/03/2022 10:23 AM EDT Caller requesting the following information to be faxed: Name/Company of caller: patient Information requested to be faxed: Podiatry referral (diabetes extended) Fax number: Attention to Name/Company: [facility] Any additional information?: Please fax as soon as possible. documented in this encounter Plan of Treatment Upcoming Encounters Date Type Specialty Care Team Description 11/04/2022 Pharmacy Pharmacy W[facility], Telepharmacy [facility] Part D [address] [facility] [place] [address] 12/11/2022 Office Visit Orthopedics Gordo Bunch PA-C [address] [place] [address] 04/07/2023 Office Visit Family Medicine Jono Chairez MD [address] [place] [address] Health Maintenance Due Date Last Done Comments [...] Screening 05/28/2023 05/27/2022 CKD HGB USE SMARTSET 15260 10/29/202310/28, 05/06/2021, 11/07/2019, Additional history exists CKD PHOS USE SMARTSET 09635 10/29/2023 09/0 06/2022, 09/19/2021, 11/07/2019, Additional history [...] filedocumented as of this encounter Care Teams Cardiac Tech Relationship Specialty Start Date End Date Jono Chairez MD [address], [place] [phone] PCP - General 12/12/99 documented as of this encounter
--- OUTSIDE RECORDS SUMMARY | 2023-01-01 10:52 | External Medical Summary | Summary of Care ---
Author Name Unknown Organization [facility] Address [address] [place] [address] Phone [phone] Care Team Providers Care Rn Renal Name Role Phone Jono Chairez MD Primary Care Provider +1- [phone] Reason for Visit * Reason Onset Date Comments Order Request 10/01/2022 Re fax request w /Office notes Encounter Details Date Type Department Care Team Description 10/01/2022 Telephone [facility] [address] [place] [address] Jono Chairez MD [address] [place] [address] Order Request (Re fax request w/Office notes) Allergies No known active allergiesdocumented as of this encounter (statuses as of 10/07/2022) Medications Medication Sig Dispensed Refills Start Date [...] as of this encounter (statuses as of 10/07/2022) Active Problems Problem Noted Date Hypertensive kidney disease with stage 3 a chronic kidney disease 05/15/2021 Chronic kidney disease, stage 3a 021 Overview: Per CKD protocol Type 2 diabetes mellitus wit h stage 3a chronic kidney disease and hypertension 07/03/2020 Overview: Per CKD protocol Gastroesophageal reflux disease without esophagitis 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 11/02 Morbid obesity with BMI of 50.0-59.9, ad ult 06/29/2017 Type 2 diabetes mellitus with hemoglobin A1c goal of less than 8.0% 10/17/2014 Overview: ICD-10 update of inactive term HTN, goal below 140/90 04/25/2014 Dyslipidemia, goal LDL below 100 010 Acquired hypothyroidism 11/05/2009 SPINAL STENOSIS-LUMBAR 08/27/2005 documented as of this encounter (statuses as of 10/07/2022) Resolved Problems Problem Noted Date Resolved Date [...] UE VENOUS THROMBOSIS NOS 01/02/2011 11/02/2017 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 Please re fax thank you very much Attention Mobility Team * Telephone Encounter - Apolonia Hazel LPN - 10/03/2022 1:34 PM EDT Sent to [facility] * Telephone Encounter - Jono Chairze MD - 10/03/2022 7:44 AM EDT Signed - but prob needs ov documentation * Telephone Encounter - GONZALO Monge - 10/02/2022 1:38 PM EDT Patient calling in to check on the status of previous message. Patient Called within 48 hour timeframe. Reminded patient of 48 hour turn-around time. * Telephone Encounter - GONZALO Alcaraz - 10/01/2022 11:24 AM EDT An order was requested for this patient. Name of Requesting Provider: Eric Champagne Order Requested: lift chair Diagnosis/Reason for Request: medical necessity If order request is for Mammogram: Is the patient having any breast symptoms? N/A Is there a chance of ? N/A Has the patient had any breast problems in the past? NA Does the order need to be faxed somewhere? If so, where?: [employer] Fax Number, if applicable: [phone] Call Back Number: [phone] If the caller is not a current patient, please advise the patient to call their current PCP to havethe order's prior to being seen in our office. The patient was informed that our providers would not order anything (medication, labs, etc.) prior to being seen. documented in this encounter Plan of Treatment Upcoming Encounters Date Type Specialty Care Team Description 10/28/2022 Laboratory Laboratory [place] [address] [place] [facility] [place] [address] 10/31/2022 Office Visit Family Medicine Jono Chairez MD [address] [facility] [place] [address] 12/11/2022 Office Visit Orthopedics Gordo Bunch PA-C [address] [place] [address] Health Maintenance Due Date Last Done Comments DXA Scan 1952 Mammogram 1992 Cologuard 1997 Colonoscopy 1997 Colorectal Cancer Screening 1997 Fecal Occult Blood Test 1997 Sigmoidoscopy 1997 Zoster Vaccines (1 of 2) 2002 COVID-19 Vaccine (3 - Pfizer series) 07/07/2020 05/12/2020, 04/21/2020 DIABETES-FOOT EXAM 07/27/2021 07/27/2020, 0 11/01/2018, 11/02/2017, Additional history exists CKD HGB USE SMARTSET 30111 05/06/202205/06, 11/07/2019, 02/15/2018 DIABETES-EYE EXAM 07/03/2022 07/03/2021, , 11/02/2006 Albumin/Creatinine Ratio 09/19/2022 022, 02/21/2019, 03/01/2018, Additional history exists CKD PHOS USE SMARTSET 53102 09/19/202208/24, 11/07/2019, 04/02/2018 GFR 09/29/2022 04/01/2022, 08/24, [...] as of this encounter Visit Diagnoses Diagnosis Ambulatory dysfunction- Primary Chronic pain of left knee Pain in joint, lower leg Morbid obesity with BMI of 50.0-59.9, adult (HCC) Morbid obesity documented in this encounter Care Teams Rn Renal Relationship Specialty Start Date End Date Jono Chairez MD [address], [place] [id number] PCP - General 12/12/99 documented as of this encounter
--- OUTSIDE RECORDS SUMMARY | 2023-01-01 10:52 | External Medical Summary ---
Author Name Unknown Address Unknown Organization K01:[facility] [address] [place] [address] Laboratory Report Ordering Provider Test Date Status WILL MEMBRENO 10/28/2022 08:53:40 Final Observation Date Value Abnormality Reference (Units ) Status Phosphate 10/28/2022 08:53:40 3.4 2.5-4.8 (m g/dL) Final Performing Location [facility] [address] [place] [address]
--- OUTSIDE RECORDS SUMMARY | 2023-01-01 10:52 | External Medical Summary ---
Author Name Unknown Address Unknown Organization K01:[facility] [place] [address] [facility] [address] Laboratory Report Ordering Provider Test Date Status WILL MEMBRENO 10/28/2022 08:53:40 Final Observation Date Value Abnormality Reference (Units ) Status HbA1C 10/28/2022 08:53:40 7.0 Above high normal 4. 0-5.6 (%) Final The use of HbA1c to monitor glycemic status is based on normal hemoglobin and HbA composition. This test should not be used in patients with abnormal hemoglobin that affects the half life of the red blood cell or the in vivo glycation rates. Glucose, estimated average 10/28/2022 08:53:40 154 Above high normal <126 (mg/dL) Fede galeana Performing Location [facility] [place] [address] [facility] [address]
--- OUTSIDE RECORDS SUMMARY | 2023-01-01 10:52 | External Medical Summary ---
Author Name Unknown Address Unknown Organization [id number]:[facility] [place] [facility] [address] [place] [address] Laboratory Report Ordering Provider Test Date Status WILL MEMBRENO 10/28/2022 08:53:40 Final Observation Date Value Abnormality Reference (Units ) Status BUN 10/28/2022 08:53:40 10 6-20 (mg/dL) Final Creatinine 10/28/2022 08:53:40 0.9 0.5-1.0 (mg/dL) Final Glomerular filtration rate/1.73 sq M.predicted [Volume Rate/Area] in Serum, Plasma or Blood by Creatinine-based formula (CKD-EPI) 10/28/2022 08:53:40 66 >=60 (mL/min) Final eGFR is calculated based on the CKD-EPI 2020 equation SODIUM 10/28/2022 08:53:40 139 135-146 (m mol/L) Final Potassium 10/28/2022 08:53:40 4.6 3.5-5.1 (m mol/L) Final Cl 10/28/2022 08:53:40 100 98-107 (mm ol/L) Final CO2 10/28/2022 08:53:40 25 22-32 (mmo l/L) Final Anion gap 10/28/2022 08:53:40 14 7-15 (mmol /L) Final Glucose 10/28/2022 08:53:40 214 Above high normal 70 -120 (mg/dL) Final Calcium 10/28/2022 08:53:40 9.5 8.4-10.2 ( mg/dL) Final Performing Location [facility] [place] [address] [facility] [address]
--- OUTSIDE RECORDS SUMMARY | 2023-01-01 10:52 | External Medical Summary | Summary of Care ---
Author Name Unknown Organization [facility] Address [address] [place] [address] Phone [phone] Care Team Providers Care Trackmobile Operator Name Role Phone Jono Chairez MD Primary Care Provider [phone]- [phone] Reason for Visit * Reason Onset Date Comments Order Request 10/01/2022 Re fax request w /Office notes Encounter Details Date Type Department Care Team Description 10/01/2022 Telephone [facility] [address] [place] [address] Jono Chairez MD [address] [place] [address] Order Request (Re fax request w/Office notes) Allergies No known active allergiesdocumented as of this encounter (statuses as of 10/06/2022) Medications Medication Sig Dispensed Refills Start Date [...] FOR SEVERE PAIN 80 Tablet 0 09/30/2022 04/01/2023 Active documented as of this encounter (statuses as of 10/06/2022) Active Problems Problem Noted Date Hypertensive kidney disease with stage 3 a chronic kidney disease 05/15/2021 Chronic kidney disease, stage 3a 021 Overview: Per CKD protocol Type 2 diabetes mellitus wit h stage 3a chronic kidney disease and hypertension 07/03/2020 Overview: Per CKD protocol Gastroesophageal reflux disease without esophagitis 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 11/02 Morbid obesity with BMI of 50.0-59.9, ad ult 06/29/2017 Type 2 diabetes mellitus with hemoglobin A1c goal of less than 8.0% 10/17/2014 Overview: ICD-10 update of inactive term HTN, goal below 140/90 04/25/2014 Dyslipidemia, goal LDL below 100 010 Acquired hypothyroidism 11/05/2009 SPINAL STENOSIS-LUMBAR 08/27/2005 documented as of this encounter (statuses as of 10/06/2022) Resolved Problems Problem Noted Date Resolved Date [...] BILATERAL UE VENOUS THROMBOSIS NOS 01/02/2011 11/02/2017 skilled nursing current use of anticoagulant therapy 1 03/04/2010 [...] as of this encounter (statuses as of 10/06/2022) Immunizations Name Administration Dates Next Due COVID-19 [...] Miscellaneous Notes * Telephone Encounter - GONZALO Nicole - 10/06/2022 11:49 AM EDT [facility] is calling they never got the fax yet on the Chair Lift order or any office notes. Please re fax thank you very much Attention Mobility Team * Telephone Encounter - Apolonia Hazel LPN - 10/03/2022 1:34 PM EDT Sent to [facility] * Telephone Encounter - Jono Chairez MD - 10/03/2022 7:44 AM EDT Signed [...] be faxed somewhere? If so, where?: [facility] Fax Number, if applicable: [phone] Call Back Number: [phone] If the caller is not a current patient, please advise the patient to call their current PCP to havethe order's prior to being seen in our office. The patient was informed that our providers would not order anything (medication, labs, etc.) prior to being seen. documented in this encounter Plan of Treatment Upcoming Encounters Date Type Specialty Care Team Description 10/28/2022 Laboratory Laboratory [place] [address] [place] [address] 10/31/2022 Office Visit Family Medicine Jono Chairez MD [address] [place] [address] 12/11/2022 Office Visit Orthopedics Gordo Bunch PA-C [address] [place] [address] Health Maintenance Due Date Last Done Comments DXA Scan 1952 Mammogram 1992 Cologuard 1997 Colonoscopy 1997 Colorectal Cancer Screening 1997 Fecal Occult Blood Test 1997 Sigmoidoscopy 1997 Zoster Vaccines (1 of 2) 2002 COVID-19 Vaccine (3 - Pfizer series) 07/07/2020 05/12/2020, 04/21/2020 DIABETES-FOOT EXAM 07/27/2021 07/27/2020, 0 11/01/2018, 11/02/2017, Additional history exists CKD HGB USE SMARTSET 54619 05/06/202205/06, 11/07/2019, 02/15/2018 DIABETES-EYE EXAM 07/03/2022 07/03/2021, , 11/02/2006 Albumin/Creatinine Ratio 09/19/2022 022, 02/21/2019, 03/01/2018, Additional history exists CKD PHOS USE SMARTSET 53953 09/19/202208/24, 11/07/2019, 04/02/2018 GFR 09/29/2022 04/01/2022, 08/24, [...] obesity documented in this encounter Care Teams Trackmobile Operator Relationship Specialty Start Date End Date Jono Chairez MD [address] [place] [address] PCP - General 12/12/99 documented as of this encounter
--- OUTSIDE RECORDS SUMMARY | 2023-01-01 10:52 | External Medical Summary | Summary of Care ---
Author Name Unknown Organization [facility] Address [address] [place] [address] Phone [phone] Care Team Providers Care Boom Conveyor Operator Name Role Phone Jono Chairez MD Primary Care Provider +1- [phone] Reason for Visit * Reason Onset Date Comments Order Request 10/01/2022 Encounter Details Date Type Department Care Team Description 10/01/2022 Telephone [facility] [address] [place] [address] Jono Chairez MD [address] [place] [address] Order Request Allergies No known active allergiesdocumented as of this encounter (statuses as of 10/03/2022) Medications Medication Sig Dispensed Refills Start Date [...] goal of less than 8.0% ([facility]) INJECT 50 UNITS UNDER THE [...] as of this encounter (statuses as of 10/03/2022) Active Problems Problem Noted Date Hypertensive kidney disease with stage 3 a chronic kidney disease 05/15/2021 Chronic kidney disease, stage 3a 021 Overview: Per CKD protocol Type 2 diabetes mellitus wit h stage 3a chronic kidney disease and hypertension 07/03/2020 Overview: Per CKD protocol Gastroesophageal reflux disease without esophagitis 02/28/2019 shelter (current) use of insulin 11/02 Morbid obesity with BMI of 50.0-59.9, ad ult 06/29/2017 Type 2 diabetes mellitus with hemoglobin A1c goal of less than 8.0% 10/17/2014 Overview: ICD-10 update of inactive term HTN, goal below 140/90 04/25/2014 Dyslipidemia, goal LDL below 100 010 Acquired hypothyroidism 11/05/2009 SPINAL STENOSIS-LUMBAR 08/27/2005 documented as of this encounter (statuses as of 10/03/2022) Resolved Problems Problem Noted Date Resolved Date [...] BILATERAL UE VENOUS THROMBOSIS NOS 01/02/2011 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 Patient Called within 48 hour timeframe. Reminded patient of 48 hour turn-around time. * Telephone Encounter - Prabha Mitchell, GONZALO - 10/01/2022 11:24 AM EDT An order [...] to be [facility]ed somewhere? [facility] so[facility] Fax Number, if applicable: [phone] Call Back Number: [phone] If the caller is not a current patient, please advise the patient to call their current PCP to havethe order's prior to being seen in our office. The patient was informed that our providers would not order anything (medication, labs, etc.) prior to being seen. documented in this encounter Plan of Treatment Upcoming Encounters Date Type Specialty Care Team Description 10/28/2022 Laboratory [facility] [address] [place] [id number] 10/31/2022 Office Visit Family Medicine Jono Chairez MD [address] [place] [address] 12/11/2022 Office Visit Orthopedics Gordo Bunch PA-C [address] [place] [address] Health Maintenance Due Date Last Done Comments DXA Scan 1952 Mammogram 1992 Cologuard 1997 Colonoscopy 1997 Colorectal Cancer Screening 1997 Fecal Occult Blood Test 1997 Sigmoidoscopy 1997 Zoster Vaccines (1 of 2) 2002 COVID-19 Vaccine (3 - Pfizer series) 07/07/2020 05/12/2020, 04/21/2020 DIABETES-FOOT EXAM 07/27/2021 07/27/2020, 0 11/01/2018, 11/02/2017, Additional history exists CKD HGB USE SMARTSET 72105 05/06/202205/06, 11/07/2019, 02/15/2018 DIABETES-EYE EXAM 07/03/2022 07/03/2021, , 11/02/2006 Albumin/Creatinine Ratio 09/19/2022 022, 02/21/2019, 03/01/2018, Additional history exists CKD PHOS USE SMARTSET 96327 09/19/2022 07/2 09/2021, 11/07/2019, 04/02/2018 GFR 09/29/2022 04/01/2022, 08/24, 05/06/2021, [...] obesity documented in this encounter Care Teams Boom Conveyor Operator Relationship Specialty Start Date End Date Jono Chairez MD [address] [place] [address] PCP - General 12/12/99 documented as of this encounter
--- OUTSIDE RECORDS SUMMARY | 2023-01-01 10:52 | External Medical Summary | Summary of Care ---
Author Name Unknown Organization [facility] Address [address] [place] [address] Phone [phone] Care Team Providers Care Research And Development Director Name Role Phone Jono Chairez MD Primary Care Provider [phone]- [phone] Reason for Visit * Reason Onset Date Comments Order Request 10/01/2022 Re fax request w /Office notes Encounter Details Date Type Department Care Team Description 10/01/2022 Telephone [facility] [address] [place] [address] Jono Chairez MD [address] [place] [address] Order Request (Re fax request w/Office notes) [...] protocol Gastroesophageal reflux disease without esophagitis 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 Please re fax thank you very much Attention Mobility Team * Telephone Encounter - Apolonia Hazel LPN - 10/03/2022 1:34 PM EDT Sent to [facility] * Telephone Encounter - Jono Chairez MD [...] be faxed somewhere? If so, where?: [facility] Fax Number, if applicable: [phone] Call Back Number: [phone] If the caller is not a current patient, please advise the patient to call their current PCP to havethe order's prior to being seen in our office. The patient was informed that our providers would not order anything (medication, labs, etc.) prior to being seen. documented in this encounter Plan of Treatment Upcoming Encounters Date Type Specialty Care Team Description 10/28/2022 Laboratory [facility] [address] [place] [facility] [place] [address] 10/31/2022 Office Visit Family Medicine Jono Chairez MD [address] [place] [facility] [place] [address] 12/11/2022 Office Visit Orthopedics Gordo Bunch PA-C [address] [place] [address] Health Maintenance Due Date Last Done Comments DXA Scan 1952 Mammogram 1992 Cologuard 1997 Colonoscopy 1997 Colorectal Cancer Screening 1997 Fecal Occult Blood Test 1997 Sigmoidoscopy 1997 Zoster Vaccines (1 of 2) 2002 COVID-19 Vaccine (3 - Pfizer series) 07/07/2020 05/12/2020, 04/21/2020 DIABETES-FOOT EXAM 07/27/2021 07/27/2020, 0 11/01/2018, 11/02/2017, Additional history exists CKD HGB USE SMARTSET 53223 05/06/202205/06, 11/07/2019, 02/15/2018 DIABETES-EYE EXAM 07/03/2022 07/03/2021, , 11/02/2006 Albumin/Creatinine Ratio 09/19/2022 022, 02/21/2019, 03/01/2018, Additional history exists CKD PHOS USE SMARTSET 63618 09/19/202208/24, 11/07/2019, 04/02/2018 GFR 09/29/2022 04/01/2022, 08/24, [...] obesity documented in this encounter Care Teams Research And Development Director Relationship Specialty Start Date End Date Jono Chairez MD [address] [place] [address] PCP - General 12/12/99 documented as of this encounter
--- OUTSIDE RECORDS SUMMARY | 2023-01-01 10:52 | External Medical Summary ---
Author Name Unknown Address Unknown Organization K01:LABORATORY [facility] - [address] [place] [address] Laboratory Report Ordering Provider Test Date Status WILL MEMBRENO 10/28/2022 08:53:40 Final Observation Date Value Abnormality Reference (Units ) Status Hemoglobin 10/28/2022 08:53:40 12.5 12.0-15.3 (g/dL) Final Performing Location [facility] [address] [facility] [address]
--- OUTSIDE RECORDS SUMMARY | 2023-01-01 10:53 | External Medical Summary | Summary of Care ---
Author Name Unknown Organization [facility] Address [address] [place] [address] Phone [phone] Care Team Providers Care Foaming Machine Operator Name Role Phone Haseeb Solis MD Primary Care Provider +1- [phone] Reason for Visit * Reason Comments Medication Refill Encounter Details Date Type Department Care Team Description 09/29/2022 Refill [facility] [address] [place] [address] Haseeb Solis MD [address] [place] [address] Chronic pain of left knee Allergies No known active allergiesdocumented as of this encounter (statuses as of 09/30/2022) Medications Medication Sig Dispensed Refills Start Date End Date Status Glucose Blood (RELION PRIME TEST) STRP Test 6 times a day E 11.9 100 Strip 5 12/06/2018 Active Vitamin D3 Super Strength 50 MCG (2000 UT) Oral Tablet (Cholecalciferol) Take by mouth . 0 Active Lantus 100 UNIT/ML Subcutaneous SolutionIndication s:Type 2 diabetes mellitus with hemoglobin A1c goal of less than 8.0% ([facility]) INJECT 50 UNITS UNDER THE [...] BEDTIME 90 Tablet 3 05/27/2022 4 Active Enalapril Maleate 20 MG Oral Tablet (Vasotec)Indicatio ns:HTN, goal below 140/90 TAKE ONE TABLET BY MOUTH EVERY DAY 100 Tablet 1 04/09/2022 4 Active Insulin Regular Human 100 UNIT/ML Injection SolutionIndication s:Type 2 diabetes mellitus with hemoglobin A1c goal of less than 8.0% ([facility]) INJECT 5 TO 24 UNITS [...] FOR SEVERE PAIN 80 Tablet 0 09/30/2022 4 Active traMADol HCl 50 MG Oral Tablet (Ultram)Indication s:Chronic pain of left knee TAKE ONE TABLET EVERY SIX HOURS NEEDED FOR SEVERE PAIN 80 Tablet 0 07/30/2022 3 Discontinue d(Refill) documented as of this encounter (statuses as of 09/30/2022) Active Problems Problem Noted Date Hypertensive kidney disease with stage 3 a chronic kidney disease 05/15/2021 Chronic kidney disease, stage 3a 021 Overview: Per CKD protocol Type 2 diabetes mellitus wit h stage 3a chronic kidney disease and hypertension 07/03/2020 Overview: Per CKD protocol Gastroesophageal reflux disease without esophagitis 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 11/02 Morbid obesity with BMI of 50.0-59.9, ad ult 06/29/2017 Type 2 diabetes mellitus with hemoglobin A1c goal of less than 8.0% 10/17/2014 Overview: ICD-10 update of inactive term HTN, goal below 140/90 04/25/2014 Dyslipidemia, goal LDL below 100 010 Acquired hypothyroidism 11/05/2009 SPINAL STENOSIS-LUMBAR 08/27/2005 documented as of this encounter (statuses as of 09/30/2022) Resolved Problems Problem Noted Date Resolved Date [...] as of this encounter (statuses as of 09/30/2022) Immunizations Name Administration Dates Next Due COVID-19 [...] Telephone Encounter - Haseeb Solis MD - 09/30/2022 2:30 PM EDTSigned Prescriptions: Disp Refills traMADol HCl 50 MG Oral Tablet (Ultram) 80 Tab*0 Sig: TAKE ONE TABLET EVERY SIX HOURS NEEDED FOR SEVERE PAINAuthorizing Provider: HASEEB SOLIS * Telephone Encounter - Jasmine Melton [facility] - 09/30/2022 12:12 PM EDTPending Prescriptions: Disp Refills traMADol HCl 50 MG Oral Tablet (Ultram) 80 Tab*0 Sig: TAKE ONE TABLET EVERY SIX HOURS NEEDED FOR SEVERE PAIN * Telephone Encounter - Jasmine Melton [facility] - 09/30/2022 12:12 PM EDT I have reviewed the patients controlled substance dispensing history in the Prescription Drug Monitoring Program in compliance with the [facility] regulations before prescribing a controlled substance. PDMP checked on 09/30/2022. Pending Prescriptions: Disp Refills traMADol HCl 50 MG Oral Tablet (Ultram) 80 Tab*0 Sig: TAKE ONE TABLET EVERY SIX HOURS NEEDED FOR SEVERE PAIN Last Visit: 05/27/2022 (in office), Visit date not found (telemedicine) Next Visit: 10/31/2022 Date medication was last filled: 08/04/22 Date medication is due for refill: 08/24/22 Pharmacy: [facility] Is this request for a controlled substance? Yes and Urine Drug Screen Not completed Toxicology results: No results found for this or any previous visit. Please approve if appropriate. Thank You, Jasmine Melton [facility] Clinical Pharmacist [facility] ([facility]) (formerly Telepharmacy) [phone] 09/30/2022, 12:12 PM documented in this encounter Plan of Treatment Upcoming Encounters Date Type Specialty Care Team Description 10/28/2022 Laboratory Laboratory [place] [address] [place] [address] 10/31/2022 Office Visit Family Medicine Haseeb Solis MD [address] [place] [address] 12/11/2022 Office Visit Orthopedics Gordo Bunch PA-C [address] [place] [address] Health Maintenance Due Date Last Done Comments DXA Scan 1952 Mammogram 1992 Cologuard 1997 Colonoscopy 1997 Colorectal Cancer Screening 1997 Fecal Occult Blood Test 1997 Sigmoidoscopy 1997 Zoster Vaccines (1 of 2) 2002 COVID-19 Vaccine (3 - Pfizer series) 07/07/2020 05/12/2020, 04/21/2020 DIABETES-FOOT EXAM 07/27/2021 07/27/2020, 0 11/01/2018, 11/02/2017, Additional history exists CKD HGB USE SMARTSET 82599 05/06/202205/06, 11/07/2019, 02/15/2018 DIABETES-EYE EXAM 07/03/2022 07/03/2021, , 11/02/2006 Albumin/Creatinine Ratio 09/19/2022 022, 02/21/2019, 03/01/2018, Additional history exists CKD PHOS USE SMARTSET 86925 09/19/202208/24, 11/07/2019, 04/02/2018 GFR 09/29/2022 04/01/2022, 08/24, [...] leg documented in this encounter Care Teams Foaming Machine Operator Relationship Specialty Start Date End Date Haseeb Solis MD [address] [place], [place] [id number] PCP - General 12/12/99 documented as of this encounter
--- OUTSIDE RECORDS SUMMARY | 2023-01-01 10:53 | External Medical Summary | Summary of Care ---
Author Name Unknown Organization [facility] Address [address] [place] [address] Phone [phone] Care Team Providers Care Criminal Researcher Name Role Phone Haseeb Solis MD Primary Care Provider +1- [phone] Reason for Visit * Reason Comments eRx-Medication Refill Encounter Details Date Type Department Care Team Description 08/05/2022 Refill [facility] [address] [place] [address] Haseeb Solis MD [address] [place] [address] Type 2 diabetes mellitus with hemoglobin A1c goal of less than 8.0% ([facility]) Allergies No known active allergiesdocumented as of this encounter (statuses as of 08/06/2022) Medications Medication Sig Dispensed Refills Start Date End Date Status Glucose Blood (RELION PRIME TEST) STRP Test 6 times a day E 11.9 100 Strip 5 9 Active Insulin Syringe-Needle U-100 31G X 5/16" 0.5 ML (UltiCare Insulin Syringe) USE WITH LANTUS AND NOVOLIN INSULIN 5 TIMES DAILY 500 Each 3 2 Active Vitamin D3 Super Strength 50 MCG (2000 UT) Oral Tablet (Cholecalciferol) Take by mouth . 0 Ac tive NovoLIN R ReliOn 100 UNIT/ML Injection Solution (insulin REGULAR human)Indications :Type 2 diabetes mellitus with hemoglobin A1c goal of less than 8.0% (HCC) USE DIRECTED BY SLIDING SCALE (5 TO 24 UNITS NEEDED BEFORE MEALS AND AT BEDTIME.) 90 mL 1 2 Active Enalapril Maleate 20 MG Oral Tablet (Vasotec)Indicati ons:HTN, goal below 140/90 TAKE ONE TABLET BY MOUTH EVERY DAY 100 Tablet 1 3 Active Omeprazole 20 MG Oral Capsule Delayed Release (PriLOSEC)Indicat ions:Gastroesopha geal reflux disease without esophagitis Take 1 Capsule by mouth in the morning. 1 hour before the first meal of the day.. 90 Capsule 3 3 Active Simvastatin 20 MG Oral Tablet (Zocor)Indication s:Dyslipidemia, goal LDL below 100 Take 1 Tablet by mouth at bedtime. 90 Tablet 3 3 Active Furosemide 20 MG Oral Tablet (Lasix)Indication s:Leg swelling TAKE ONE TABLET BY MOUTH THREE DAYS OF THE WEEK 50 Tablet 1 3 Active Gabapentin 100 MG Oral Capsule (Neurontin)Indica tions:Neuropathy TAKE ONE CAPSULE BY MOUTH IN THE MORNING, ONE CAPSULE IN THE AFTERNOON AND TWO CAPSULES IN THE EVENING 360 Capsule 1 3 Active traMADol HCl 50 MG Oral Tablet (Ultram)Indicatio ns:Chronic pain of left knee TAKE ONE TABLET EVERY 6 HOURS NEEDED FOR SEVERE PAIN 80 Tablet 0 3 Active Levothyroxine Sodium 75 MCG Oral Tablet (Levoxyl)Indicati ons:Hypothyroidis m, unspecified type TAKE 1 TABLET BY MOUTH DAILY AT LEAST 30 MINUTES PRIOR TO FIRST MEAL OF THE DAY OR OTHER MEDICATIONS 90 Tablet 2 3 Active Insulin Glargine 100 UNIT/ML Subcutaneous Solution (Lantus)Indicatio ns:Type 2 diabetes mellitus with hemoglobin A1c goal of less than 8.0% (HCC) INJECT 50 UNITS UNDER THE SKIN EVERY MORNING 50 mL 1 3 Active Insulin Glargine 100 UNIT/ML Subcutaneous Solution (Lantus)Indicatio ns:Type 2 diabetes mellitus with hemoglobin A1c goal of less than 8.0% (HCC) INJECT 50 UNITS UNDER THE SKIN EVERY MORNING 60 mL 1 2 08/07/19 23 Discontinued documented as of this encounter (statuses as of 08/06/2022) Active Problems Problem Noted Date Hypertensive kidney [...] as of this encounter (statuses as of 08/06/2022) Resolved Problems Problem Noted Date Resolved Date [...] as of this encounter (statuses as of 08/06/2022) Immunizations Name Administration Dates Next Due COVID-19 [...] Telephone Encounter - Haseeb Solis MD - 08/06/2022 1:32 PM EDTSigned Prescriptions: Disp Refills Insulin Glargine 100 UNIT/ML Subcutaneous *50 mL 1 Sig: INJECT 50 UNITS UNDER THE SKIN EVERY MORNINGAuthorizing Provider: HASEEB SOLIS * Telephone Encounter - Dimitrios Partida [facility] - 08/06/2022 10:59 AM EDTPending Prescriptions: Disp Refills Lantus 100 UNIT/ML Subcutaneous Solution [*60 mL 1 Sig: INJECT 50 UNITS UNDER THE SKIN EVERY MORNING * Telephone Encounter - Dimitrios Partida [facility] - 08/06/2022 10:57 AM EDT Unable to authorize medication refills for pended medication(s) at this time. Part of the protocol criteria used for refill authorization was not satisfied. Patient's A1C is above protocol parameters. Please approve if appropriate. Thanks, Satya Partida, PharmD Clinical Pharmacist [facility] ([facility]) ([facility]ly [email or web address]) [phone] 08/06/2022 10:57 AM documented in this encounter Plan of Treatment Upcoming Encounters Date Type Specialty Care Team Description 10/01/2022 Office Visit Orthopedics Gordo Bunch PA-C [address] [place] [address] 10/28/2022 Laboratory Laboratory [facility] [address] [place] [address] 10/31/2022 Office Visit Family Medicine Haseeb Solis MD [address] [place] [address] Health Maintenance Due Date Last Done Comments DXA Scan 1952 Mammogram 1992 Cologuard 1997 Colonoscopy 1997 Colorectal Cancer Screening 1997 Fecal Occult Blood Test 1997 Sigmoidoscopy 1997 Zoster Vaccines (1 of 2) 2002 COVID-19 Vaccine (3 - Pfizer series) 07/07/2020 05/12/2020, 04/21/2020 DIABETES-FOOT EXAM 07/27/2021 07/27/2020, 0 11/01/2018, 11/02/2017, Additional history exists CKD HGB USE SMARTSET 74175 05/06/202205/06, 11/07/2019, 02/15/2018 DIABETES-EYE EXAM 07/03/2022 07/03/2021, , 11/02/2006 Albumin/Creatinine Ratio 09/19/20222 022, 02/21/2019, 03/01/2018, Additional history exists CKD PHOS USE SMARTSET 77831 09/19/202208/24, 11/07/2019, 04/02/2018 GFR 09/29/2022 04/01/2022, 08/24, 05/06/2021, Additional history exists HbA1c 09/29/2022 04/01/2022, 08/24, 05/06/2021, Additional history exists Influenza Vaccine (FLU shot) (Season Ended) 2022 TSH 04/01/2023 04/01/2022, 08/24, 07/24/2020, Additional [...] (HCC) documented in this encounter Care Teams Criminal Researcher Relationship Specialty Start Date End Date Haseeb Solis MD [address], [place] [id number] PCP - General 12/12/99 documented as of this encounter
--- OUTSIDE RECORDS SUMMARY | 2023-01-01 10:53 | External Medical Summary | Summary of Care ---
Author Name Unknown Organization [facility] Address [address] [place] [address] Phone [phone] Care Team Providers Care Asset Protection Officer Name Role Phone Jono Chairez MD Primary Care Provider [phone]- [phone] Reason for Visit * Reason Comments NEW PATIENT Left knee Encounter Details Date Type Department Care Team Description 09/10/2022 Office Visit Orthopaedics [facility] [address] [place] [address] Gordo Bunch PA-C [address] [place] [address] Primary osteoarthritis of left knee* Allergies No known active allergiesdocumented as of this encounter (statuses as of 09/10/2022) Medications Medication Sig Dispensed Refills Start Date [...] MEDICATIONS. 90 Tablet 2 07/30/2022 07/30/2023 Active traMADol HCl 50 MG Oral Tablet (Ultram)Indications :Chronic pain of left knee TAKE ONE TABLET EVERY SIX HOURS NEEDED FOR SEVERE PAIN 80 Tablet 0 07/30/2022 01/29/2023 Active Gabapentin 100 MG Oral Capsule (Neurontin)Indicati [...] less than 8.0% ([facility]) INJECT 5 TO 24 UNITS NEEDED BEFORE MEALS AND AT BEDTIME UNDER THE SKIN DIRECTED VIA SLIDING SCALE 90 mL 1 01/29/2022 01/29/2023 Active Insulin Syringe-Needle U-100 31G X 5/16" 0.5 ML USE WITH LANTUS AND NOVOLIN INSULIN 5 TIMES DAILY 500 Each 3 11/20/2021 11/20/2022 Active Hospital, Clinic, or Other Facility Administered Medication Ordered Dose Route Frequency Start Date End Date Status lidocaine 1% 1 mL - triamcinolone acetonide 40 mg/mL 1 mL inj 2 mLIndications:Primary osteoarthritis of left knee 2 mL IJ ONCE 09/10/2022 09/11/19 23 Ended documented as of this encounter (statuses as of 09/10/2022) Active Problems Problem Noted Date Hypertensive kidney disease with stage 3 a chronic kidney disease 05/15/2021 Chronic kidney disease, stage 3a 021 Overview: Per CKD protocol Type 2 diabetes mellitus wit h stage 3a chronic kidney disease and hypertension 07/03/2020 Overview: Per CKD protocol Gastroesophageal reflux disease without esophagitis 02/28/2019 [facility] (current) use of insulin 11/02 Morbid obesity with BMI of 50.0-59.9, ad ult 06/29/2017 Type 2 diabetes mellitus with hemoglobin A1c goal of less than 8.0% 10/17/2014 Overview: ICD-10 update of inactive term HTN, goal below 140/90 04/25/2014 Dyslipidemia, goal LDL below 100 010 Acquired hypothyroidism 11/05/2009 SPINAL STENOSIS-LUMBAR 08/27/2005 documented as of this encounter (statuses as of 09/10/2022) Resolved Problems Problem Noted Date Resolved Date [...] BILATERAL UE VENOUS THROMBOSIS NOS 01/02/2011 11/02/2017 [facility] current use of anticoagulant therapy 1 03/04/2010 [...] as of this encounter (statuses as of 09/10/2022) Immunizations Name Administration Dates Next Due COVID-19 mRNA, LNP-s, No Pre serve, 2-Dose Series ([employer]) 05/12/2020,04/21/2020 Pneumococcal Conjugate Vacc, 13 Valent (Prevnar) [...] Gordo Bunch PA-C - 09/10/2022 9:36 AM EDT Established patient with Dr. Huertas well documented [...] today 's care. Call sooner if needed. This chart was completed in part utilizing [employer] Speech Voice Recognition Software. Grammatical errors, random [...] Specialty Care Team Description 10/28/2022 Laboratory Laboratory [place], [facility] [address] [place] [address] 10/31/2022 Office Visit Family Medicine Jono Chairez MD [address] [facility] [place] [address] 12/11/2022 Office Visit Orthopedics Gordo Bunch PA-C [address] [place] [address] Health Maintenance Due Date Last Done Comments DXA Scan 1952 Mammogram 1992 Cologuard 1997 Colonoscopy 1997 Colorectal Cancer Screening 1997 Fecal Occult Blood Test 1997 Sigmoidoscopy 1997 Zoster Vaccines (1 of 2) 2002 COVID-19 Vaccine (3 - Pfizer series) 07/07/2020 05/12/2020, 04/21/2020 DIABETES-FOOT EXAM 07/27/2021 07/27/2020, 0 11/01/2018, 11/02/2017, Additional history exists CKD HGB USE SMARTSET 81445 05/06/202205/06, 11/07/2019, 02/15/2018 DIABETES-EYE EXAM 07/03/2022 07/03/2021, , 11/02/2006 Albumin/Creatinine Ratio 09/19/2022 022, 02/21/2019, 03/01/2018, Additional history exists CKD PHOS USE SMARTSET 22889 09/19/202208/24, 11/07/2019, 04/02/2018 GFR 09/29/2022 04/01/2022, 08/24, [...] as of this encounter Visit Diagnoses Diagnosis Primary osteoarthritis [...] Left documented in this encounter Care Teams Asset Protection Officer Relationship Specialty Start Date End Date Jono Chairez MD [address], [place] [phone] PCP - General 12/12/99 documented as of this encounter
--- OUTSIDE RECORDS SUMMARY | 2023-01-01 10:53 | External Medical Summary | Summary of Care ---
Author Name Unknown Organization [facility] Address [address] [place] [address] Phone [phone] Care Team Providers Care Cabinet Builder Name Role Phone Jono Chairez MD Primary Care Provider +1- [phone] Encounter Details Date Type Department Care Team Description 09/10/2022 Patient Reported Data Patient Survey Ortho [facility] Allergies No known active allergiesdocumented as of [...] hemoglobin A1c goal of less than 8.0% ([facility]) INJECT 50 UNITS UNDER THE [...] hemoglobin A1c goal of less than 8.0% ([facility]) INJECT 5 TO 24 UNITS [...] protocol Gastroesophageal reflux disease without esophagitis 02/28/2019 [facility] (current) use of insulin 11/02 Morbid obesity [...] BILATERAL UE VENOUS THROMBOSIS NOS 01/02/2011 11/02/2017 [facility] current use of anticoagulant therapy 1 03/04/2010 [...] Encounters Date Type Specialty Care Team Description 09/10/2022 Office Visit Orthopedics Gordo Bunch PA-C [address] [place] [address] Primary osteoarthritis of left knee* 10/28/2022 [facility] [address] [place] [address] 10/31/2022 Office Visit Family Medicine Jono Chairez MD [address] [place] [address] 12/11/2022 Office Visit Orthopedics Gordo Bunch PA-C [address] [place] [address] Health Maintenance Due Date Last Done Comments DXA Scan 1952 Mammogram 1992 Cologuard 1997 Colonoscopy 1997 Colorectal Cancer Screening 1997 Fecal Occult Blood Test 1997 Sigmoidoscopy 1997 Zoster Vaccines (1 of 2) 2002 COVID-19 Vaccine (3 - Pfizer series) 07/07/2020 05/12/2020, 04/21/2020 DIABETES-FOOT EXAM 07/27/2021 07/27/2020, 0 11/01/2018, 11/02/2017, Additional history exists CKD HGB USE SMARTSET 14792 05/06/202205/06, 11/07/2019, 02/15/2018 DIABETES-EYE EXAM 07/03/2022 07/03/2021, , 11/02/2006 Albumin/Creatinine Ratio 09/19/2022 022, 02/21/2019, 03/01/2018, Additional history exists CKD PHOS USE SMARTSET 48684 09/19/202208/24, 11/07/2019, 04/02/2018 GFR 09/29/2022 04/01/2022, 08/24, [...] filedocumented as of this encounter Care Teams Cabinet Builder Relationship Specialty Start Date End Date Jono Chairez MD [address] [place], [place] [phone] PCP - General 12/12/99 documented as of this encounter
--- OUTSIDE RECORDS SUMMARY | 2023-01-01 10:53 | External Medical Summary | Summary of Care ---
Author Name Unknown Organization [facility] Address [address] [place] [address] Phone [phone] Care Team Providers Care Personal Service Representative Name Role Phone Jono Chairez MD Primary Care Provider +1- [phone] Reason for Visit * Reason Comments NEW PATIENT Left knee Encounter Details Date Type Department Care Team Description 09/10/2022 Office Visit Orthopaedics [facility] [address] [place] [address] Gordo Bunch PA-C [address] [place] [address] Primary osteoarthritis of left knee* Allergies No [...] less than 8.0% ([facility]) INJECT 5 TO 24 UNITS [...] mRNA, LNP-s, No Pre serve, 2-Dose Series ([email or web address]) 05/12/2020,04/21/2020 Pneumococcal Conjugate Vacc, 13 Valent (Prevnar) [...] This chart was completed in part utilizing [employer] Speech Voice Recognition Software. Grammatical errors, random [...] Specialty Care Team Description 10/28/2022 Laboratory Laboratory [place], [facility] [address] [place] [address] 10/31/2022 Office Visit Family Medicine Jono Chairez MD [address] [place] [address] Health Maintenance Due Date Last Done Comments DXA Scan 1952 Mammogram 1992 Cologuard 1997 Colonoscopy 1997 Colorectal Cancer Screening 1997 Fecal Occult Blood Test 1997 Sigmoidoscopy 1997 Zoster Vaccines (1 of 2) 2002 COVID-19 Vaccine (3 - Pfizer series) 07/07/2020 05/12/2020, 04/21/2020 DIABETES-FOOT EXAM 07/27/2021 07/27/2020, 0 11/01/2018, 11/02/2017, Additional history exists CKD HGB USE SMARTSET 54545 05/06/202205/06, 11/07/2019, 02/15/2018 DIABETES-EYE EXAM 07/03/2022 07/03/2021, , 11/02/2006 Albumin/Creatinine Ratio 09/19/2022 022, 02/21/2019, 03/01/2018, Additional history exists CKD PHOS USE SMARTSET 76025 09/19/202208/24, 11/07/2019, 04/02/2018 GFR 09/29/2022 04/01/2022, 08/24, [...] Left documented in this encounter Care Teams Personal Service Representative Relationship Specialty Start Date End Date Jono Chairez MD [address] [place], [place] [phone] PCP - General 12/12/99 documented as of this encounter
--- OUTSIDE RECORDS SUMMARY | 2023-01-01 10:53 | External Medical Summary | Summary of Care ---
Author Name Unknown Organization [facility] Address [address] [place] [address] Phone [phone] Care Team Providers Care 4 H Youth Development Specialist Name Role Phone Jono Chairez MD Primary Care Provider +1- [phone] Encounter Details Date Type Department Care Team [...] A1c goal of less than 8.0% ([facility]) INJECT 50 UNITS UNDER THE SKIN [...] A1c goal of less than 8.0% ([facility]) INJECT 5 TO 24 UNITS NEEDED [...] Bunch PA-C [address] [place] [address] Primary osteoarthritis of left knee* 10/28/2022 [facility] [address] [place] [address] 10/31/2022 Office Visit Family Medicine Jono Chairez MD [address] [place] [address] 12/11/2022 Office Visit Orthopedics Gordo Bunch PA-C [address] [place] [address] Health Maintenance Due Date Last Done Comments DXA Scan 1952 Mammogram 1992 Cologuard 1997 Colonoscopy 1997 Colorectal Cancer Screening 1997 Fecal Occult Blood Test 1997 Sigmoidoscopy 1997 Zoster Vaccines (1 of 2) 2002 COVID-19 Vaccine (3 - Pfizer series) 07/07/2020 05/12/2020, 04/21/2020 DIABETES-FOOT EXAM 07/27/2021 07/27/2020, 0 11/01/2018, 11/02/2017, Additional history exists CKD HGB USE SMARTSET 15488 05/06/202205/06, 11/07/2019, 02/15/2018 DIABETES-EYE EXAM 07/03/2022 07/03/2021, , 11/02/2006 Albumin/Creatinine Ratio 09/19/2022 022, 02/21/2019, 03/01/2018, Additional history exists CKD PHOS USE SMARTSET 10178 09/19/202208/24, 11/07/2019, 04/02/2018 GFR 09/29/2022 04/01/2022, 08/24, [...] filedocumented as of this encounter Care Teams 4 H Youth Development Specialist Relationship Specialty Start Date End Date Jono Chairez MD [address], [place] [phone] PCP - General 12/12/99 documented as of this encounter
--- OUTSIDE RECORDS SUMMARY | 2023-01-01 10:53 | External Medical Summary | Summary of Care ---
Author Name Unknown Organization [facility] Address [address] [place] [address] Phone [phone] Care Team Providers Care Knuckler Name Role Phone Haseeb Solis MD Primary Care Provider +1- [phone] Reason for Visit * Reason Comments eRx-Medication Refill Encounter Details Date Type Department Care Team Description 07/29/2022 Refill [facility] [address] [place] [address] Haseeb Solis MD [address] [place] [address] Chronic pain of left knee; Hypothyroidism, unspecified type Allergies No known active allergiesdocumented as of this encounter (statuses as of 07/30/2022) Medications Medication Sig Dispensed Refills Start Date End Date Status Glucose Blood (RELION PRIME TEST) STRP Test 6 times a day E 11.9 100 Strip 5 9 Active Insulin Syringe-Needle U-100 31G X /16" 0.5 ML (UltiCare Insulin Syringe) USE WITH LANTUS AND NOVOLIN INSULIN 5 TIMES DAILY 500 Each 3 2 Active Vitamin D3 Super Strength 50 MCG (1999) Oral Tablet (Cholecalciferol) Take by mouth . 0 Ac tive Insulin Glargine 100 UNIT/ML Subcutaneous Solution (Lantus)Indicatio ns:Type 2 diabetes mellitus with hemoglobin A1c goal of less than 8.0% ([facility]) INJECT 50 UNITS UNDER THE SKIN EVERY MORNING 60 mL 1 2 Active NovoLIN R ReliOn 100 UNIT/ML Injection Solution [...] OTHER MEDICATIONS 90 Tablet 2 3 Active Levothyroxine Sodium 75 MCG Oral Tablet (Levoxyl)Indicati ons:Hypothyroidis m, unspecified type TAKE ONE TABLET BY MOUTH EVERY DAY AT LEAST 30 MINUTES PRIOR TO FIRST MEAL OF THE DAY OR OTHER MEDICATIONS 90 Tablet 0 3 07/31/19 23 Discontinued traMADol HCl 50 MG Oral Tablet (Ultram)Indicatio ns:Chronic pain of left knee TAKE ONE TABLET EVERY 6 HOURS NEEDED FOR SEVERE PAIN 80 Tablet 0 3 07/31/19 23 Discontinued documented as of this encounter (statuses as of 07/30/2022) Active Problems Problem Noted Date Hypertensive kidney disease with stage 3 a chronic kidney disease 05/15/2021 Chronic kidney disease, stage 3a 021 Overview: Per CKD protocol Type 2 diabetes mellitus wit h stage 3a chronic kidney disease and hypertension 07/03/2020 Overview: Per CKD protocol Gastroesophageal reflux disease without esophagitis 02/28/2019 intermediate (current) use of insulin 11/02 Morbid obesity with BMI of 50.0-59.9, ad ult 06/29/2017 Type 2 diabetes mellitus with hemoglobin A1c goal of less than 8.0% 10/17/2014 Overview: ICD-10 update of inactive term HTN, goal below 140/90 04/25/2014 Dyslipidemia, goal LDL below 100 010 Acquired hypothyroidism 11/05/2009 SPINAL STENOSIS-LUMBAR 08/27/2005 documented as of this encounter (statuses as of 07/30/2022) Resolved Problems Problem Noted Date Resolved Date [...] BILATERAL UE VENOUS THROMBOSIS NOS 01/02/2011 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 1 03/04/2010 [...] as of this encounter (statuses as of 07/30/2022) Immunizations Name Administration Dates Next Due COVID-19 [...] Telephone Encounter - Haseeb Solis MD - 07/30/2022 5:16 PM EDTSigned Prescriptions: Disp Refills traMADol HCl 50 MG Oral Tablet (Ultram) 80 Tab*0 Sig: TAKE ONE TABLET EVERY 6 HOURS NEEDED FOR SEVERE PAINAuthorizing Provider: HASEEB SOLIS LevothyroxineSodium 75 MCG Oral Tablet (L*90 Tab*2 Sig: TAKE 1 TABLET BY MOUTH DAILY AT LEAST 30 MINUTES PRIOR TO FIRST MEAL OF THE DAY OR OTHER MEDICATIONSAuthorizing Provider: HASEEB SOLIS User: KIZZY VILLAVICENCIO * Telephone Encounter - Kizzy Villavicencio [facility] - 07/30/2022 1:34 PM EDTPending Prescriptions: Disp Refills traMADol HCl 50 MG Oral Tablet (Ultram) 80 Tab*0 Sig: TAKE ONE TABLET EVERY 6 HOURS NEEDED FOR SEVERE PAIN Signed Prescriptions: Disp Refills Levothyroxine Sodium 75 MCG Oral Tablet (L*90 Tab*2 Sig: TAKE 1 TABLET BY MOUTH DAILY AT LEAST 30 MINUTES PRIOR TO FIRST MEAL OF THE DAY OR OTHER MEDICATIONS Authorizing Provider: HASEEB SOLIS Ordering User: KIZZY VILLAVICENCIO * Telephone Encounter - Kizzy Villavicencio RP - 07/30/2022 1:31 PM EDT I have reviewed the patients controlled substance dispensing history in the Prescription Drug Monitoring Program in compliance with the [facility] regulations before prescribing a controlled substance. PDMP checked on 07/30/2022. Pending Prescriptions: Disp Refills traMADol HCl 50 MG Oral Tablet (Ultram) [*80 Tab*0 Sig: TAKE ONE TABLET EVERY 6 HOURS NEEDED FOR SEVERE PAIN Signed Prescriptions: Disp Refills Levothyroxine Sodium 75 MCG Oral Tablet (L*90 Tab*2 Sig: TAKE 1 TABLET BY MOUTH DAILY AT LEAST 30 MINUTES PRIOR TO FIRST MEAL OF THE DAY OR OTHER MEDICATIONS Authorizing Provider: HASEEB SOLIS Ordering User: KIZZY VILLAVICENCIO Last Visit: 05/27/2022 (in office), Visit date not found (telemedicine) Next Visit: 10/31/2022 Date medication was last filled: 06/16/22 Date medication is due for refill: 07/05/22 Pharmacy: [facility] [address] Is this request for a controlled substance? Yes and Urine Drug Screen Not completed Toxicology results: No results found for this or any previous visit. Please approve if appropriate. Thank you, Kizzy Villavicencio, PharmD Clinical Pharmacist [facility]ized [facility] ([facility]) (Formerly [facility]) [phone] 07/30/2022, 1:33 PM documented in this encounter Plan of Treatment Upcoming Encounters Date Type Specialty Care Team Description 10/01/2022 Office Visit Orthopedics Gordo Bunch PA-C [address] [place] [address] 10/28/2022 Laboratory Laboratory [facility] [address] [place] [address] 10/31/2022 Office Visit Family Medicine Haseeb Solis MD [address], [place] [phone] Health Maintenance Due Date Last Done Comments DXA Scan 1952 Mammogram 1992 Cologuard 1997 Colonoscopy 1997 Colorectal Cancer Screening 1997 Fecal Occult Blood Test 1997 Sigmoidoscopy 1997 Zoster Vaccines (1 of 2) 2002 COVID-19 Vaccine (3 - Booster for Pfizer series) 07/07/2020 05/12/2020, 04/21/2020 DIABETES-FOOT EXAM 07/27/2021 07/27/2020, 0 11/01/2018, 11/02/2017, Additional history exists CKD HGB USE SMARTSET 04798 05/06/202205/06, 11/07/2019, 02/15/2018 DIABETES-EYE EXAM 07/03/2022 07/03/2021, , 11/02/2006 Albumin/Creatinine Ratio 09/19/2022 022, 02/21/2019, 03/01/2018, Additional history exists CKD PHOS USE SMARTSET 65145 09/19/202208/24, 11/07/2019, 04/02/2018 GFR 09/29/2022 04/01/2022, 08/24, [...] left knee Pain in joint, lower leg Hypothyroidism, unspecified type documented in this encounter Care Teams Knuckler Relationship Specialty Start Date End Date Haseeb Solis MD [address] [place] [address] PCP - General 12/12/99 documented as of this encounter
--- OUTSIDE RECORDS SUMMARY | 2023-01-01 10:54 | External Medical Summary | Summary of Care ---
Author Name Unknown Organization [facility] Address [address] [place] [address] Phone [phone] Care Team Providers Care School Counsellor Name Role Phone Jono Chairez MD Primary Care Provider [phone] Reason for Visit * Reason Onset Date Comments Health Maintenance 07/16/2022 Encounter Details Date Type Department Care Team Description 07/16/2022 Telephone [facility] [address] [place] [address] Jono Chairez MD [address] [place] [address] Health Maintenance Allergies No known active allergiesdocumented as of this encounter (statuses as of 07/16/2022) Medications Medication Sig Dispensed Refills Start Date End Date Status Glucose Blood (RELION PRIME TEST) STRP Test 6 times a day E 11.9 100 Strip 5 12/06/2018 Active Insulin Syringe-Needle U-100 31G X 5/16" 0.5 ML (UltiCare Insulin Syringe) USE WITH LANTUS AND NOVOLIN INSULIN 5 TIMES DAILY 500 Each 3 11/20/2021 Active Vitamin D3 Super Strength 50 MCG (1999 UT) Oral Tablet (Cholecalciferol) Take by mouth . 0 Ac tive Insulin Glargine 100 UNIT/ML Subcutaneous Solution (Lantus)Indications :Type 2 diabetes mellitus with hemoglobin A1c goal of less than 8.0% ([facility]) INJECT 50 UNITS UNDER THE SKIN EVERY MORNING 60 mL 1 01/29/2022 Active NovoLIN R ReliOn 100 UNIT/ML Injection Solution (insulin REGULAR human)Indications:T ype 2 diabetes mellitus with hemoglobin A1c goal of less than 8.0% ([facility]) USE DIRECTED BY SLIDING SCALE (5 TO 24 UNITS NEEDED BEFORE MEALS AND AT BEDTIME.) 90 mL 1 01/29/2022 Active Enalapril Maleate 20 MG Oral Tablet (Vasotec)Indication s:HTN, goal below 140/90 TAKE ONE TABLET BY MOUTH EVERY DAY 100 Tablet 1 04/09/2022 Active Levothyroxine Sodium 75 MCG Oral Tablet (Levoxyl)Indication s:Hypothyroidism, unspecified type TAKE ONE TABLET BY MOUTH EVERY DAY AT LEAST 30 MINUTES PRIOR TO FIRST MEAL OF THE DAY OR OTHER MEDICATIONS 90 Tablet 0 05/07/2022 Active Omeprazole 20 MG Oral Capsule Delayed Release (PriLOSEC)Indicatio ns:Gastroesophageal reflux disease without esophagitis Take 1 Capsule by mouth in the morning. 1 hour before the first meal of the day.. 90 Capsule 3 05/27/2022 Active Simvastatin 20 MG Oral Tablet (Zocor)Indications: Dyslipidemia, goal LDL below 100 Take 1 Tablet by mouth at bedtime. 90 Tablet 3 05/27/2022 Active traMADol HCl 50 MG Oral Tablet (Ultram)Indications :Chronic pain of left knee TAKE ONE TABLET EVERY 6 HOURS NEEDED FOR SEVERE PAIN 80 Tablet 0 06/12/2022 Active Furosemide 20 MG Oral Tablet (Lasix)Indications: Leg swelling TAKE ONE TABLET BY MOUTH THREE DAYS OF THE WEEK 50 Tablet 1 06/25/2022 Active Gabapentin 100 MG Oral Capsule (Neurontin)Indicati ons:Neuropathy TAKE ONE CAPSULE BY MOUTH IN THE MORNING, ONE CAPSULE IN THE AFTERNOON AND TWO CAPSULES IN THE EVENING 360 Capsule 1 06/25/2022 Active documented as of this encounter (statuses as of 07/16/2022) Active Problems Problem Noted Date Hypertensive kidney disease with stage 3 a chronic kidney disease 05/15/2021 Chronic kidney disease, stage 3a 021 Overview: Per CKD protocol Type 2 diabetes mellitus wit h stage 3a chronic kidney disease and hypertension 07/03/2020 Overview: Per CKD protocol Gastroesophageal reflux disease without esophagitis 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 11/02 Morbid obesity with BMI of 50.0-59.9, ad ult 06/29/2017 Type 2 diabetes mellitus with hemoglobin A1c goal of less than 8.0% 10/17/2014 Overview: ICD-10 update of inactive term HTN, goal below 140/90 04/25/2014 Dyslipidemia, goal LDL below 100 010 Acquired hypothyroidism 11/05/2009 SPINAL STENOSIS-LUMBAR 08/27/2005 documented as of this encounter (statuses as of 07/16/2022) Resolved Problems Problem Noted Date Resolved Date [...] BILATERAL UE VENOUS THROMBOSIS NOS 01/02/2011 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 1 03/04/2010 [...] as of this encounter (statuses as of 07/16/2022) Immunizations Name Administration Dates Next Due COVID-19 [...] encounter Miscellaneous Notes * Telephone Encounter - Angela Marinelli LPN - 07/16/2022 3:28 PM EDT Care Gaps Comprehensive Care Outreach Last Office/Telemedicine Visit: 05/27/2022 (in office), Visit date not found (telemedicine) Next Office Visit: 10/31/2022 Hemoglobin AIC Results: Lab Results Component Value Date/Time HEMOGLOBIN A1C - [facility] 9.0 (H) 04/01/2022 08:54 AM HEMOGLOBIN A1C - [facility] 8.0 (H) 09/19/2021 08:55 AM HEMOGLOBIN A1C - [facility] 7.9 (H) 05/06/2021 08:02 AM HEMOGLOBIN A1C - [facility] 8.1 (H) 03/12/2020 07:51 AM HEMOGLOBIN A1C - [facility] 8.7 (H) 11/07/2019 07:54 AM HEMOGLOBIN A1C - [facility] 7.5 (H) 06/28/2019 08:47 AM Reviewed Health Maintenance below: Health Maintenance Topic Date Due DXA Scan Never done Mammogram Never done Colorectal Cancer Screening Never done Zoster Vaccines (1 of 2) Never done COVID-19 Vaccine (3 - Booster for Pfizer series) 07/07/2020 DIABETES-FOOT EXAM 07/27/2021 CKD HGB USE SMARTSET 14928 05/06/2022 DIABETES-EYE EXAM 07/03/2022 Albumin/Creatinine Ratio 09/19/2022 CKD PHOS USE SMARTSET 87665 09/19/2022 HbA1c 09/29/2022 GFR 09/29/2022 Influenza Vaccine (FLU shot) (Season Ended) 2022 dexa declined Mamm declined Colon declined Eye scheduled in Feb Labs/urine fall Ordered and scheduled Care Gap Outreach Action Taken: Spoke to patient documented in this encounter Plan of Treatment Upcoming Encounters Date Type Specialty Care Team Description 10/01/2022 Office Visit Orthopedics Gordo Bunch PA-C [address] [place] [id number] 10/28/2022 Laboratory Laboratory [facility] [address] [place] [address] 10/31/2022 Office Visit Family Medicine Jono Chairez MD [address] [place] [address] Scheduled Orders Name Type Priority Associated Diagnoses Orde r Schedule HGB Lab Routine Chronic kidney disease, unspecified CKD stage Expected: 10/16/2022, Expires: 07/17/2023 ALBUMIN / CREATININE RATIO, URINE Lab Routine Chronic kidney disease, unspecified CKD stage Expected: 10/16/2022 (Approximate), Expires: 07/17/2023 PHOSPHORUS Lab Routine Chronic kidney disease, unspecified CKD stage Expected: 10/16/2022, Expires: 07/17/2023 Health Maintenance Due Date Last Done Comments DXA Scan 1952 Mammogram 1992 Cologuard 1997 Colonoscopy 1997 Colorectal Cancer Screening 1997 Fecal Occult Blood Test 1997 Sigmoidoscopy 1997 Zoster Vaccines (1 of 2) 2002 COVID-19 Vaccine (3 - Booster for Pfizer series) 07/07/2020 05/12/2020, 04/21/2020 DIABETES-FOOT EXAM 07/27/2021 07/27/2020, 0 11/01/2018, 11/02/2017, Additional history exists CKD HGB USE SMARTSET 51245 05/06/202205/06, 11/07/2019, 02/15/2018 DIABETES-EYE EXAM 07/03/2022 07/03/2021, , 11/02/2006 Albumin/Creatinine Ratio 09/19/2022 022, 02/21/2019, 03/01/2018, Additional history exists CKD PHOS USE SMARTSET 98772 09/19/2022 07/09/2021, 11/07/2019, 04/02/2018 GFR 09/29/2022 04/01/2022, 08/24, 05/06/2021, [...] of this encounter Visit Diagnoses Diagnosis Chronic kidney disease, unspecified CKD stage- Primary documented in this encounter Care Teams School Counsellor Relationship Specialty Start Date End Date Jono Chairez MD [address] [place] [address] PCP - General 12/12/99 documented as of this encounter
[2023-01-01 19:37] LABS: CK Total 3092 U/L (29-143); CK-BB None Detected (None Detected); CK-MB 1 % (<5); CK-MM 99 % (95-100)
== END 2022-12-30 15:47 | disposition home or self-care (01) | DRG 871 ==
LOC: ED 19:00 → 2N 12-26 01:53 → SUATTDRO 12-26 01:53 → 2N 12-26 02:50